=== PATIENT | female | born 1985 | race Caucasian/White ===

== ENCOUNTER 2024-08-06 16:43 | Outpatient (OUT) | payer OTHER, SELFPAY ==
--- NOTE | 2024-08-06 | US_ITS ---
[address] [address] Patient Name: HYACINTH HOLT MRN: [id number] date: 1985 Sex: F Assigned Patient Location: US Current Patient Location: Accession/Order Number: [id number] Exam Date: 08/06/2024 17:05 Report Date: 08/07/2024 00:45 At the request of: SHANNON KONG Procedure: US OB cervical length EXAMINATION: US OB anatomy, US OB cervical length HISTORY: RELATED CONDITION IN SECOND TRIMESTER O26.92 COMPARISON: No relevant comparison available. TECHNIQUE: Transabdominal sonographic examination was performed for obstetrical and evaluation. FINDINGS: Number: 1 Heart Rate: 146.74 bpm H.B. /min Amniotic Fluid Volume: Subjectively normal Placental Location: Anterior with lower margin at the edge of internal os. Cervix Length: 4.33 cm ; closed. ANATOMY: Normal Structures -cerebellum, choroid plexus, cisterna magna, lateral cerebral ventricles, orbits, midline falx, hard palate, four-chamber heart, RVOT, LVOT, stomach, kidneys, bladder, umbilical cord insertion into abdomen, three-vessel cord, cervical spine, thoracic spine, lumbar spine, sacral spine, right upper extremity, left upper extremity, right lower extremity, left lower extremity. SUBOPTIMALLY SEEN: Suspect echogenic focus within left cardiac ventricle. Suboptimal visualization of the cardiac outflow tracts, spine, and extremities due to movement. ABNORMALITIES: None BIOMETRY: BPD: 4.74 cm; 20 weeks 2 days; 39 % HC: 18.08 cm; 20 weeks 3 days; 37.80 % AC: 17.03 cm; 22 weeks 0 days; 85.80 % FL: 3.41 cm; 20 weeks 5 days; 46.60 % EFW:412.98 g; 82.80 % FL/AC: 20.02 FL/BPD: 71.94 HC/AC: 1.06 GESTATIONAL AGE: Age by EDC: 20 weeks 4 days Age by current US: 20 weeks 6 days BERT by current US: 2024-12-18 BERT by EDC: 2024-12-20 US/US OB cervical length IMPRESSION: 1. Single live intrauterine with growth detailed above. 2. Questionable echogenic focus within left cardiac ventricle. Follow-up recommended 3. Suboptimal visualization of the cardiac outflow tracts, spine, extremities due to movement. 4. Anterior, marginal placenta. Follow-up admitted. Electronically authenticated by: ANGEL VILLEDA Date: 08/07/2024 00:45
--- NOTE | 2024-08-06 | US_ITS ---
[address] [address] Patient Name: HYACINTH HOLT MRN: [id number] date: 1985 Sex: F Assigned Patient Location: US Current Patient Location: Accession/Order Number: [id number] Exam Date: 08/06/2024 17:05 Report Date: 08/07/2024 00:45 At the request of: SHANNON KONG Procedure: US OB anatomy EXAMINATION: US OB anatomy, US OB cervical length HISTORY: RELATED CONDITION IN SECOND TRIMESTER O26.92 COMPARISON: No relevant comparison available. TECHNIQUE: Transabdominal sonographic examination was performed for obstetrical and evaluation. FINDINGS: Number: 1 Heart Rate: 146.74 bpm H.B. /min Amniotic Fluid Volume: Subjectively normal Placental Location: Anterior with lower margin at the edge of internal os. Cervix Length: 4.33 cm ; closed. ANATOMY: Normal Structures -cerebellum, choroid plexus, cisterna magna, lateral cerebral ventricles, orbits, midline falx, hard palate, four-chamber heart, RVOT, LVOT, stomach, kidneys, bladder, umbilical cord insertion into abdomen, three-vessel cord, cervical spine, thoracic spine, lumbar spine, sacral spine, right upper extremity, left upper extremity, right lower extremity, left lower extremity. SUBOPTIMALLY SEEN: Suspect echogenic focus within left cardiac ventricle. Suboptimal visualization of the cardiac outflow tracts, spine, and extremities due to movement. ABNORMALITIES: None BIOMETRY: BPD: 4.74 cm; 20 weeks 2 days; 39 % HC: 18.08 cm; 20 weeks 3 days; 37.80 % AC: 17.03 cm; 22 weeks 0 days; 85.80 % FL: 3.41 cm; 20 weeks 5 days; 46.60 % EFW:412.98 g; 82.80 % FL/AC: 20.02 FL/BPD: 71.94 HC/AC: 1.06 GESTATIONAL AGE: Age by EDC: 20 weeks 4 days Age by current US: 20 weeks 6 days BERT by current US: 2024-12-18 BERT by EDC: 2024-12-20 US/US OB anatomy IMPRESSION: 1. Single live intrauterine with growth detailed above. 2. Questionable echogenic focus within left cardiac ventricle. Follow-up recommended 3. Suboptimal visualization of the cardiac outflow tracts, spine, extremities due to movement. 4. Anterior, marginal placenta. Follow-up admitted. Electronically authenticated by: ANGEL VILLEDA Date: 08/07/2024 00:45
== END 2024-08-06 16:44 | disposition home or self-care (01) ==
PROVIDERS: PCP Family Medicine; Visit Provider Midwife
DX: O26.92 Pregnancy related conditions, unspecified, second trimester (principal); O44.22 Partial placenta previa NOS or without hemorrhage, second trimester; Z3A.20 20 weeks gestation of pregnancy
CPT/HCPCS: 76805; 76817

== ENCOUNTER 2024-08-24 17:39 | Outpatient (OUT) | payer OTHER, SELFPAY ==
--- NOTE | 2024-08-24 | US_ITS ---
[address] [address] Patient Name: HYACINTH HOLT MRN: [id number] date: 1985 Sex: F Assigned Patient Location: US Current Patient Location: Accession/Order Number: [id number] Exam Date: 08/24/2024 17:50 Report Date: 08/25/2024 00:59 At the request of: SHANNON KONG Procedure: US OB cervical length EXAMINATION: US OB placenta, US OB cervical length, US OB incomplete anatomy HISTORY: Marginal placenta COMPARISON: Ultrasound OB anatomy 08/06/2024 FINDINGS: HEART RATE: 141 bpm AMNIOTIC FLUID: Subjectively normal PLACENTA: Anterior with lower margin 7.8 cm from os; grade 0. ANATOMY: Extremities, cardiac outflow tracts, four-chamber heart, and spine; no appreciable abnormality. CERVIX: 4.8 cm; closed. AGE BY LMP: 23 weeks 1 day BERT BY LMP: 12/20/2024 US/US OB cervical length IMPRESSION: 1. Single live intrauterine . 2. Adequate visualization of the extremities, cardiac outflow track, four-chamber heart, and spine. The previously seen echogenic focus within left cardiac ventricle is not seen on today's study. 3. Anterior placenta without previa. Electronically authenticated by: ANGEL VILLEDA Date: 08/25/2024 00:59
--- NOTE | 2024-08-24 17:42 | US_ITS ---
The [address] [address] Patient Name: HYACINTH HOLT MRN: [id number] date: 1985 Sex: F Assigned Patient Location: US Current Patient Location: Accession/Order Number: [id number] Exam Date: 08/24/2024 17:50 Report Date: 08/25/2024 00:59 At the request of: SHANNON KONG Procedure: US OB placenta EXAMINATION: US OB placenta, US OB cervical length, US OB incomplete anatomy HISTORY: Marginal placenta COMPARISON: Ultrasound OB anatomy 08/06/2024 FINDINGS: HEART RATE: 141 bpm AMNIOTIC FLUID: Subjectively normal PLACENTA: Anterior with lower margin 7.8 cm from os; grade 0. ANATOMY: Extremities, cardiac outflow tracts, four-chamber heart, and spine; no appreciable abnormality. CERVIX: 4.8 cm; closed. AGE BY LMP: 23 weeks 1 day BERT BY LMP: 12/20/2024 US/US OB placenta IMPRESSION: 1. Single live intrauterine . 2. Adequate visualization of the extremities, cardiac outflow track, four-chamber heart, and spine. The previously seen echogenic focus within left cardiac ventricle is not seen on today's study. 3. Anterior placenta without previa. Electronically authenticated by: ANGEL VILLEDA Date: 08/25/2024 00:59
--- OUTSIDE RECORDS SUMMARY | 2024-08-24 17:43 | XMS_ITS | CCD ---
Author Organization [facility] Care Team Providers Care [employer] S[employer] Person Name Role Phone Provider, None Unavailable Unavailable Omley, Brandon H Unavailable Unavailable Omley, Brandon H Unavailable Unavailable Omley, Brandon H Unavailable Unavailable Omley, Brandon H Unavailable Unavailable Provider, None Unavailable Unavailable PROSPER LEUNG Unavailable Unavailable ADAPPA, SUPA Unavailable Unavailable KAMIREDDY, ADIREDDY Unavailable Unavailable REGGIE HORVATH Attending Unavailable REGGIE HORVATH Admitting Unavailable Melissa Daniel Unavailable Valentina Sadler MD Primary Care Provider [phone] Dat DAYCARE PROVIDER, Aria Cespedes Unavailable Xavier CRAIG, Fina Hinton Unavailable Xavier CRAIG, Fina Hinton Unavailable FINA BARTON Attending Unavailable FINA BARTON Attending Unavailable BANDAR LOREDO Attending Unavailable SHANNON FELIX Attending Unavailable SHANNON FELIX Referring Unavailable SHANNON FELIX Referring Unavailable SHANNON FELIX Attending Unavailable FINA BARTON Attending Unavailable SHANNON FELIX Attending Unavailable SHANNON FELIX Referring Unavailable SHANNON FELIX Attending Unavailable Allergies Allergy Classification Reported Allergen(s) Allergy Type Date of Onset Reaction(s) Facility (1 source) NITROFURANTOIN, MACROCRYSTALS / Nitrofurantoin, Monohydrate Drug Allergy vomiting [facility] Other (14 sources) Nitrofurantoin Drug Allergy 3 GI intolerance [facility] Work Phone: Medications Current Medications Medication Drug Class(es) Dates Sig (Normalized) Sig (Original) 168 HR ethinyl estradiol 0.82138 MG/HR / norelgestromin 0.82167 MG/HR Transdermal System [Zafemy] (1 source) Zafemy 150-35 MCG/24HR Transdermal for 84 Days Active metroNIDAZOLE 0.0075 mg/mg vaginal gel (1 source) Nitroimidazole Antimicrobial Start: 03-27-2024 End: 04-03-2024 metroNIDAZOLE (Metrogel) 0.75 % vaginal gel Indications: Bacterial vaginosis Insert into the vagina at bedtime for 7 days 70 g 03/27/2024 04/03/2024 Active ondansetron 8 mg disintegrating oral tablet (5 sources) Serotonin-3 Receptor Antagonist Start: 05-11-2024 take 1 tablet by mouth every eight hours as needed ondansetron ODT (Zofran-ODT) 8 MG disintegrating tablet Take 8 mg by mouth every 8 (eight) hours if needed 05/11/2024 Active predniSONE 20 mg oral tablet (2 sources) Start: 10-04-2022 take 1 tablet by mouth every twelve hours prednisone 20 MG 1 tablet Orally Twice a day for 5 days Sep, Active predniSONE 20 MG TAKE 1 TABLET BY MOUTH EVERY DAY WITH FOOD FOR 3 DAYS Oral for 3 Days Not-Taking Completed/Discontinued Medications Medication Drug Class(es) Dates Sig (Normalized) Sig (Original) azithromycin 250 mg oral tablet (1 source) Macrolide Antimicrobial Azithromycin 250 MG TAKE 1 TABLET BY MOUTH EVERY DAY FOR 5 DAYS Oral for 5 Days Not-Taking cephalexin 500 mg oral capsule (2 sources) Cephalosporin Antibacterial Start: 06-18-2024 End: 06-21-2024 take 1 capsule by mouth in the morning, then take 1 capsule by mouth in the evening, then take 1 capsule by mouth at bedtime cephalexin (Keflex) 500 MG capsule Indications: Acute cystitis without hematuria Take 1 capsule (500 mg) by mouth in the morning and 1 capsule (500 mg) in the evening and 1 capsule (500 mg) before bedtime. Do all this for 3 days. 9 capsule 06/18/2024 06/21/2024 21 day ethinyl estradiol 0.737620 mg/hr / etonogestrel 0.005 mg/hr vaginal system (5 sources) Progestin, Estrogen Start: 03-26-2024 End: 05-10-2024 etonogestrel-ethiny l estradiol (Nuvaring) 0.12-0.015 MG/24HR vaginal ring Indications: Encounter for gynecological examination without abnormal finding Insert 1 Ring into the vagina See administration instructions 1 every 3 weeks as directed then remove for 1 week 3 each 3 03/26/2024 05/10/2024 Discontinued (Therapy completed) Ethinyl Estradiol / norelgestromin (1 source) Progestin, Estrogen Xulane Not-T aking nitrofurantoin, macrocrystals 25 mg / nitrofurantoin, monohydrate 75 mg oral capsule (1 source) Nitrofuran Antibacterial Start: 03-21-2021 take 1 capsule by mouth every twelve hours Macrobid 100 MG 1 capsule with food Orally every 12 hrs for 5 days Mar, Not-Taking Problems Active Problems Problem Classification Problem Date Documented Da te Episodic/Chronic Anxiety disorders (20 sources) Panic attack; Translations: [Panic disorder [episodic paroxysmal anxiety]] Onset: 05-02-2017 01-12-2023 Chronic Genitourinary symptoms and ill-defined conditions (3 sources) Dysuria; Translations: [Dysuria] 06-18-2024 Episodic Menstrual disorders (20 sources) Irregular periods; Translations: [Irregular menstruation, unspecified] Onset: 09-17-2020 01-12-2023 Chronic Miscellaneous mental health disorders (14 sources) Primary insomnia; Translations: [Primary insomnia] Onset: 10-18-2016 01-12-2023 Chronic Mood disorders (20 sources) Major depression, single episode; Translations: [Major depressive disorder, single episode, unspecified] Onset: 10-18-2016 01-12-2023 Chronic Other acquired deformities (14 sources) Kyphosis of thoracic spine; Translations: [Unspecified kyphosis, thoracic region] Onset: 07-26-2019 01-12-2023 Chronic Other complications of (2 sources) Finding related to ; Translations: [ related conditions, unspecified, second trimester] 07-09-2024 Episodic Other nervous system disorders (14 sources) Carpal tunnel syndrome of right wrist; Translations: [Carpal tunnel syndrome, right upper limb] Onset: 03-15-2019 01-12-2023 Chronic Other and delivery including normal (10 sources) ; Translations: [Encounter for supervision of normal , unspecified, unspecified trimester] 06-18-2024 Episodic Other upper respiratory infections (1 source) Acute pharyngitis, unspecified Episodic Polyhydramnios and other problems of amniotic cavity (4 sources) Subchorionic hematoma; Translations: [Other specified disorders of amniotic fluid and membranes, first trimester, not applicable or unspecified] 06-11-2024 Episodic Urinary tract infections (2 sources) Acute cystitis; Translations: [Acute cystitis without hematuria] 06-18-2024 Episodic Past or Other Problems Problem Classification Problem Date Documented Date Episodic/Chronic Acute and chronic tonsillitis (2 sources) Peritonsillar abscess; Translations: [Peritonsillar abscess] Onset: 02-11-2017 Episodic Inflammatory diseases of female pelvic organs (1 source) Bacterial vaginosis; Translations: [Acute vaginitis] 03-27-2024 Episodic Other nervous system disorders (14 sources) Skin sensation disturbance; Translations: [Unspecified disturbances of skin sensation] Onset: 03-19-2019 01-12-2023 Episodic Unclassified (1 source) Contact with and (suspected) exposure to covid-19 Z20.822 Viral infection (1 source) COVID-19 Results Test Name Value Interpretation Reference Range Facility US OB LIMITED 1+ FETUSESon 1 09-09-2023 US OB LIMITED 1+ FETUSES TITLE OF EXAM: OB Ultrasound: REASON FOR EXAM: Subchorionic hemorrhage. TECHNIQUE: Grayscale imaging is performed. COMPARISON: 05/22/2024 Measurements: heart rate: 151 bpm Cervix Length: 4.3 cm BERT: 12/20/2024 CLINICAL SUMMARY: A single intrauterine is noted in cephalic presentation. heart is observed with a heart rate of 151 BPM. motion and organs seen: body and limb movements are observed. Placenta is located anteriorly. Placenta is Grade 0/III Previous subchorionic hemorrhage has resolved. *This report is generated using voice recognition reporting (Six [employer] Data). On occasion [employer]Insider[employer] erroneously drops words from the report or replaces the spoken word with similar sounding words. Please call with any questions/concerns regarding this report.* Dictated and transcribed 07/11/24/dpd This report has been electronically signed and approved by the interpreting radiologist. Normal Not Available Bacteria identified Cx Nom ( U)on 06-20-2024 Appearance (U) Adequate [facility] Internal identifier for Provider [id number] [facility] Specimen source Nom (Unsp spec) URINE, CLEAN CATCH [facility] STATUS FINAL [facility] Performing Organizat ion Information Site ID: QPT Name: [facility] Address: Shana Tatum , [address] [place] [id number] Director: Bertram Fraser MD [facility] Laboratory - Microbiology an d Antimicrobial susceptibilityon 06-20-2024 Bacteria identified Cx Nom (U) SEE NOTE [facility] Comment on above: Less than 10,000 CFU/mL of single Gram positive organism isolated. No further testing will be performed. If clinically indicated, recollection using a method to minimize contamination, with prompt transfer to Urine Culture Transport Tube, is recommended. Urinalysis macro (dipstick) panel (U)on 06-18-2024 Bilirubin, UA Negative Negative - 4(70) +++ mg/dL [facility] Blood, UA Positive Negative - 50 Wally/mcL [facility] Clarity, UA Clear [facility] Color, UA Yellow [facility] Glucose, UA Negative Negative - 2000(110) ++++ mg/dL [facility] Interpretation and review of laboratory results Abnormal [facility] Ketones, UA Positive Negative - 160(16) ++++ mg/dL [facility] Leukocytes, UA 3+ Negative - 500+++ Doretha/mcL [facility] Nitrite, UA Negative Negative - Positive [facility] pH, UA 5 5 - 9 [facility] Protein, UA Trace Negative - 2000(20) ++++ mg/dL [facility] Spec Grav, UA 1.02 1 - 1.03 [facility] Urobilinogen, UA 0.2 0.2 - 12 mg/dL [facility] US for pregnancyon TITLE OF EXAM: OB Ultrasound: REASON FOR EXAM: Subchorionic hematoma. TECHNIQUE: Grayscale imaging is performed. Measurements: heart rate: 163 bpm Sac: 5.2 cm CRL: 3.3 cm GA for sonogram: 10.2 wk (09.4-11.0) Cervix Length: 4.2 cm BERT: 12/20/2024 CLINICAL SUMMARY: Endovaginal exam was performed. Early intrauterine is seen with positive cardiac activity. Yolk sac is identified and within normal limits. heart is observed with a heart rate of 163. Uterus and adnexae: Hypoechoic area measuring 2.8 x 4.0 x 1.2 cm -- Probable small subchorionic hemorrhage, slightly larger then 05/10/2024 Ovaries no visualized due to bowel gas. Limited study. Full anatomical survey not performed. Dictated and transcribed 05/23/24dpd This report has been electronically signed and approved by the interpreting radiologist. Electronically Signed Deshawn Ibarra M.D. 2024-05-23 17:07:53 IMAGING Deshawn Ibarra MD - 05/23/2024 TITLE OF EXAM: OB Ultrasound: REASON FOR EXAM: Subchorionic hematoma. TECHNIQUE: Grayscale imaging is performed. Measurements: heart rate: 163 bpm Sac: 5.2 cm CRL: 3.3 cm GA for sonogram: 10.2 wk (09.4-11.0) Cervix Length: 4.2 cm BERT: 12/20/2024 CLINICAL SUMMARY: Endovaginal exam was performed. Early intrauterine is seen with positive cardiac activity. Yolk sac is identified and within normal limits. heart is observed with a heart rate of 163. Uterus and adnexae: Hypoechoic area measuring 2.8 x 4.0 x 1.2 cm -- Probable small subchorionic hemorrhage, slightly larger then 05/10/2024 Ovaries no visualized due to bowel gas. Limited study. Full anatomical survey not performed. Dictated and transcribed 05/23/24dpd This report has been electronically signed and approved by the interpreting radiologist. Electronically Signed Deshawn Ibarra M.D. 2024-05-23 17:07:53 [facility] US for pregnancyOrdered By: Deshawn Ibarra on 05-23-2024 [facility] Work Phone: US OB < 14 WEEKS EARLYon US OB < 14 WEEKS EARLY TITLE OF EXAM: OB Ultrasound: REASON FOR EXAM: Subchorionic hematoma. TECHNIQUE: Grayscale imaging is performed. Measurements: heart rate: 163 bpm Sac: 5.2 cm CRL: 3.3 cm GA for sonogram: 10.2 wk (09.4-11.0) Cervix Length: 4.2 cm BERT: 12/20/2024 CLINICAL SUMMARY: Endovaginal exam was performed. Early intrauterine is seen with positive cardiac activity. Yolk sac is identified and within normal limits. heart is observed with a heart rate of 163. Uterus and adnexae: Hypoechoic area measuring 2.8 x 4.0 x 1.2 cm -- Probable small subchorionic hemorrhage, slightly larger then 05/10/2024 Ovaries no visualized due to bowel gas. Limited study. Full anatomical survey not performed. Dictated and transcribed 05/23/24/dpd This report has been electronically signed and approved by the interpreting radiologist. Electronically Signed Deshawn Ibarra M.D. 2024-05-23 17:07:53 Normal Not Available US for pregnancyon Radiology Study observation (narrative) [facility] CBC panel Auto (Bld)on 05-17 Erythrocyte distribution width (RBC) [Ratio] 12.4 % 11.0 - 15.0 % [facility] Hematocrit (Bld) [Volume fraction] 40.8 % 35.0 - 45.0 % [facility] Hemoglobin (Bld) [Mass/Vol] 13.7 g/dL 11.7 - 15.5 g/dL [facility] MCH (RBC) [Entitic mass] 29.4 pg 27.0 - 33.0 pg [facility] MCHC (RBC) [Mass/Vol] 33.6 g/dL 32.0 - 36.0 g/dL [facility] Comment on above: For adults, a slight decrease in the calculated MCHC value (in the range of 30 to 32 g/dL) is most likely not clinically significant; however, it should be interpreted with caution in correlation with other red cell parameters and the patient's clinical condition. MCV (RBC) [Entitic vol] 87.6 fL 80.0 - 100.0 fL [facility] Platelet mean volume (Bld) [Entitic vol] 10.1 fL 7.5 - 12.5 fL [facility] Platelets (Bld) [#/Vol] 255 10*3/uL [facility] RBC (Bld) [#/Vol] 4.66 10*6/uL [facility] WBC (Bld) [#/Vol] 7.6 10*3/uL [facility] Laboratory - Blood bankon ABO group Nom (Bld) O [facility] Blood group antibody screen Ql Detected [facility] Comment on above: Reference range No antibodies detected This assay is a screening test for the detection of red blood cell antibodies. The test is not to be used for pretransfusion screening or for the medical management of an alloimmunized . Rh Nom (Bld) Positive [facility] Comment on above: For additional information, please refer to http://Fluid-1.Flowline/faq/VVM047 (This link is being provided for informational/ educational purposes only.) Laboratory - Chemistry and C hemistry - challengeon 05-17-2024 TSH Qn 2.36 m[IU]/L mIU/L [facility] Comment on above: Reference Range > or = 20 Years 0.40-4.50 Ranges First trimester 0.26-2.66 Second trimester 0.55-2.73 Third trimester 0.43-2.91 Laboratory - Hematology and Cell countson 05-17-2024 HbA1c (Bld) [Mass fraction] 5.1 % NINF [facility] Comment on above: For the purpose of s creening for the presence of diabetes: <5.7% Consistent with the absence of diabetes 5.7-6.4% Consistent with increased risk for diabetes (prediabetes) > or =6.5% Consistent with diabetes This assay result is consistent with a decreased risk of diabetes. Currently, no consensus exists regarding use of hemoglobin A1c for diagnosis of diabetes in children. According to [place] Diabetes Association (ADA) guidelines, hemoglobin A1c <7.0% represents optimal control in non- diabetic patients. Different metrics may apply to specific patient populations. Standards of Medical Care in Diabetes(ADA). Laboratory - Microbiology an d Antimicrobial susceptibilityon 05-17-2024 HBV surface Ag IA Ql Non-Reactive NON-REACTIVE [facility] Comment on above: For additional information, please refer to http://education.Informantonline/faq/NJT237 (This link is being provided for informational/ educational purposes only.) HCV Ab IA Ql Non-Reactive NON-REACTIVE [facility] Comment on above: HCV antibody was non-reactive. There is no laboratory evidence of HCV infection. In most cases, no further action is required. However, if recent HCV exposure is suspected, a test for HCV RNA (test code 40028) is suggested. For additional information please refer to http://Fluid-1.Informantonline/faq/BRR52z3 (This link is being provided for informational/ educational purposes only.) HIV 1+2 Ab+HIV1 p24 Ag IA Ql Non-Reactive NON-REACTIVE [facility] Comment on above: HIV-1 antigen and HI V-1/HIV-2 antibodies were not detected. There is no laboratory evidence of HIV infection. PLEASE NOTE: This information has been disclosed to you from records whose confidentiality may be protected by state law. If your state requires such protection, then the state law prohibits you from making any further disclosure of the information without the specific written consent of the person to whom it pertains, or as otherwise permitted by law. A general authorization for the release of medical or other information is NOT sufficient for this purpose. For additional information please refer to http://Fluid-1.Informantonline/faq/SHO265 (This link is being provided for informational/ educational purposes only.) The performance of this assay has not been clinically validated in patients less than 2 years old. Reagin Ab RPR (S) [Titer] 1 {titer} High [facility] Reagin Ab RPR Ql (S) Reactive Abnormal NON-REACTIVE NO [facility] Comment on above: The RPR is a non-alis ponemal-specific test; therefore, a treponemal-specific confirmatory test should be performed unless prior syphilis infection has been documented for this patient. Rubella virus IgG Qn (S) 7.94 [IU]/mL Index [facility] Comment on above: Index Interpretation ----- <0.90 Not consistent with immunity 0.90-0.99 Equivocal > or = 1.00 Consistent with immunity The presence of rubella IgG antibody suggests immunization or past or current infection with rubella virus. T. pallidum Ab IF Ql (S) Non-Reactive Nonreactive [facility] Comment on above: The FTA-ABS is a treponemal assay that is intended to be used with other tests (e.g., RPR) as part of a diagnostic algorithm for syphilis. The preferred treponemal-specific tests for confirmation of a reactive RPR are Treponema pallidum Particle Agglutination (TP-PA) or other treponemal antibody assays. From Sexually Transmitted Infections Treatment Guidelines,2021 MMWR Recomm Rep 2020;70 (No. RR-4): pg.39. Laboratory - Miscellaneous t estson 05-17-2024 Reference Lab Test ID [id number] [facility] Reference Lab Test Name [id number] [facility] No Panel Informationon 05-17 CLIENT CONTACT: DOLLY BAIG [facility] COMMENT [facility] Comment on above: Please have the [facility] physician or his or her authorized players club representative sign a copy of this report and promptly return it by faxing it to: [phone] or by returning the form to your flat knitter helper. Interpretation and review of laboratory results Abnormal [facility] REPORT ALWAYS MESSAGE SIGNATURE [facility] Comment on above: The laboratory testing on this patient was verbally requested or confirmed by the ordering physician or his or her authorized players club representative after contact with an employee of [facility]. Federal regulations require that we maintain on file written authorization for all laboratory testing. Accordingly we are asking that the ordering physician or his or her authorized players club representative sign a copy of this report and promptly return it to the client technical professional. Signature: MULTIPLE COLLECTION TIMES FOR SAME TEST TYPE. [employer] Performing Organizat ion Information Site ID: QPT Name: [facility] Address: [address] [place] [id number] Director: Bertram Fraser MD [facility] Performing Organizat ion Information Site ID: AMD Name: [facility] Address: [address] [place] [address] [place] [address] Director: Dave Rodriguez M.D.,PhD [facility] Bacteria identified Cx Nom ( U)on 05-12-2024 Appearance (U) Adequate [facility] Internal identifier for Provider [id number] [facility] Specimen source Nom (Unsp spec) URINE [facility] STATUS FINAL [facility] Laboratory - Drug toxicology on 05-12-2024 4-Guchwezfmr-1,5-Dime thyl-3,3-Diphenylpyrr olidine (EDDP) Ql (U) Negative NINF - 100 ng/mL [facility] Amphetamines Ql (U) Negative NINF - 5 00 ng/mL [facility] Barbiturates Ql (U) Negative NINF - 3 00 ng/mL [facility] Benzodiazepines Ql (U) Negative NINF - 100 ng/mL [facility] Benzoylecgonine Ql (U) Negative NINF - 150 ng/mL [facility] Opiates Ql (U) Negative NINF - 100 ng/mL [facility] oxyCODONE Ql (U) Negative NINF - 100 ng/mL [facility] Phencyclidine Ql (U) Negative NINF - 25 ng/mL [facility] Tetrahydrocannabinol Screen method >20 ng/mL Ql (U) Negative NINF - 20 ng/mL [facility] Laboratory - Microbiology an d Antimicrobial susceptibilityon 05-12-2024 Bacteria identified Cx Nom (U) SEE NOTE [facility] Comment on above: Mixed genital butch isolated. These superficial bacteria are not indicative of a urinary tract infection. No further organism identification is warranted on this specimen. If clinically indicated, recollect clean-catch, mid-stream urine and transfer immediately to Urine Culture Transport Tube. Laboratory - Urinalysison Bacteria LM.HPF (Urine sed) [#/Area] NONE SEEN NONE SEEN /HPF [facility] Epithelial cells.squamous LM.HPF (Urine sed) [#/Area] 0-5 < OR = 5 /HPF [facility] Hyaline casts (Urine sed) [#/Area] NONE SEEN NONE SEEN /LPF [facility] RBC LM.HPF (Urine sed) [#/Area] NONE SEEN < OR = 2 /HPF [facility] WBC LM.HPF (Urine sed) [#/Area] 0-5 < OR = 5 /HPF [facility] N. gonorrhoeae DNA RAJINEDR+probe Ql (Cervical mucus)on 05-12-2024 C. trachomatis rRNA RAJINDER+probe Ql (Unsp spec) Not detected NOT DETECTED [facility] N. gonorrhoeae rRNA RAJINDER+probe Ql (Unsp spec) Not detected NOT DETECTED [facility] No Panel Informationon 05-12 (ALWAYS MESSAGE) [facility] Comment on above: See Note 1 Note 1 This drug testing is for medical treatment only. Analysis was performed as non-forensic testing and these results should be used only by healthcare providers to render diagnosis or treatment, or to monitor progress of medical conditions. For assistance with interpreting these drug results, please contact a [facility] Toxicology Specialist: [phone] ( ), M-F, 8am-6pm EST. The analytical perfo rmance characteristics of this assay, when used to test SurePath(TM) specimens have been determined by [facility]. The modifications have not been cleared or approved by the FDA. This assay has been validated pursuant to the CLIA regulations and is used for clinical purposes. For additional information, please refer to https://education.Informantonline/faq/YQX972 (This link is being provided for information/ educational purposes only.) Performing Organizat ion Information Site ID: QPT Name: [facility] Address: [address] [place] [address], [address] [place] [phone] Director: Bertram Fraser MD [facility] HCG ( test) Ql (U)o n 05-10-2024 Interpretation and review of laboratory results Abnormal [facility] [employer] [facility] Test, Ur Positive [facility] US OB < 14 WEEKS EARLYon US OB < 14 WEEKS EARLY TITLE OF EXAM: OB Ultrasound: REASON FOR EXAM: Dating, amenorrhea. TECHNIQUE: Grayscale imaging is performed. Measurements: heart rate: 165 bpm Sac: 3.3 cm CRL: 1.9 cm GA for sonogram: 8.4 wk (07.8-09.1) Cervix Length: 3.8 cm BERT: 12/20/2024 CLINICAL SUMMARY: Endovaginal exam was performed. Early intrauterine is seen with positive cardiac activity. Yolk sac is identified and within normal limits. heart is observed with a heart rate of 165. Uterus and adnexae: Hypoechoic area UT measuring 2.0 x 2.4 x 1.4 cm -- possible small fibroid. Limited study. Full anatomical survey not performed. Battery Filler notes: Ovaries not visualized due to bowel. Dictated and transcribed 05/11/24/dpd This report has been electronically signed and approved by the interpreting radiologist. Electronically Signed Deshawn Ibarra M.D. 2024-05-11 13:14:11 Normal Not Available COVID + FLU Quick Testingon 10-04-2022 SARS-CoV-2 (COVID-19) RNA RAJINDER+probe Ql (Unsp spec) positve [facility] Other COVID + FLU Quick Testing Negative [facility] Other Quick Strepon 10-04-2022 S. pyogenes Org specific cx Ql (Throat) Negative [facility] Other Quick Strep [facility] Other XR Chest 2 Views*on 08-20-19 22 XR Chest 2 Views* FINDINGS: No acute cardiac or pulmonary disease is identified. No worrisome mass lesions or infiltrates are seen. No pulmonary edema or pneumothorax is present. Cardiac silhouette size is normal. Skeletal structures are unremarkable. IMPRESSION: No acute cardiac or pulmonary disease. Report reported and signed by Neri Torres on 08/20/2021 1621 Normal [facility] Sales Coordinator Q - CULTURE,URINE,ROUTINEon 07-16-2021 CULTURE, URINE, ROUTINE SEE NOTE Normal [facility] Sales Coordinator Comment on above: Order Comment: [facility] performed at: QPT, [facility], [address] [place] [address], [address] [place] [address], [id number], Thiokol Operator: Bertram Fraser MD [facility] Collection Date/Time: [id number] [facility] Results Received Date/Time: [id number] [facility] Reported Date/Time: [id number] Result Comment: CULT URE, URINE, ROUTINE Micro Number: [id number] Test Status: Final Specimen Source: Urine Specimen Quality: Adequate Result: No Growth Performed By: #### 6 [id number] #### [facility] Default [address] [place] [address] Urine Cultureon 03-21-2021 Bacteria identified Cx Nom (U) ORGANISM: Escherichia coli (O:ESCCOL) Amma Count >100,000 Aerobic EMILE Charge (NUC86) - SUSCEPTIBILITY ORGANISM: O:ESCCOL ANTIBIOTIC INTERPRETATION EMILE Amikacin S <16 Ampicillin R >16 Ampicillin/Sulbactam I 1616/8 Aztreonam S <4 Cefazolin S <2 Cefepime S <2 Ceftazidime S <1 Ceftazidime/Avibactam S <8 Ceftriaxone S <1 Ciprofloxacin S <1 Ertapenem S <0.5 Gentamicin S <4 Levofloxacin S <2 Meropenem S <1 Nitrofurantoin S <32 Piperacillin/Tazobactam S <16 Tetracycline R >8 Tigecycline S <2 Tobramycin S <4 Trimethoprim/Sulfamethox azole R > S = SUSCEPTIBLE I = INTERMEDIATE R = RESISTANT BLANK = DATA NOT AVAILABLE, OR DRUG NOT ADVISABLE OR TESTED R* = RESISTANCE DUE TO EXTENDED SPECTRUM BETA-LACTAMASES ESBL = EXTENDED SPECTRUM BETA-LACTAMASE TFG = THYMIDINE-DEPENDENT STRAIN NEYMAR = BETA-LACTAMASE POSITIVE IB = INDUCIBLE BETA-LACTAMASE. APPEARS IN PLACE OF 'S' WITH SPECIES KNOWN TO POSSESS INDUCIBLE BETA-LACTAMASES. POTENTIALLY THEY MAY BECOME RESISTANT TO ALL B-LACTAM DRUGS. PERFORMED BY: [place] [address] PATHOLOGIST INTELLECTUAL PROPERTY LAWYER QIANA BRYSON M.D. [facility] Comment on above: Performed By: #### C UU #### [address] Chlamydia/GC/Trich NAAon Chlamydia Trachomotis, RAJINDER Negative Normal Negative [facility] Comment on above: Order Comment: Reaso n for Exam Dysuria Performed By: #### C UU #### [facility] [address] [place] [address] #### GCCHLAMTRI #### [facility] , Neisseria Gonorrhoeae, RAJINDER Negative Normal Negative [facility] Comment on above: Order Comment: Reaso n for Exam Dysuria Performed By: #### C UU #### [address] #### GCCHLAMTRI #### [facility] , Trichomonas RAJINDER Negative Normal Negative [facility] Comment on above: Order Comment: Reaso n for Exam Dysuria Result Comment: Perf ormed at: =G - [facility] [place] [address] [facility] [place], [place] [id number] Dial Lathe Operator: Kaleigh Arnold MD, Phone: [phone] PERFORMED BY: [place] [address] PATHOLOGIST INTELLECTUAL PROPERTY LAWYER QIANA BRYSON M.D. Performed By: #### C UU #### [address] #### GCCHLAMTRI #### [facility] , Urine Cultureon 03-01-2021 Bacteria identified Cx Nom (U) Reason for Exam Dysuria Urine ORGANISM: Citrobacter freundii (O:CITFRE) Amma Count >100,000 Aerobic EMILE Charge (NUC86) - SUSCEPTIBILITY ORGANISM: O:CITFRE ANTIBIOTIC INTERPRETATION EMILE Amikacin S <16 Ampicillin I 16 Ampicillin/Sulbactam IB <8/4 Aztreonam IB <4 Cefazolin R >16 Cefepime S <2 Ceftazidime IB <1 Ceftazidime/Avibactam S <8 Ceftriaxone IB <1 Ciprofloxacin S <1 Ertapenem S <0.5 Gentamicin S <4 Levofloxacin S <2 Meropenem S <1 Nitrofurantoin S <32 Piperacillin/Tazobactam IB <16 Tetracycline S <4 Tigecycline S <2 Tobramycin S <4 Trimethoprim/Sulfamethox azole S <2/38 S = SUSCEPTIBLE I = INTERMEDIATE R = RESISTANT BLANK = DATA NOT AVAILABLE, OR DRUG NOT ADVISABLE OR TESTED R* = RESISTANCE DUE TO EXTENDED SPECTRUM BETA-LACTAMASES ESBL = EXTENDED SPECTRUM BETA-LACTAMASE TFG = THYMIDINE-DEPENDENT STRAIN NEYMAR = BETA-LACTAMASE POSITIVE IB = INDUCIBLE BETA-LACTAMASE. APPEARS IN PLACE OF 'S' WITH SPECIES KNOWN TO POSSESS INDUCIBLE BETA-LACTAMASES. POTENTIALLY THEY MAY BECOME RESISTANT TO ALL B-LACTAM DRUGS. PERFORMED BY: [place] [address] PATHOLOGIST INTELLECTUAL PROPERTY LAWYER QIANA BRYSON M.D. [facility] Comment on above: Performed By: #### C UU #### [address] #### GCCHLAMTRI #### [facility] , Coding Summaryon 06-06-2017 Coding Summary CODING DATE: 017 [facility] STATUS: Home PAYOR: Commercial Insurance APC DESCRIPTION 5024 Level 4 Type A ED Visits ADMIT DX: REASON FOR VISIT DX: J02.9 Acute pharyngitis, unspecified FINAL DX: PRINCIPAL: J36 Peritonsillar abscess SECONDARY: PYMT PROC APC STAT DESCRIPTION DOCTOR NAME DATE NOTE: The code number assigned matches the documented diagnosis and / or procedure in the patient's chart. However, the narrative phrase printed from the coding software may appear abbreviated, or result in slightly different terminology. Revised Coded By: Alen Thomas Revised Date Saved: 02/21/2017 03:[address] [facility] Coding Summary CODING DATE: 017 [facility] STATUS: Discharge/Transfer to Another Hospital PAYOR: Commercial Insurance APC DESCRIPTION 5571 Level 1 Imaging with Contrast 5024 Level 4 Type A ED Visits 5693 Level 3 Drug Administration 5691 Level 1 Drug Administration ADMIT DX: REASON FOR VISIT DX: J02.9 Acute pharyngitis, unspecified FINAL DX: PRINCIPAL: J36 Peritonsillar abscess SECONDARY: PYMT PROC APC STAT DESCRIPTION DOCTOR NAME DATE NOTE: The code number assigned matches the documented diagnosis and / or procedure in the patient's chart. However, the narrative phrase printed from the coding software may appear abbreviated, or result in slightly different terminology. Revised Coded By: Alen Thomas Revised Date Saved: 02/21/2017 03:[address] [facility] Coding Summaryon 02-21-2017 Coding Summary CODING DATE: 017 [facility] STATUS: Home PAYOR: Commercial Insurance ADMIT DX: REASON FOR VISIT DX: J02.9 Acute pharyngitis, unspecified FINAL DX: PRINCIPAL: J36 Peritonsillar abscess SECONDARY: PROCEDURES DOCTOR NAME DATE NOTE: The code number assigned matches the documented diagnosis and / or procedure in the patient's chart. However, the narrative phrase printed from the coding software may appear abbreviated, or result in slightly different terminology. Coded By: Alen Thomas Date Saved: 02/21/2017 03:[address] [facility] Coding Summary CODING DATE: 017 [facility] STATUS: Discharge/Transfer to Another Hospital PAYOR: Commercial Insurance ADMIT DX: REASON FOR VISIT DX: J02.9 Acute pharyngitis, unspecified FINAL DX: PRINCIPAL: J36 Peritonsillar abscess SECONDARY: PROCEDURES DOCTOR NAME DATE NOTE: The code number assigned matches the documented diagnosis and / or procedure in the patient's chart. However, the narrative phrase printed from the coding software may appear abbreviated, or result in slightly different terminology. Coded By: Alen Thomas Date Saved: 02/21/2017 03:[address] [facility] Basic Metabolic Profon 02-14 (cont.) Normal [facility] Comment on above: Result Comment: Aver age GFR for 30-39 years old: 107 mL/min/1.73sq mChronic Kidney Disease: <60 mL/min/1.73sq mKidney failure: <15 mL/min/1.73sq meGFR calculated using average adult body mass. Additional eGFR calculator available at:http://[email or web address]/multiple_crcl_[email or web address] Memorial [facility] [address] [place] [address] Performed By: #### C BC, BMP ####[facility] [address] [place] [address] Anion gap 13 mmol/L Normal - [facility] Comment on above: Performed By: #### C BC, BMP ####[facility] [address] [place] [address] Calcium 8.5 mg/dL Low 8.6-10.4 [facility] Comment on above: Performed By: #### C BC, BMP ####[facility] [address] [place] [address] Chloride 105 mmol/L Normal 98-107 [facility] Comment on above: Performed By: #### C BC, BMP ####[facility] [place] [address] CO2 21 mmol/L Normal 20-31 [facility] Comment on above: Performed By: #### C BC, BMP ####[facility] [place] [address] Creatinine 0.69 mg/dL Normal 0.50-0.90 [facility] Comment on above: Performed By: #### C BC, BMP ####[facility] [place] [address] eGFR (non-black) mL/min/{1.73_m2} Normal >60 [facility] Comment on above: Performed By: #### C BC, BMP ####[address] [address] Glucose mass conc 95 mg/dL Normal 70-99 [facility] Comment on above: Performed By: #### C BC, BMP ####[facility] [place] [address] Potassium molar conc 4.3 mmol/L Normal 3.7-5.3 [facility] Comment on above: Performed By: #### C BC, BMP ####[address] [place] [address] Sodium 139 mmol/L Normal 135-144 [facility] Comment on above: Performed By: #### C BC, BMP ####[facility] [place] [address] Urea nitrogen 14 mg/dL Normal 6-20 [facility] Comment on above: Performed By: #### C BC, BMP ####[facility] [place] [address] BUN/CRE Ratio NOT REPORTED Normal 9-20 [facility] Comment on above: Performed By: #### C BC, BMP ####[address] [address] Staging: NOT REPORTED Normal [facility] Comment on above: Performed By: #### C BC, BMP ####[address] [address] CBCon 02-14-2017 Erythrocyte distribution width Auto Ratio (RBC) 12.8 % Normal 12.5-15.4 [facility] Comment on above: Performed By: #### C BC, BMP ####[address] [address] Erythrocytes (RBC) 4.09 10*6/uL Normal 4.0-5.2 [facility] Comment on above: Performed By: #### C BC, BMP ####[address] [address] Hematocrit (HCT) 34.2 % Low 36-46 [facility] Comment on above: Performed By: #### C BC, BMP ####[address] [address] Hemoglobin mass conc (Bld) 11.9 g/dL Low 12.0-16.0 [facility] Comment on above: Performed By: #### C BC, BMP ####[facility] [address] [address] MCH 29.0 pg Normal 26-34 [facility] Comment on above: Performed By: #### C BC, BMP ####[address] [address] MCHC mass conc (RBC) 34.7 g/dL Normal 31-37 [facility] Comment on above: Performed By: #### C BC, BMP ####[facility] [address] [place] [address] MCV 83.8 fL Normal 80-100 [facility] Comment on above: Performed By: #### C TAYLOR, BMP ####[address] [place] [address] Platelet mean volume (PMV) 9.8 fL Normal 6.0-12.0 [facility] Comment on above: Result Comment: [address] [address] Performed By: #### C TAYLOR, BMP ####[address] [address] Platelets 258 10*3/uL Normal 140-450 [facility] Comment on above: Performed By: #### C TAYLOR, BMP ####[address] [address] WBC (Leukocytes) 11.5 10*3/uL High 3.5-11.0 [facility] Comment on above: Performed By: #### C TAYLOR, BMP ####[address] [address] Discharge Summaryon 02-15-20 17 HIM IP Note OR Rod Straightener Normal [facility] Basic Metabolic Profon 02-13 (cont.) Normal [facility] Comment on above: Result Comment: Aver age GFR for 30-39 years old: 107 mL/min/1.73sq mChronic Kidney Disease: <60 mL/min/1.73sq mKidney failure: <15 mL/min/1.73sq meGFR calculated using average adult body mass. Additional eGFR calculator available at:http://www.Sensorist.com/multiple_crcl_2012.htm[address] [address] Performed By: #### C TAYLOR, BMP ####[address] [address] Anion gap 11 mmol/L Normal 9-17 [facility] Comment on above: Performed By: #### C BC, BMP ####[facility] [place] [address] Calcium 9.0 mg/dL Normal 8.6-10.4 [facility] Comment on above: Performed By: #### C TAYLOR, BMP ####[facility] [place] [address] Chloride 106 mmol/L Normal 98-107 [facility] Comment on above: Performed By: #### C TAYLOR, BMP ####[facility] [place] [address] CO2 22 mmol/L Normal 20-31 [facility] Comment on above: Performed By: #### C TAYLOR, BMP ####[facility] [place] [address] Creatinine 0.59 mg/dL Normal 0.50-0.90 [facility] Comment on above: Performed By: #### C TAYLOR, BMP ####[facility] [place] [address] eGFR (non-black) mL/min/{1.73_m2} Normal >60 [facility] Comment on above: Performed By: #### C BC, BMP ####[facility] [address] [place] [address] Glucose mass conc 144 mg/dL High 70-99 [facility] Comment on above: Performed By: #### C BC, BMP ####[facility] [address] [place] [address] Potassium molar conc 4.5 mmol/L Normal 3.7-5.3 [facility] Comment on above: Performed By: #### C TAYLOR, BMP ####[facility] [place] [address] Sodium 139 mmol/L Normal 135-144 [facility] Comment on above: Performed By: #### C BC, BMP ####[address] [place] [address] Urea nitrogen 10 mg/dL Normal 6-20 [facility] Comment on above: Performed By: #### C BC, BMP ####[facility] [address] [place] [address] BUN/CRE Ratio NOT REPORTED Normal 9-20 [facility] Comment on above: Performed By: #### C TAYLOR, BMP ####[facility] [address] [place] [address] Staging: NOT REPORTED Normal [facility] Comment on above: Performed By: #### C TAYLOR, BMP ####[facility] [address] [place] [address] C Throaton 02-13-2017 C Throat Ordered by Discern. Normal throat butch isolated No pathogens isolated Normal [facility] Comment on above: Performed By: #### 4 [id number] ####[facility] (DEFAULT)[address] [place] [address] CBCon 02-13-2017 Erythrocyte distribution width Auto Ratio (RBC) 13.2 % Normal 12.5-15.4 [facility] Comment on above: Performed By: #### C BC, BMP ####[facility] [address] [place] [address] Erythrocytes (RBC) 4.13 10*6/uL Normal 4.0-5.2 [facility] Comment on above: Performed By: #### C BC, BMP ####[facility] [address] [place] [address] Hematocrit (HCT) 34.7 % Low 36-46 [facility] Comment on above: Performed By: #### C BC, BMP ####[address] [place] [address] Hemoglobin mass conc (Bld) 12.0 g/dL Normal 12.0-16.0 [facility] Comment on above: Performed By: #### C BC, BMP ####[address] [place] [address] MCH 29.1 pg Normal 26-34 [facility] Comment on above: Performed By: #### C BC, BMP ####[address] [address] MCHC mass conc (RBC) 34.6 g/dL Normal 31-37 [facility] Comment on above: Performed By: #### C BC, BMP ####[address] [address] MCV 84.2 fL Normal 80-100 [facility] Comment on above: Performed By: #### C BC, BMP ####[address] [address] Platelet mean volume (PMV) 9.1 fL Normal 6.0-12.0 [facility] Comment on above: Result Comment: [facility] [address] [place] [address] Performed By: #### C BC, BMP ####[address] [address] Platelets 244 10*3/uL Normal 140-450 [facility] Comment on above: Performed By: #### C BC, BMP ####[address] [address] WBC (Leukocytes) 8.4 10*3/uL Normal 3.5-11.0 [facility] Comment on above: Performed By: #### C BC, BMP ####[address] [address] Basic Metabolic Profon 02-12 (cont.) Normal [facility] Comment on above: Result Comment: Aver age GFR for 30-39 years old: 107 mL/min/1.73sq mChronic Kidney Disease: <60 mL/min/1.73sq mKidney failure: <15 mL/min/1.73sq meGFR calculated using average adult body mass. Additional eGFR calculator available at:http://www.[email or web address]/multiple_crcl_2012.htmSelma Community Hospital [address] [place] [address] Performed By: #### C BC, BMP ####[facility] HospitalInStore Audio Network [address] [place] [address] Anion gap 14 mmol/L Normal 9-17 [facility] Comment on above: Performed By: #### C BC, BMP ####[facility] HospitalFridgeKselggybgyyl[address] [place] [address] Calcium 8.3 mg/dL Low 8.6-10.4 [facility] Comment on above: Performed By: #### C BC, BMP ####[facility] HospitalFridgeYdxorkxyiqgq[address] [place] [address] Chloride 104 mmol/L Normal 98-107 [facility] Comment on above: Performed By: #### C BC, BMP ####[facility] HospitalFridgeXfifsuvnxfak[address] [place] [address] CO2 17 mmol/L Low 20-31 [facility] Comment on above: Performed By: #### C BC, BMP ####[address] [place] [address] Creatinine 0.44 mg/dL Low 0.50-0.90 [facility] Comment on above: Performed By: #### C BC, BMP ####[address] [place] [address] eGFR (non-black) mL/min/{1.73_m2} Normal >60 [facility] Comment on above: Performed By: #### C BC, BMP ####[address] [place] [address] Glucose mass conc 104 mg/dL High 70-99 [facility] Comment on above: Performed By: #### C BC, BMP ####[facility] Hospital[facility] [address] [address] Potassium molar conc 4.2 mmol/L Normal 3.7-5.3 [facility] Comment on above: Performed By: #### C TAYLOR, BMP ####[address] [address] Sodium 135 mmol/L Normal 135-144 [facility] Comment on above: Performed By: #### C TAYLOR, BMP ####[address] [address] Urea nitrogen 7 mg/dL Normal 6-20 [facility] Comment on above: Performed By: #### C TAYLOR, BMP ####[address] [address] BUN/CRE Ratio NOT REPORTED Normal 9-20 [facility] Comment on above: Performed By: #### C TAYLOR, BMP ####[address] [address] Staging: NOT REPORTED Normal [facility] Comment on above: Performed By: #### C BC, BMP ####[facility] [place] [address] CBCon 02-12-2017 Erythrocyte distribution width Auto Ratio (RBC) 13.0 % Normal 12.5-15.4 [facility] Comment on above: Performed By: #### C BC, BMP ####[address] [address] Erythrocytes (RBC) 3.97 10*6/uL Low 4.0-5.2 [facility] Comment on above: Performed By: #### C BC, BMP ####[address] [address] Hematocrit (HCT) 33.6 % Low 36-46 [facility] Comment on above: Performed By: #### C BC, BMP ####[address] [address] Hemoglobin mass conc (Bld) 11.8 g/dL Low 12.0-16.0 [facility] Comment on above: Performed By: #### C TAYLOR, BMP ####[address] [address] MCH 29.7 pg Normal 26-34 [facility] Comment on above: Performed By: #### C BC, BMP ####[address] [address] MCHC mass conc (RBC) 35.0 g/dL Normal 31-37 [facility] Comment on above: Performed By: #### C BC, BMP ####[address] [address] MCV 84.6 fL Normal 80-100 [facility] Comment on above: Performed By: #### C BC, BMP ####[address] [address] Platelet mean volume (PMV) 8.6 fL Normal 6.0-12.0 [facility] Comment on above: Result Comment: [address] [place] [address] Performed By: #### C BC, BMP ####[address] [address] Platelets 236 10*3/uL Normal 140-450 [facility] Comment on above: Performed By: #### C BC, BMP ####[facility] [place] [address] WBC (Leukocytes) 11.3 10*3/uL High 3.5-11.0 [facility] Comment on above: Performed By: #### C BC, BMP ####[facility] [place] [address] .Auto Diff 1on 02-11-2017 Auto Baso % 0.1 % Low 0.2-2.0 [facility] Comment on above: Performed By: #### 1 [id number], [id number], [id number], [id number], [id number], [id number] ####[facility] (DEFAULT)[address] [place] [address] Auto [place] % 8 % Normal 1-12 [facility] Comment on above: Performed By: #### 1 [id number], [id number], [id number], [id number], [id number], [id number] ####[facility] (DEFAULT)[address] [place] [address] Auto Neut % 82 % Normal 44-88 [facility] Comment on above: Performed By: #### 1 [id number], [id number], [id number], [id number], [id number], [id number] ####[facility] (DEFAULT)[address] [place] [address] Baso Abs# 0.0 x10 Normal 0.0-0.2 [facility] Comment on above: Performed By: #### 1 [id number], [id number], [id number], [id number], [id number], [id number] ####[facility] (DEFAULT)[address] [place] [address] Eos Abs# 0.0 x10 Normal 0.0-0.4 [facility] Comment on above: Performed By: #### 1 [id number], [id number], [id number], [id number], [id number], [id number] ####[facility] (DEFAULT)[address] [place] [address] Eosinophils/100 leukocytes 0.2 % Low 0.9-4.0 [facility] Comment on above: Performed By: #### 1 [id number], [id number], [id number], [id number], [id number], [id number] ####[facility] (DEFAULT)[address] [place] [address] Lymphocytes 1.1 x10 Low 1.3-2.9 [facility] Comment on above: Performed By: #### 1 [id number], [id number], [id number], [id number], [id number], [id number] ####[facility] (DEFAULT)[address] [place] [address] Lymphocytes/100 leukocytes 9 % Low 14-48 [facility] [facility] Comment on above: Performed By: #### 1 [id number], [id number], 3398533, 26972973, 9626335, [id number] ####[facility] (DEFAULT)[address] [place] [address] [place] Abs# 1.0 x10 High 0.0-0.8 [facility] Comment on above: Performed By: #### 1 [id number], [id number], 8714033, 79146114, 1201364, [id number] ####[facility] (DEFAULT)[address] [place] [address] Neut Abs# 9.8 x10 High 1.5-9.2 [facility] Comment on above: Performed By: #### 1 [id number], [id number], 4949259, 30331249, 2662930, [id number] ####[facility] (DEFAULT)[address] [place] [address] CBC w/ Auto Diffon 7 Erythrocyte distribution width Auto Ratio (RBC) 12.3 % Normal 11.5-15.0 [facility] Comment on above: Performed By: #### 1 [id number], [id number], 2664990, 93428660, 5844545, [id number] ####[facility] (DEFAULT)[address] [place] [address] Erythrocytes (RBC) 4.48 x10 Normal 3.70-5.30 [facility] Comment on above: Performed By: #### 1 [id number], [id number], 5085158, 28129147, 5140895, [id number] ####[facility] (DEFAULT)[address] [place] [address] Hematocrit (HCT) 38.1 % Normal 33.7-40.4 [facility] Comment on above: Performed By: #### 1 [id number], [id number], 9975832, 01761100, 7677151, [id number] ####[facility] (DEFAULT)[address] [place] [address] Hemoglobin mass conc (Bld) 13.1 g/dL Normal 11.3-15.9 [facility] Comment on above: Performed By: #### 1 [id number], [id number], 6644918, 98287436, 6910166, [id number] ####[facility] (DEFAULT)[address] [place] [address] Man Diff? Auto Normal [facility] Comment on above: Performed By: #### 1 [id number], [id number], 5496698, 06095615, 9822117, [id number] ####[facility] (DEFAULT)[address] [place] [address] MCH 29 pg Normal 24-34 [facility] Comment on above: Performed By: #### 1 [id number], 3738199139, 9386058, 26512218, 1180350, 4399949505 ####[facility] (DEFAULT)[address] [place] [address] MCHC mass conc (RBC) 34 g/dL Normal 26-37 [facility] Comment on above: Performed By: #### 1 [id number], 1435583601, 8695600, 06725192, 2105692, 4770244074 ####[facility] (DEFAULT)[address] [place] [address] MCV 85 fL Normal 81-100 [facility] Comment on above: Performed By: #### 1 [id number], 2895074537, 7667804, 99934202, 6412059, 6066522143 ####[facility] (DEFAULT)[address] [place] [address]9714 Platelet mean volume (PMV) 9.2 fL Normal 6.3-10.2 [facility] Comment on above: Performed By: #### 1 [id number], 4719157825, 6106990, 32283027, 7743798, 7931756558 ####[facility] (DEFAULT)[address] [place] [address] 76[address] Platelets 269 x10 Normal 138-427 [facility] Comment on above: Performed By: #### 1 [id number], [id number], 8642558, 44405189, 8831149, [id number] ####[facility] (DEFAULT)[address] [place] [address] 23580 WBC (Leukocytes) 11.9 x10 Invalid Interpretation Code [facility] Comment on above: Performed By: #### 1 [id number], [id number], 8148881, 94497219, 1304750, [id number] ####[facility] (DEFAULT)[address] [place] [address] Standardon 02-11-2017 eGFR (non-black) mL/min/{1.73_m2} Invalid Interpretation Code [facility] Comment on above: Performed By: #### 1 [id number], 4790758812, 2799985, 39930403, 4609001, 7258298411 ####[facility] (DEFAULT)[address] [place] [address]7730 eGFR (non-black) mL/min/{1.73_m2} Invalid Interpretation Code [facility] Comment on above: Result Comment: Lockstitch Sleeve Maker jam Kidney disease could be indicated at eGFRs of less than 60 ml/min/1.73m2. Kidney Failure is indicated at less than 15 ml/min/1.73m2 Performed By: #### 1 [id number], 0997191561, 0946117, 62087557, 4053235, 3988017000 ####[facility] (DEFAULT)[address] [place] [address] Albumin 3.9 g/dL Normal 3.5-5.0 [facility] Comment on above: Performed By: #### 1 [id number], 2514605175, 8042846, 80533749, 0946183, 4860058408 ####[facility] (DEFAULT)[address] [place] [address] Albumin/Globulin Ratio 0.9 {ratio} Low 1.4-2.6 [facility] Comment on above: Performed By: #### 1 [id number], 7344104082, 7175719, 03013114, 3756528, 6973574045 ####[facility] (DEFAULT)[address] [place] [address] Alk Phos 58 IU/L Normal 32-91 [facility] Comment on above: Performed By: #### 1 [id number], 4590094495, 7654089, 77404137, 9089507, 0756488904 ####[facility] (DEFAULT)[address] [place] [address] ALT/SGPT 11.0 IU/L Low 14.0-54.0 [facility] Comment on above: Performed By: #### 1 [id number], 3488466873, 5443452, 84341024, 2212656, 5867512925 ####[facility] (DEFAULT)[address] [place] [address] 38739 Anion gap 11.0 mmol/L Normal 5.0-19.0 [facility] Comment on above: Performed By: #### 1 [id number], 7223102242, 2183504, 82218532, 9523869, 6032878204 ####[facility] (DEFAULT)[address] [place] [address] 14120 AST/SGOT 15 IU/L Normal 15-41 [facility] Comment on above: Performed By: #### 1 [id number], 2720600910, 5101936, 37892020, 2986323, 6216117334 ####[facility] (DEFAULT)[address] [place] [address]754 Bili Total 0.6 mg/dL Normal 0.3-1.2 [facility] Comment on above: Performed By: #### 1 [id number], 7455652226, 7421974, 67142183, 0266141, 1371831265 ####[facility] (DEFAULT)[address] [place] [address] 43888 BUN/Creatinine Ratio 8.0 mg/mg Normal 4.6-16.2 [facility] Comment on above: Performed By: #### 1 [id number], 0301507940, 2240073, 18635246, 5834855, 3085625981 ####[facility] (DEFAULT)[address] [place] [address] 50085 Calcium 9.0 mg/dL Normal 8.9-10.3 [facility] Comment on above: Performed By: #### 1 [id number], 1841160569, 2979038, 70251349, 6165473, 0189175747 ####[facility] (DEFAULT)[address] [place] [address] 52845 Chloride 103 mmol/L Normal 101-111 [facility] Comment on above: Performed By: #### 1 [id number], 7295434480, 1795607, 52298694, 9854479, 8550899665 ####[facility] (DEFAULT)[address] [place] [address] 95307 CO2 26 mmol/L Normal 21-32 [facility] Comment on above: Performed By: #### 1 [id number], 4655577422, 3758782, 74422332, 5617189, 4029939336 ####[facility] (DEFAULT)[address] [place] [address] 61762 Creatinine 0.60 mg/dL Normal 0.60-1.30 [facility] Comment on above: Performed By: #### 1 [id number], 1748836473, 0731331, 26347571, 4938194, 5110347635 ####[facility] (DEFAULT)[address] [place] [address] Globulin 4.3 g/dL Normal 1.5-4.3 [facility] Comment on above: Performed By: #### 1 [id number], 4772235668, 8206076, 28260612, 6647722, 8393244953 ####[facility] (DEFAULT)[address] [place] [address] 44662 Glucose mass conc 101.0 mg/dL Normal 74.0-118.0 [facility] Comment on above: Performed By: #### 1 [id number], 5723511973, 9478507, 25033033, 1834924, 5679147418 ####[facility] (DEFAULT)[address] [place] [address] 56348 Osmolality 269 mOsm/L Invalid Interpretation Code [facility] Comment on above: Performed By: #### 1 [id number], 2072911611, 6208672, 87656726, 0476666, 0140093525 ####[facility] (DEFAULT)[address] [place] [address] 00690 Potassium molar conc 3.9 mmol/L Normal 3.6-5.1 [facility] Comment on above: Performed By: #### 1 [id number], 6808814401, 6735024, 30102656, 4603209, 4034672567 ####[facility] (DEFAULT)[address] [place] [address] 43720 Protein 8.2 g/dL High 6.5-8.1 [facility] Comment on above: Performed By: #### 1 [id number], 1168126063, 4661608, 91339876, 5842942, 9985268745 ####[facility] (DEFAULT)[address] [place] [address] 09445 Sodium 136.0 mmol/L Normal 136.0-144.0 [facility] Comment on above: Performed By: #### 1 [id number], 9827314615, 4618707, 98082568, 9389524, 2146418465 ####[facility] (DEFAULT)[address] [place] [address] Urea nitrogen 5 mg/dL Low 04-02 [facility] Comment on above: Performed By: #### 1 [id number], 8131237102, 9510947, 14795190, 8699649, 3574631855 ####[facility] (DEFAULT)[address] [place] [address] CT Soft Tissue Neck w/ Contr ken 02-11-2017 CT Soft Tissue Neck w/ Contrast CT SOFT TISSUE NECK WITH CONTRASTCLINICAL DATA: Left side neck pain and lump for one week, wisdom toothextracted on the left on 01/25/2017. Dose reduction technique was utilizedfor this study.CT soft tissue neck study was performed with the use of intravenous contrast.Multiple axial images were obtained. Reformatted coronal and sagittal imageswere obtained and reviewed. There is a defect within the internal margin ofthe mandible on the left likely related to extraction of the last molar toothwhen correlated with history, a tiny focus of air at this level with assumedsmall hematoma or seroma at the procedure site. There is thinning of theouter margin of the mandibular cortex at this level without convincingevidence of breakthrough of the outer wall.There are significant inflammatory changes on the left. There is soft tissueprominence of the tongue base on the left laterally. There is moderateprominence of the left palatine tonsil, there is ill definition of the tissueplanes at this level. There is a small area of decreased density which isill-defined either in the lateral margin of the left palatine tonsil or inthe peritonsillar region, possibly at the level of the tongue base, this areameasures approximately 1.0 x 1.1 x 0.6 cm in longitudinal, AP and transversedimensions, though this may represent localized edema, the possibility ofearly and/or developing tonsillar or peritonsillar abscess may be considered.There is mild prominence of the left masseter muscle compatible withmyositis. There is mild prominence of the left medial pterygoid musclecompatible with myositis There is mild thickening of the left platysma musclewith a small amount of fluid deep to the platysma muscle related toinflammatory change. There is mild to moderate enlargement of the leftsubmandibular gland with ill definition of the borders compatible withinflammatory change/sialoadenitis, correlate clinically. There are mildlyenlarged lymph nodes at this level likely reactive. There are mildlyenlarged lymph nodes at the internal jugular level on the left as well,likely reactive.Visualized vascular structures are intact. There is narrowing of the airwayat the level of the enlarged left palatine tonsil, the epiglottis isunremarkable, valleculae and piriform sinuses appear grossly unremarkable.Thyroid gland appears grossly unremarkable. Visualized upper lung fieldsappear grossly unremarkable. Bony structures are grossly intact.IMPRESSION:1. CT SOFT TISSUE NECK STUDY DEMONSTRATES POST PROCEDURAL CHANGES ABOUT THELEFT MANDIBLE DESCRIBED.2. THERE ARE DIFFUSE INFLAMMATORY CHANGES ON THE LEFT WITH ADENOPATHY. AREASOF INFLAMMATION ON THE LEFT DESCRIBED. AREAS OF MILD ADENOPATHY ON THELEFT, LIKELY REACTIVE.3. THE POSSIBILITY OF EARLY AND/OR DEVELOPING LEFT TONSILLAR OR PERITONSILLARABSCESS, POSSIBLY INVOLVING THE LEFT LATERAL TONGUE BASE, CANNOT BE EXCLUDED.4. FOLLOW-UP NEEDED.LUDY MccurdyB #: [id number]: 02/11/2017T: 02/11/2017 Final Dictated by: Blade Boggs MDDictated DT/TM: 02/11/17 9:15Signed (Electronic Signature): Blade Boggs MD 02/11/17 11:27 aTechnologist: AIDAN TSE [facility] ED Clinical Summaryon 2016 ED Clinical Summary [facility] - Emergency [address] [place] [address] 19552 ed Clinical SummaryPERSON INFORMATIONName: ESCALONAHYACINTH Virk Age: 31 Years Sex: FEMALEDOB: [birth year] MRN: Acct#:Visit Reason: Mouth pain; Mouth pain; SWOLLEN MOUTH / DENTAL ISSUE Arrival:02/11/17 06:48:00 Discharge: 02/11/17 12:13:00LOS: 000 05:25 Check In: 02/11/17 06:48:00 Checkout:02/11/17 12:13:00Address:[address] [facility] [address]FIS: Provider, NonePROVIDER INFORMATIONProvider Role Assigned UnassignedReidChen vazquez ED Nurse 02/11/17 06:51:37Brandon Lopez DO ED Provider 02/11/17 07:21:08GaliNickin ED Nurse 02/11/17 07:23:11Kathryn Rg MD ED Provider 02/11/17 10:01:24VITALS INFORMATIONVital Sign Triage LatestTemperature TympanicTemperature Temporal ArteryPulse Rate 91 bpm 89 bpmO2 Sat 100 % 99 %Respiratory Rate 20 br/min 18 br/minBlood Pressure 96 mmHg/70 mmHg 96 mmHg/70 mmHgMEDICAL INFORMATIONMedications Given:Medication Dose RoutemethylPREDNISolone 125 mg IV Pushazithromycin 500 mg IV Piggybackketorolac 30 mg IV Pushceftriaxone 1 gm IV Piggybackiohexol 350 mg IV Pushsodium chloride 10 mL IV Pushdexamethasone 12 mg IV PushAllergy Information:No known allergiesPHYSICIAN DOCUMENTATIONPatient: HYACINTH ECSALONA : 31 years Sex: FEMALE : [birth year]Associated Diagnoses: sherice-tonsillar cellulitisAuthor: Brandon Lopez InformationTime seen: Date & time 02/11/17 07:21:00.History of Present IllnessThe patient presents with This patient presents for evaluation of pain to the throat, difficult to open mouth, had wisdom teeth removed on ; was given abx, but took only for first week, then missed a week, second week started, called office, told to come in to office next weekHas not had this beforeIn good health, no dm, no heart; the patient is on AmoxicillinSOCIAL: Non-smoker, 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[employer], 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, pov arrival, is supposed to work todayFMHX: non-contribpmhx: no dm, no heart, no lungROS: No fever, no chills, no vomit, no diarrhea, (+) pain to swallow;PE: Pleasant, alert, oriented, neck supple, shoddy ant cervical nodes, no pre-cervical erythema, no no meningitislungs cta, hrrr, no m, not overweight;She does have trismus; there is swelling to the left anterior pillar, with erythema, no displacment ov uvela.Medical Decision MakingOrders Launch OrdersLaboratory:CMP Standard (Order): Blood, Stat collect, 02/11/17 07:28 EDT, Lab CollectMono Scrn (Order): Blood, Stat collect, 02/11/17 07:28 EDT, Lab CollectCBC w/ Auto Diff (Order): Blood, Stat collect, 02/11/17 07:28 EDT, Lab CollectRapid Strep (Order): Swab, 02/11/17 07:28 EDT, Stat collect, Nurse collectPatient Care:Saline Lock Insert (Order): 02/11/17 07:28 EDT, Constant orderPharmacy:Toradol (Order): 30 mg, IV Push, Onceazithromycin (Zithromax) 500 mg (Order): 500 mg, IV Piggyback, OnceSOLU-Medrol (Order): 125 mg, IV Push, OncecefTRIAXone (Rocephin) 1 gm (Order): 1 gm, IV Piggyback, Daily, Launch OrdersLaboratory:Pregnan cy Test Serum 1 (Order): Blood, Stat collect, 02/11/17 07:49 EDT, Lab Collect, Launch OrdersRadiology:CT Soft Tissue Neck w/ Contrast (Order): 02/11/17 07:49 EDT Stat, peritonsillar celllulitis left, Allow Modification Per Radiologist, Transport Mode: Cart.Results review: Interpretation Normal results.Impression and PlanDiagnosisperi-tonsil lar cellulitis (Discharge, Medical)leftPlanDisposit ion: Patient care transitioned to: Time: 02/11/17 08:24:00, Kathryn Rg MD.DISCHARGE INFORMATION:Discharge Disposition: Discharge/Transfer to Another HospitalDis[facility] [facility]PATIENT EDUCATION INFORMATIONInstructions: Follow-Up:DIAGNOSIS:sherice -tonsillar cellulitisComment: Normal [facility] ED Note - Otheron 02-11-2017 ED Note - Other transport set up [facility], given an eta of about 30 mins[Electronically Signed on: 02/11/2017 11:40 EDT] Viviane Orozco[Verified on: 02/11/2017 11:40 EDT] Seng scherer [facility] ED Note - Other pt will be going to room 315, and a report number of [phone] was given[Electronically Signed on: 02/11/2017 11:40 EDT] Viviane Orozco[Verified on: 02/11/2017 11:40 EDT] Seng scherer [facility] ED Note - Other pt accpeted by dr. shane and dr. erickson into [facility], waiting on a bed assignment[Electronicall y Signed on: 02/11/2017 11:39 EDT] iVviane Orozco[Verified on: 02/11/2017 11:39 EDT] Seng scherer [facility] ED Note - Other pt back from ct [Electronically Signed on: 02/11/2017 08:49 EDT] Viviane Chaidez [Verified on: 02/11/2017 08:49 EDT] [facility] Other pt to ct [Electronically Signed on: 02/11/2017 08:43 EDT] Jared Chaidezah [Verified on: 02/11/2017 08:43 EDT] [facility] - Physicianon 2016 ED Note - Physician Patient: HYACINTH ESCALONA : 31 years Sex: FEMALE : [birth year]Associated Diagnoses: NoneAuthor: Kathryn Rg MDBasic InformationAddendum: Time of addendum:: 02/11/17 09:27:00 , Assumed care from: dr lopez 9a , ct pending ,awaiting call back from dr more [facility] .31-year-old female with wisdom teeth extraction January 25 on amoxicillin from January 25 through February 02 did not realize she needed to refill her prescription and did not refill it until 2 days ago complains of sore throat ?1 week gradually worsening difficulty opening her mouth soft voice patient is able to drink liquids although she has had decreased appetite and it hurts to swallow patient denies any fevers chills chest pain shortness of breath abdominal pain nausea vomiting diarrhea last menstrual period was last week. Patient last ate 11:[address] Lopez impression was patient had a minimum peritonsillar cellulitis probable peritonsillar abscess on the left and trismus and he felt patient needed to be transferred for further care and admission 1 CT result was back.Medical Decision MakingOrders Launch Order Profile (Selected)Inpatient OrdersOrderedRocephin: 1 gm, 50 mL, 100 mL/hr, IV Piggyback, DailySaline Lock Insert:Ordered (Exam Completed)CT Soft Tissue Neck w/ Contrast:Ordered (In-Lab)Throat Culture:Completed.Auto Diff 1:CBC w/ Auto Diff:CMP Standard:Extra Blue:Extra Red:[place] Scrn:Normal Saline Flush: 10 mL, IV Push, As DirectedOmnipaque 350.: 350 mg, 100 mL, IV Push, OncePregnancy Test Serum 1:Rapid Strep:SOLU-Medrol: 125 mg, 2 mL, IV Push, OnceToradol: 30 mg, 1 mL, IV Push, OnceZithromax: 500 mg, 1 EA, 250 mL/hr, IV Piggyback, Once.Results review: Lab results : Lab Nfkgcwbrt64/07/17 07:45 EDT Sodium Level 136.0 mmol/L Potassium Level 3.9 mmol/L Chloride Level 103 mmol/L CO2 26 mmol/L Anion Gap 11.0 mmol/L Glucose Level 101.0 mg/dL BUN 5 mg/dL LOW Creatinine Level 0.60 mg/dL BUN/Creat Ratio 8.0 eGFR AA >60 mL/min/1.73m2 NA eGFR Non AA >60 mL/min/1.73m2 NA Calcium Level 9.0 mg/dL Bili Total 0.6 mg/dL Alk Phos 58 IU/L AST/SGOT 15 IU/L ALT/SGPT 11.0 IU/L LOW Protein Total 8.2 gm/dL HI Albumin Level 3.9 gm/dL Globulin 4.3 gm/dL A/G Ratio 0.9 LOW Osmolality 269 mOsm/L NA WBC 11.9 x103/mcL HI RBC 4.48 x106/mcL Hgb 13.1 gm/dL Hct 38.1 % MCV 85 fL MCH 29 pg MCHC 34 gm/dL RDW 12.3 % Platelet 269 x103/mcL MPV 9.2 fL Auto Neut % 82 % Auto Lymph % 9 % LOW Auto [place] % 8 % Auto Eos % 0.2 % LOW Auto Baso % 0.1 % LOW Neut Abs# 9.8 x103/mcL HI Lymph Abs# 1.1 x103/mcL LOW [place] Abs# 1.0 x103/mcL HI Eos Abs# 0.0 x103/mcL Baso Abs# 0.0 x103/mcL [place] Scrn Negative, Lab results : Lab Abbxtfzsn61/07/17 07:31 EDT Strep A Negative , Lab results : Lab Lilsusdsu98/07/17 07:49 EDT Test Serum Qual Negative .Radiology results: Reviewed radiologist's report, Is on the left left lateral tongue base left medial pharyngeal muscle and mild left masseter muscle enlarged left submandibular gland enlarged left palate seem tonsil cannot exclude early/developing left lateral tonsillar peritonsillar abscess approximately 1.1?1.0?0.6 cm left mandibular defect assumed related to tooth extraction.Physical ExaminationAlert and oriented ?3 nontoxic-appearing female appears stated age. Pupils equal round reactive to light extraocular muscles intact no nasal congestion throat patient has obvious trismus, soft voice but no hoarse voice or hot potato voice posterior pharynx is asymmetric with left peritonsillar soft tissue swelling prominence peritonsillar cellulitis no no drooling no stridor maintaining her own airway without difficulty O2 sats 100% exam consistent with left peritonsillar tonsillar abscess. No obvious pinpoint drainable abscess had patient has left submandibular lymphadenopathy approximately 3 cm mildly tender to touch trachea is midline neck supple no lymphadenopathy no JVD no meningeal signs lungs are clear auscultation heart is regular rhythm rate abdomen soft nontender normal active bowel sounds no hepatosplenomegaly extremities normal inspection normal range of motion of focal motor or sensory deficits normal symmetric pulses alert and oriented ?3 normal speech, soft voice cranial nerves II through XII are grossly intact no focal motor deficits.Reexamination/ ReevaluationVital signsResults included from flowsheet : Vital Signs02/11/17 06:57 EDT Temperature Temporal 36.4 DegC Peripheral Pulse Rate 91 bpm Respiratory Rate 20 br/min Systolic Blood Pressure 96 mmHg Diastolic Blood Pressure 70 mmHg SpO2 100 % Oxygen Therapy Room air [address] more in detail ,[facility] will try and see today after office hours give unasyn and decadron 12 mg iv , if needs to be transferred to [facility] will need to speak to dr jasmine who is group home paraprofessional ,aware of trismus ,ct findings pertinent exam , labs ,Course: improving.Pain status: decreased.[address] tinsley in detail wants patient transferred to location with ENT , only on consultative basis here at [place] [address] [facility] will not answer phone call from us at this time ,will try hospitalist at [id number] [facility] hospitalist at [facility] in detail ,will discuss with ENT at [facility] and call us back , dr jasmine does not wish to accept patient to ent , therfore dr irwin cannot accept to [id number] patient updated agreeable to transfer to [facility] , doing well , airway patent , still with trismus no increasing swelling , no stridor or [id number] discussed [address] dr shane ENT , in detail , admit to hospitalist service ,[address] leung in detail , accepts patient is hospitalist at [facility] ,1130 no als transport available ,bls available for transport , will heplock iv ,patient swallowing own secretions well , no airway compromise on serial examinations . has been in ED x 5 hrsImpression and PlanDiagnosisLeft peritonsillar cellulitis peritonsillar abscess/tonsillar abscessPlanCondition: Stable.Disposition: Transfer to other location: Time deemed necessary for transfer: 945, Facility name: [facility] , dr cotto and dr leung.[Electronically Signed on: 02/11/2017 17:07 EDT] Herc Kathryn rivera MD[Electronically Signed on: 02/11/2017 17:07 EDT] Herc Kathryn rivera MD[Verified on: 02/11/2017 17:07 EDT] Herc Kathryn rivera MD [facility] [facility] ED Note - Physician Patient: HYACINTH ESCALONA : 31 years Sex: FEMALE : [birth year]Associated Diagnoses: sherice-tonsillar cellulitisAuthor: OmleyBrandon InformationTime seen: Date & time 02/11/17 07:21:00.History of Present IllnessThe patient presents with This patient presents for evaluation of pain to the throat, difficult to open mouth, had wisdom teeth removed on ; was given abx, but took only for first week, then missed a week, second week started, called office, told to come in to office next weekHas not had this beforeIn good health, no dm, no heart; the patient is on AmoxicillinSOCIAL: 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, 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[employer], 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, 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, is supposed to work todayFMHX: non-contribpmhx: no dm, no heart, no lungROS: No fever, no chills, no vomit, no diarrhea, (+) pain to swallow;PE: Pleasant, alert, oriented, neck supple, shoddy ant cervical nodes, no pre-cervical erythema, no no meningitislungs cta, hrrr, no m, not overweight;She does have trismus; there is swelling to the left anterior pillar, with erythema, no displacment ov uvela.Medical Decision MakingOrders Launch OrdersLaboratory:CMP Standard (Order): Blood, Stat collect, 02/11/17 07:28 EDT, Lab CollectMono Scrn (Order): Blood, Stat collect, 02/11/17 07:28 EDT, Lab CollectCBC w/ Auto Diff (Order): Blood, Stat collect, 02/11/17 07:28 EDT, Lab CollectRapid Strep (Order): Swab, 02/11/17 07:28 EDT, Stat collect, Nurse collectPatient Care:Saline Lock Insert (Order): 02/11/17 07:28 EDT, Constant orderPharmacy:Toradol (Order): 30 mg, IV Push, Onceazithromycin (Zithromax) 500 mg (Order): 500 mg, IV Piggyback, OnceSOLU-Medrol (Order): 125 mg, IV Push, OncecefTRIAXone (Rocephin) 1 gm (Order): 1 gm, IV Piggyback, Daily, Launch OrdersLaboratory:Pregnan cy Test Serum 1 (Order): Blood, Stat collect, 02/11/17 07:49 EDT, Lab Collect, Launch OrdersRadiology:CT Soft Tissue Neck w/ Contrast (Order): 02/11/17 07:49 EDT Stat, peritonsillar celllulitis left, Allow Modification Per Radiologist, Transport Mode: Cart.Results review: Interpretation Normal results.Impression and PlanDiagnosisperi-tonsil lar cellulitis (Discharge, Medical)leftPlanDisposit ion: Patient care transitioned to: Time: 02/11/17 08:24:00, Kathryn Rg MD.[Electronically Signed on: 02/11/2017 08:25 EDT] Brandon Hernandez DO[Electronically Signed on: 02/18/2017 22:18 EDT] Brandon Hernandez DO[Verified on: 02/11/2017 08:25 EDT] Brandon Hernandez DO [facility] ED Note-Nursingon 02-11-2017 ED Note-Nursing Pt denies any discom fort at present. Dr. Rg still trying to find an accepting doc for transfer. [facility] ED Note-Nursing talking to [facility]. [facility] ED Note-Nursing trying to fing a n accepting hospital to transfer pt. Pt in no acute distress. Resting quietly. [facility] ED Note-Nursing No change. [facility] ED Note-Nursing Pt states she is fee ling a little better. Resting quietly. [facility] ED Note-Nursing Waiting for lab resu lts before going to CT. [facility] ED Note-Nursing Resting quietly, Dr. Lopez in seeing pt. [facility] ED Patient Education Noteon 02-11-2017 ED Patient Education Note Education Materials [facility] ED Patient Summaryon 017 ED Patient Summary [facility] - Emergency [address] [place] [address] pATIENT DISCHARGE INSTRUCTIONSPatient InformationName: HYACINTH ESCALONA Age: 31 YearsDate of : [birth year]MRN: [id number] Visit: Mouth pain; Mouth pain; SWOLLEN MOUTH / DENTAL ISSUEArrival Time: 02/11/17 06:48:00Phone: Primary Care Physician: Provider, NoneAttending Physician: Brandon Lopez DOComment:Visit Diagnosis:Diagnoses This Visit Mouth pain ([id number]) Mouth pain ([id number]) sherice-tonsillar cellulitisIf you received any narcotics, sedation, or any other medication that causes drowsiness for the next 24 hours, unless otherwise directed:? Do not drive a car.? Do not operate machinery such as power tools, lawn mowers, drills, sewing machines, or stoves? Avoid alcoholic beverages and drugs for allergies, nerves, or sleep? Do not make important personal or business decisions or sign any legal documentsMedication Information:The exam and treatment you received today in the [facility] Emergency Department were for an urgent problem and are not intended as complete care. It is important for you to follow up with a doctor, nurse practitioner, or physician?s certified surgical tech/first assistant for ongoing care. If your symptoms become worse or you do not improve as expected and you are unable to reach your usual health care provider, you should return to the Emergency Department, we are available 24 hours a day.For those patients who have received Radiology results, the interpretation of your X-ray as given to you by our Emergency Department physician is only a preliminary report. The Radiologist will review your films and if there is a change in the diagnosis you will be notified by phone. Please make sure you have provided a working phone number so we can reach you if necessary.In the event that you had a lab culture while you were a patient in the Emergency Department, you will be notified by phone if there is a need to change your antibiotic. Please make sure you have provided a working phone number so we can reach you if necessary.[facility] Emergency Department has provided you with a complete list of medications post discharge. Please inform your child care teacher/provider of your visit and for further instruction on these medications. Any specific questions regarding your chronic medications and dosages should be discussed with your primary care physician(s) and/or pharmacist. Medications to Continue That Have Not ChangedOther Medicationsamoxicillin (amoxicillin 250 mg oral capsule) 2 cap Oral 3 times a day.[facility] PrescriptionVisit InformationAllergies:Sub stance Reaction Symptoms Type CommentsNo known allergies DrugVital Signs: Vitals and Measurements this Visit (last charted value for your 02/11/2017 visit) Vital Signs This Visit Temperature Temporal: 36.4 DegC Peripheral Pulse Rate: 89 bpm Respiratory Rate: 18 br/min Systolic Blood Pressure: 91 mmHg Diastolic Blood Pressure: 71 mmHg SpO2: 99 % Oxygen Therapy: Room air Measurements This Visit Height/Length Dosin.000 cm Height/Length Estimated: 173.000 cm Weight Dosin.900 kg Weight Estimated: 49.900 kgProblems List:Problem Onset CommentsNone usedPatient Education Viruses or BacteriaWhat?s got you sick?Antibiotics only treat bacterial infections. Viral illnesses cannot be treated with antibiotics. When an antibiotic is not prescribed, ask your healthcare professional for tips on how to relieve symptoms and feel better. Usual CauseIllnessVirusesBacte anika Antibiotic NeededCold/Runny Nose NOBronchitis/Chest Cold (in otherwise healthy children and adults) NOWhooping Cough YesFlu NOStrep Throat YesSore Throat (except strep) NOFluid in the middle ear (otitis media with effusion) NOUrinary Tract Infection YesAntibiotics Aren?t Always the Answerwww.cdc.gov/getsma rt GET SMART Know When Antibiotics Anotni.S. Department of Health and Human ServicesCenters for Disease Control and Prevention April 2014 Normal [facility] Extra Blueon 02-11-2017 Tube Collected Yes Invalid Interpretation Code [facility] Comment on above: Performed By: #### 1 [id number] ####[facility] (DEFAULT)[address] [place] [address] History and Physicalon 02-11 HIM IP Note OR Rod Straightener Normal [facility] [place] Scrnon 02-11-2017 [place] procedure control Pass [facility] Comment on above: Performed By: #### 1 [id number] ####[facility] (DEFAULT)[address] [place] [address] [place] Scrn Negative Normal [facility] Comment on above: Performed By: #### 1 [id number] ####[facility] (DEFAULT)[address] [place] [address] Test Serum 1on Preg Serum Internal Control [place] [facility] Comment on above: Performed By: #### 3 [id number] ####[facility] (DEFAULT)[address] [place] [address] Test Serum Qual Negative [facility] Comment on above: Performed By: #### 3 [id number] ####[facility] (DEFAULT)[address] [place] [address] Strep Aon 02-11-2017 Strep A Negative Normal [facility] Comment on above: Performed By: #### 4 [id number] ####[facility] (DEFAULT)[address] [place] [address] Strep procedure control Pass [facility] Comment on above: Performed By: #### 4 [id number] ####[facility] (DEFAULT)[address] [place] [address] Vital Signs Date Time Vital Sign Value Performing Clinician Facility 07-09-2024 15:47-0500 Body mass index (BMI) [Ratio] 19.61 kg/m2 Shannon Isidro BURRELL Work Phone: [facility] 07-09-2024 15:47-0500 Body weight 58.51 kg Shannon Florjoya BURRELL Work Phone: [facility] 06-18-2024 16:41-0500 Body height 172.7 cm Fina Barton DAYCARE PROVIDER Work Phone: [facility] 06-18-2024 16:41-0500 Body mass index (BMI) [Ratio] 18.85 kg/m2 Fina Barton DAYCARE PROVIDER Work Phone: [facility] 06-18-2024 16:41-0500 Body weight 56.25 kg Fina Barton DAYCARE PROVIDER Work Phone: [facility] 06-18-2024 16:41-0500 Diastolic blood pressure 70 mm[Hg] Fina Barton DAYCARE PROVIDER Work Phone: [facility] 06-18-2024 16:41-0500 Heart rate 100 /min Fina Barton DAYCARE PROVIDER Work Phone: [facility] 06-18-2024 16:41-0500 Respiratory rate 18 /min Fina Barton DAYCARE PROVIDER Work Phone: [facility] 06-18-2024 16:41-0500 SaO2% (BldA) [Mass fraction] 99 % Fina Barton DAYCARE PROVIDER Work Phone: [facility] 06-18-2024 16:41-0500 Systolic blood pressure 110 mm[Hg] Fina Barton DAYCARE PROVIDER Work Phone: [facility] 06-11-2024 15:18-0500 Body mass index (BMI) [Ratio] 18.7 kg/m2 Shannon Felix CNM Work Phone: [facility] 06-11-2024 15:18-0500 Body weight 55.79 kg Shannon Marroquino CNM Work Phone: [facility] 06-11-2024 15:18-0500 Diastolic blood pressure 80 mm[Hg] Shannon Moirao CNM Work Phone: [facility] 06-11-2024 15:18-0500 Systolic blood pressure 120 mm[Hg] Shannon Moirao CNM Work Phone: [facility] 05-10-2024 15:19-0400 Body mass index (BMI) [Ratio] 19.01 kg/m2 Shannon Moirao CNM Work Phone: [facility] 05-10-2024 15:19-0400 Body weight 56.7 kg Shannon BURRELLM Work Phone: [facility] 10-04-2022 14:45-0500 Body height 172.72 cm Melissa Daniel Other [facility] Other 10-04-2022 14:45-0500 Body mass index (BMI) [Ratio] 19.55 kg/m2 Melissa Daniel Other [facility] Other 10-04-2022 14:45-0500 Body temperature 98.3 [degF] Melissa Daniel Other [facility] Other 10-04-2022 14:45-0500 Body weight 58.33 kg Melissa Daniel Other [facility] Other 10-04-2022 14:45-0500 Respiratory rate 18 /min Melissa Daniel Other [facility] Other 10-04-2022 14:45-0500 SaO2% (BldA) [Mass fraction] 99 % Melissa Daniel Other [facility] Other Encounters Encounter Date Encounter Type Care Provider Facility Start: 08-09-2024 End: 08-09-2024 ambulatory SHANNON FELIX Not Available Start: 07-09-2024 End: 07-09-2024 Subsequent care visit Shannon BURRELLM Work Phone: [facility] Comment on above: Encounter for superv ision of other normal , second trimester (Primary Dx); History of section; related condition in second trimester Start: 07-09-2024 End: 07-09-2024 ambulatory SHANNON FELIX Not Available Start: 07-09-2024 End: 07-09-2024 Bamboo flowsheet Shannon L Floro CNM Work Phone: [facility] Start: 07-09-2024 End: 07-09-2024 Bamboo flowsheet Shannon L Floro CNM Work Phone: [facility] Start: 06-18-2024 End: 06-18-2024 Office outpatient visit 15 minutes Fina Barton DAYCARE PROVIDER Work Phone: [facility] Comment on above: Acute cystitis witho ut hematuria (Primary Dx); Dysuria; , unspecified gestational age Start: 06-18-2024 End: 06-18-2024 ambulatory FINA BARTON Not Available Start: 06-18-2024 End: 06-18-2024 Bamboo flowsheet Fina Barton DAYCARE PROVIDER Work Phone: [facility] Start: 06-18-2024 End: 06-18-2024 Bamboo flowsheet Fina Barton DAYCARE PROVIDER Work Phone: [facility] Start: 06-11-2024 End: 06-11-2024 Subsequent care visit Shannon Marroquino CNM Work Phone: [facility] Comment on above: Encounter for superv ision of other normal in second trimester (Primary Dx); Subchorionic hematoma in first trimester, single or unspecified fetus; History of section Start: 06-11-2024 End: 06-11-2024 ambulatory SHANNON L FLORO Not Available Start: 06-11-2024 End: 06-11-2024 Bamboo flowsheet Shannon L Moirao CNM Work Phone: [facility] Start: 06-11-2024 End: 06-11-2024 Bamboo flowsheet Shannon L Floro CNM Work Phone: [facility] Start: 05-22-2024 End: 05-22-2024 ambulatory SHANNON L FLORO Not Available Start: 05-10-2024 End: 05-10-2024 Initial care visit Shannon Alvin Marroquino CNM Work Phone: [facility] Comment on above: GA: 8w0d Start: 05-10-2024 End: 05-10-2024 ambulatory SHANNON Alvin MARROQUINO Not Available Start: 05-10-2024 End: 05-10-2024 Bamboo flowsheet Shannon L Floro CNM Work Phone: [facility] Start: 05-10-2024 End: 05-10-2024 Bamboo flowsheet Shannon Alvin Floro CNM Work Phone: [facility] Start: 04-18-2024 End: 04-18-2024 Telephone encounter Valentina Sadler MD Work Phone: [facility] Start: 03-27-2024 End: 03-27-2024 Orders Only Fina Barton DAYCARE PROVIDER Work Phone: [facility] Comment on above: Bacterial vaginosis (Primary Dx) Start: 03-26-2024 End: 03-26-2024 ambulatory FINA BARTON Not Available Start: 02-27-2024 End: 02-27-2024 ambulatory FINA BARTON Not Available Start: 10-04-2022 End: 10-04-2022 ambulatory Melissa Daniel Other [facility] Other Start: 10-04-2022 Office outpatient vi sit 25 minutes Melissa Daniel [facility] Start: 09-11-2020 End: 09-12-2020 Patient encounter procedure REGGIE HORVATH Facility: Start: 02-12-2017 End: 02-12-2017 Ambulatory Brandon Ruiz yan Facility:[facility] Start: 02-11-2017 End: 02-14-2017 Evaluation and management of inpatient GUSTAVOER Patrizia SIERRA [facility] Start: 02-11-2017 End: 02-11-2017 Emergency department patient visit None Provider Facility:[facility] Procedures Date Procedure Procedure Detail Performing Clinician Start: 06-18-2024 Urnls dip stick/tablet rgnt non-auto w/o micrscp Fina Barton DAYCARE PROVIDER Work Phone: Start: 06-18-2024 Culture bacterial quanttative colony count urine Fina Barton NP Work Phone: Start: 05-10-2024 End: 05-10-2024 Culture bacterial quanttative colony count urine Shannon Alvin Marroquino CNM Work Phone: Start: 05-10-2024 DRUG TOX MONITORIGN 6 W/ CONF,URINE Shannon Alvin Marroquino CNM Work Phone: Start: 05-10-2024 URINALYSIS MICROSCOPIC Shannon Alvin Marroquino C NM Work Phone: Start: 05-10-2024 Antibody screen rbc each serum technique Shannon Alvin Marroquino CNM Work Phone: Start: 05-10-2024 Hemoglobin glycosylated a1c Shannon L Moirao CNM Work Phone: Start: 05-10-2024 RPR TITER Shannon Alvin Marroquino CNM Work Phone: Start: 05-10-2024 TEST AUTHORIZATION Shannon L Moirao CNM Work Phone: Start: 05-10-2024 TSH W/REFLEX TO FT4 Shannon L Moirao CNM Work Phone: Start: 05-10-2024 Urine test visual color cmprsn meths Shannon Alvin Marroquino CNM Work Phone: Start: 03-26-2024 Microscopic observation [Identifier] in Cervix by Cyto stain Fina Barton NP Work Phone: Start: 02-14-2017 DISCHARGE PATIENT VIRENDER SIERRA Start: 02-14-2017 OXYGEN THERAPY VIRENDER SIERRA Start: 02-14-2017 DIET GENERAL VIRENDER SIERRA Start: 02-14-2017 BASIC METABOLIC PANEL VIRENDER SIERRA Start: 02-14-2017 CBC VIRENDER SIERRA Start: 02-13-2017 OXYGEN THERAPY VIRENDER SIERRA Start: 02-13-2017 BASIC METABOLIC PANEL VIRENDER SIERRA Start: 02-13-2017 CBC VIRENDER SIERRA Start: 02-12-2017 OXYGEN THERAPY VIRENDER SIERRA Start: 02-12-2017 BASIC METABOLIC PANEL VIRENDER SIERRA Start: 02-12-2017 CBC VIRENDER SIERRA Start: 02-12-2017 DAILY WEIGHTS VIRENDER SIERRA Start: 02-12-2017 PATIENT STATUS (DIRECT) VIRENDER SIERRA Start: 02-11-2017 IP CONSULT TO OTOLARYNGOLOGY VIRENDER SIERRA Start: 02-11-2017 OXYGEN THERAPY VIRENDER SIERRA Start: 02-11-2017 PLACE INTERMITTENT PNEUMATIC COMPRESSION DEVICE VIRENDER SIERRA Start: 02-11-2017 PT EVAL AND TREAT VIRENDER [facility]ERRA Start: 02-11-2017 ADVANCE DIET TOLERATED (NURSING COMMUNICATION) VIRENDER [facility] Start: 02-11-2017 FULL CODE VIRENDER [facility]ERRA Start: 02-11-2017 INTAKE AND OUTPUT VIRENDER [facility]ERRA Start: 02-11-2017 VITAL SIGNS VIRENDER SIERRA H/O: section History of section Shannon Felix CNM Work Phone: H/O: section History of section Shannon Felix CNM Work Phone: Plan of Treatment Date Care Activity Detail Author Start: 03-26-2027 Screening for malign ant neoplasm of cervix [facility] Start: 03-27-2025 End: 03-27-2025 Patient encounter procedure [facility] Start: 03-17-2025 Screening for malign ant neoplasm of cervix HPV/Cotest [facility] Start: 08-09-2024 End: 08-09-2024 Patient encounter procedure 08/09/2024 4:00 PM EST Routine [facility] [address] [place] [address] Shannon Felix CNM [address] [place] [address] [facility] Start: 07-09-2024 End: 07-09-2024 Professional / ancillary services management 07/09/2024 4:30 PM EST Ancillary Procedure [facility] [address] [address] [facility] Start: 07-09-2024 End: 07-09-2024 Patient encounter procedure [facility] Comment on above: Arrived Start: 07-09-2024 End: 07-09-2025 US for US OB 14+ weeks anatomy scan Imaging Routine related condition in second trimester Expected: 07/09/2024, Expires: 07/09/2025 [facility] Work Phone: Comment on above: Expected: 07/09/2024 , Expires: 07/09/2025 Start: 06-11-2024 End: 06-11-2024 Patient encounter procedure 06/11/2024 3:15 PM EST Routine [facility] [address] [place] [id number] Shannon Felix, CN [address] [place] [address] Arrived [facility] Comment on above: Arrived Start: 06-11-2024 End: 06-11-2025 US for US OB limited 1+ fetuses Imaging Routine Subchorionic hematoma in first trimester, single or unspecified fetus Expected: 06/11/2024, Expires: 06/11/2025 [facility] Work Phone: Comment on above: Expected: 06/11/2024 , Expires: 06/11/2025 Start: 05-10-2024 End: 05-10-2024 ambulatory 05/10/2024 3:30 PM EDT Initial [facility] [address] [place] [id number] Shannon Felix, [facility] [address] [place] [address] Arrived [facility] Comment on above: Arrived Start: 05-10-2024 End: 05-10-2024 Professional / ancillary services management 05/10/2024 3:30 PM EDT Ancillary Procedure [facility] [address] [phone] [facility] Start: 04-08-2024 Influenza vaccination Influenza Vacc ine (#1) [facility] Payers Date Payer Category Payer Private Health Insurance [id number] 2022 Unknown [id number] [id number] 2014 Unknown [id number] 1986 Unknown [id number] 2.16.84 [id number] 1986 Unknown [id number] 2.16.84 [id number] 1986 Unknown [id number] 2.16.84 0.1.221095.3.579.2.1259 1986 Unknown [id number] 2.16.84 0.1.951370.3.579.2.1259 1986 Unknown [id number] 2.16.84 0.1.607854.3.579.2.1259 1986 Unknown [id number] 2.16.84 0.1.059460.3.579.2.1259 1986 Unknown [id number] 2.16.84 0.1.335711.3.579.2.1259 1986 Unknown [id number] 2.16.84 [id number] 1986 Unknown [id number] 2.16.84 0.1.518181.3.579.2.1259 1986 Unknown [id number] 2.16.84 0.1.853298.3.579.2.1259 1986 Unknown [id number] 2.16.84 0.1.721592.3.579.2.1259 1986 Unknown [id number] 2.16.84 [id number] 1959 Self-pay Social History Date Type Detail Facility Unknown if ever smoked [facility] Other Start: 01-12-2023 End: 03-26-2024 Sex Assigned At [facility] Start: 01-12-2023 Tobacco smoking status NHIS Never smoked tobacco [facility] Start: 01-12-2023 Tobacco use and exposure Smokeless tobacco non-user [facility] Start: 03-26-2024 End: 05-10-2024 Alcoholic beverage intake [facility] (finding) [facility] Start: 01-12-2023 End: 03-26-2024 History of Social function [facility] How often do you nee d to have someone help you when you read instructions, pamphlets, or other written material from your doctor or pharmacy [SILS] Never [facility] Do you belong to any clubs or organizations such as oriental orthodox groups, unions, fraternal or athletic groups, or school groups? No [facility] Are you now , , , , never or living with a partner? Never [facility] How often to you hav e a drink containing alcohol? Never [facility] How hard is it for y ou to pay for the very basics like food, housing, medical care, and heating Somewhat hard [facility] Do you feel stress - tense, restless, nervous, or anxious, or unable to sleep at night because your mind is troubled all the time - these days [OSQ] Rather much [facility] (I/We) worried wheth er (my/our) food would run out before (I/we) got money to buy more. Never true [facility] Start: 1985 Sex assigned at Not on file [facility] Start: 03-29-2024 [facility] Clinical Notes 02-05-2022 to 07-09-2024 Shannon Felix CNM - 07/09/2024 4:00 PM Miriam Barton NP - 06/18/2024 4:45 PM Ramón Felix CNM - 06/11/2024 3:15 PM Ramón Felix CNM - 05/10/2024 3:30 PM EDT Note Date & Type Note Facility 07-09-2024 History of Presen t illness Narrative Subjective No chief complaint on file. Hyacinth Escalona is a 38 y.o. at 16w4d with a working estimated date of delivery of 12/20/2024, by Last Menstrual Period who presents for a routine visit. She denies vaginal bleeding, leakage of fluid, decreased movements, or contractions. OB History Para Term AB Living 3 2 2 2 SAB IAB Ectopic Multiple Live Births 2 # Outcome Date GA Lbr Micheal/2nd Weight Sex Type Anes PTL Lv 3 Current 2 Term 03/27/10 38w0d 6 lb 11 oz M CS-LTranv TRISH 1 Term 02/02/09 39w0d M CS-LTranv TRISH Her is complicated by: The following portions of the chart were reviewed this encounter and updated as appropriate: Objective Physical Exam weight: 129 lb Expected Total Weight Gain: 25 lb-35 lb Pregravid BMI: 19.01 Urine protein Urine glucose Labs: reviewed Imaging Assessment/Plan Continue vitamin. Labs reviewed. Rhogam GTT . Follow up in 2 weeks for a routine visit. documented in this encounter [facility] 06-18-2024 History of Presen t illness Narrative Images from the original note were not included. Hyacinth Escalona is a 38 y.o. female presents with chief complaint of UTI HPI: Urinary Tract Infection Patient complains of abnormal smelling urine and foul smelling urine. She has had symptoms for 7 days. Patient also complains of none. Patient denies back pain and fever. Patient does not have a history of recurrent UTI. Patient does not have a history of pyelonephritis. UTI SUBJECTIVE: MEDICATIONS: ALLERGIES Current Outpatient Medications Medication Instructions ondansetron ODT (ZOFRAN-ODT) 8 mg, Every 8 hours PRN Allergies Allergen Reactions Macrobid [Nitrofurantoin] GI intolerance PAST MEDICAL HISTORY: SOCIAL HISTORY SURGICAL HISTORY: Past Medical History: Diagnosis Date Allergic Anxiety Depression (CMS/HCC) Headache Social History Tobacco Use Smoking status: Never Smokeless tobacco: Never Substance Use Topics Alcohol use: Not Currently Drug use: Never Past Surgical History: Procedure Laterality Date APPENDECTOMY SECTION, LOW TRANSVERSE REVIEW OF SYMPTOMS: Review of Systems Constitutional: Negative. HENT: Negative. Eyes: Negative. Respiratory: Negative. Cardiovascular: Negative. Gastrointestinal: Negative. Genitourinary: Positive for dysuria. Musculoskeletal: Negative. Skin: Negative. Neurological: Negative. Psychiatric/Behavioral: Negative. All other systems reviewed and are negative. Hematological: Negative. Endocrine: Negative. Allergic/Immunologic: Negative. OBJECTIVE: Vitals: 06/18/24 1641 BP: 110/70 Pulse: 100 Resp: 18 SpO2: 99% Physical Exam Vitals and nursing note reviewed. Constitutional: Appearance: Normal appearance. HENT: Head: Normocephalic and atraumatic. Cardiovascular: Rate and Rhythm: Normal rate and regular rhythm. Heart sounds: Normal heart sounds. Pulmonary: Effort: Pulmonary effort is normal. Breath sounds: Normal breath sounds. Abdominal: General: Bowel sounds are normal. Palpations: Abdomen is soft. Comments: Mild tenderness over the bladder Musculoskeletal: General: Normal range of motion. Cervical back: Normal range of motion. Skin: General: Skin is warm and dry. Neurological: General: No focal deficit present. Mental Status: She is alert. Psychiatric: Mood and Affect: Mood normal. ASSESSMENT AND PLAN: Assessment/Plan Diagnoses and all orders for this visit: Acute cystitis without hematuria - cephalexin (Keflex) 500 MG capsule; Take 1 capsule (500 mg) by mouth in the morning and 1 capsule (500 mg) in the evening and 1 capsule (500 mg) before bedtime. Do all this for 3 days. Cover with keflex keep well hydrated. Rest. FU if not improving Dysuria - POCT Urinalysis dipstick - Urine culture (clean catch); Future , unspecified gestational age No follow-ups on file. documented in this encounter [facility] 06-11-2024 History of Presen t illness Narrative Subjective No chief complaint on file. Hyacinth Escalona is a 38 y.o. at 12w4d with a working estimated date of delivery of 12/20/2024, by Last Menstrual Period who presents for a routine visit. She denies vaginal bleeding, leakage of fluid, decreased movements, and contractions. OB History Para Term AB Living 3 2 2 2 SAB IAB Ectopic Multiple Live Births 2 # Outcome Date GA Lbr Michael/2nd Weight Sex Type Anes PTL Lv 3 Current 2 Term 03/27/10 38w0d 6 lb 11 oz M CS-LTranv TRISH 1 Term 02/02/09 39w0d M CS-LTranv TRISH Her is complicated by: The following portions of the chart were reviewed this encounter and updated as appropriate: Objective Physical Exam weight: 123 lb, Pregravid BMI: 19.01 Expected Total Weight Gain: 25 lb-35 lb BP: 120/80 Labs reviewed with patient . Had positive RPR but negative reflex Imaging Assessment/Plan Diagnoses and all orders for this visit: Encounter for supervision of other normal in second trimester Subchorionic hematoma in first trimester, single or unspecified fetus - US OB limited 1+ fetuses; Future History of section Urine protein-negative Urine glucose-negative Continue vitamin. Labs reviewed. Order placed for anatomy scan at 20 weeks. Follow up in 4 weeks for a routine visit. documented in this encounter [facility] 05-10-2024 History of Presen t illness Narrative Subjective Hyacinth Escalona is a 38 y.o. at 8w0d with a working estimated date of delivery of 12/20/2024, by Last Menstrual Period who presents for an initial visit. This is planned. Patient Care Team: Valentina Sadler MD as PCP - General (Family Medicine) Aria Daugherty NP as Nurse Practitioner (Family Medicine) Fina Barton NP as Nurse Practitioner (Family Medicine) OB History Para Term AB Living 3 2 2 2 SAB IAB Ectopic Multiple Live Births 2 # Outcome Date GA Lbr Michael/2nd Weight Sex Type Anes PTL Lv 3 Current 2 Term 03/27/10 38w0d 6 lb 11 oz M CS-LTranv TRISH 1 Term 02/02/09 39w0d M CS-LTranv TRISH Her is complicated by: sub chorionic bleed, nausea and vomiting' Patient referred by self Gynecology History Last Pap 03/26/24 The following portions of the chart were reviewed this encounter and updated as appropriate: Review of Systems Negative except Objective Physical Exam weight: 125 lb Expected Total Weight Gain: 25 lb-35 lb Pregravid BMI: 19.01 Urine protein-negative Urine glucose-negative Labs Assessment/Plan Diagnoses and all orders for this visit: examination or test, positive result - Hepatitis B surface antigen - Rubella antibody, IgG - CBC - Antibody screen - RPR - Hemoglobin A1c - TSH W/REFLEX TO FT4; Future - HIV-1 and HIV-2 antibodies - ABO/Rh - DRUG TOX MONITORIGN 6 W/ CONF,URINE; Future - Hepatitis C antibody - Urine culture; Future - URINALYSIS MICROSCOPIC; Future - C. trachomatis / N. gonorrhoeae, DNA probe; Future Amenorrhea - POCT , urine - Hepatitis B surface antigen - Rubella antibody, IgG - CBC - Antibody screen - RPR - Hemoglobin A1c - TSH W/REFLEX TO FT4; Future - HIV-1 and HIV-2 antibodies - ABO/Rh - DRUG TOX MONITORIGN 6 W/ CONF,URINE; Future - Hepatitis C antibody - Urine culture; Future - URINALYSIS MICROSCOPIC; Future - C. trachomatis / N. gonorrhoeae, DNA probe; Future Subchorionic hematoma in first trimester, single or unspecified fetus - US OB limited 1+ fetuses; Future Patient very nauseated and vomiting. Nothing she has tried helps she states. RX for zofran ODT 8 mg to use q8 hrs prn Blue education folder given. Patient educated on safe medication list. Genetic testing information given. Discussed the do's and don'ts in the blue folder. We discussed labs and what we draw and what we are testing for. Patient is also informed that we do a urine drug test. Patient also given office phone number and [facility] number to call in case of an emergency or after hours needs. PVU and all questions answered. We did discuss place of delivery. Patient should plan to go to [facility] for all services unless an emergency and they need to go to the closest ER. We can make other arrangements possibly if patient would like to deliver at another facility but I did explain I am now at [facility] 100% of the time and would like to do all deliveries there. documented in this encounter [facility] 04-18-2024 Telephone encounter Note Form atting of this note might be different from the original. Pt took a test and it is positive, Lmp- 03/15/2024 - regular flow, She only took one test, Please schedule as a new OB [phone] [facility] 04-18-2024 Miscellaneous Notes Formattin g of this note might be different from the original. Pt took a test and it is positive, Lmp- 03/15/2024 - regular flow, She only took one test, Please schedule as a new OB [phone] documented in this encounter [facility] 10-04-2022 Evaluation note Encounter Date Diagnosis Assessment Notes Sep, Sore throat (ICD-10 - J02.9) Sep, COVID-19 (ICD-10 - U07.1) Rapid COVID test performed in office today. Advised patient that test was positive. Rapid Influenza A/B and Strep test negative today in office. Instructed patient to isolate per CDC guidelines for 5 days from symptom onset, mask 5 days following. May return to work/activities outside home after isolation period as long as symptoms are improving and has been afebrile for 24 hours without use of antipyretic. Advised patient that treatment of COVID is with viral supportive care, rx of prednisone, OTC cold medications as directed, Tylenol/Motrin as needed for body aches/fever. Increase fluids and rest. Encouraged use of cool mist humidifier. Follow-up with PCP to advise of positive result and further management. Immediate eval for SOB, difficulty, chest pain, fevers that do not break with antipyretic or any other concerning symptoms as reviewed on patient education handout. Patient verbalizes understanding and is agreeable to treatment plan. Patient left in stable condition Sep, Contact with and (suspected) exposure to covid-19 (ICD-10 - Z20.822) [facility] Other 07-01-2022 NotePROCEDURE: [employer] VCT 64, 5 mm slice axial images were acquired with coronal reconstruction through the abdomen and pelvis without contrast. Comparison made with prior examination of April 07, 2020. FINDINGS: Both kidneys and collecting systems: Normal. No evidence of stone formation, inflammation or obstruction. No bladder stone, air collection or focal wall thickening. Limited distention. extrinsic compression from moderate uterine enlargement. No pelvic inflammation. Moderate to large volume of colon stool. Normal small bowel. No ascites or pelvic fluid. Unremarkable lung bases, liver, spleen, gallbladder, biliary tree, pancreas and adrenal glands. IMPRESSION: 1. Normal kidneys, collecting systems and bladder, no evidence of inflammation, stones or obstruction. 2. Mild uterine enlargement possible fibroid formation, minimal change. Report reported and signed by Neri Torres on 02/05/2022 1020[facility] SpecialistEvaluation note* Diagnosis Acute cystitis without hematuria- Primary Dysuria , unspecified gestational age documented in this encounter [facility]* Diagnosis Encounter for supervision of other normal in second trimester- Primary Subchorionic hematoma in first trimester, single or unspecified fetus History of section Other postprocedural status documented in this encounter [facility] note* Diagnosis Encounter for supervision of other normal , second trimester- Primary History of section Other postprocedural status related condition in second trimester documented in this encounter [facility]* Diagnosis Bacterial vaginosis- Primary Unspecified vaginitis and vulvovaginitis documented in this encounter [facility]Evaluation note* Diagnosis examination or test, positive result- Primary Amenorrhea Absence of menstruation Subchorionic hematoma in first trimester, single or unspecified fetus Subchorionic hematoma in first trimester, single or unspecified fetus documented in this encounter [facility] Narrative - Reported* Type Description Date Surgical History appendectomy Surgical History C section x2 Hospitalization History see above [facility] Other Summary Purpose Family History No Family History Records FoundNo Family History Records FoundNo Family History Records FoundNo Family History Records FoundNo Family History Records FoundNo Family History Records Found Advance Directives No Advanced Directives Records FoundNo Advanced Directives Records FoundNo Advanced Directives Records FoundNo Advanced Directives Records FoundNo Advanced Directives Records FoundNo Advanced Directives Records Found Additional Source Comments INFORMATION SOURCE (unrecogn ized section and content) DATE CREATED AUTHOR 01/31/2018 [facility] DATE CREATED AUTHOR AUTHOR'S ORGANIZ ATION 02/01/2018 [facility] DATE CREATED AUTHOR AUTHOR'S ORGANIZ ATION 09/21/2020 [facility] DATE CREATED AUTHOR AUTHOR'S ORGANIZ ATION 03/30/2021 [facility] DATE CREATED AUTHOR AUTHOR'S ORGANIZ ATION 02/06/2022 [facility] dical Specialist DATE CREATED AUTHOR AUTHOR'S ORGANIZ ATION 08/17/2024 [facility] dical Specialists EPIC REASON FOR VISIT (unrecogniz ed section and content) Reason Comments UTI Care Teams (unrecognized sec tion and content) [employer] Person Relationship Specialty Start Date End Date Valentina Sadler MD [address] [place] [address] PCP - General Family Medicine 01/12/23 Aria Daugherty DAYCARE PROVIDER [address] [facility] [place] [address] Nurse Practitioner Family Medicine 01/12/23 Fina Barton NP [address] [place] [address] Nurse Practitioner Family Medicine 02/27/24 [employer] Person Relationship Specialty Start Date End Date Valentina Sadler MD [address] [place] [address] PCP - General Family Medicine 01/12/23 Aria Daugherty NP [address] [facility] [address] [facility] [place] [address] Nurse Practitioner Family Medicine 01/12/23 Fina Barton NP [address] [facility] [place] [address] Nurse Practitioner Family Medicine 02/27/24 [employer] Person Relationship Specialty Start Date End Date Valentina Sadler MD [address] [place] [address] PCP - General Family Medicine 01/12/23 Aria Daugherty NP [address] [place] [address] Nurse Practitioner Family Medicine 01/12/23 Fina Barton DAYCARE PROVIDER [address] [place] [address] Nurse Practitioner Family Medicine 02/27/24 [employer] Person Relationship Specialty Start Date End Date Valentina Sadler MD [address] [place] [address] PCP - General Family Medicine 01/12/23 Aria Daugherty NP [address] [place] [address] Nurse Practitioner Family Medicine 01/12/23 Fina Barton NP [address] [place] [address] Nurse Practitioner Family Medicine 02/27/24 [employer] Person Relationship Specialty Start Date End Date Valentina Sadler MD [address] [place] [address] PCP - General Family Medicine 01/12/23 Aria Daugherty NP [address] [place] [address] Nurse Practitioner Family Medicine 01/12/23 Fina Barton NP [address] [place] [address] Nurse Practitioner Family Medicine 02/27/24 [employer] Person Relationship Specialty Start Date End Date Valentina Sadler MD [address] [facility] [place] [address] PCP - General Family Medicine 01/12/23 Aria Daugherty NP [address] [facility] [place] [address] Nurse Practitioner Family Medicine 01/12/23 Fina Barton NP [address] [facility] [place] [address] Nurse Practitioner Family Medicine 02/27/24 [employer] Person Relationship Specialty Start Date End Date Valentina Sadler MD [address] [facility] [place] [address] PCP - General Family Medicine 01/12/23 Aria Daugherty NP [address] [facility] [place] [address] Nurse Practitioner Family Medicine 01/12/23 Fina Barton NP [address] [facility] [place] [address] Nurse Practitioner Family Medicine 02/27/24 [employer] Person Relationship Specialty Start Date End Date Valentina Sadler MD [address] [facility] [place] [address] PCP - General Family Medicine 01/12/23 Aria Daugherty, DAYCARE PROVIDER [address] [facility] [place] [address] Nurse Practitioner Family Medicine 01/12/23 Fina Barton NP [address] [place] [address] Nurse Practitioner Family Medicine 02/27/24 FOR RECORDS PERTAINING TO PATIENTS WHO ARE OR HAVE BEEN ENROLLED IN A CHEMICAL DEPENDENCY/SUBSTANCEABUSE PROGRAM, SOME INFORMATION MAY BE OMITTED. This clinical summary was aggregated from multiple sources. Caution should be exercised in using it in the provision of clinical care. This summary normalizes information from multiple sources, and as a consequence, information in this document may materially change the coding, format and clinical context of patient data. In addition, data may be omitted in some cases. CLINICAL DECISIONS SHOULD BE BASED ON THE PRIMARY CLINICAL RECORDS. [facility] [employer] provides no warranty or guarantee of the accuracy or completeness of information in this document.
--- NOTE | 2024-08-24 18:44 | US_ITS ---
[address] [address] Patient Name: HYACINTH HOLT MRN: [id number] date: 1985 Sex: F Assigned Patient Location: US Current Patient Location: Accession/Order Number: [id number] Exam Date: 08/24/2024 18:44 Report Date: 08/25/2024 00:59 At the request of: SHANNON KONG Procedure: US OB incomplete anatomy EXAMINATION: US OB placenta, US OB cervical length, US OB incomplete anatomy HISTORY: Marginal placenta COMPARISON: Ultrasound OB anatomy 08/06/2024 FINDINGS: HEART RATE: 141 bpm AMNIOTIC FLUID: Subjectively normal PLACENTA: Anterior with lower margin 7.8 cm from os; grade 0. ANATOMY: Extremities, cardiac outflow tracts, four-chamber heart, and spine; no appreciable abnormality. CERVIX: 4.8 cm; closed. AGE BY LMP: 23 weeks 1 day BERT BY LMP: 12/20/2024 US/US OB incomplete anatomy IMPRESSION: 1. Single live intrauterine . 2. Adequate visualization of the extremities, cardiac outflow track, four-chamber heart, and spine. The previously seen echogenic focus within left cardiac ventricle is not seen on today's study. 3. Anterior placenta without previa. Electronically authenticated by: ANGEL VILLEDA Date: 08/25/2024 00:59
== END 2024-08-24 17:40 | disposition home or self-care (01) ==
LOC: US 17:39
PROVIDERS: PCP Family Medicine; Visit Provider Midwife
DX: O44.22 Partial placenta previa NOS or without hemorrhage, second trimester (principal); O26.92 Pregnancy related conditions, unspecified, second trimester; Z3A.23 23 weeks gestation of pregnancy
CPT/HCPCS: 76815; 76817

== ENCOUNTER 2024-10-17 11:10 | Observation (INO) | payer OTHER, SELFPAY ==
--- OUTSIDE RECORDS SUMMARY | 2024-10-17 11:22 | XMS_ITS | CCD ---
Author Organization [facility] Care Team Providers Care Central Office Repairer Name Role Phone Provider, None Unavailable Unavailable Omley, Brandon H Unavailable Unavailable Omley, Brandon H Unavailable Unavailable Omley, Brandon H Unavailable Unavailable Omley, Brandon H Unavailable Unavailable Provider, None Unavailable Unavailable PROSPER LEUNG Unavailable Unavailable ADAPPA, SUPA Unavailable Unavailable KAMIREDWENDY, ADIREDDY Unavailable Unavailable REGGIE HORVATH Attending Unavailable REGGIE HORVATH Admitting Unavailable Melissa Daniel Unavailable Viktoriya GROVE, Valentina Martinez Primary Care Provider Dat MARKETING DESIGNER, Aria Cespedes Unavailable Xavier MARKETING DESIGNER, Fina Hinton Unavailable Xavier MARKETING DESIGNER, Fina R Unavailable SHANNON FELIX Attending Unavailable FLORO, SHANNON L Attending Unavailable MERY SOUSA Attending Unavailable FLORO, SHANNON Alvin Referring Unavailable FINA BARTON Attending Unavailable FINA BARTON Attending Unavailable BANDAR LOREDO Attending Unavailable FLORO, SHANNON L Attending Unavailable FLORO, SHANNON L Referring Unavailable FLORO, SHANNON L Referring Unavailable FLORO, SHANNON L Attending Unavailable FINA BARTON Attending Unavailable FLORO, SHANNON Alvin Attending Unavailable FLORO, SHANNON L Referring Unavailable FLORO, SHANNON L Attending Unavailable Allergies Allergy Classification Reported Allergen(s) Allergy Type Date of Onset Reaction(s) Facility (1 source) NITROFURANTOIN, MACROCRYSTALS / Nitrofurantoin, Monohydrate Drug Allergy vomiting [facility] Other (20 sources) Nitrofurantoin Drug Allergy 3 GI intolerance [facility] Work Phone: Medications Current Medications Medication Drug Class(es) Dates Sig (Normalized) Sig (Original) 168 HR ethinyl estradiol 0.18035 MG/HR / norelgestromin 0.37707 MG/HR Transdermal System [Zafemy] (1 source) Zafemy 150-35 MCG/24HR Transdermal for 84 Days Active metroNIDAZOLE 0.0075 mg/mg vaginal gel (1 source) Nitroimidazole Antimicrobial Start: 03-27-2024 End: 04-03-2024 metroNIDAZOLE (Metrogel) 0.75 % vaginal gel Indications: Bacterial vaginosis Insert into the vagina at bedtime for 7 days 70 g 03/27/2024 04/03/2024 Active ondansetron 8 mg disintegrating oral tablet (17 sources) Serotonin-3 Receptor Antagonist Start: 05-11-2024 take [...] capsule 06/18/2024 06/21/2024 21 day ethinyl estradiol 0.185732 mg/hr / etonogestrel 0.005 mg/hr vaginal system [...] 01-12-2023 Chronic Genitourinary symptoms and ill-defined conditions (5 sources) Dysuria; Translations: [Dysuria] 06-18-2024 Episodic Hemorrhage during ; abruptio placenta; placenta previa (2 sources) Placenta previa marginalis; Translations: [Partial placenta previa NOS or without hemorrhage, unspecified trimester] 08-09-2024 Episodic Influenza (2 sources) Influenza due to Influenza A virus; Translations: [Influenza due to other identified influenza virus with other respiratory manifestations] 10-08-2024 Episodic Menstrual disorders (20 sources) Irregular periods; Translations: [Irregular menstruation, unspecified] Onset: 09-17-2020 01-12-2023 Chronic Miscellaneous mental health disorders (20 sources) Primary insomnia; Translations: [Primary insomnia] Onset: 10-18-2016 01-12-2023 Chronic Mood disorders (20 sources) Major depression, single episode; Translations: [Major depressive disorder, single episode, unspecified] Onset: 10-18-2016 01-12-2023 Chronic Other acquired deformities (20 sources) Kyphosis of thoracic spine; Translations: [Unspecified kyphosis, thoracic region] Onset: 07-26-2019 01-12-2023 Chronic Other complications of (2 sources) Finding related to ; Translations: [ related conditions, unspecified, second trimester] 07-09-2024 Episodic Other lower respiratory disease (2 sources) Cough; Translations: [Acute cough] 10-08-2024 Episodic Other nervous system disorders (20 sources) Carpal tunnel syndrome of right wrist; Translations: [Carpal tunnel syndrome, right upper limb] Onset: 03-15-2019 01-12-2023 Chronic Other and delivery including normal (16 sources) ; Translations: [Encounter for supervision of normal , unspecified, unspecified trimester] 06-18-2024 Episodic Other screening for suspected conditions (not mental disorders or infectious disease) (4 sources) Patient encounter status; Translations: [Encounter for screening for diseases of the blood and blood-forming organs and certain disorders involving the immune mechanism] 09-26-2024 Episodic Other upper respiratory infections (1 source) [...] vaginitis] 03-27-2024 Episodic Other nervous system disorders (20 sources) Skin sensation disturbance; Translations: [Unspecified disturbances of skin sensation] Onset: 03-19-2019 01-12-2023 Episodic Unclassified (1 source) Contact with and (suspected) exposure to covid-19 Z20.822 Viral infection (1 source) COVID-19 Results Test Name Value Interpretation Reference Range Facility US OB FOLLOW UP TRANSABDOMIN AL APPROACHon 10-09-2024 US OB FOLLOW UP TRANSABDOMINAL APPROACH TITLE OF EXAM: OB Ultrasound: REASON FOR EXAM: Growth COMPARISON: 07/09/2024 TECHNIQUE: Grayscale and M-mode Doppler imaging is performed. FINDINGS: heart rate: 132 bpm SHILPI: 14.8 cm (9.1-23.3) BPD: 7.4 cm HC: 27.6 cm AC: 26.1 cm FL: 5.8 cm GA for sonogram: 29.8 wk (28.0-31.6) Cervix length: 5.8 cm BERT: 12/20/2024 Weight Estimate: Weight: 1533 gm / 3 lbs, 6 oz (6734-9888 gm) [place] Normal: 1505 gm (9254-5228 gm) [place] Wt%: 56% for 29.7 wks LMP: 03/15/25 Age by LMP: 29 w 5 d Age US today: 30 w 1 d BERT by LMP: 12/20/24 BERT US today: 12/17/24 Position: Transverse, right Placental Location: Anterior, low lying. Placental Grade: 1 Heart Rate: 132 BPM Somatic Movement: Yes Cervical Length: 5.82 cm Fluid-filled stomach is visualized. Limited view of intracranial contents is unremarkable. IMPRESSION: 1. Single live intrauterine gestation in transverse position with head to maternal right estimated at 29.8 weeks. This is concordant with the provided dates and prior ultrasound. 2. Low lying placenta. Placental margin resides 2.2 cm from the internal cervical os. Dictated and transcribed 10/09/24dpd This report has been electronically signed and approved by the interpreting radiologist. Normal Not Available US OB LIMITED 1+ FETUSESon 1 09-09-2023 [...] report is generated using voice recognition reporting (Zhenai). On occasion Diditzcribe erroneously drops words from the report or replaces the spoken word with similar sounding words. Please call with any questions/concerns regarding this report.* Dictated and transcribed 07/11/24/dpd This report has been electronically signed and approved by the interpreting radiologist. Normal Not Available Bacteria identified Cx Nom ( U)on 06-20-2024 Appearance (U) Adequate [facility] Internal identifier for Provider [id number] [facility] Specimen source Nom (Unsp spec) URINE, CLEAN CATCH [facility] STATUS FINAL [facility] Performing Organizat ion Information Site ID: QPT Name: [id number] Address: [address] [place] [address], [address] [place] [id number] Director: Bertram Fraser MD [facility] Laboratory - Microbiology an d Antimicrobial susceptibilityon 06-20-2024 Bacteria identified Cx Nom (U) SEE NOTE [facility] Comment on above: Less than 10,000 CFU/mL of single Gram positive organism isolated. No further testing will be performed. If clinically indicated, recollection using a method to minimize contamination, with prompt transfer to Urine Culture Transport Tube, is recommended. Urinalysis macro (dipstick) panel (U)on 06-18-2024 Bilirubin, UA Negative Negative - 4(70) +++ mg/dL [facility] Blood, UA Positive Negative - 50 Wally/mcL [facility] Clarity, UA Clear [facility] Color, UA Yellow [facility] Glucose, UA Negative Negative - 2000(110) ++++ mg/dL [facility] Interpretation and review of laboratory results Abnormal [facility] Ketones, UA Positive Negative - 160(16) ++++ mg/dL [facility] Leukocytes, UA 3+ Negative - 500+++ Doretha/mcL [facility] Nitrite, UA Negative Negative - Positive [facility] pH, UA 5 5 - 9 [facility] Protein, UA Trace Negative - 2000(20) ++++ mg/dL [facility] Spec Grav, UA 1.02 1 - 1.03 [facility] Urobilinogen, UA 0.2 0.2 - 12 mg/dL [facility] US for pregnancyon 4 TITLE OF EXAM: OB Ultrasound: REASON FOR [...] Electronically Signed Deshawn Ibarra M.D. 2024-05-23 17:07:53 [facility] US for pregnancyOrdered By: Deshawn Ibarra on 05-23-2024 [facility] [employer] Work Phone: US OB < 14 WEEKS [...] anatomical survey not performed. Dictated and transcribed 05/23/24d This report has been electronically signed and approved by the interpreting radiologist. Electronically Signed Deshawn Ibarra M.D. 2024-05-23 17:07:53 Normal Not Available US for pregnancyon Radiology Study observation (narrative) [facility] CBC panel Auto (Bld)on 05-17 Erythrocyte distribution width (RBC) [Ratio] 12.4 % 11.0 - 15.0 % [facility] Hematocrit (Bld) [Volume fraction] 40.8 % 35.0 - 45.0 % [facility] Hemoglobin (Bld) [Mass/Vol] 13.7 g/dL 11.7 - 15.5 g/dL [facility] MCH (RBC) [Entitic mass] 29.4 pg 27.0 - 33.0 pg [facility] MCHC (RBC) [Mass/Vol] 33.6 g/dL 32.0 - 36.0 g/dL [facility] Comment on above: For adults, a slight decrease in the calculated MCHC value (in the range of 30 to 32 g/dL) is most likely not clinically significant; however, it should be interpreted with caution in correlation with other red cell parameters and the patient's clinical condition. MCV (RBC) [Entitic vol] 87.6 fL 80.0 - 100.0 fL [facility] Platelet mean volume (Bld) [Entitic vol] 10.1 fL 7.5 - 12.5 fL [facility] Platelets (Bld) [#/Vol] 255 10*3/uL [facility] RBC (Bld) [#/Vol] 4.66 10*6/uL [facility] WBC (Bld) [#/Vol] 7.6 10*3/uL [facility] Laboratory - Blood bankon ABO group Nom (Bld) O [facility] Blood group antibody screen Ql Detected [facility] Comment on above: Reference range No antibodies detected This assay is a screening test for the detection of red blood cell antibodies. The test is not to be used for pretransfusion screening or for the medical management of an alloimmunized . Rh Nom (Bld) Positive [facility] Comment on above: For additional information, please refer to http://[employer]/faq/KKG889 (This link is being provided for informational/ educational purposes only.) Laboratory - Chemistry and C hemistry - challengeon 05-17-2024 TSH Qn 2.36 m[IU]/L mIU/L [facility] Comment on above: Reference Range > or = 20 Years 0.40-4.50 Ranges First trimester 0.26-2.66 Second trimester 0.55-2.73 Third trimester 0.43-2.91 Laboratory - Hematology and Cell countson 05-17-2024 HbA1c (Bld) [Mass fraction] 5.1 % NINF [facility] Comment on above: For the purpose of s creening for the presence of diabetes: <5.7% Consistent with the absence of diabetes 5.7-6.4% Consistent with increased risk for diabetes (prediabetes) > or =6.5% Consistent with diabetes This assay result is consistent with a decreased risk of diabetes. Currently, no consensus exists regarding use of hemoglobin A1c for diagnosis of diabetes in children. According to [place] Diabetes Association (ADA) guidelines, hemoglobin A1c <7.0% represents optimal control in non- diabetic patients. Different metrics may apply to specific patient populations. Standards of Medical Care in Diabetes(ADA). Laboratory - Microbiology an d Antimicrobial susceptibilityon 05-17-2024 HBV surface Ag IA Ql Non-Reactive NON-REACTIVE [facility] Comment on above: For additional information, please refer to http://education.Kicknote.com/faq/GJD069 (This link is being provided for informational/ educational purposes only.) HCV Ab IA Ql Non-Reactive NON-REACTIVE [facility] Comment on above: HCV antibody was non-reactive. There is no laboratory evidence of HCV infection. In most cases, no further action is required. However, if recent HCV exposure is suspected, a test for HCV RNA (test code 41558) is suggested. For additional information please refer to http://[employer]Kicknote.com/faq/HTN16w2 (This link is being provided for informational/ educational purposes only.) HIV 1+2 Ab+HIV1 p24 Ag IA Ql Non-Reactive NON-REACTIVE [facility] Comment on above: HIV-1 antigen and HI [...] purpose. For additional information please refer to http://[employer]Kicknote.com/faq/TPG807 (This link is being provided for informational/ educational purposes only.) The performance of this assay has not been clinically validated in patients less than 2 years old. Reagin Ab RPR (S) [Titer] 1 {titer} High [facility] Reagin Ab RPR Ql (S) Reactive Abnormal NON-REACTIVE NO [facility] Comment on above: The RPR is a non-alis ponemal-specific test; therefore, a treponemal-specific confirmatory test should be performed unless prior syphilis infection has been documented for this patient. Rubella virus IgG Qn (S) 7.94 [IU]/mL Index [facility] Comment on above: Index Interpretation ----- <0.90 Not consistent with immunity 0.90-0.99 Equivocal > or = 1.00 Consistent with immunity The presence of rubella IgG antibody suggests immunization or past or current infection with rubella virus. T. pallidum Ab IF Ql (S) Non-Reactive Nonreactive [facility] Comment on above: The FTA-ABS is a treponemal assay that is intended to be used with other tests (e.g., RPR) as part of a diagnostic algorithm for syphilis. The preferred treponemal-specific tests for confirmation of a reactive RPR are Treponema pallidum Particle Agglutination (TP-PA) or other treponemal antibody assays. From Sexually Transmitted Infections Treatment Guidelines,2020 MMWR Recomm Rep 2020;70 (No. RR-4): pg.39. Laboratory - Miscellaneous t estson 05-17-2024 Reference Lab Test ID [id number] [facility] Reference Lab Test Name FTA-ABS [facility] No Panel Informationon 05-17 CLIENT CONTACT: DOLLY JOVANNI [facility] COMMENT [facility] Comment on above: Please have the [facility] physician or his or her authorized community representative sign a copy of this report and promptly return it by faxing it to: [phone] or by returning the form to your swimming pool serviceperson. Interpretation and review of laboratory results Abnormal [facility] REPORT ALWAYS MESSAGE SIGNATURE [facility] Comment on above: The laboratory testing on this patient was verbally requested or confirmed by the ordering physician or his or her authorized community representative after contact with an employee of [employer]. Federal regulations require that we maintain on file written authorization for all laboratory testing. Accordingly we are asking that the ordering physician or his or her authorized community representative sign a copy of this report and promptly return it to the client reporting associate. Signature: MULTIPLE COLLECTION TIMES FOR SAME TEST TYPE. [facility] Performing Organizat ion Information Site ID: QPT Name: [id number] Address: [address] [place] [address], [address] [place] [id number] Director: Bertram Fraser MD [facility] hospital Performing Organizat ion Information Site ID: AMD Name: [id number] Address: [address] [place] [address] [place] [address] Director: Dave Rodriguez M.D.,PhD [facility] Bacteria identified Cx Nom ( U)on 05-12-2024 Appearance (U) Adequate [facility] Internal identifier for Provider [id number] [facility] Specimen source Nom (Unsp spec) URINE [facility] STATUS FINAL [facility] Laboratory - Drug toxicology on 05-12-2024 4-Ksllqiwofc-0,5-Dime thyl-3,3-Diphenylpyrr olidine (EDDP) Ql (U) Negative NINF - 100 ng/mL [facility] Amphetamines Ql (U) Negative NINF - 5 00 ng/mL [facility] Barbiturates Ql (U) Negative NINF - 3 00 ng/mL [facility] Benzodiazepines Ql (U) Negative NINF - 100 ng/mL [facility] Benzoylecgonine Ql (U) Negative NINF - 150 ng/mL [facility] Opiates Ql (U) Negative NINF - 100 ng/mL [facility] oxyCODONE Ql (U) Negative NINF - 100 ng/mL [facility] Phencyclidine Ql (U) Negative NINF - 25 ng/mL [facility] Tetrahydrocannabinol Screen method >20 ng/mL Ql (U) Negative NINF - 20 ng/mL [facility] Laboratory - Microbiology an d Antimicrobial susceptibilityon 05-12-2024 Bacteria identified Cx Nom (U) SEE NOTE [facility] Comment on above: Mixed genital butch isolated. These superficial bacteria are not indicative of a urinary tract infection. No further organism identification is warranted on this specimen. If clinically indicated, recollect clean-catch, mid-stream urine and transfer immediately to Urine Culture Transport Tube. Laboratory - Urinalysison Bacteria LM.HPF (Urine sed) [#/Area] NONE SEEN NONE SEEN /HPF [facility] Epithelial cells.squamous LM.HPF (Urine sed) [#/Area] 0-5 < OR = 5 /HPF [facility] Hyaline casts (Urine sed) [#/Area] NONE SEEN NONE SEEN /LPF [facility] RBC LM.HPF (Urine sed) [#/Area] NONE SEEN < OR = 2 /HPF [facility] WBC LM.HPF (Urine sed) [#/Area] 0-5 < OR = 5 /HPF [facility] N. gonorrhoeae DNA RAJINDER+probe Ql (Cervical mucus)on 05-12-2024 C. trachomatis rRNA RAJINDER+probe Ql (Unsp spec) Not detected NOT DETECTED [facility] N. gonorrhoeae rRNA RAJINDER+probe Ql (Unsp spec) Not detected NOT DETECTED [facility] No Panel Informationon 05-12 (ALWAYS MESSAGE) [facility] Comment on above: See Note 1 Note 1 This drug testing is for medical treatment only. Analysis was performed as non-forensic testing and these results should be used only by healthcare providers to render diagnosis or treatment, or to monitor progress of medical conditions. For assistance with interpreting these drug results, please contact a [facility] Toxicology Specialist: [phone] ( ), M-F, 8am-6pm EST. The analytical perfo rmance characteristics of this assay, when used to test SurePath(TM) specimens have been determined by [facility]. The modifications have not been cleared or approved by the FDA. This assay has been validated pursuant to the CLIA regulations and is used for clinical purposes. For additional information, please refer to https://education.Kicknote.com/faq/GID806 (This link is being provided for information/ educational purposes only.) Performing Organizat ion Information Site ID: QPT Name: [id number] Address: [address] [place] [address], [address] [place] [phone] Director: Bertram Fraser MD [facility] HCG ( test) Ql (U)o n 05-10-2024 Interpretation and review of laboratory results Abnormal [facility] Preg Test, Ur Positive Critical [facility] hospital US OB < 14 WEEKS EARLYon US [...] Limited study. Full anatomical survey not performed. Hoop Maker notes: Ovaries not visualized due to bowel. Dictated and transcribed 05/11/24/juan This report has been electronically signed and approved by the interpreting radiologist. Electronically Signed Deshawn Ibarra M.D. 2024-05-11 13:14:11 Normal Not Available COVID + FLU Quick Testingon 10-04-2022 SARS-CoV-2 (COVID-19) RNA RAJINDER+probe Ql (Unsp spec) positve [facility] Other COVID + FLU Quick Testing Negative [facility] Other Quick Strepon 10-04-2022 S. pyogenes Org specific cx Ql (Throat) Negative [facility] Other Quick Strep [facility] Other XR Chest 2 Views*on 08-20-19 22 XR Chest 2 Views* FINDINGS: No acute cardiac or pulmonary disease is identified. No worrisome mass lesions or infiltrates are seen. No pulmonary edema or pneumothorax is present. Cardiac silhouette size is normal. Skeletal structures are unremarkable. IMPRESSION: No acute cardiac or pulmonary disease. Report reported and signed by Neri Torres on 08/20/2021 1621 Normal [facility] Q - CULTURE,URINE,ROUTINEon 07-16-2021 CULTURE, URINE, ROUTINE SEE NOTE Normal [facility] Comment on above: Order Comment: [facility] Testing performed at: [facility], [address] [place] [address], [address] [place] [address], [phone], Behavioral Health Clinician: Bertram Fraser MD [facility] Collection Date/Time: [id number] [facility] Results Received Date/Time: [id number] [facility] Reported Date/Time: [id number] Result Comment: CULT URE, URINE, ROUTINE Micro Number: [id number] Test Status: Final Specimen Source: Urine Specimen Quality: Adequate Result: No Growth Performed By: #### 6 [id number] #### [facility] Default [address] [place] [address] Urine Cultureon 03-21-2021 Bacteria identified Cx Nom (U) ORGANISM: Escherichia coli (O:ESCCOL) [place] Count >100,000 Aerobic EMILE Charge (NUC86) - [...] <2 Tobramycin S <4 Trimethoprim/Sulfamethox azole R >238 S = SUSCEPTIBLE I = INTERMEDIATE R [...] RESISTANT TO ALL B-LACTAM DRUGS. PERFORMED BY: [place] [address] PATHOLOGIST BUILDING SUPERVISOR QIANA BRYSON M.D. [facility] Comment on above: Performed By: #### C UU #### [address] Chlamydia/GC/Trich NAAon Chlamydia Trachomotis, RAJINDER Negative Normal Negative [facility] Comment on above: Order Comment: Reaso n for Exam Dysuria Performed By: #### C UU #### [address] #### GCCHLAMTRI #### [facility] , [place] Gonorrhoeae, RAJINDER Negative Normal Negative [facility] Comment on above: Order Comment: Reaso n for Exam Dysuria Performed By: #### C UU #### [address] [address] [place] #### GCCHLAMTRI #### [facility] , Trichomonas RAJINDER Negative Normal Negative [facility] Comment on above: Order Comment: Reaso n for Exam Dysuria Result Comment: Perf ormed at: =G - [facility] [address] [id number] Pipe Fitter Ammonia: Kaleigh Arnold MD, Phone: [phone] PERFORMED BY: [place] [address] PATHOLOGIST BUILDING SUPERVISOR QIANA BRYSON M.D. Performed By: #### C UU #### [facility] [address] [place] [address] #### GCCHLAMTRI #### [facility] , Urine Cultureon 03-01-2021 Bacteria identified Cx Nom (U) Reason for Exam Dysuria Urine ORGANISM: Citrobacter freundii (O:CITFRE) [place] Count >100,000 Aerobic EMILE Charge (NUC86) - [...] RESISTANT TO ALL B-LACTAM DRUGS. PERFORMED BY: [place] [address] PATHOLOGIST BUILDING SUPERVISOR QIANA BRYSON M.D. [facility] Comment on above: Performed By: #### C UU #### [address] #### GCCHLAMTRI #### [facility] , Coding Summaryon 06-06-2017 Coding Summary CODING DATE: [facility] STATUS: Home PAYOR: Commercial Insurance APC DESCRIPTION [...] Thomas Revised Date Saved: 02/21/2017 03:48 pm [place] Coding Summary CODING DATE: [facility] STATUS: Discharge/Transfer to Another Hospital PAYOR: Commercial [...] Thomas Revised Date Saved: 02/21/2017 03:46 pm [place] Coding Summaryon 02-21-2017 Coding Summary CODING DATE: [facility] STATUS: Home PAYOR: Commercial Insurance ADMIT DX: [...] Alen Thomas Date Saved: 02/21/2017 03:48 pm [place] Coding Summary CODING DATE: 017 [facility] STATUS: Discharge/Transfer to Another Hospital PAYOR: Commercial [...] Alen Thomas Date Saved: 02/21/2017 03:46 pm [place] Basic Metabolic Profon 02-14 (cont.) Normal [facility] Comment on above: Result Comment: Aver age GFR for 30-39 years old: 107 mL/min/1.73sq mChronic Kidney Disease: <60 mL/min/1.73sq mKidney failure: <15 mL/min/1.73sq meGFR calculated using average adult body mass. Additional eGFR calculator available at:[email or web address] [facility] [address] [place] [address] Performed By: #### C BC, BMP ####[facility] [address] [place] [address] Anion gap 13 mmol/L Normal 04-24 [facility] Comment on above: Performed By: #### C BC, BMP ####[facility] [address] [place] [address] Calcium 8.5 mg/dL Low 8.6-10.4 [facility] Comment on above: Performed By: #### C BC, BMP ####[facility] [place] [address] Chloride 105 mmol/L Normal 98-107 [facility] Comment on above: Performed By: #### C BC, BMP ####[facility] [place] [address] CO2 21 mmol/L Normal 20-31 [facility] Comment on above: Performed By: #### C BC, BMP ####[facility] [place] [address] Creatinine 0.69 mg/dL Normal 0.50-0.90 [facility] Comment on above: Performed By: #### C BC, BMP ####[facility] [place] [address] eGFR (non-black) mL/min/{1.73_m2} Normal >60 [facility] Comment on above: Performed By: #### C BC, BMP ####[facility] [place] [address] Glucose mass conc 95 mg/dL Normal 70-99 [facility] Comment on above: Performed By: #### C BC, BMP ####[facility] [place] [address] Potassium molar conc 4.3 mmol/L Normal 3.7-5.3 [facility] Comment on above: Performed By: #### C BC, BMP ####[facility] [place] [address] Sodium 139 mmol/L Normal 135-144 [facility] Comment on above: Performed By: #### C BC, BMP ####[facility] [place] [address] Urea nitrogen 14 mg/dL Normal 6-20 [facility] Comment on above: Performed By: #### C BC, BMP ####[address] [address] BUN/CRE Ratio NOT REPORTED Normal - [facility] Comment on above: Performed By: #### C BC, BMP ####[address] [address] Staging: NOT REPORTED Normal [facility] Comment on above: Performed By: #### C BC, BMP ####[address] [address] CBCon 02-14-2017 Erythrocyte distribution width Auto Ratio (RBC) 12.8 % Normal 12.5-15.4 [facility] Comment on above: Performed By: #### C BC, BMP ####[address] [address] Erythrocytes (RBC) 4.09 10*6/uL Normal 4.0-5.2 [facility] Comment on above: Performed By: #### C BC, BMP ####[address] [address] Hematocrit (HCT) 34.2 % Low 36-46 [facility] Comment on above: Performed By: #### C BC, BMP ####[address] [address] Hemoglobin mass conc (Bld) 11.9 g/dL Low 12.0-16.0 [facility] Comment on above: Performed By: #### C BC, BMP ####[address] [address] MCH 29.0 pg Normal 26-34 [facility] Comment on above: Performed By: #### C BC, BMP ####[address] [address] MCHC mass conc (RBC) 34.7 g/dL Normal 31-37 [facility] Comment on above: Performed By: #### Chaim VAZQUEZ, BMP ####[address] [address] MCV 83.8 fL Normal 80-100 [facility] Comment on above: Performed By: #### C TAYLOR, BMP ####[address] [address] Platelet mean volume (PMV) 9.8 fL Normal 6.0-12.0 [facility] Comment on above: Result Comment: [address] [address] Performed By: #### Chaim VAZQUEZ, BMP ####[address] [address] Platelets 258 10*3/uL Normal 140-450 [facility] Comment on above: Performed By: #### C TAYLOR, BMP ####[address] [address] WBC (Leukocytes) 11.5 10*3/uL High 3.5-11.0 [facility] Comment on above: Performed By: #### Chaim VAZQUEZ, BMP ####[address] [address] Discharge Summaryon 02-15-20 17 HIM IP Note OR Vocational Rehab Consultant Normal [facility] Basic Metabolic Profon 02-13 (cont.) Normal [facility] Comment on above: Result Comment: Aver age GFR for 30-39 years old: 107 mL/min/1.73sq mChronic Kidney Disease: <60 mL/min/1.73sq mKidney failure: <15 mL/min/1.73sq meGFR calculated using average adult body mass. Additional eGFR calculator available at:http://www.[employer].Wallarm/multiple_crcl_2012.htm[address] [place] [address] Performed By: #### C BC, BMP ####[facility] [place] [address] Anion gap 11 mmol/L Normal 9-17 [facility] Comment on above: Performed By: #### C BC, BMP ####[facility] [place] [address] Calcium 9.0 mg/dL Normal 8.6-10.4 [facility] Comment on above: Performed By: #### C BC, BMP ####[facility] [place] [address] Chloride 106 mmol/L Normal 98-107 [facility] Comment on above: Performed By: #### C BC, BMP ####[facility] [place] [address] CO2 22 mmol/L Normal 20-31 [facility] Comment on above: Performed By: #### C BC, BMP ####[facility] [place] [address] Creatinine 0.59 mg/dL Normal 0.50-0.90 [facility] Comment on above: Performed By: #### C BC, BMP ####[facility] [place] [address] eGFR (non-black) mL/min/{1.73_m2} Normal >60 [facility] Comment on above: Performed By: #### C BC, BMP ####[facility] [place] [address] Glucose mass conc 144 mg/dL High 70-99 [facility] Comment on above: Performed By: #### C BC, BMP ####[facility] [place] [address] Potassium molar conc 4.5 mmol/L Normal 3.7-5.3 [facility] Comment on above: Performed By: #### C BC, BMP ####[address] [address] Sodium 139 mmol/L Normal 135-144 [facility] Comment on above: Performed By: #### C TAYLOR, BMP ####[facility] [address] [place] [address] Urea nitrogen 10 mg/dL Normal 6-20 [facility] Comment on above: Performed By: #### C TAYLOR, BMP ####[address] [address] BUN/CRE Ratio NOT REPORTED Normal - [facility] Comment on above: Performed By: #### C TAYLOR, BMP ####[address] [address] Staging: NOT REPORTED Normal [facility] Comment on above: Performed By: #### C TAYLOR, BMP ####[address] [address] C Throaton 02-13-2017 C Throat Ordered by Discern. Normal throat butch isolated No pathogens isolated Normal [facility] Comment on above: Performed By: #### 4 [id number], [id number] ####[facility] (DEFAULT)[address] [place] [address] CBCon 02-13-2017 Erythrocyte distribution width Auto Ratio (RBC) 13.2 % Normal 12.5-15.4 [facility] Comment on above: Performed By: #### C TAYLOR, BMP ####[address] [address] Erythrocytes (RBC) 4.13 10*6/uL Normal 4.0-5.2 [facility] Comment on above: Performed By: #### C TAYLOR, BMP ####[facility] [address] [address] Hematocrit (HCT) 34.7 % Low 36-46 [facility] Comment on above: Performed By: #### C BC, BMP ####[address] [place] [address] Hemoglobin mass conc (Bld) 12.0 g/dL Normal 12.0-16.0 [facility] Comment on above: Performed By: #### C BC, BMP ####[facility] [address] [place] [address] MCH 29.1 pg Normal 26-34 [facility] Comment on above: Performed By: #### C BC, BMP ####[address] [address] MCHC mass conc (RBC) 34.6 g/dL Normal 31-37 [facility] Comment on above: Performed By: #### C TAYLOR, BMP ####[address] [address] MCV 84.2 fL Normal 80-100 [facility] Comment on above: Performed By: #### C BC, BMP ####[address] [address] Platelet mean volume (PMV) 9.1 fL Normal 6.0-12.0 [facility] Comment on above: Result Comment: [facility] [address] [place] [address] Performed By: #### C BC, BMP ####[address] [address] Platelets 244 10*3/uL Normal 140-450 [facility] Comment on above: Performed By: #### C BC, BMP ####[address] [address] WBC (Leukocytes) 8.4 10*3/uL Normal 3.5-11.0 [facility] Comment on above: Performed By: #### C BC, BMP ####[address] [place] [address] Basic Metabolic Profon 02-12 (cont.) Normal [facility] Comment on above: Result Comment: Aver age GFR for 30-39 years old: 107 mL/min/1.73sq mChronic Kidney Disease: <60 mL/min/1.73sq mKidney failure: <15 mL/min/1.73sq meGFR calculated using average adult body mass. Additional eGFR calculator available at:http://www.[employer]/Gruvie_crcl_2012.htmEnc[facility] [address] [place] [address] Performed By: #### C BC, BMP ####[facility] [address] [address] Anion gap 14 mmol/L Normal 9-17 [facility] Comment on above: Performed By: #### C BC, BMP ####[facility] [address] [place] [address] Calcium 8.3 mg/dL Low 8.6-10.4 [facility] Comment on above: Performed By: #### C BC, BMP ####[facility] [address] [address] Chloride 104 mmol/L Normal 98-107 [facility] Comment on above: Performed By: #### C BC, BMP ####[facility] [address] [place] [address] CO2 17 mmol/L Low 20-31 [facility] Comment on above: Performed By: #### C BC, BMP ####[facility] [address] [place] [address] Creatinine 0.44 mg/dL Low 0.50-0.90 [facility] Comment on above: Performed By: #### C BC, BMP ####[facility] [place] [address] eGFR (non-black) mL/min/{1.73_m2} Normal >60 [facility] Comment on above: Performed By: #### C BC, BMP ####[facility] [place] [address] Glucose mass conc 104 mg/dL High 70-99 [facility] Comment on above: Performed By: #### C BC, BMP ####[facility] [place] [address] Potassium molar conc 4.2 mmol/L Normal 3.7-5.3 [facility] Comment on above: Performed By: #### C BC, BMP ####[address] [address] Sodium 135 mmol/L Normal 135-144 [facility] Comment on above: Performed By: #### C BC, BMP ####[facility] [place] [address] Urea nitrogen 7 mg/dL Normal 6-20 [facility] Comment on above: Performed By: #### C BC, BMP ####[facility] [place] [address] BUN/CRE Ratio NOT REPORTED Normal 9-20 [facility] Comment on above: Performed By: #### C BC, BMP ####[facility] [place] [address] Staging: NOT REPORTED Normal [facility] Comment on above: Performed By: #### C BC, BMP ####[facility] [address] [place] [address] CBCon 02-12-2017 Erythrocyte distribution width Auto Ratio (RBC) 13.0 % Normal 12.5-15.4 [facility] Comment on above: Performed By: #### C BC, BMP ####[address] [address] Erythrocytes (RBC) 3.97 10*6/uL Low 4.0-5.2 [facility] Comment on above: Performed By: #### C BC, BMP ####[address] [address] Hematocrit (HCT) 33.6 % Low 36-46 [facility] Comment on above: Performed By: #### C BC, BMP ####[address] [address] Hemoglobin mass conc (Bld) 11.8 g/dL Low 12.0-16.0 [facility] Comment on above: Performed By: #### C BC, BMP ####[address] [address] MCH 29.7 pg Normal 26-34 [facility] Comment on above: Performed By: #### C BC, BMP ####[address] [address] MCHC mass conc (RBC) 35.0 g/dL Normal 31-37 [facility] Comment on above: Performed By: #### C BC, BMP ####[address] [address] MCV 84.6 fL Normal 80-100 [facility] Comment on above: Performed By: #### C BC, BMP ####[address] [address] Platelet mean volume (PMV) 8.6 fL Normal 6.0-12.0 [facility] Comment on above: Result Comment: [address] [place] [address] Performed By: #### C TAYLOR, BMP ####[facility] [place] [address] Platelets 236 10*3/uL Normal 140-450 [facility] Comment on above: Performed By: #### C TAYLOR, BMP ####[facility] [place] [address] WBC (Leukocytes) 11.3 10*3/uL High 3.5-11.0 [facility] Comment on above: Performed By: #### C TAYLOR, BMP ####[address] [place] [address] .Auto Diff 1on - Auto Baso % 0.1 % Low 0.2-2.0 [facility] Comment on above: Performed By: #### 1 [id number], 1665665678, 5918764, 34875298, 6058777, [id number] ####[facility] (DEFAULT)[address] [place] [address] Auto Cambria % 8 % Normal 1-12 [facility] Comment on above: Performed By: #### 1 [id number], 5513216351, 3850565, 27184006, 6982693, 7105800543 ####[facility] (DEFAULT)[address] [place] [address] Auto Neut % 82 % Normal 44-88 [facility] Comment on above: Performed By: #### 1 [id number], 9328407610, 2360542, 49991935, 8252203, 2837650240 ####[facility] (DEFAULT)[address] [place] [address] Baso Abs# 0.0 x10 Normal 0.0-0.2 [facility] Comment on above: Performed By: #### 1 [id number], 5081733901, 3627867, 66433642, 4087952, 0004884369 ####[facility] (DEFAULT)[address] [place] [address] Eos Abs# 0.0 x10 Normal 0.0-0.4 [facility] Comment on above: Performed By: #### 1 [id number], 0882821266, 0950206, 32900061, 7322786, 7423661216 ####[facility] (DEFAULT)[address] [place] [address] Eosinophils/100 leukocytes 0.2 % Low 0.9-4.0 [facility] Comment on above: Performed By: #### 1 [id number], 5499583468, 3896170, 27349351, 1304706, 4559071164 ####[facility] (DEFAULT)[address] [place] [address] Lymphocytes 1.1 x10 Low 1.3-2.9 [facility] Comment on above: Performed By: #### 1 [id number], 9459469110, 9085036, 57194468, 9292913, 8818718320 ####[facility] (DEFAULT)[address] [place] [address] Lymphocytes/100 leukocytes 9 % Low 14-48 [facility] Comment on above: Performed By: #### 1 [id number], 0424628331, 6098425, 90190700, 7762077, 4809234938 ####[facility] (DEFAULT)[address] [place] [address] Cambria Abs# 1.0 x10 High 0.0-0.8 [facility] Comment on above: Performed By: #### 1 [id number], 7615188179, 8747043, 12986319, 9466287, 8739628016 ####[facility] (DEFAULT)[address] [place] [address] Neut Abs# 9.8 x10 High 1.5-9.2 [facility] Comment on above: Performed By: #### 1 [id number], 0986188730, 5520970, 87781281, 5164907, 2660729464 ####[facility] (DEFAULT)[address] [place] [address] CBC w/ Auto Diffon 7 Erythrocyte distribution width Auto Ratio (RBC) 12.3 % Normal 11.5-15.0 [facility] Comment on above: Performed By: #### 1 [id number], 7740123943, 8030796, 23064613, 4371167, 0549815585 ####[facility] (DEFAULT)[address] [place] [address] Erythrocytes (RBC) 4.48 x10 Normal 3.70-5.30 [facility] Comment on above: Performed By: #### 1 403713654, 4442831367, 2728313, 18757328, 6677331, 9516981774 ####[facility] (DEFAULT)[address] [place] [address] Hematocrit (HCT) 38.1 % Normal 33.7-40.4 [facility] Comment on above: Performed By: #### 1 [id number], 6583852184, 6571860, 13387138, 9795279, 1737468801 ####[facility] (DEFAULT)[address] [place] [address] Hemoglobin mass conc (Bld) 13.1 g/dL Normal 11.3-15.9 [facility] Comment on above: Performed By: #### 1 500761151, 3424290859, 5503282, 47101704, 7659489, 5303791830 ####[facility] (DEFAULT)[address] [place] [address] Man Diff? Auto Normal [facility] Comment on above: Performed By: #### 1 [id number], 1052950932, 1902551, 69968843, 4044480, 6884305011 ####[facility] (DEFAULT)[address] [place] [address] MCH 29 pg Normal 24-34 [facility] Comment on above: Performed By: #### 1 921156673, 6976275447, 5961000, 97972351, 7756441, 8542753318 ####[facility] (DEFAULT)[address] [place] [address] MCHC mass conc (RBC) 34 g/dL Normal 26-37 [facility] Comment on above: Performed By: #### 1 [id number], 0258159705, 5333168, 96913629, 8057306, 9763182058 ####[facility] (DEFAULT)[address] [place] [address] MCV 85 fL Normal 81-100 [facility] Comment on above: Performed By: #### 1 040946593, 4209548897, 5471189, 28790959, 5028279, 2482628270 ####[facility] (DEFAULT)[address] [place] [address] Platelet mean volume (PMV) 9.2 fL Normal 6.3-10.2 [facility] Comment on above: Performed By: #### 1 [id number], 6560969761, 6625064, 33361976, 8780793, 8728699552 ####[facility] (DEFAULT)[address] [place] [address] Platelets 269 x10 Normal 138-427 [facility] Comment on above: Performed By: #### 1 086637747, 0162638626, 8540687, 23078417, 3725854, 3313235544 ####[facility] (DEFAULT)[address] [place], [place] [address] WBC (Leukocytes) 11.[address] [facility] Comment on above: Performed By: #### 1 [id number], 8060895322, 2201255, 90505141, 0664904, 3653854111 ####[facility] (DEFAULT)[address] [place] [address] CMP Standardon 02-11-2017 eGFR (non-black) mL/min/{1.73_m2} Invalid Interpretation Code [facility] Comment on above: Performed By: #### 1 [id number], 6595804882, 3593318, 81503893, 7352291, 1340225691 ####[facility] (DEFAULT)[address] [place] [address] eGFR (non-black) mL/min/{1.73_m2} Invalid Interpretation Code [facility] Comment on above: Result Comment: [employer] Build [employer] jam Kidney disease could be indicated at eGFRs of less than 60 ml/min/1.73m2. Kidney Failure is indicated at less than 15 ml/min/1.73m2 Performed By: #### 1 [id number], 2804793485, 7660782, 40687157, 0412461, 7429598753 ####[facility] (DEFAULT)[address] [place] [address] Albumin 3.9 g/dL Normal 3.5-5.0 [facility] Comment on above: Performed By: #### 1 169805364, 9330718134, 9163693, 52880071, 3319864, 1228372293 ####[facility] (DEFAULT)[address] [place] [address] Albumin/Globulin Ratio 0.9 {ratio} Low 1.4-2.6 [facility] Comment on above: Performed By: #### 1 213305904, 9786547659, 5150750, 97751872, 6901069, 4140723879 ####[facility] (DEFAULT)[address] [place] [address] Alk Phos 58 IU/L Normal 32-91 [facility] Comment on above: Performed By: #### 1 750710824, 7986394796, 1353788, 76633050, 2815847, 3543646749 ####[facility] (DEFAULT)[address] [place] [address] ALT/SGPT 11.0 IU/L Low 14.0-54.0 [facility] Comment on above: Performed By: #### 1 [id number], 6770926368, 1509535, 63052738, 4977945, 7233794249 ####[facility] (DEFAULT)[address] [place] [address] Anion gap 11.0 mmol/L Normal 5.0-19.0 [facility] Comment on above: Performed By: #### 1 601453766, 7735358688, 0972686, 50720940, 5643167, 6727542363 ####[facility] (DEFAULT)[address] [place] [address] AST/SGOT 15 IU/L Normal 15-41 [facility] Comment on above: Performed By: #### 1 363924128, 1530717552, 0233650, 69147227, 8300557, 8812984610 ####[facility] (DEFAULT)[address] [place] [address] Bili Total 0.6 mg/dL Normal 0.3-1.2 [facility] Comment on above: Performed By: #### 1 [id number], 2820248447, 0402388, 78755419, 2274350, 1182879074 ####[facility] (DEFAULT)[address] [place] [address] BUN/Creatinine Ratio 8.0 mg/mg Normal 4.6-16.2 [facility] Comment on above: Performed By: #### 1 428541464, 1956173554, 2555106, 54463902, 9943305, 3154695526 ####[facility] (DEFAULT)[address] [place] [address] Calcium 9.0 mg/dL Normal 8.9-10.3 [facility] Comment on above: Performed By: #### 1 529200533, 3097368491, 4216943, 31724781, 2363852, 6185237439 ####[facility] (DEFAULT)[address] [place] [address] Chloride 103 mmol/L Normal 101-111 [facility] Comment on above: Performed By: #### 1 277993562, 6404133919, 9747199, 92157422, 8550062, 0134211423 ####[facility] (DEFAULT)[address] [place] [address] CO2 26 mmol/L Normal 21-32 [facility] Comment on above: Performed By: #### 1 [id number], 8552524727, 5117032, 99192841, 8031168, 7684875412 ####[facility] (DEFAULT)[address] [place] [address] Creatinine 0.60 mg/dL Normal 0.60-1.30 [facility] Comment on above: Performed By: #### 1 [id number], 1117451406, 4700590, 20283316, 3347331, 2313869109 ####[facility] (DEFAULT)[address] [place] [address] Globulin 4.3 g/dL Normal 1.5-4.3 [facility] Comment on above: Performed By: #### 1 [id number], 2939831471, 8848392, 17384913, 9098698, 6923683931 ####[facility] (DEFAULT)[address] [place] [address] Glucose mass conc 101.0 mg/dL Normal 74.0-118.0 [facility] Comment on above: Performed By: #### 1 [id number], 5922937380, 4994132, 02538597, 6373796, 3230884992 ####[facility] (DEFAULT)[address] [place] [address] Osmolality 269 mOsm/L Invalid Interpretation Code [facility] Comment on above: Performed By: #### 1 [id number], 7517086679, 3014264, 11938227, 6623530, 6870701683 ####[facility] (DEFAULT)[address] [place] [address] Potassium molar conc 3.9 mmol/L Normal 3.6-5.1 [facility] Comment on above: Performed By: #### 1 956047117, 6724191433, 7083923, 09797108, 5659164, 1355226220 ####[facility] (DEFAULT)[address] [place] [address] Protein 8.2 g/dL High 6.5-8.1 [facility] Comment on above: Performed By: #### 1 196606446, 6715531742, 6363881, 70699718, 4978003, 9535529398 ####[facility] (DEFAULT)[address] [place] [address] Sodium 136.0 mmol/L Normal 136.0-144.0 [facility] Comment on above: Performed By: #### 1 [id number], 0728614778, 8288750, 00446757, 4077340, 2500528694 ####[facility] (DEFAULT)[address] [place] [address] Urea nitrogen 5 mg/dL Low 8- [facility] Comment on above: Performed By: #### 1 [id number], 0480067454, 5316201, 54395934, 4162343, 3566308424 ####[facility] (DEFAULT)[address] [place] [address] CT Soft Tissue Neck w/ Contr ken [...] LATERAL TONGUE BASE, CANNOT BE EXCLUDED.4. FOLLOW-UP NEEDED.Blade Boggs MDJOB #: [id number]: 02/11/2017T: 02/11/2017 Final Dictated by: Blade Boggs MDDictated DT/TM: 02/11/17 9:15Signed (Electronic Signature): Blade Boggs MD 02/11/17 11:27 aTechnologist: AIDAN TSE Normal [facility] ED Clinical Summaryon [address] [facility] [address] [place], [place] [id number] ed Clinical SummaryPERSON INFORMATIONName: HYACINTH ESCALONA Age: 31 Years Sex: FEMALEDOB: [birth year] MRN: Acct#:Visit Reason: Mouth pain; Mouth pain; SWOLLEN MOUTH / DENTAL ISSUE Arrival:02/11/17 06:48:00 Discharge: 02/11/17 12:13:00LOS: 000 05:25 Check In: 02/11/17 06:48:00 Checkout:02/11/17 12:13:00Address:[address] [facility] [address]XCR: Provider, NonePROVIDER INFORMATIONProvider Role Assigned UnassignedChen Porras ED Nurse 02/11/17 06:51:37Brandon Lopez DO ED Provider 02/11/17 07:21:08Yony Talbert ED Nurse 02/11/17 07:23:11Kathryn Rg MD ED [...] IV PushAllergy Information:No known allergiesPHYSICIAN DOCUMENTATIONPatient: HYACINTH ESCALONA : 31 years Sex: FEMALE : [birth year]Associated Diagnoses: sherice-tonsillar cellulitisAuthor: Brandon Lopez DOBacosta InformationTime seen: Date & time 02/11/17 07:21:00.History [...] heart; the patient is on AmoxicillinSOCIAL: Non-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 ED Note - Otheron 02-11-2017 ED Note - Other transport set up [facility], given an eta of about 30 mins[Electronically Signed on: 02/11/2017 11:40 EDT] Seng scherer Viviane[Verified on: 02/11/2017 11:40 EDT] Seng scherer [facility] ED Note - Other pt will be going to room 315, and a report number of [phone] was given[Electronically Signed on: 02/11/2017 11:40 EDT] Seng scherer Viviane[Verified on: 02/11/2017 11:40 EDT] Seng scherer [facility] ED Note - Other pt accpeted by dr. shane and dr. erickson into [facility], waiting on a bed assignment[Electronicall y Signed on: 02/11/2017 11:39 EDT] Seng scherer Viviane[Verified on: 02/11/2017 11:39 EDT] Seng scherer [facility] ED Note - Other pt back from ct [Electronically Signed on: 02/11/2017 08:49 EDT] Viviane Chaidez [Verified on: 02/11/2017 08:49 EDT] Dm Viviane [place] ED Note - Other pt to ct [Electronically Signed on: 02/11/2017 08:43 EDT] Viviane Chaidez [Verified on: 02/11/2017 08:43 EDT] Dm [facility] ED Note - Physicianon 2016 ED Note - Physician Patient: HYACINTH ESCALONA : 31 years Sex: FEMALE : [birth year]Associated Diagnoses: NoneAuthor: Kathryn Rg MDBasic InformationAddendum: Time of addendum:: 02/11/17 09:27:00 , Assumed care from: dr lopez 9a , ct pending ,awaiting call back from dr more [facility] ent .31-year-old female with wisdom teeth extraction [...] Diff 1:CBC w/ Auto Diff:CMP Standard:Extra Blue:Extra Red:Cambria Scrn:Normal Saline Flush: 10 mL, IV Push, As DirectedOmnipaque 350.: 350 mg, 100 mL, IV Push, OncePregnancy Test Serum 1:Rapid Strep:SOLU-Medrol: 125 mg, 2 mL, IV Push, OnceToradol: 30 mg, 1 mL, IV Push, OnceZithromax: 500 mg, 1 EA, 250 mL/hr, IV Piggyback, Once.Results review: Lab results : Lab Tdbxqesqg59/07/17 07:45 EDT Sodium Level 136.0 mmol/L Potassium [...] Auto Lymph % 9 % LOW Auto Cambria % 8 % Auto Eos % 0.2 % LOW Auto Baso % 0.1 % LOW Neut Abs# 9.8 x103/mcL HI Lymph Abs# 1.1 x103/mcL LOW Cambria Abs# 1.0 x103/mcL HI Eos Abs# 0.0 x103/mcL Baso Abs# 0.0 x103/mcL Cambria Scrn Negative, Lab results : Lab Puccnzori71/07/17 07:31 EDT Strep A Negative , Lab results : Lab Lrvwaobfq16/07/17 07:49 EDT Test Serum Qual Negative .Radiology [...] in detail ,[facility] , will try and see today after office hours give unasyn and decadron 12 mg iv , if needs to be transferred to [facility] will need to speak to dr jasmine who is manager infusion ,aware of trismus ,ct findings pertinent exam , labs ,Course: improving.Pain status: decreased.[address] tinsley in detail wants patient transferred to location with ENT , only on consultative basis here at [place] [address] [facility] will not answer phone call from us at this time ,will try hospitalist at [id number] [facility] irwin hospitalist at [facility] in detail ,will discuss with ENT at [facility] and call us back , dr jasmine does not wish to accept patient to ent , therfore dr irwin cannot accept to [id number] patient updated agreeable to transfer to [facility] , doing well , airway patent , still with trismus no increasing swelling , no stridor or [id number] discussed [address] shane ENT , in detail , admit to hospitalist service ,[address] leung in detail , accepts patient is hospitalist at [facility] ,1130 no als transport available ,bls available for transport , will heplock iv ,patient swallowing own secretions well , no airway compromise on serial examinations . 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 Dr. Rg still trying to find an accepting doc for transfer. [place] ED Note-Nursing talking to [facility]. [place] ED Note-Nursing trying to fing a n accepting hospital to transfer pt. Pt in no acute distress. Resting quietly. [place] ED Note-Nursing No change. [place] ED Note-Nursing Pt states she is fee ling a little better. Resting quietly. [place] ED Note-Nursing Waiting for lab resu lts before going to CT. [place] ED Note-Nursing Resting quietly, Dr. Lopez in seeing pt. Normal [facility] ED Patient Education Noteon 02-11-2017 ED Patient Education Note Education Materials Normal [facility] ED Patient Summaryon [address] [facility] - Emergency [address] [place] [address] pATIENT DISCHARGE INSTRUCTIONSPatient InformationName: HYACINTH ESCALONA Age: 31 YearsDate of : [birth year]MRN: [id number] Visit: Mouth pain; Mouth pain; SWOLLEN MOUTH / DENTAL ISSUEArrival Time: 02/11/17 06:48:00Phone: Primary Care Physician: Provider, NoneAttending Physician: Brandon Lopez DOComment:Visit Diagnosis:Diagnoses This Visit Mouth pain ([id number]) Mouth pain ([id number]) sherice-tonsillar cellulitisIf you received any narcotics, sedation, [...] and treatment you received today in the [facility] Emergency Department were for an urgent problem and are not intended as complete care. It is important for you to follow up with a doctor, nurse practitioner, or physician?s dental assistant teacher for ongoing care. If your symptoms become [...] number so we can reach you if necessary.[facility] Emergency Department has provided you with a complete list of medications post discharge. Please inform your welder fitter arc/provider of your visit and for further instruction on these medications. Any specific questions regarding your chronic medications and dosages should be discussed with your primary care physician(s) and/or pharmacist. Medications to Continue That Have Not ChangedOther Medicationsamoxicillin (amoxicillin 250 mg oral capsule) 2 cap Oral 3 times a day.[facility] PrescriptionVisit InformationAllergies:Sub stance Reaction Symptoms Type CommentsNo [...] Answerwww.cdc.gov/getsma rt GET SMART Know When Antibiotics [place] Department of Health and Human ServicesCenters for Disease Control and Prevention April [address] [facility] Extra Blueon 02-11-2017 Tube Collected Yes Invalid Interpretation Code [facility] Comment on above: Performed By: #### 1 [id number] ####[facility] (DEFAULT)[address] [place] [address]858 History and Physicalon 02-11 HIM IP Note OR Vocational Rehab Consultant Normal [facility] Cambria Scrnon 02-11-2017 Cambria procedure control Pass [place] Comment on above: Performed By: #### 1 [id number] ####[facility] (DEFAULT)[address] [place] [address] Cambria Scrn Negative Normal Negative [facility] Comment on above: Performed By: #### 1 [id number], [id number] ####[facility] (DEFAULT)[address] [place] [address] 57417 Test Serum 1on Preg Serum Internal Control [place] Comment on above: Performed By: #### 3 [id number] ####[facility] (DEFAULT)[address] [place] [address] 96498 Test Serum Qual Negative [place] Comment on above: Performed By: #### 3 [id number] ####[facility] (DEFAULT)[address] [place] [address] 22368 Strep Aon 02-11-2017 Strep A Negative Normal [facility] Comment on above: Performed By: #### 4 [id number] ####[facility] (DEFAULT)[address] [place] [address] Strep procedure control Pass [place] Comment on above: Performed By: #### 4 [id number] ####[facility] (DEFAULT)[address] [place] [address] Vital Signs Date Time Vital Sign Value Performing Clinician Facility 10-08-2024 11:09-0500 Body height 172.7 cm Mery Sousa MARKETING DESIGNER Work Phone: [facility] 10-08-2024 11:09-0500 Body mass index (BMI) [Ratio] 22.2 kg/m2 Merycorrie Muellers MARKETING DESIGNER Work Phone: [facility] 10-08-2024 11:09-0500 Body temperature 97.81 [degF] Mery Muellers MARKETING DESIGNER Work Phone: [facility] 10-08-2024 11:09-0500 Body weight 66.22 kg Mery Majors MARKETING DESIGNER Work Phone: [facility] 10-08-2024 11:09-0500 Diastolic blood pressure 68 mm[Hg] Mery Muellers MARKETING DESIGNER Work Phone: [facility] 10-08-2024 11:09-0500 Heart rate 83 /min Mery Majors MARKETING DESIGNER Work Phone: [facility] 10-08-2024 11:09-0500 SaO2% (BldA) [Mass fraction] 99 % Mery Lion [employer] MARKETING DESIGNER Work Phone: [facility] 10-08-2024 11:09-0500 Systolic blood pressure 122 mm[Hg] Mery Muellers MARKETING DESIGNER Work Phone: [facility] 09-26-2024 14:18-0500 Body mass index (BMI) [Ratio] 22.5 kg/m2 Shannon Pizarroo CNM Work Phone: [facility] 09-26-2024 14:18-0500 Body weight 67.13 kg Shannon Moirao CNM Work Phone: [facility] 09-06-2024 15:57-0500 Body mass index (BMI) [Ratio] 21.29 kg/m2 Shannon Moirao CNM Work Phone: [facility] 09-06-2024 15:57-0500 Body weight 63.5 kg Shannon Moirao CNM Work Phone: [facility] 08-09-2024 15:55-0500 Body mass index (BMI) [Ratio] 20.53 kg/m2 Shannon Moirao CNM Work Phone: [facility] 08-09-2024 15:55-0500 Body weight 61.24 kg Shannon BURRELLM Work Phone: [facility] 08-09-2024 15:55-0500 Diastolic blood pressure 70 mm[Hg] Shannon Felix CNM Work Phone: [facility] 08-09-2024 15:55-0500 Systolic blood pressure 120 mm[Hg] Shannon Felix CNM Work Phone: [facility] 07-09-2024 15:47-0500 Body mass index (BMI) [Ratio] 19.61 kg/m2 Shannon Felix CNM Work Phone: [facility] 07-09-2024 15:47-0500 Body weight 58.51 kg Shannon Felix CNM Work Phone: [facility] 06-18-2024 16:41-0500 Body height 172.7 cm Fina Barton MARKETING DESIGNER Work Phone: [facility] 06-18-2024 16:41-0500 Body mass index (BMI) [Ratio] 18.85 kg/m2 Fina Barton MARKETING DESIGNER Work Phone: [facility] 06-18-2024 16:41-0500 Body weight 56.25 kg Fina Barton MARKETING DESIGNER Work Phone: [facility] 06-18-2024 16:41-0500 Diastolic blood pressure 70 mm[Hg] Fina Barton MARKETING DESIGNER Work Phone: [facility] 06-18-2024 16:41-0500 Heart rate 100 /min Fina Barton MARKETING DESIGNER Work Phone: [facility] 06-18-2024 16:41-0500 Respiratory rate 18 /min Fina Barton MARKETING DESIGNER Work Phone: [facility] 06-18-2024 16:41-0500 SaO2% (BldA) [Mass fraction] 99 % Fina Batron MARKETING DESIGNER Work Phone: [facility] 06-18-2024 16:41-0500 Systolic blood pressure 110 mm[Hg] Fina Barton MARKETING DESIGNER Work Phone: [facility] 06-11-2024 15:18-0500 Body mass index (BMI) [Ratio] 18.7 kg/m2 Shannon Moirao CNM Work Phone: [facility] 06-11-2024 15:18-0500 Body weight 55.79 kg Shannon Moirao CNM Work Phone: [facility] 06-11-2024 15:18-0500 Diastolic blood pressure 80 mm[Hg] Shannon Moirao CNM Work Phone: [facility] 06-11-2024 15:18-0500 Systolic blood pressure 120 mm[Hg] Shannon Moirao CNM Work Phone: [facility] 05-10-2024 15:19-0400 Body mass index (BMI) [Ratio] 19.01 kg/m2 Shannon Moirao CNM Work Phone: [facility] 05-10-2024 15:19-0400 Body weight 56.7 kg Shannon Moirao CNM Work Phone: [facility] 10-04-2022 14:45-0500 Body height 172.72 cm Melissa Daniel Other [facility] Other 10-04-2022 14:45-0500 Body mass index (BMI) [Ratio] 19.55 kg/m2 Melissa Daniel Other [facility] Other 10-04-2022 14:45-0500 Body temperature 98.3 [degF] Melissa Daniel Other [facility] Other 10-04-2022 14:45-0500 Body weight 58.33 kg Melissa Daniel Other [facility] Other 10-04-2022 14:45-0500 Respiratory rate 18 /min Melissa Daniel Other [facility] Other 10-04-2022 14:450500 SaO2% (BldA) [Mass fraction] 99 % Melissa Daniel Other [employer] Other Encounters Encounter Date Encounter Type Care Provider Facility Start: 10-11-2024 End: 10-11-2024 Telephone encounter Shannon Alvin Moirao CNM Work Phone: [facility] Start: 10-09-2024 End: 10-09-2024 ambulatory SHANNON L MOIRAO Not Available Start: 10-08-2024 End: 10-08-2024 Bamboo flowsheet Mery Majors MARKETING DESIGNER Work Phone: [facility] Start: 10-08-2024 End: 10-08-2024 Bamboo flowsheet Mery Majors MARKETING DESIGNER Work Phone: [facility] Start: 10-08-2024 End: 10-08-2024 Office outpatient visit 15 minutes Mery Sousa MARKETING DESIGNER Work Phone: [facility] Comment on above: Influenza A (Primary Dx); Acute cough Start: 10-08-2024 End: 10-08-2024 ambulatory MERY MAJORS Not Available Start: 09-26-2024 End: 09-26-2024 Subsequent care visit Shannon Esquivel Moirao CNM Work Phone: [facility] Comment on above: Encounter for superv ision of other normal , third trimester (Primary Dx); Screening for iron deficiency anemia; Screening for diabetes mellitus (DM); History of section Start: 09-26-2024 End: 09-26-2024 ambulatory SHANNON L MOIRAO Not Available Start: 09-26-2024 End: 09-26-2024 Bamboo flowsheet Shannon Alvin Pizarroo CNM Work Phone: [facility] Start: 09-26-2024 End: 09-26-2024 Bamboo flowsheet Shannon Alvin Floro CNM Work Phone: [facility] Start: 09-06-2024 End: 09-06-2024 Subsequent care visit Shannon L Floro CNM Work Phone: [facility] Comment on above: History of section (Primary Dx); Urine frequency; Encounter for supervision of other normal , second trimester Start: 09-06-2024 End: 09-06-2024 ambulatory SHANNON L FLORO Not Available Start: 09-06-2024 End: 09-06-2024 Bamboo flowsheet Shannon L Floro CNM Work Phone: [facility] Start: 09-06-2024 End: 09-06-2024 Bamboo flowsheet Shannon L Floro CNM Work Phone: [facility] Start: 08-09-2024 End: 08-09-2024 Subsequent care visit Shannon L Floro CNM Work Phone: [facility] Comment on above: Encounter for superv ision of other normal , second trimester (Primary Dx); Marginal placenta Start: 08-09-2024 End: 08-09-2024 ambulatory SHANNON L FLORO Not Available Start: 07-09-2024 End: 07-09-2024 Subsequent care visit Shannon L Floro CNM Work Phone: [facility] Comment on above: Encounter for superv ision of other normal , second trimester (Primary Dx); History of section; related condition in second trimester Start: 07-09-2024 End: 07-09-2024 ambulatory SHANNON L FLORO Not Available Start: 07-09-2024 End: 07-09-2024 Bamboo flowsheet Shannon L Floro CNM Work Phone: [facility] Start: 07-09-2024 End: 07-09-2024 Bamboo flowsheet Shannon L Floro CNM Work Phone: [facility] Start: 06-18-2024 End: 06-18-2024 Office outpatient visit 15 minutes Fina Barton NP Work Phone: [facility] Comment on above: Acute cystitis witho ut hematuria (Primary Dx); Dysuria; , unspecified gestational age Start: 06-18-2024 End: 06-18-2024 ambulatory FINA BARTON Not Available Start: 06-18-2024 End: 06-18-2024 Bamboo flowsheet Fina Barton MARKETING DESIGNER Work Phone: [facility] Start: 06-18-2024 End: 06-18-2024 Bamboo flowsheet Fina Barton MARKETING DESIGNER Work Phone: [facility] Start: 06-11-2024 End: 06-11-2024 Subsequent care visit Shannon L Floro CNM Work Phone: [facility] Comment [...] 05-10-2024 End: 05-10-2024 Initial care visit Shannon L Floro CNM Work Phone: [facility] Comment on above: GA: 8w0d Start: 05-10-2024 End: 05-10-2024 ambulatory SHANNON L FLORO Not Available Start: 05-10-2024 End: 05-10-2024 Bamboo flowsheet Shannon L Floro CNM Work Phone: [facility] Start: 05-10-2024 End: 05-10-2024 Bamboo flowsheet Shannon L Floro CNM Work Phone: [facility] Start: 04-18-2024 End: 04-18-2024 Telephone encounter Valentina Sadler MD Work Phone: [facility] Start: 03-27-2024 End: 03-27-2024 Orders Only Fina Barton MARKETING DESIGNER Work Phone: [facility] Comment on above: Bacterial vaginosis (Primary Dx) Start: 03-26-2024 End: 03-26-2024 ambulatory FINA BARTON Not Available Start: 02-27-2024 End: 02-27-2024 ambulatory FINA BARTON Not Available Start: 10-04-2022 End: 10-04-2022 ambulatory Melissa Daniel Other [facility] Other Start: 10-04-2022 Office outpatient vi sit 25 minutes Melissa Daniel [facility] Start: 09-11-2020 End: 09-12-2020 Patient encounter procedure [facility] Facility: Start: 02-12-2017 End: 02-12-2017 Ambulatory [facility] Facility:[facility] Start: 02-11-2017 End: 02-14-2017 Evaluation and management of inpatient GUSTAVOER Patrizia LEUNG [facility] Start: 02-11-2017 End: 02-11-2017 Emergency department patient visit None Provider Facility:[facility] Procedures Date Procedure Procedure Detail Performing Clinician Start: 06-18-2024 Urnls dip stick/tablet rgnt non-auto w/o micrscp Fina Barton MARKETING DESIGNER Work Phone: Start: 06-18-2024 Culture bacterial quanttative colony count urine Fina Barton MARKETING DESIGNER Work Phone: Start: 05-10-2024 End: 05-10-2024 Culture bacterial quanttative colony count urine Shannoneugenio Pizarroo CNM Work Phone: Start: 05-10-2024 DRUG TOX MONITORIGN 6 W/ CONF,URINE Shannon L Moirao CNM Work Phone: Start: 05-10-2024 URINALYSIS MICROSCOPIC Shannon Felix C NM Work Phone: Start: 05-10-2024 Antibody screen rbc each serum technique Shannon BURRELL Work Phone: Start: 05-10-2024 Hemoglobin glycosylated a1c Shannon BURRELL Work Phone: Start: 05-10-2024 RPR TITER Shannon BURRELL Work Phone: Start: 05-10-2024 TEST AUTHORIZATION Shannon BURRELL Work Phone: Start: 05-10-2024 TSH W/REFLEX TO FT4 Shannon BURRELL Work Phone: Start: 05-10-2024 Urine test visual color cmprsn meths Shannon BURRELL Work Phone: Start: 03-26-2024 Microscopic observation [Identifier] [...] [place]ERRA H/O: section History of section Shannon L Isidro CNM Work Phone: H/O: section History of section Shannon L Isidro CNM Work Phone: H/O: section History of section Shannon Felix CNM Work Phone: H/O: section History of section Shannon Pizarrojoya CN Work Phone: Plan of Treatment Date Care Activity Detail Author Start: 03-26-2027 Screening for malign ant neoplasm of cervix [facility] Start: 03-27-2025 End: 03-27-2025 Patient encounter procedure [facility] Start: 03-17-2025 Screening for malign ant neoplasm of cervix HPV/Cotest [facility] Start: 02-04-2025 Influenza vaccination Influenza Vacc ine (#1) [facility] Comment on above: Postponed from 04/08 (Supply/Drug Shortage) Start: 10-25-2024 End: 10-25-2024 Patient encounter procedure 10/25/2024 3:30 PM EDT Routine [facility] [address] [place] [address] Shannon Felix, CNM [address] [place] [address] [facility] Start: 10-09-2024 End: 10-09-2024 Professional / ancillary services management 10/09/2024 3:30 PM EST Ancillary Procedure [facility] [address] [address] [facility] Start: 10-08-2024 End: 10-08-2024 Patient encounter procedure 10/08/2024 11:30 AM EST Office Visit [facility] [address] [facility] [place] [phone] Mery Sousa NP [address] [facility] [place] [address] Arrived [facility] Comment on above: Arrived Start: 09-26-2024 End: 09-26-2024 Patient encounter procedure [facility] Comment on above: Arrived Start: 09-26-2024 End: 09-26-2025 CBC panel - Blood by Automated count CBC Lab Routine Screening for iron deficiency anemia Expected: 09/26/2024 (Approximate), Expires: 09/26/2025 [facility] Work Phone: Comment on above: Expected: 09/26/2024 (Approximate), Expires: 09/26/2025 Start: 09-26-2024 End: 09-26-2025 GLUCOSE, GESTATIONAL SCREEN (50G)-135 CUTOFF GLUCOSE, GESTATIONAL SCREEN (50G)-135 CUTOFF Lab Routine Screening for diabetes mellitus (DM) Expected: 09/26/2024 (Approximate), Expires: 09/26/2025 [facility] Comment on above: Expected: 09/26/2024 (Approximate), Expires: 09/26/2025 Start: 09-06-2024 End: 09-06-2024 Patient encounter procedure 09/06/2024 4:00 PM EST Routine [facility] [address] [place] [phone] Shannon Felix CNM [address] [place] [address] Arrived [facility] Comment on above: Arrived Start: 08-09-2024 End: 08-09-2024 Patient encounter procedure 08/09/2024 4:00 PM EST Routine [facility] [address] [facility] [place] [place] [phone] Shannon Felix CNM [address] [facility] [place] [address] [facility] Start: 08-09-2024 End: 08-09-2025 US for US OB limited 1+ fetuses Imaging Routine Marginal placenta Expected: 08/09/2024, Expires: 08/09/2025 [facility] Work Phone: Comment on above: Expected: 08/09/2024 , Expires: 08/09/2025 Start: 07-09-2024 End: 07-09-2024 Professional / ancillary services management 07/09/2024 4:30 PM EST Ancillary Procedure [facility] [address] [address] [facility] Start: 07-09-2024 [...] PM EST Routine [facility] [address] [place] [address] Shannon Felix, CNM [address] [place], [place] [id number] Arrived [facility] Comment on above: Arrived Start: 06-11-2024 End: 06-11-2025 US for US OB limited 1+ fetuses Imaging Routine Subchorionic hematoma in first trimester, single or unspecified fetus Expected: 06/11/2024, Expires: 06/11/2025 [facility] Work Phone: Comment on above: Expected: 06/11/2024 , Expires: 06/11/2025 Start: 05-10-2024 End: 05-10-2024 ambulatory 05/10/2024 3:30 PM EDT Initial [facility] [address] [place] [address] Shannon Felix CNM [address] [place] [address] Arrived [facility] Comment on above: Arrived Start: 05-10-2024 End: 05-10-2024 Professional / ancillary services management 05/10/2024 3:30 PM EDT Ancillary Procedure [facility] [address] [facility] [address] [place] [address] [facility] Start: 04-08-2024 Influenza vaccination Influenza Vacc ine (#1) [facility] URINARY TRACT INFECT ION (HTRX) URINARY TRACT INFECTION (HTRX) Lab Routine Urine frequency Ordered: 09/06/2024 [facility] Work Phone: Comment on above: Ordered: 09/06/2024 Payers Date Payer Category Payer Private Health Insurance [id number] 2022 Unknown [id number] 2014 Unknown [id number] 1986 Unknown [id number] [id number] [id number] 1986 Unknown [id number] [id number] [id number] 1986 Unknown [id number] 2.16.84 0.1.231534.3.579.2.9 1985 Unknown [id number] 2.16.84 0.1.783246.3.579.2.1259 1985 Unknown [id number] 2.16.84 0.1.054540.3.579.2.1259 1986 Unknown [id number] 2.16.84 0.1.678493.3.579.2.1259 1986 Unknown [id number] 2.16.84 0.1.789178.3.579.2.9 1986 Unknown [id number] 2.16.84 0.1.463219.3.579.2.9 1986 Unknown [id number] 2.16.84 0.1.251565.3.579.2.1258 1986 Unknown [id number] 2.16.84 0.1.626358.3.579.2.1258 1986 Unknown [id number] 2.16.84 0.1.843107.3.579.2.1258 1986 Unknown [id number] 2.16.84 0.1.744534.3.579.2.9 1986 Unknown [id number] 2.16.84 0.1.471114.3.579.2.1258 1986 Unknown [id number] 2.16.84 0.1.650228.3.579.2.9 1986 Unknown [id number] 2.16.84 0.1.708520.3.579.2.1258 1986 Unknown [id number] 2.16.84 0.1.340818.3.579.2.1259 1958 Self-pay Social History Date Type Detail Facility Unknown if ever smoked [facility] Other Start: 01-12-2023 End: 03-26-2024 Sex Assigned At [facility] Start: 01-12-2023 Tobacco smoking status OHIS Never smoked tobacco [facility] Start: 01-12-2023 Tobacco use and exposure Smokeless tobacco non-user [facility] Start: 03-26-2024 End: 10-08-2024 Alcoholic beverage intake Ex-drinker (finding) [facility] Start: 01-12-2023 End: 03-26-2024 History of Social function [facility] How often do you nee d to have someone help you when you read instructions, pamphlets, or other written material from your doctor or pharmacy [SILS] Never [facility] Do you belong to any clubs or organizations such as yarsani groups, unions, fraternal or athletic groups, or [...] Not on file [facility] Start: 03-29-2024 [facility] Clinical Notes 02-05-2022 to 10-11-2024 Telephone Encounter - Pedro Mujica - 10/11/2024 11:24 AM ESTTelephone Encounter - [facility]11[facility] 11:24 AM Penelope Sousa NP - 10/08/2024 11:30 AM Miriam Barton NP - 06/18/2024 4:45 PM EST Note Date & Type Note Facility 10-11-2024 Telephone encounter Note Form atting of this note might be different from the original. Jonna from [facility] called [facility] reviewed - they only have one US for Iris. If there are more , please fax them over to [phone] [facility] 10-11-2024 Miscellaneous Notes Formattin g of this note might be different from the original. Jonna from [facility] called [facility] [employer] [facility] reviewed - they only have one US for Iris. If there are more , please fax them over to [phone] documented in this encounter [facility] 10-08-2024 History of Presen t illness Narrative Images from the original note were not included. Hyacinth Escalona is a 38 y.o. female presents with chief complaint of Cough HPI: Presents to the office with cough, fatigue, nasal congestion that began on Tuesday. Reports she did a home influenza test and it came back positive for Influenza A. She is 29 weeks . She has been taking Tylenol at home with some relief. Reports her cough and nasal congestion are keeping her awake at night. Denies fevers, chills, sore throat, or ear pain. She would like paperwork completed for FMLA. HPI Patient presents today with cough, fatigue, nasal congestion, pt states it is worst at night. She states it started on Tuesday and did a home flu test and it came back positive for flu A yesterday. SUBJECTIVE: MEDICATIONS: Current Outpatient Medications Medication Instructions ondansetron ODT (ZOFRAN-ODT) 8 mg, Every 8 hours PRN I have reviewed and reconciled the history and medication list with the patient today. REVIEW OF SYMPTOMS: Review of Systems Constitutional: Positive for fatigue. Negative for chills and fever. HENT: Positive for congestion. Negative for sinus pressure, sinus pain and sore throat. Eyes: Negative. Respiratory: Positive for cough. Negative for shortness of breath. Cardiovascular: Negative. Gastrointestinal: Negative. Genitourinary: Negative. Musculoskeletal: Negative. Neurological: Negative. Psychiatric/Behavioral: Negative. OBJECTIVE: Visit Vitals BP 122/68 Pulse 83 Temp 97.8 F Ht 5' 8 Wt 146 lb LMP 03/15/2024 (Exact Date) SpO2 99% BMI 22.20 kg/m OB Status Smoking Status Never BSA 1.78 m Physical Exam Vitals and nursing note reviewed. Constitutional: General: She is not in acute distress. Appearance: She is ill-appearing. HENT: Head: Normocephalic and atraumatic. Right Ear: Tympanic membrane normal. Left Ear: Tympanic membrane normal. Nose: Congestion present. Mouth/Throat: Mouth: Mucous membranes are moist. Pharynx: No oropharyngeal exudate or posterior oropharyngeal erythema. Cardiovascular: Rate and Rhythm: Normal rate and regular rhythm. Pulses: Normal pulses. Heart sounds: Normal heart sounds. Pulmonary: Effort: Pulmonary effort is normal. No respiratory distress. Breath sounds: Normal breath sounds. No stridor. No wheezing, rhonchi or rales. Skin: General: Skin is warm and dry. Neurological: General: No focal deficit present. Mental Status: She is alert and oriented to person, place, and time. Psychiatric: Mood and Affect: Mood normal. Behavior: Behavior normal. ASSESSMENT AND PLAN: Assessment/Plan Problem List Items Addressed This Visit None Visit Diagnoses Influenza A - Primary Influenza A positive. Tamiflu not initiated due to having symptoms for over 48 hours. Educated illness is contagious, encouraged good hand hygiene, cough/sneeze into arm. Advised to increase fluids, tylenol as needed for pain, throat lozenges. humidified air, discussed airway management and signs of respiratory failure. Advised on signs and symptoms of dehydration, decreased urine output , malaise, unresponsiveness. RTC if no improvement. If symptoms severe go immediately to ER to be evaluated. Acute cough Increase fluid intake Get plenty of rest Continue with Tylenol OTC for pain or fevers Try using a humidifier in your bedroom at night Try using Jermaine's Vapor Rub on chest at night to help with cough and congestion Can try lozenges for cough Work note provided, Have your company send over [employer] paperwork to be filled out to be off work 10/05/24-10/12/34. May return back to work on 10/15/24. Follow up as needed documented in this encounter [facility] 09-26-2024 History of Presen t illness Narrative Subjective No chief complaint on file. Hyacinth Escalona is a 38 y.o. at 27w6d with a working estimated date of delivery [...] M CS-LTranv TRISH Her is complicated by: AMA, h/o sections x2 The following portions of the chart were reviewed this encounter and updated as appropriate: Objective Physical Exam weight: 148 lb Expected Total Weight Gain: 25 lb-35 lb Pregravid BMI: 19.01 Urine protein Urine glucose Labs: reviewed Imaging Assessment/Plan Diagnoses and all orders for this visit: Encounter for supervision of other normal , third trimester Screening for iron deficiency anemia - CBC; Future Screening for diabetes mellitus (DM) - GLUCOSE, GESTATIONAL SCREEN (50G)-135 CUTOFF; Future History of section Continue vitamin. Labs reviewed. Rhogam GTT . Follow up in 2 weeks for a routine visit. documented in this encounter [facility] 09-06-2024 History of Presen t illness Narrative Subjective No chief complaint on file. Hyacinth Escalona is a 38 y.o. at 25w0d with a working estimated date of delivery [...] M CS-LTranv TRISH Her is complicated by: history of C/S x2 The following portions of the chart were reviewed this encounter and updated as appropriate: Objective Physical Exam weight: 140 lb Expected Total Weight Gain: 25 lb-35 lb Pregravid BMI: 19.01 Urine protein Urine glucose Labs: reviewed Imaging Assessment/Plan Diagnoses and all orders for this visit: History of section Urine frequency - URINARY TRACT INFECTION (HTRX) Encounter for supervision of other normal , second trimester Patient feels like she has to urinate all of the time, denies burning and stinging. Urine only has LE present and no bacteria, nitrates or blood. Will send for a culture. Continue vitamin. Labs reviewed Follow up in 2 weeks for a routine visit. documented in this encounter [facility] 08-09-2024 History of Presen t illness Narrative Subjective No chief complaint on file. Hyacinth Escalona is a 38 y.o. at 21w0d with a working estimated date of delivery [...] updated as appropriate: Objective Physical Exam weight: 135 lb Expected Total Weight Gain: 25 lb-35 lb Pregravid BMI: 19.01 BP: 120/70 Urine protein-negative Urine glucose-negative Labs: reviewed Imaging Assessment/Plan Diagnoses and all orders for this visit: Encounter for supervision of other normal , second trimester Marginal placenta - US OB limited 1+ fetuses; Future Continue vitamin. Labs reviewed. Rhogam not needed O+ positive GTT at 28 weeks Follow up in 2 weeks for a routine visit. documented in this encounter [facility] 07-09-2024 History of Presen t illness Narrative [...] a routine visit. documented in this encounter [facility] 06-18-2024 History of Presen t illness Narrative [...] Medical History: Diagnosis Date Allergic Anxiety Depression ([facility]) Headache Social History Tobacco Use Smoking status: [...] follow-ups on file. documented in this encounter [facility] 06-11-2024 History of Presen t illness Narrative [...] a routine visit. documented in this encounter [facility] 05-10-2024 History of Presen t illness Narrative [...] also given office phone number and The [facility] number to call in case of an emergency or after hours needs. PVU and all questions answered. We did discuss place of delivery. Patient should plan to go to [facility] for all services unless an emergency and they need to go to the closest ER. We can make other arrangements possibly if patient would like to deliver at another facility but I did explain I am now at [place] 100% of the time and would like to do all deliveries there. documented in this encounter [facility] 04-18-2024 Telephone encounter Note Form atting of this note might be different from the original. Pt took a test and it is positive, Lmp- 03/15/2024 - regular flow, She only took one test, Please schedule as a new OB [phone] [facility] 04-18-2024 Miscellaneous Notes Formattin g of this note might be different from the original. Pt took a test and it is positive, Lmp- 03/15/2024 - regular flow, She only took one test, Please schedule as a new OB [phone] documented in this encounter [facility] 10-04-2022 Evaluation note Encounter Date Diagnosis Assessment [...] (suspected) exposure to covid-19 (ICD-10 - Z20.822) [facility] Other 07-01-2022 NotePROCEDURE: RobodrompeAllegory Law VCT 64, 5 mm slice axial images [...] and signed by Neri Torres on 02/05/2022 1020[facility] Specialist[facility]* Diagnosis Acute cystitis without hematuria- Primary Dysuria , unspecified gestational age [facility] Diagnosis Encounter for supervision of other normal in second trimester- Primary Subchorionic hematoma in first trimester, single or unspecified fetus History of section Other postprocedural status documented in this encounter [facility] Healthcare[facility] note* Diagnosis Encounter for supervision of other normal , second trimester- Primary History of section Other postprocedural status related condition in second trimester documented in this encounter [facility] HealthcareEvaluation note* Diagnosis Bacterial vaginosis- Primary Unspecified vaginitis and vulvovaginitis documented in this encounter [facility] HealthcareEvaluation note* Diagnosis examination or test, positive result- Primary Amenorrhea Absence of menstruation Subchorionic hematoma in first trimester, single or unspecified fetus Subchorionic hematoma in first trimester, single or unspecified fetus [facility] Diagnosis History of section- Primary Other postprocedural status Urine frequency Encounter for supervision of other normal , second trimester documented in this encounter [facility] Healthcare[facility] note* Diagnosis Encounter for supervision of other normal , second trimester- Primary Marginal placenta Placenta previa without hemorrhage, unspecified as to episode of care documented in this encounter [facility] HealthcareEvaluation note* Diagnosis Encounter for supervision of other normal , third trimester- Primary Screening for iron deficiency anemia Screening for diabetes mellitus (DM) Screening for diabetes mellitus History of section Other postprocedural status [facility]* Diagnosis Influenza A- Primary Influenza with other respiratory manifestations Acute cough [facility] Narrative - Reported* Type Description Date Surgical History appendectomy Surgical History C section x2 Hospitalization History see above [facility] Other Summary Purpose Family History No Family [...] section and content) DATE CREATED AUTHOR 01/31/2018 [facility] DATE CREATED AUTHOR AUTHOR'S ORGANIZ ATION 02/01/2018 [facility] DATE CREATED AUTHOR AUTHOR'S ORGANIZ ATION 09/21/2020 [facility] DATE CREATED AUTHOR AUTHOR'S ORGANIZ ATION 03/30/2021 [facility] DATE CREATED AUTHOR AUTHOR'S ORGANIZ ATION 02/06/2022 [facility] dical Specialist DATE CREATED AUTHOR AUTHOR'S ORGANIZ ATION 10/15/[address] [facility] dical Specialists EPIC REASON FOR VISIT (unrecogniz ed section and content) Reason Comments UTI Reason Comments Cough Care Teams (unrecognized sec tion and content) Central Office Repairer Relationship Specialty Start Date End Date Valentina Sadler MD [address] [facility] [place] [address] PCP - General Family Medicine 01/12/23 Aria Daugherty NP [address] [facility] [place] [address] Nurse Practitioner Family Medicine 01/12/23 Fina Barton NP [address] [facility] [place] [address] Nurse Practitioner Family Medicine 02/27/24 Central Office Repairer Relationship Specialty Start Date End Date Valentina Sadler MD [address] [facility] [place] [address] PCP - General Family Medicine 01/12/23 Aria Daugherty NP [address] [facility] [place] [address] Nurse Practitioner Family Medicine 01/12/23 Fina Barton NP [address] [place] [address] Nurse Practitioner Family Medicine 02/27/24 Central Office Repairer Relationship Specialty Start Date End Date Valentina Sadler MD [address] [place] [address] PCP - General Family Medicine 01/12/23 Aria Daugherty NP [address] [place] [address] Nurse Practitioner Family Medicine 01/12/23 Fina Barton NP [address] [place] [address] Nurse Practitioner Family Medicine 02/27/24 Central Office Repairer Relationship Specialty Start Date End Date Valentina Sadler MD [address] [place] [address] PCP - General Family Medicine 01/12/23 Aria Daugherty NP [address] [place] [address] Nurse Practitioner Family Medicine 01/12/23 Fina Barton NP [address] [place] [address] Nurse Practitioner Family Medicine 02/27/24 Central Office Repairer Relationship Specialty Start Date End Date Valentina Sadler MD [address] [place] [address] PCP - General Family Medicine 01/12/23 Aria Daugherty NP [address] [place] [address] Nurse Practitioner Family Medicine 01/12/23 Fina Barton NP [address] [place] [address] Nurse Practitioner Family Medicine 02/27/24 Central Office Repairer Relationship Specialty Start Date End Date Valentina Sadler MD [address] [place] [address] PCP - General Family Medicine 01/12/23 Aria Daugherty NP [address] [facility] [place] [address] Nurse Practitioner Family Medicine 01/12/23 Fina Barton NP [address] [facility] [place] [address] Nurse Practitioner Family Medicine 02/27/24 Central Office Repairer Relationship Specialty Start Date End Date Valentina Sadler MD [address] [facility] [place] [address] PCP - General Family Medicine 01/12/23 Aria Daugherty NP [address] [facility] [place] [address] Nurse Practitioner Family Medicine 01/12/23 Fina Barton NP [address] [facility] [place] [address] Nurse Practitioner Family Medicine 02/27/24 Central Office Repairer Relationship Specialty Start Date End Date Valentina Sadler MD [address] [facility] [place] [address] PCP - General Family Medicine 01/12/23 Aria Daugherty NP [address] [place] [address] Nurse Practitioner Family Medicine 01/12/23 Fina Barton, MARKETING DESIGNER [address] [place] [address] Nurse Practitioner Family Medicine 02/27/24 Central Office Repairer Relationship Specialty Start Date End Date Valentina Sadler MD [address] [place] [address] PCP - General Family Medicine 01/12/23 Aria Daugherty NP [address] [place] [address] Nurse Practitioner Family Medicine 01/12/23 Fina Barton, MARKETING DESIGNER [address] [place] [address] Nurse Practitioner Family Medicine 02/27/24 Central Office Repairer Relationship Specialty Start Date End Date Valentina Sadler MD [address] [place] [address] PCP - General Family Medicine 01/12/23 Aria Daugherty NP [address] [place] [address] Nurse Practitioner Family Medicine 01/12/23 Fina Barton, MARKETING DESIGNER [address] [place] [address] Nurse Practitioner Family Medicine 02/27/24 Central Office Repairer Relationship Specialty Start Date End Date Valentina Sadler MD [address] [place] [address] PCP - General Family Medicine 01/12/23 Aria Daugherty NP [address] [place] [address] Nurse Practitioner Family Medicine 01/12/23 Fina Barton MARKETING DESIGNER [address] [place] [address] Nurse Practitioner Family Medicine 02/27/24 Central Office Repairer Relationship Specialty Start Date End Date Valenitna Sadler MD [address] [place] [address] PCP - General Family Medicine 01/12/23 Aria Daugherty NP [address] [place] [address] Nurse Practitioner Family Medicine 01/12/23 Fina Barton MARKETING DESIGNER [address] [place] [address] Nurse Practitioner Family Medicine 02/27/24 Central Office Repairer Relationship Specialty Start Date End Date Valentina Sadler MD [address] [place] [address] PCP - General Family Medicine 01/12/23 Aria Daugherty NP [address] [place] [address] Nurse Practitioner Family Medicine 01/12/23 Fina Barton, KIARA [address] [place] [address] Nurse Practitioner Family Medicine 02/27/24 Central Office Repairer Relationship Specialty Start Date End Date Valentina Sadler MD [address] [place] [address] PCP - General Family Medicine 01/12/23 Aria Daugherty NP [address] [place] [address] Nurse Practitioner [facility] 01/12/23 Fina Barton NP [address] [place] [address] Nurse Practitioner [facility] 02/27/24 FOR RECORDS PERTAINING TO PATIENTS WHO [...] BE BASED ON THE PRIMARY CLINICAL RECORDS. [facility] [employer] [facility]. provides no warranty or guarantee of the accuracy or completeness of information in this document.
[2024-10-17 11:42] VITALS: BP 108/66; PULSE 70
[2024-10-17 11:43] LABS: Amnisure NEGATIVE (NEGATIVE); Internal Control Within Normal Limits
[2024-10-17 11:53] LABS: Bilirubin Urine NEGATIVE (NEGATIVE); Blood Urine NEGATIVE (NEGATIVE); Clarity Urine CLEAR (CLEAR); Color Urine LT. YELLOW (YELLOW); Glucose Urine UA NEGATIVE (NEGATIVE); Ketones Urine NEGATIVE (NEGATIVE); Leukocyte Esterase Urine NEGATIVE (NEGATIVE); Nitrite Urine NEGATIVE (NEGATIVE); Protein Urine NEGATIVE (NEG/TRACE); Specific Gravity Urine 1.015 (1.005-1.025); Urine Microscopic Indicated NO; Urobilinogen Urine 0.2 EU/dL (0.2-1.0); pH Urine 6.5 (5.0-9.0)
[2024-10-17] MEDS: 0.9 % SODIUM CHLORIDE 1,000 ML 125 ML IV (12:39)
[2024-10-17] MEDS: TERBUTALINE SULFATE 1 MG/ML VIAL 0.25 MG SUBQ (12:40)
[2024-10-17 12:44] VITALS: BP 118/76; PULSE 85
--- NOTE | 2024-10-17 17:30 | PC.NURSE ---
Discharge instructions given to pt. Pt denies questions or concerns.
== END 2024-10-17 15:25 | disposition home or self-care (01) ==
PROVIDERS: Admitting Provider Obstetrics & Gynecology; PCP Family Medicine; Visit Provider Obstetrics & Gynecology
DX: Z03.71 Encounter for suspected problem with amniotic cavity and membrane ruled out (principal)
CPT/HCPCS: 59025; 76815; 81003; 84112; 96372; G0378; G0379; J3105

== ENCOUNTER 2024-11-08 15:37 | Outpatient (OUT) | payer OTHER, SELFPAY ==
--- NOTE | 2024-11-08 15:44 | US_ITS ---
[place] [address] Patient Name: HYACINTH HOLT MRN: [id number] date: 1985 Sex: F Assigned Patient Location: US Current Patient Location: Accession/Order Number: [id number] Exam Date: 11/08/2024 18:52 Report Date: 11/08/2024 18:54 At the request of: SHANNON KONG APRN, CNM Procedure: US OB BPP w non-stress Ultrasound of surgical biophysical profile HISTORY: Advanced maternal age. Placenta accretion of. There is adequate breathing movement, gross body movement, tone and amniotic fluid volume. Total score 8 out of 8. The amniotic fluid index 15.9 cm. heart rate is 125 bpm. US/US OB BPP w non-stress IMPRESSION: Adequate ultrasound biophysical profile. Impression dictated by: Fortino Lewis M.D.11/08/2024 6:54 PM Dictation Location: [place] Electronically authenticated by: [id number] Y Date: 11/08/2024 18:54
[2024-11-08 16:24] VITALS: BP 117/81; PULSE 83
== END 2024-11-08 16:50 | disposition home or self-care (01) ==
LOC: US 15:37 → FBC 15:49
PROVIDERS: PCP Family Medicine; Visit Provider Midwife
DX: O09.523 Supervision of elderly multigravida, third trimester (principal); Z3A.34 34 weeks gestation of pregnancy
CPT/HCPCS: 76818

== ENCOUNTER 2024-11-12 17:14 | Outpatient (OUT) | payer OTHER, SELFPAY ==
[2024-11-12 17:23] VITALS: BP 107/77; PULSE 82
--- OUTSIDE RECORDS SUMMARY | 2024-11-12 17:28 | XMS_ITS | CCD ---
Author Organization [facility] [place] [facility] Team Providers Care Child [facility] Assistant Name Role Phone Provider, None Unavailable Unavailable Omley, Brandon H Unavailable Unavailable Omley, Brandon H Unavailable Unavailable Omley, Brandon H Unavailable Unavailable Omley, Brandon H Unavailable Unavailable Provider, None Unavailable Unavailable SIERRAPROSPER K Unavailable Unavailable ADAPPA, SUPA Unavailable Unavailable KAMIREDDY, ADIREDDY Unavailable Unavailable REGGIE HORVATH Attending Unavailable REGGIE HORVATH Admitting Unavailable Melissa Daniel Unavailable Valentina Sadler MD Primary Care Provider [phone] Dat CRAIG, Aria Cespedes Unavailable [phone] Xavier CRAIG, Fina R Unavailable Xavier REAR ADMIRAL, Fina R Unavailable No Pcp, No Pcp Primary Care Provider Unavailabl e No Pcp, No Pcp Primary Care Provider Unavailabl e FLORO, SHANNON Referring Unavailable NO PCP, NO PCP Primary Care Unavailable DOCHEVA, NIKOLINA P Attending Unavailable FLORO, SHANNON Referring Unavailable NO PCP, NO PCP Primary Care Unavailable MARISOL LOREDO Attending Unavail able MARISOL LOREDO Referring Unavail able NO PCP, NO PCP Primary Care Unavailable NO PCP, NO PCP Primary Care Unavailable DOCHEVA, NIKOLINA P Referring Unavailable DOCHEVA, NIKOLINA P Referring Unavailable NO PCP, NO PCP Primary Care Unavailable FINA PARK Attending Unavailable FINA PARK Attending Unavailable BANDAR LOREDO Attending Unavailable FLOROSHANNON Attending Unavailable FLORO, SHANNON L Referring Unavailable FLORO, SHANNON L Referring Unavailable FLORO, SHANNON L Attending Unavailable FINA PARK Attending Unavailable FLORO, SHANNON L Attending Unavailable FLORO, SHANNON L Referring Unavailable FLORO, SHANNON L Attending Unavailable FLORO, SHANNON L Attending Unavailable FLORO, SHANNON L Attending Unavailable MERY PATEL Attending Unavailable SHANNON FELIX Referring Unavailable SHANNON FELIX Attending Unavailable SHANNON FELIX Attending Unavailable Allergies Allergy Classification Reported Allergen(s) Allergy Type Date of Onset Reaction(s) Facility (1 source) NITROFURANTOIN, MACROCRYSTALS / Nitrofurantoin, Monohydrate Drug Allergy vomiting [place] Other (20 sources) Nitrofurantoin Drug Allergy 3 GI intolerance [facility] Work Phone: Medications Current Medications Medication Drug Class(es) Dates Sig (Normalized) Sig (Original) 168 HR ethinyl estradiol 0.07360 MG/HR / norelgestromin 0.32071 MG/HR Transdermal System [Zafemy] (1 source) Zafemy 150-35 MCG/24HR Transdermal for 84 Days Active 168 hr ethinyl estradiol 0.56556 mg/hr / norelgestromin 0.39490 mg/hr transdermal system (16 sources) Progestin, Estrogen apply 1 dose transdermal route every week norelgestromin-ethi n.estradioL (ORTHO EVRA) 150-35 mcg/[address] 1 patch on the skin once a week. Active Davide rosa folic acid 1 mg oral tablet (9 sources) Start: 11-05-2024 End: 11-06-2024 take 1 tablet by mouth in the morning folic acid (FOLVITE) 1 mg tablet Indications: Iron deficiency anemia during Take 1 tablet (1 mg total) by mouth in the morning. 90 tablet 11/06/2024 Active metroNIDAZOLE 0.0075 mg/mg vaginal gel (1 source) Nitroimidazole Antimicrobial Start: 03-27-2024 End: 04-03-2024 metroNIDAZOLE (Metrogel) 0.75 % vaginal gel Indications: Bacterial vaginosis Insert into the vagina at bedtime for 7 days 70 g 03/27/2024 04/03/2024 Active ondansetron 8 mg disintegrating oral tablet (20 sources) Serotonin-3 Receptor Antagonist Start: 05-11-2024 take 1 tablet by mouth every eight hours as needed ondansetron ODT (Zofran-ODT) 8 MG disintegrating tablet Take 8 mg by mouth every 8 (eight) hours if needed 05/11/2024 Active Start: 03-24-2021 take 1 tablet by greg th every eight hours as needed for nausea ondansetron ODT (ZOFRAN-ODT) 4 mg disintegrating tablet Dissolve 1 tablet (4 mg total) on tongue every 8 (eight) hours as needed for nausea for up to 10 doses. 10 tablet 03/24/2021 Active predniSONE 20 mg oral tablet (2 sources) Start: 10-04-2022 take 1 tablet by mouth every twelve hours prednisone 20 MG 1 tablet Orally Twice a day for 5 days Sep, Active predniSONE 20 MG TAKE 1 TABLET BY MOUTH EVERY DAY WITH FOOD FOR 3 DAYS Oral for 3 Days Not-Taking [id number] acid ( 19) 29 mg iron- 1 mg tablet,chewable (15 sources) [id number]-yoigo acid ( 19) 29 mg iron- 1 mg tablet,chewable Chew 1 tablet and swallow in the morning. Active vitamin b12 1 mg oral tablet (8 sources) Vitamin B12 Start: take 1 tablet by mouth in the morning cyanocobalamin 1000 MCG tablet Indications: B12 deficiency Take 1 tablet (1,000 mcg total) by mouth in the morning. 30 tablet 3 11/05/2024 Active Completed/Discontinued Medications Medication Drug Class(es) Dates Sig [...] capsule 06/18/2024 06/21/2024 21 day ethinyl estradiol 0.982381 mg/hr / etonogestrel 0.005 mg/hr vaginal system (5 sources) Progestin, Estrogen Start: 03-26-2024 End: 05-10-2024 etonogestrel-ethiny l estradiol (Nuvaring) 0.12-0.015 MG/24HR vaginal ring Indications: Encounter for gynecological examination without abnormal finding Insert 1 Ring into the vagina See administration instructions 1 every 3 weeks as directed then remove for 1 week 3 each 3 03/26/2024 05/10/2024 Discontinued (Therapy completed) nitrofurantoin, macrocrystals 25 mg / nitrofurantoin, monohydrate [...] Hemorrhage during ; abruptio placenta; placenta previa (17 sources) Placenta previa marginalis; Translations: [Partial placenta previa NOS or without hemorrhage, unspecified trimester] Onset: 11-01-2024 08-09-2024 Episodic Influenza (2 sources) Influenza due [...] single episode, unspecified] Onset: 10-18-2016 01-12-2023 Chronic Nutritional deficiencies (1 source) Cobalamin deficiency; Translations: [Deficiency of other specified B group vitamins] 11-05-2024 Episodic Other acquired deformities (20 sources) Kyphosis of thoracic spine; Translations: [Unspecified kyphosis, thoracic region] Onset: 07-26-2019 01-12-2023 Chronic Other complications of (2 sources) Iron deficiency anemia of ; Translations: [Anemia complicating , unspecified trimester] 11-05-2024 Chronic Other complications of (2 sources) Anemia in mother complicating , childbirth AND/OR puerperium; Translations: [Anemia complicating , third trimester] 11-06-2024 Chronic Other complications of (2 sources) Finding related to ; Translations: [ related conditions, unspecified, second trimester] 07-09-2024 Episodic Other complications of (17 sources) Multigravida of advanced maternal age; Translations: [Supervision of elderly multigravida, third trimester] Onset: 11-01-2024 10-29-2024 Episodic Other complications of (7 sources) Placenta accreta; Translations: [Placenta accreta, third trimester] 11-01-2024 Episodic Other complications of (2 sources) Placenta accreta, third trimester; Translations: [Placenta accreta, third trimester] Onset: 11-01-2024 Episodic Other complications of (1 source) Supervision of elderly multigravida, third trimester; Translations: [Supervision of elderly multigravida, third trimester] Onset: 11-01-2024 Episodic Other lower respiratory disease (2 sources) Cough; Translations: [Acute cough] 10-08-2024 Episodic Other nervous system disorders (20 sources) Carpal tunnel syndrome of right wrist; Translations: [Carpal tunnel syndrome, right upper limb] Onset: 03-15-2019 01-12-2023 Chronic Other and delivery including normal (18 sources) ; Translations: [Encounter for supervision of normal , unspecified, unspecified trimester] 06-18-2024 Episodic Other screening for suspected conditions (not mental disorders or infectious disease) (5 sources) Patient encounter status; Translations: [Encounter for screening for diseases of the blood and blood-forming organs and certain disorders involving the immune mechanism] Onset: 11-01-2024 09-26-2024 Episodic Other upper respiratory infections (1 source) Acute pharyngitis, unspecified Episodic Polyhydramnios and other problems of amniotic cavity (4 sources) Subchorionic hematoma; Translations: [Other specified disorders of amniotic fluid and membranes, first trimester, not applicable or unspecified] 06-11-2024 Episodic Previous (1 source) Maternal care for unspecified type scar from previous delivery; Translations: [Maternal care for unspecified type scar from previous delivery] Onset: 11-01-2024 Episodic Residual codes; unclassified (14 sources) Gestation period, 33 weeks; Translations: [33 weeks gestation of ] Onset: 11-01-2024 11-01-2024 Episodic Residual codes; unclassified (1 source) 33 weeks gestation of ; Translations: [33 weeks gestation of ] Onset: 11-01-2024 Episodic Unclassified (1 source) No additional problems on file Unclassified (1 source) Initial Visit Onset: 11-05-2024 Unclassified (1 source) Anterior placenta Onset: 11-01-2024 Urinary tract infections (2 sources) Acute cystitis; Translations: [Acute cystitis without hematuria] 06-18-2024 Episodic Past or Other Problems Problem Classification Problem Date Documented Date Episodic/Chronic Acute and chronic tonsillitis (2 sources) Peritonsillar abscess; Translations: [Peritonsillar abscess] Onset: 02-11-2017 Episodic Inflammatory diseases of female pelvic organs (1 source) Bacterial vaginosis; Translations: [Acute vaginitis] 03-27-2024 Episodic Mood disorders (9 sources) Mood disorders Onset: 11-05-2024 11-05-2024 Other nervous system disorders (20 sources) Skin sensation disturbance; Translations: [Unspecified disturbances of skin sensation] Onset: 03-19-2019 01-12-2023 Episodic Unclassified (1 source) Contact with and (suspected) exposure to covid-19 Z20.822 Viral infection (1 source) COVID-19 Results Test Name Value Interpretation Reference Range Facility US OB BPP W NON-STRESS on 11-08-2024 [place] [address] Ultrasound Report Signed Patient: HYACINTH ESCALONA MR#: [id number] : 1985 Acct:[id number] Age/Sex: 39 / F ADM Date: 11/08/24 Loc: US Attending Dr: SHANNON FELIX APRN, CNM Ordering Physician: SHANNON FELIX APRN, CNM Date of Service: 11/08/24 Procedure(s): US OB BPP w non-stress Accession Number(s): [id number] cc: VALENTINA SADLER ; SHANNON FELIX APRN, CNM [place] [id number] Patient Name: HYACINTH ESCALONA MRN: [facility]:[id number] date: 1985 Sex: F Assigned Patient Location: US Current Patient Location: Accession/Order Number: [id number] Exam Date: 11/08/2024 18:52 Report Date: 11/08/2024 18:54 At the request of: SHANNON FELIX APRN, CNM Procedure: US OB BPP w non-stress Ultrasound of surgical biophysical profile HISTORY: Advanced maternal age. Placenta accretion of. There is adequate breathing movement, gross body movement, tone and amniotic fluid volume. Total score 8 out of 8. The amniotic fluid index 15.9 cm. heart rate is 125 bpm. US/US OB BPP w non-stress IMPRESSION: Adequate ultrasound biophysical profile. Impression dictated by: Fortino Lewis M.D.11/08/2024 6:54 PM Dictation Location: [place] [address] Electronically authenticated by: [id number] Y Date: 11/08/2024 18:54 Dictated By: Fortino Lewis D.O. Signed By: 11/08/241855 DD/ 53 TD/TT: Loss Control Technician: [facility] Radiology, Radiologi MD mann - 11/08/2024 [place] [address] Ultrasound Report Signed Patient: HYACINTH ESCALONA MR#: [id number] : 1985 Acct:[id number] Age/Sex: 39 / F ADM Date: 11/08/24 Loc: US Attending Dr: SHANNON FELIX APRN, CNM Ordering Physician: SHANNON FELIX APRN, CNM Date of Service: 11/08/24 Procedure(s): US OB BPP w non-stress Accession Number(s): [id number] cc: VALENTINA SADLER ; SHANNON FELIX APRN, BREANNE [place] [address] Patient Name: HYACINTH ESCALONA MRN: [facility]:[id number] date: 1985 Sex: F Assigned Patient Location: US Current Patient Location: Accession/Order Number: [id number] Exam Date: 11/08/2024 18:52 Report Date: 11/08/2024 18:54 At the request of: SHANNON FELIX APRN, CNM Procedure: US OB BPP w non-stress Ultrasound of surgical biophysical profile HISTORY: Advanced maternal age. Placenta accretion of. There is adequate breathing movement, gross body movement, tone and amniotic fluid volume. Total score 8 out of 8. The amniotic fluid index 15.9 cm. heart rate is 125 bpm. US/US OB BPP w non-stress IMPRESSION: Adequate ultrasound biophysical profile. Impression dictated by: Fortino Lewis M.D.11/08/2024 6:54 PM Dictation Location: [place] [address] Electronically authenticated by: [id number] Y Date: 11/08/2024 18:54 Dictated By: Fortino Lewis D.O. Signed By: 11/08/241855 DD/ 53 TD/TT: Loss Control Technician: [facility] Radiology Study observation (narrative) [facility] US OB BPP W NON-STRESS Ordered By: Radiologist Radiology on 11-08-20[address] [facility] Work Phone: MR PELVIS WO CONTon 11-07-19 MR PELVIS WO CONT MR PELVIS WO CONT History: Patient with anterior placenta with previous history of section concern for placenta accreta in the trimester. Patient 33 weeks gestation. Exam/Technique: Multiplanar, multisequence MR imaging is obtained of the MR pelvis organ without intravenous contrast. Comparison: Maternal STUDY DATED 11/01/2024. Transabdominal images demonstrate an area of bulging into the bladder midline and left lateral along with presence of the placental sinuses. Findings: MATERNAL FINDINGS: Visualized lumbosacral spine demonstrates normal signal intensity. There is no gross abnormality of the visualized kidneys liver and spleen gallbladder. No pelvic masses or fluid collections. No evidence of ascites within the limits of the examination. Cervical length is approximately 4.2 cm. FINDINGS: Please note this examination is not a comprehensive anatomical assessment of the fetus. This has been previously documented. Fetus is located in cephalic presentation with the head also directed to the left side. Placental location: Placenta is located right anterior and inferior without any clear evidence of placenta previa. Placental morphology: The placenta morphology in general is appropriate for the patient's gestational age without significant heterogeneity. Uterine contour: Smooth. Myometrial thickness: No abnormality in myometrial thickness. Intraplacental bands: No significant intra-placental bands or significant placental irregularity at the interface with the urinary bladder. Bladder involvement: No significant bladder wall abnormality. Vascular findings: No abnormal placental vascular significance. IMPRESSION: Patient demonstrates evidence of previous section with no clear evidence of placenta previa or placental examination. No significant bladder abnormality. FIGO Grading: Grade 1 (Placenta Accreta): The placenta adheres directly to the uterine wall without invading it. Grade 2 (Placenta Increta): The placenta invades into the myometrium of the uterine wall. Grade 3 (Placenta Percreta): The placenta invades through the entire uterine wall and may extend into surrounding pelvic organs like the bladder. Finalized by Zheng Davis MD on 11/06/2024 9:51 AM Normal [facility] COMPLETE BLOOD COUNTon 11-05 Erythrocyte distribution width (RBC) [Ratio] 13.4 % Normal 11.5-15.0 [facility] Comment on above: Performed By: #### C SANJIV VAZQUEZ, 2275-11, 2284-03, 2132-04 #### [facility] ([id number]) [address], [address] [place] [address] Hematocrit (Bld) [Volume fraction] 34.1 % Low 35-47 [facility] Comment on above: Performed By: #### C SANJIV VAZQUEZ, 2275-11, 2284-03, 2132-04 #### [facility] ([id number]) [address], [address] [place] [address] Hemoglobin (Bld) [Mass/Vol] 11.6 g/dL Low 11.7-15.5 [facility] Comment on above: Performed By: #### C BC, CMP, 2275-, 2284-03, 2132-04 #### [facility] ([id number]) [address], [address] [place] [address] MCH (RBC) [Entitic mass] 27.9 pg Normal 27-34 [facility] Comment on above: Performed By: #### C BC, CMP, 2275-4, 2284-03, 2132-04 #### [facility] ([id number]) [address], [facility] [address] [place] [address] MCHC (RBC) [Mass/Vol] 34.0 g/dL Normal 32-36 [facility] Comment on above: Performed By: #### C BC, CMP, 2275-11, 2284-03, 2132-04 #### [facility] ([id number]) [address], [address] [place] [address] MCV (RBC) [Entitic vol] 82 fL Normal 80-100 [facility] Comment on above: Performed By: #### C BC, CMP, 2275-, 2284-03, 2132-04 #### [facility] ([id number]) [address], [address] [place] [address] Platelet mean volume (Bld) [Entitic vol] 8.7 fL Normal 7-12 [facility] Comment on above: Performed By: #### C BC, CMP, 2275-4, 2284-03, 2132-04 #### [facility] ([id number]) [address], [facility] [address] [place] [address] Platelets (Bld) [#/Vol] 220 10*3/uL Normal 150-450 [facility] Comment on above: Performed By: #### C BC, CMP, 2275-, 2284-03, 2132-04 #### [facility] ([id number]) [address], [address] [place] [address] RBC COUNT 4.15 X10E12/L Normal 3.80-5.20 [facility] Comment on above: Performed By: #### C BC, CMP, 6-4, 2283-8, 2132-04 #### [facility] ([id number]) [address], [address] [place] [address] WBC (Bld) [#/Vol] 10.1 10*3/uL Normal 4.0-11.0 [facility] Comment on above: Performed By: #### C BC, CMP, 2275-4, 2284-03, 2132-04 #### [facility] ([id number]) [address], [address] [place] [address] COMPREHENSIVE METABOLIC PANE Jerry 11-05-2024 Albumin [Mass/Vol] 3.4 g/dL Normal 3.2-5.3 [facility] Comment on above: Performed By: #### C BC, CMP, 2275-4, 2283-8, 2132-04 #### [facility] ([id number]) [address], [address] [place] [address] ALP [Catalytic activity/Vol] 195 U/L High 39-130 [facility] Comment on above: Performed By: #### C BC, CMP, 6-4, 2283-8, 2132-04 #### [facility] ([id number]) [address], [address] [place] [address] ALT [Catalytic activity/Vol] 9 U/L Normal 0-31 [facility] Comment on above: Performed By: #### C BC, CMP, 6-4, 2283-8, 2132-04 #### [facility] ([id number]) [address], [address] [place] [address] Anion gap [Moles/Vol] 7 mmol/L Normal 5-15 [facility] Comment on above: Performed By: #### C BC, CMP, 6-4, 2283-8, 2132-04 #### [facility] ([id number]) [address], [address] [place] [address] AST [Catalytic activity/Vol] 16 U/L Normal 0-41 [facility] Comment on above: Performed By: #### C BC, CMP, 2275-4, 2283-8, 2132-04 #### [facility] ([id number]) [address], [address] [place] [address] Bilirubin [Mass/Vol] 0.3 mg/dL Normal 0.3-1.2 [facility] Comment on above: Performed By: #### Chaim BC, CMP, 2275-4, 2283-8, 2132-04 #### [facility] ([id number]) [address], [address] [place] [address] Calcium [Mass/Vol] 9.3 mg/dL Normal 8.5-10.5 [facility] Comment on above: Performed By: #### Chaim BC, CMP, 2275-4, 8, 2132-04 #### [facility] ([id number]) [address], [address] [place] [address] Chloride [Moles/Vol] 102 mmol/L Normal 98-109 [facility] Comment on above: Performed By: #### Chaim BC, CMP, 2275-4, 2283-8, 2132-04 #### [facility] ([id number]) [address], [address] [place] [address] CO2 [Moles/Vol] 26 mmol/L Normal 22-32 [facility] Comment on above: Performed By: #### Chaim BC, CMP, 2275-4, 2283-8, 2132-04 #### [facility] ([id number]) [address] [address] [place] [address] Creatinine [Mass/Vol] 0.57 mg/dL Normal 0.40-1.00 [facility] Comment on above: Result Comment: METH OD TRACEABLE TO IDMS STANDARD Performed By: #### Chaim VAZQUEZ CMP, 6-4, 4-8, 9 #### [facility] ([id number]) [address], [address] [place] [address] eGFR (CKD-EPI) NON-RACE DEPENDENT >90 Normal >59 [facility] Comment on above: Result Comment: Reported eGFR is based on the CKD-EPI 2020 equation that does not use a race coefficient. Performed By: #### Chaim VAZQUEZ CMP, 6-4, 2283-8, 2132-04 #### [facility] ([id number]) [address] [address] [place] [address] Glucose [Mass/Vol] 72 mg/dL Normal 65-99 [facility] Comment on above: Performed By: #### Chaim VAZQUEZ CMP, 2275-4, 8, 2132-04 #### [facility] ([id number]) [address] [address] [place] [address] Potassium [Moles/Vol] 4.0 mmol/L Normal 3.5-5.0 [facility] Comment on above: Performed By: #### Chaim VAZQUEZ CMP, 6-4, 2283-8, 2132-04 #### [facility] ([id number]) [address] [address] [place] [address] Protein [Mass/Vol] 6.3 g/dL Normal 6.0-8.0 [facility] Comment on above: Performed By: #### Chaim VAZQUEZ, CMP, 6-4, 2284-8, 2132-04 #### [facility] ([id number]) [address] [address] [place] [address] Sodium [Moles/Vol] 135 mmol/L Normal 134-146 [facility] Comment on above: Performed By: #### C BC, CMP, 6-4, 2283-8, 2132-04 #### [facility] ([id number]) [address], [address] [place] [address] Urea nitrogen [Mass/Vol] 5 mg/dL Normal 5-23 [facility] Comment on above: Performed By: #### C BC, CMP, 6-4, 2283-8, 2132-04 #### [facility] ([id number]) [address], [address] [place] [address] FERRITINon 11-05-2024 Ferritin [Mass/Vol] 10 ng/mL Low 11-307 [facility] Comment on above: Performed By: #### C BC, CMP, 2275-4, 8, 2132-04 #### [facility] ([id number]) [address], [address] [place] [address] Folate [Mass/Vol]on 11-06-19 25 FOLIC ACID 6.3 ng/mL Normal >5.8 [facility] Comment on above: Result Comment: NEW REFERENCE RANGE Performed By: #### C BC, CMP, 2275-4, 2283-8, 2132-04 #### [facility] ([id number]) [address], [address] [place] [address] VITAMIN B12on 11-05-2024 Cobalamin (Vitamin B12) [Mass/Vol] 146 pg/mL Low 180-914 [facility] Comment on above: Performed By: #### C BC, CMP, 6-4, 2283-8, 2132-04 #### [facility] ([id number]) [address], [address] [place] [address] Ultrasound - OfficeOrdered B y: Haylie Santiago on 10-19-2024 Radiology Study observation (narrative) [facility] Ultrasound - Officeon 2024 Radiology Study observation (narrative) [facility] Radiology Study observation (narrative) [facility] Radiology Study observation (narrative) [facility] US OB FOLLOW UP TRANSABDOMIN AL APPROACHon [...] 1533 gm / 3 lbs, 6 oz (1318-8685 gm) [place] Normal: 1505 gm (7129-4938 gm) [place] Wt%: 56% for 29.7 wks [...] the internal cervical os. Dictated and transcribed 10/09/24/dpd This report has been electronically signed and approved by the interpreting radiologist. Normal Not Available Ultrasound - Officeon 2024 [facility] Ultrasound - Officeon 2023 [facility] US OB LIMITED 1+ FETUSESon 1 09-09-2023 [...] report is generated using voice recognition reporting ([employer]). On occasion [employer] erroneously drops words from the report or replaces the spoken word with similar sounding words. Please call with any questions/concerns regarding this report.* Dictated and transcribed 07/11/24/dpd This report has been electronically signed and approved by the interpreting radiologist. Normal Not Available [facility]tras[facility]on [facility]23 [facility] Bacteria identified Cx Nom ( U)on 06-20-2024 Appearance (U) Adequate [facility] Internal identifier for Provider [id number] [facility] Specimen source Nom (Unsp spec) URINE, CLEAN CATCH [facility] Healthcare STATUS FINAL [facility] Performing Organizat ion Information Site ID: QPT Name: [employer] [facility] Address: [address] [place] [address], [address] [place] [phone] Director: Bertram Fraser MD [facility] Laboratory - Microbiology an d Antimicrobial susceptibilityon 06-20-2024 Bacteria identified Cx Nom (U) SEE NOTE [facility] Comment on above: Less than 10,000 CFU/mL of single Gram positive organism isolated. No further testing will be performed. If clinically indicated, recollection using a method to minimize contamination, with prompt transfer to Urine Culture Transport Tube, is recommended. Urinalysis macro (dipstick) panel (U)on 06-18-2024 Bilirubin, UA Negative Negative - 4(70) +++ mg/dL [facility] Blood, UA Positive Negative - 50 Wally/mcL [facility] Clarity, UA Clear [facility] Color, UA Yellow [facility] Glucose, UA Negative Negative - 2000(110) ++++ mg/dL [facility] Interpretation and review of laboratory results Abnormal [facility] Ketones, UA Positive Negative - 160(16) ++++ mg/dL [facility] Leukocytes, UA 3+ Negative - 500+++ Doretha/mcL [facility] Nitrite, UA Negative Negative - Positive [facility] pH, UA 5 5 - 9 [facility] Protein, UA Trace Negative - 1999(20) ++++ mg/dL [facility] Spec Grav, UA 1.02 1 - 1.03 [facility] Urobilinogen, UA 0.2 0.2 - 12 mg/dL [facility] US for pregnancyon TITLE OF EXAM: OB [...] anatomical survey not performed. Dictated and transcribed 05/23/24 This report has been electronically signed and [...] Electronically Signed Deshawn Ibarra M.D. 2024-05-23 17:07:53 [facility] US for pregnancyOrdered By: Deshawn Ibarra on 05-23-2024 [facility] Work Phone: US OB < 14 WEEKS [...] US for pregnancyon Radiology Study observation (narrative) [facility] CBC panel Auto (Bld)on 05-17 Erythrocyte distribution width (RBC) [Ratio] 12.4 % 11.0 - 15.0 % [facility] Hematocrit (Bld) [Volume fraction] 40.8 % 35.0 - 45.0 % [facility] Hemoglobin (Bld) [Mass/Vol] 13.7 g/dL 11.7 - 15.5 g/dL [facility] MCH (RBC) [Entitic mass] 29.4 pg 27.0 - 33.0 pg [facility] MCHC (RBC) [Mass/Vol] 33.6 g/dL 32.0 - 36.0 g/dL [facility] Comment on above: For adults, a slight decrease in the calculated MCHC value (in the range of 30 to 32 g/dL) is most likely not clinically significant; however, it should be interpreted with caution in correlation with other red cell parameters and the patient's clinical condition. MCV (RBC) [Entitic vol] 87.6 fL 80.0 - 100.0 fL [facility] Platelet mean volume (Bld) [Entitic vol] 10.1 fL 7.5 - 12.5 fL [facility] Platelets (Bld) [#/Vol] 255 10*3/uL [facility] RBC (Bld) [#/Vol] 4.66 10*6/uL [facility] WBC (Bld) [#/Vol] 7.6 10*3/uL [facility] Laboratory - Blood bankon ABO group Nom (Bld) O [facility] Blood group antibody screen Ql Detected [facility] Comment on above: Reference range No antibodies detected This assay is a screening test for the detection of red blood cell antibodies. The test is not to be used for pretransfusion screening or for the medical management of an alloimmunized . Rh Nom (Bld) Positive [facility] Comment on above: For additional information, please refer to http://education.Navendis/faq/KRT500 (This link is being provided for informational/ educational purposes only.) Laboratory - Chemistry and C hemistry - challengeon 05-17-2024 TSH Qn 2.36 m[IU]/L mIU/L [facility] Comment on above: Reference Range > or = 20 Years 0.40-4.50 Ranges First trimester 0.26-2.66 Second trimester 0.55-2.73 Third trimester 0.43-2.91 Laboratory - Hematology and Cell countson 05-17-2024 HbA1c (Bld) [Mass fraction] 5.1 % [facility] Comment on above: For the purpose of s creening for the presence of diabetes: <5.7% Consistent with the absence of diabetes 5.7-6.4% Consistent with increased risk for diabetes (prediabetes) > or =6.5% Consistent with diabetes This assay result is consistent with a decreased risk of diabetes. Currently, no consensus exists regarding use of hemoglobin A1c for diagnosis of diabetes in children. According to [place] [employer] (ADA) guidelines, hemoglobin A1c <7.0% represents optimal control in non- diabetic patients. Different metrics may apply to specific patient populations. Standards of Medical Care in Diabetes(ADA). [facility] - [facility] d [facility] HBV surface Ag IA Ql Non-Reactive NON-REACTIVE [facility] Comment on above: For additional information, please refer to http://Image Metrics.C2FO/faq/YCZ728 (This link is being provided for informational/ educational purposes only.) HCV Ab IA Ql Non-Reactive NON-REACTIVE [facility] Comment on above: HCV antibody was non-reactive. There is no laboratory evidence of HCV infection. In most cases, no further action is required. However, if recent HCV exposure is suspected, a test for HCV RNA (test code 46932) is suggested. For additional information please refer to http://Image Metrics.C2FO/faq/ZJF23v9 (This link is being provided for informational/ educational purposes only.) HIV 1+2 Ab+HIV1 p24 Ag IA Ql Non-Reactive NON-REACTIVE [facility] Comment on above: HIV-1 antigen and HI [...] purpose. For additional information please refer to http://Image Metrics.C2FO/faq/JZN036 (This link is being provided for informational/ educational purposes only.) The performance of this assay has not been clinically validated in patients less than 2 years old. Reagin Ab RPR (S) [Titer] 1 {titer} High [facility] Reagin Ab RPR Ql (S) Reactive Abnormal NON-REACTIVE NO [facility] Comment on above: The RPR is a non-alis ponemal-specific test; therefore, a treponemal-specific confirmatory test should be performed unless prior syphilis infection has been documented for this patient. Rubella virus IgG Qn (S) 7.94 [IU]/mL Index [facility] Comment on above: Index Interpretation ----- <0.90 Not consistent with immunity 0.90-0.99 Equivocal > or = 1.00 Consistent with immunity The presence of rubella IgG antibody suggests immunization or past or current infection with rubella virus. T. pallidum Ab IF Ql (S) Non-Reactive Nonreactive [facility] Comment on above: The FTA-ABS is a [...] estson 05-17-2024 Reference Lab Test ID [id number] [facility] Reference Lab Test Name FTA-ABS [facility] No Panel Informationon 05-17 CLIENT CONTACT: DOLLY BAIG [facility] COMMENT [facility] Comment on above: Please have the [facility] physician or his or her authorized artists' booking representative sign a copy of this report and promptly return it by faxing it to: [phone] or by returning the form to your customer services supervisor. Interpretation and review of laboratory results Abnormal [facility] REPORT ALWAYS MESSAGE SIGNATURE [facility] Comment on above: The laboratory testing on this patient was verbally requested or confirmed by the ordering physician or his or her authorized artists' booking representative after contact with an employee of [employer]. Federal regulations require that we maintain on file written authorization for all laboratory testing. Accordingly we are asking that the ordering physician or his or her authorized artists' booking representative sign a copy of this report and promptly return it to the client administrator. Signature: MULTIPLE COLLECTION TIMES FOR SAME TEST TYPE. [facility] Performing Organizat ion Information Site ID: QPT Name: [employer] [facility] Address: [address], [address] [place] [phone] Director: Bertram Fraser MD [facility] Performing Organizat ion Information Site ID: AMD Name: [employer] Address: [address] [place] [address] [place] Director: Dave Rodriguez M.D.,PhD [facility] Bacteria identified Cx Nom ( U)on 05-12-2024 Appearance (U) Adequate [facility] Internal identifier for Provider [id number] [facility] Specimen source Nom (Unsp spec) URINE [facility] STATUS FINAL [facility] Laboratory - Drug toxicology on 05-12-2024 6-Zudemjfnae-1,5-Dime thyl-3,3-Diphenylpyrr olidine (EDDP) Ql (U) Negative NINF - 100 ng/mL [facility] Amphetamines Ql (U) Negative NINF - 5 00 ng/mL [facility] Barbiturates Ql (U) Negative NINF - 3 00 ng/mL [facility] Benzodiazepines Ql (U) Negative NINF - 100 ng/mL [facility] Benzoylecgonine Ql (U) Negative NINF - 150 ng/mL [facility] Opiates Ql (U) Negative NINF - 100 ng/mL [facility] oxyCODONE Ql (U) Negative NINF - 100 ng/mL [facility] Phencyclidine Ql (U) Negative NINF - 25 ng/mL [facility] Tetrahydrocannabinol Screen method >20 ng/mL Ql (U) Negative NINF - 20 ng/mL [facility] Laboratory - Microbiology an d Antimicrobial susceptibilityon 05-12-2024 Bacteria identified Cx Nom (U) SEE NOTE [facility] Comment on above: Mixed genital butch isolated. These superficial bacteria are not indicative of a urinary tract infection. No further organism identification is warranted on this specimen. If clinically indicated, recollect clean-catch, mid-stream urine and transfer immediately to Urine Culture Transport Tube. Laboratory - Urinalysison Bacteria LM.HPF (Urine sed) [#/Area] NONE SEEN NONE SEEN /HPF [facility] Epithelial cells.squamous LM.HPF (Urine sed) [#/Area] 0-5 < OR = 5 /HPF [facility] Hyaline casts (Urine sed) [#/Area] NONE SEEN NONE SEEN /LPF [facility] RBC LM.HPF (Urine sed) [#/Area] NONE SEEN < OR = 2 /HPF [facility] WBC LM.HPF (Urine sed) [#/Area] 0-5 < OR = 5 /HPF [facility] N. gonorrhoeae DNA RAJINDER+probe Ql (Cervical mucus)on 05-12-2024 C. trachomatis rRNA RAJINDER+probe Ql (Unsp spec) Not detected NOT DETECTED [facility] N. gonorrhoeae rRNA RAJINDER+probe Ql (Unsp spec) Not detected NOT DETECTED [facility] No Panel Informationon 05-12 (ALWAYS MESSAGE) [facility] Comment on above: See Note 1 Note 1 This drug testing is for medical treatment only. Analysis was performed as non-forensic testing and these results should be used only by healthcare providers to render diagnosis or treatment, or to monitor progress of medical conditions. For assistance with interpreting these drug results, please contact a [employer] Toxicology Specialist: [phone] ( ), M-F, 8am-6pm EST. The analytical perfo rmance characteristics of this assay, when used to test SurePath(TM) specimens have been determined by [employer]. The modifications have not been cleared or approved by the FDA. This assay has been validated pursuant to the CLIA regulations and is used for clinical purposes. For additional information, please refer to https://education.agámi Systems.The America's Card/faq/XVM701 (This link is being provided for information/ educational purposes only.) Performing Organizat ion Information Site ID: QPT Name: [employer] [facility] Address: [address] [place] [address], [address] [place] [phone] Director: Bertram Fraser MD [facility] Chlamydia/GC by PCR [place] [facility] abon 05-10-2024 Chlamydia Dna(Pcr) Negative [facility] Gonorrhoeae Dna(Pcr) Negative [facility] Drug Screen, Urineon 024 Barbiturates Negative [facility] Opiates Negative [facility] HCG ( test) Ql (U)o n 05-10-2024 Interpretation and review of laboratory results Abnormal [facility] Preg Test, Ur Positive [facility] HIV 1&2 AB/AG Screen (P24 AG )on 05-10-2024 HIV 1&2 AB/AG Non-Reactive [facility] Hemoglobin A1con 05-10-2024 HbA1c (Bld) [Mass fraction] 5.1 % 4.0 - 6.0 % [facility] Hepatitis B surface antigeno n 05-10-2024 Hepatitis B Surface Antigen Non-Reactive [facility] No Panel Informationon 05-10 [facility] Rubella IGG immune statuson 05-10-2024 Rubella immune IgG 7.24 [facility] Syphilis Total(Unknown Syphi lis Status)Ordered By: Haylie Santiago on 05-10-2024 Syphilis Reactive [facility] Type and screenon 05-10-2024 Abo/Rh(D) Positive [facility] US OB < 14 WEEKS EARLYon US [...] Limited study. Full anatomical survey not performed. [employer] notes: Ovaries not visualized due to bowel. Dictated and transcribed 05/11/24/dpd This report has been electronically signed and approved by the interpreting radiologist. Electronically Signed Deshawn Ibarra M.D. 2024-05-11 13:14:11 Normal Not Available Ultrasound - OfficeOrdered B y: Haylie Popees on 05-10-2024 [facility] COVID + FLU Quick Testingon 10-04-2022 SARS-CoV-2 (COVID-19) RNA RAJINDER+probe Ql (Unsp spec) positve [facility] Other COVID + FLU Quick Testing Negative [facility] Other Quick Strepon 10-04-2022 S. pyogenes Org specific cx Ql (Throat) Negative [facility] Other Quick Strep [facility] Other XR Chest 2 Views*on 08-20-19 22 XR Chest 2 Views* FINDINGS: No acute cardiac or pulmonary disease is identified. No worrisome mass lesions or infiltrates are seen. No pulmonary edema or pneumothorax is present. Cardiac silhouette size is normal. Skeletal structures are unremarkable. IMPRESSION: No acute cardiac or pulmonary disease. Report reported and signed by Neri Torres on 08/20/2021 1621 Normal [facility] [employer] Q - CULTURE,URINE,ROUTINEon 07-16-2021 CULTURE, URINE, ROUTINE SEE NOTE Normal [facility] [employer] Comment on above: Order Comment: [facility] Testing performed at: [facility], [address] [place] [address], [address] [place] [address], [phone], Data Coordinator: Bertram Fraser MD [facility] Collection Date/Time: [facility] Results Received Date/Time: [facility] Reported Date/Time: [id number] Result Comment: CULT URE, URINE, ROUTINE Micro Number: [id number] Test Status: Final Specimen Source: Urine Specimen Quality: Adequate Result: No Growth Performed By: #### 6 304R #### [facility] Default [address] [place] [address] Urine Cultureon 03-21-2021 Bacteria identified Cx Nom (U) ORGANISM: Escherichia coli (O:ESCCOL) [place] Count >100,000 Aerobic EMILE Charge (NUC86) - [...] RESISTANT TO ALL B-LACTAM DRUGS. PERFORMED BY: [place] [address] PATHOLOGIST AUDIO VIDEO TECH QIANA BRYSON M.D. Normal Comment on above: Performed By: #### C UU #### [address] Chlamydia/GC/Trich NAAon Chlamydia Trachomotis, RAJINDER Negative Normal Negative Comment on above: Order Comment: Reaso n for Exam Dysuria Performed By: #### C UU #### [facility] [address] [place] [address] #### GCCHLAMTRI #### [facility] , Neisseria Gonorrhoeae, RAJINDER Negative Normal Negative Comment on above: Order Comment: Reaso n for Exam Dysuria Performed By: #### C UU #### [facility] [address] [place] [address] #### GCCHLAMTRI #### [facility] , Trichomonas RAJINDER Negative Normal Negative Comment on above: Order Comment: Reaso n for Exam Dysuria Result Comment: Perf ormed at: =G - [facility] [address] [place], [place] [id number] Professor Computer Science: Kaleigh Arnold MD, Phone: [phone] PERFORMED BY: [place] [address] PATHOLOGIST AUDIO VIDEO TECH QIANA BRYSON M.D. Performed By: #### C UU #### [address] #### GCCHLAMTRI #### [facility] , Urine Cultureon 03-01-2021 Bacteria identified Cx Nom (U) Reason for Exam Dysuria Urine ORGANISM: Citrobacter freundii (O:CITFRE) [place] Count >100,000 Aerobic EMILE Charge (NUC86) - [...] RESISTANT TO ALL B-LACTAM DRUGS. PERFORMED BY: [address] [place] [address] PATHOLOGIST AUDIO VIDEO TECH QIANA BRYSON M.D. [facility] Comment on above: Performed By: #### C UU #### [address] #### GCCHLAMTRI #### [facility] , Coding Summaryon 06-06-2017 Coding Summary CODING DATE: [facility] STATUS: Home PAYOR: Commercial Insurance APC [...] Thomas Revised Date Saved: 02/21/2017 03:48 pm [facility] Coding Summary CODING DATE: 017 [facility] STATUS: Discharge/Transfer to Another Hospital PAYOR: [...] Thomas Revised Date Saved: 02/21/2017 03:46 pm [facility] Coding Summaryon 02-21-2017 Coding Summary CODING DATE: [facility] STATUS: Home PAYOR: Commercial Insurance ADMIT [...] Alen Thomas Date Saved: 02/21/2017 03:48 pm [facility] Coding Summary CODING DATE: 017 [facility] STATUS: Discharge/Transfer to Another Hospital PAYOR: [...] Alen Thomas Date Saved: 02/21/2017 03:46 pm [facility] Basic Metabolic Profon 02-14 (cont.) Normal [facility] Comment on above: Result Comment: Aver age GFR for 30-39 years old: 107 mL/min/1.73sq mChronic Kidney Disease: <60 mL/min/1.73sq mKidney failure: <15 mL/min/1.73sq meGFR calculated using average adult body mass. Additional eGFR calculator available at:http://www.Shoprocket.The America's Card/multiple_crcl_2012.htmCleveland Clinic [facility] [address] [place] [address] Performed By: #### C BC, BMP ####[facility] [address] [place] [address] Anion gap 13 mmol/L Normal -17 [facility] Comment on above: Performed By: #### C BC, BMP ####[facility] [address] [place] [address] Calcium 8.5 mg/dL Low 8.6-10.4 [facility] Comment on above: Performed By: #### C BC, BMP ####[facility] [address] [place] [address] Chloride 105 mmol/L Normal 98-107 [facility] Comment on above: Performed By: #### C BC, BMP ####[facility] [address] [place] [address] CO2 21 mmol/L Normal 20-31 [facility] Comment on above: Performed By: #### C BC, BMP ####[facility] [address] [place] [address] Creatinine 0.69 mg/dL Normal 0.50-0.90 [facility] Comment on above: Performed By: #### C BC, BMP ####[facility] [place] [address] eGFR (non-black) mL/min/{1.73_m2} Normal >60 [facility] Comment on above: Performed By: #### C BC, BMP ####[facility] [place] [address] Glucose mass conc 95 mg/dL Normal 70-99 [facility] Comment on above: Performed By: #### C BC, BMP ####[facility] [place] [address] Potassium molar conc 4.3 mmol/L Normal 3.7-5.3 [facility] Comment on above: Performed By: #### C BC, BMP ####[facility] [place] [address] Sodium 139 mmol/L Normal 135-144 [facility] Comment on above: Performed By: #### C BC, BMP ####[facility] [address] [place] [address] Urea nitrogen 14 mg/dL Normal 6-20 [facility] Comment on above: Performed By: #### C BC, BMP ####[facility] [address] [place] [address] BUN/CRE Ratio NOT REPORTED Normal 9-20 [facility] Comment on above: Performed By: #### C BC, BMP ####[facility] [address] [place] [address] Staging: NOT REPORTED Normal [facility] Comment on above: Performed By: #### C BC, BMP ####[facility] [address] [place] [address] CBCon 02-14-2017 Erythrocyte distribution width Auto Ratio (RBC) 12.8 % Normal 12.5-15.4 [facility] Comment on above: Performed By: #### C BC, BMP ####[facility] [address] [place] [address] Erythrocytes (RBC) 4.09 10*6/uL Normal 4.0-5.2 [facility] Comment on above: Performed By: #### C BC, BMP ####[facility] [address] [address] Hematocrit (HCT) 34.2 % Low 36-46 [facility] Comment on above: Performed By: #### C BC, BMP ####[facility] [address] [place] [address] Hemoglobin mass conc (Bld) 11.9 g/dL Low 12.0-16.0 [facility] Comment on above: Performed By: #### C BC, BMP ####[facility] [address] [address] MCH 29.0 pg Normal 26-34 [facility] Comment on above: Performed By: #### C BC, BMP ####[facility] [address] [place] [address] MCHC mass conc (RBC) 34.7 g/dL Normal 31-37 [facility] Comment on above: Performed By: #### C BC, BMP ####[facility] [address] [place] [address] MCV 83.8 fL Normal 80-100 [facility] Comment on above: Performed By: #### C BC, BMP ####[id number] [place] [address] Platelet mean volume (PMV) 9.8 fL Normal 6.0-12.0 [facility] Comment on above: Result Comment: [id number] [place] [address] Performed By: #### C BC, BMP ####[facility] [address] [place] [address] Platelets 258 10*3/uL Normal 140-450 [facility] Comment on above: Performed By: #### C TAYLOR, BMP ####[address] [address] WBC (Leukocytes) 11.5 10*3/uL High 3.5-11.0 [facility] Comment on above: Performed By: #### C BC, BMP ####[address] [address] Discharge Summaryon 02-15-20 17 HIM IP Note OR Php Engineer Normal [facility] Basic Metabolic Profon 02-13 (cont.) Normal [facility] Comment on above: Result Comment: Aver age GFR for 30-39 years old: 107 mL/min/1.73sq mChronic Kidney Disease: <60 mL/min/1.73sq mKidney failure: <15 mL/min/1.73sq meGFR calculated using average adult body mass. Additional eGFR calculator available at:http://www.Shoprocket.com/multiple_crcl_2012.htm[address] [address] Performed By: #### C BC, BMP ####[address] [place] [address] Anion gap 11 mmol/L Normal - [facility] Comment on above: Performed By: #### C BC, BMP ####[facility] [address] [place] [address] Calcium 9.0 mg/dL Normal 8.6-10.4 [facility] Comment on above: Performed By: #### C BC, BMP ####[facility] [address] [place] [address] Chloride 106 mmol/L Normal 98-107 [facility] Comment on above: Performed By: #### C BC, BMP ####[facility] [address] [place] [address] CO2 22 mmol/L Normal 20-31 [facility] Comment on above: Performed By: #### C BC, BMP ####[facility] [address] [place] [address] Creatinine 0.59 mg/dL Normal 0.50-0.90 [facility] Comment on above: Performed By: #### C BC, BMP ####[facility] [address] [place] [address] eGFR (non-black) mL/min/{1.73_m2} Normal >60 [facility] Comment on above: Performed By: #### C BC, BMP ####[facility] [address] [place] [address] Glucose mass conc 144 mg/dL High 70-99 [facility] Comment on above: Performed By: #### C BC, BMP ####[facility] [address] [place] [address] Potassium molar conc 4.5 mmol/L Normal 3.7-5.3 [facility] Comment on above: Performed By: #### C BC, BMP ####[facility] [address] [place] [address] Sodium 139 mmol/L Normal 135-144 [facility] Comment on above: Performed By: #### C BC, BMP ####[facility] [place] [address] Urea nitrogen 10 mg/dL Normal 6-20 [facility] Comment on above: Performed By: #### C BC, BMP ####[facility] [address] [place] [address] BUN/CRE Ratio NOT REPORTED Normal 9-20 [facility] Comment on above: Performed By: #### C BC, BMP ####[address] [address] Staging: NOT REPORTED Normal [facility] Comment on above: Performed By: #### C BC, BMP ####[address] [address] C Throaton 02-13-2017 C Throat Ordered by Discern. Normal throat butch isolated No pathogens isolated Normal [facility] Comment on above: Performed By: #### 4 [id number], [id number] ####[facility] (DEFAULT)[address] [place] [address] CBCon 02-13-2017 Erythrocyte distribution width Auto Ratio (RBC) 13.2 % Normal 12.5-15.4 [facility] Comment on above: Performed By: #### C BC, BMP ####[address] [address] Erythrocytes (RBC) 4.13 10*6/uL Normal 4.0-5.2 [facility] Comment on above: Performed By: #### C BC, BMP ####[facility] [address] [place] [address] Hematocrit (HCT) 34.7 % Low 36-46 [facility] Comment on above: Performed By: #### C BC, BMP ####[facility] [address] [place] [address] Hemoglobin mass conc (Bld) 12.0 g/dL Normal 12.0-16.0 [facility] Comment on above: Performed By: #### C TAYLOR, BMP ####[address] [address] MCH 29.1 pg Normal 26-34 [facility] Comment on above: Performed By: #### C TAYLOR, BMP ####[address] [address] MCHC mass conc (RBC) 34.6 g/dL Normal 31-37 [facility] Comment on above: Performed By: #### C TAYLOR, BMP ####[address] [address] MCV 84.2 fL Normal 80-100 [facility] Comment on above: Performed By: #### C TAYLOR, BMP ####[address] [address] Platelet mean volume (PMV) 9.1 fL Normal 6.0-12.0 [facility] Comment on above: Result Comment: [address] [place] [address] Performed By: #### C TAYLOR, BMP ####[address] [address] Platelets 244 10*3/uL Normal 140-450 [facility] Comment on above: Performed By: #### C BC, BMP ####[address] [address] WBC (Leukocytes) 8.4 10*3/uL Normal 3.5-11.0 [facility] Comment on above: Performed By: #### C BC, BMP ####[address] [address] Basic Metabolic Profon 02-12 (cont.) Normal [facility] Comment on above: Result Comment: Aver age GFR for 30-39 years old: 107 mL/min/1.73sq mChronic Kidney Disease: <60 mL/min/1.73sq mKidney failure: <15 mL/min/1.73sq meGFR calculated using average adult body mass. Additional eGFR calculator available at:http://www.Shoprocket.The America's Card/multiple_crcl_2012.htm[facility] [address] [place] [address] Performed By: #### C BC, BMP ####[facility] [place] [address] Anion gap 14 mmol/L Normal 9-17 [facility] Comment on above: Performed By: #### C BC, BMP ####[facility] [address] [place] [address] Calcium 8.3 mg/dL Low 8.6-10.4 [facility] Comment on above: Performed By: #### C BC, BMP ####[facility] [address] [place] [address] Chloride 104 mmol/L Normal 98-107 [facility] Comment on above: Performed By: #### C BC, BMP ####[facility] [address] [place] [address] CO2 17 mmol/L Low 20-31 [facility] Comment on above: Performed By: #### C BC, BMP ####[facility] [address] [place] [address] Creatinine 0.44 mg/dL Low 0.50-0.90 [facility] Comment on above: Performed By: #### C BC, BMP ####[facility] [address] [place] [address] eGFR (non-black) mL/min/{1.73_m2} Normal >60 [facility] Comment on above: Performed By: #### C BC, BMP ####[facility] [address] [place] [address] Glucose mass conc 104 mg/dL High 70-99 [facility] Comment on above: Performed By: #### C BC, BMP ####[facility] [address] [place] [address] Potassium molar conc 4.2 mmol/L Normal 3.7-5.3 [facility] Comment on above: Performed By: #### C BC, BMP ####[address] [address] Sodium 135 mmol/L Normal 135-144 [facility] Comment on above: Performed By: #### C BC, BMP ####[address] [address] Urea nitrogen 7 mg/dL Normal -20 [facility] Comment on above: Performed By: #### C BC, BMP ####[facility] [address] [place] [address] BUN/CRE Ratio NOT REPORTED Normal - [facility] Comment on above: Performed By: #### C BC, BMP ####[facility] [address] [place] [address] Staging: NOT REPORTED Normal [facility] Comment on above: Performed By: #### C BC, BMP ####[facility] [address]gb[address] [place] [address] CBCon 02-12-2017 Erythrocyte distribution width Auto Ratio (RBC) 13.0 % Normal 12.5-15.4 [facility] Comment on above: Performed By: #### C BC, BMP ####[facility] [address] [place] [address] Erythrocytes (RBC) 3.97 10*6/uL Low 4.0-5.2 [facility] Comment on above: Performed By: #### C BC, BMP ####[address] [address] Hematocrit (HCT) 33.6 % Low 36-46 [facility] Comment on above: Performed By: #### C BC, BMP ####[address] [address] Hemoglobin mass conc (Bld) 11.8 g/dL Low 12.0-16.0 [facility] Comment on above: Performed By: #### C BC, BMP ####[address] [address] MCH 29.7 pg Normal 26-34 [facility] Comment on above: Performed By: #### C BC, BMP ####[address] [address] MCHC mass conc (RBC) 35.0 g/dL Normal 31-37 [facility] Comment on above: Performed By: #### C BC, BMP ####[address] [address] MCV 84.6 fL Normal 80-100 [facility] Comment on above: Performed By: #### C BC, BMP ####[address] [address] Platelet mean volume (PMV) 8.6 fL Normal 6.0-12.0 [facility] Comment on above: Result Comment: [address] [place] [address] Performed By: #### C BC, BMP ####[address] [address] Platelets 236 10*3/uL Normal 140-450 [facility] Comment on above: Performed By: #### C BC, BMP ####[facility] [place] [address] WBC (Leukocytes) 11.3 10*3/uL High 3.5-11.0 [facility] Comment on above: Performed By: #### C TAYLOR, BMP ####[facility] [place] [address] .Auto Diff 1on - Auto Baso % 0.1 % Low 0.2-2.0 [facility] Comment on above: Performed By: #### 1 [id number], [id number], 2817226, 93829203, 0467173, [id number] ####[facility] (DEFAULT)[address] [place] [address] Auto Mcdonough % 8 % Normal 1-12 [facility] Comment on above: Performed By: #### 1 [id number], [id number], 7158630, 01221755, 6853430, 0338805934 ####[facility] (DEFAULT)[address] [place] [address] Auto Neut % 82 % Normal 44-88 [facility] Comment on above: Performed By: #### 1 [id number], 8084674639, 8528769, 33350806, 3787274, [id number] ####[facility] (DEFAULT)[address] [place] [address] Baso Abs# 0.0 x10 Normal 0.0-0.2 [facility] Comment on above: Performed By: #### 1 [id number], 3999086003, 0291314, 39517584, 2906255, 5175674473 ####[facility] (DEFAULT)[address] [place] [address] Eos Abs# 0.0 x10 Normal 0.0-0.4 [facility] Comment on above: Performed By: #### 1 [id number], 6758832648, 2027969, 26972944, 9694919, 1136276079 ####[facility] (DEFAULT)[address] [place] [address] Eosinophils/100 leukocytes 0.2 % Low 0.9-4.0 [facility] Comment on above: Performed By: #### 1 [id number], 1735213434, 7003701, 83721586, 0771034, 7946474406 ####[facility] (DEFAULT)[address] [place] [address] Lymphocytes 1.1 x10 Low 1.3-2.9 [facility] Comment on above: Performed By: #### 1 [id number], 0187772634, 2990071, 05226288, 3222860, 2541113867 ####[facility] (DEFAULT)[address] [place] [address] Lymphocytes/100 leukocytes 9 % Low 14-48 [facility] Comment on above: Performed By: #### 1 [id number], 5727980436, 0321401, 20252650, 5517715, 9627143357 ####[facility] (DEFAULT)[address] [place] [address] Mcdonough Abs# 1.0 x10 High 0.0-0.8 [facility] Comment on above: Performed By: #### 1 [id number], 8053854874, 0676273, 11942081, 4930807, 9601909744 ####[facility] (DEFAULT)[address] [place] [address] Neut Abs# 9.8 x10 High 1.5-9.2 [facility] Comment on above: Performed By: #### 1 [id number], 1019034216, 1863069, 94369574, 2949445, 5272723260 ####[facility] (DEFAULT)[address] [place] [address] CBC w/ Auto Diffon 7 Erythrocyte distribution width Auto Ratio (RBC) 12.3 % Normal 11.5-15.0 [facility] Comment on above: Performed By: #### 1 [id number], 3392366166, 8769263, 30763796, 6074743, 0171649077 ####[facility] (DEFAULT)[address] [place] [address] Erythrocytes (RBC) 4.48 x10 Normal 3.70-5.30 [facility] Comment on above: Performed By: #### 1 [id number], 5402287592, 0269141, 34820601, 9045046, 6939343541 ####[facility] (DEFAULT)[address] [place] [address] Hematocrit (HCT) 38.1 % Normal 33.7-40.4 [facility] Comment on above: Performed By: #### 1 [id number], 1783024905, 9079378, 10699092, 0920275, 5936126226 ####[facility] (DEFAULT)[address] [place] [address] Hemoglobin mass conc (Bld) 13.1 g/dL Normal 11.3-15.9 [facility] Comment on above: Performed By: #### 1 [id number], 8593427454, 2699489, 59226746, 3369058, 9809921287 ####[facility] (DEFAULT)[address] [place] [address] Man Diff? Auto Normal [facility] Comment on above: Performed By: #### 1 [id number], 5458178913, 5067249, 12858585, 4831063, 0724000466 ####[facility] (DEFAULT)[address] [place] [address] MCH 29 pg Normal 24-34 [facility] Comment on above: Performed By: #### 1 [id number], 5006113250, 2925592, 25981160, 7356078, 0719358598 ####[facility] (DEFAULT)[address] [place] [address] MCHC mass conc (RBC) 34 g/dL Normal 26-37 [facility] Comment on above: Performed By: #### 1 [id number], 1668430405, 4573451, 91183361, 5707770, 0959601010 ####[facility] (DEFAULT)[address] [place] [address] MCV 85 fL Normal 81-100 [facility] Comment on above: Performed By: #### 1 435135470, 9754793578, 4807755, 12178017, 4755885, 6326172474 ####[facility] (DEFAULT)[address] [place] [address] Platelet mean volume (PMV) 9.2 fL Normal 6.3-10.2 [facility] Comment on above: Performed By: #### 1 [id number], 1626798994, 1690509, 13604059, 6884635, 0579152675 ####[facility] (DEFAULT)[address] [place] [address] Platelets 269 x10 Normal 138-427 [facility] Comment on above: Performed By: #### 1 [id number], 0588380513, 9723673, 47481126, 6629541, 6848899857 ####[facility] (DEFAULT)[address] [place] [address] WBC (Leukocytes) 11.9 x10 Invalid Interpretation Code [facility] Comment on above: Performed By: #### 1 [id number], 3184566196, 3297525, 58758210, 9872422, 1415025766 ####[facility] (DEFAULT)[address] [place] [address] CMP Standardon 02-11-2017 eGFR (non-black) mL/min/{1.73_m2} Invalid Interpretation Code [facility] Comment on above: Performed By: #### 1 [id number], 2680264085, 0346806, 25740072, 4106428, 2570584788 ####[facility] (DEFAULT)[address] [place] [address] eGFR (non-black) mL/min/{1.73_m2} Invalid Interpretation Code [facility] Comment on above: Result Comment: [employer] Kidney disease could be indicated at eGFRs of less than 60 ml/min/1.73m2. Kidney Failure is indicated at less than 15 ml/min/1.73m2 Performed By: #### 1 [id number], 7975033054, 9270098, 59256537, 4763324, 7725923772 ####[facility] (DEFAULT)[address] [place] [address] Albumin 3.9 g/dL Normal 3.5-5.0 [facility] Comment on above: Performed By: #### 1 [id number], 5628872883, 5832743, 05181140, 6321598, 8381232177 ####[facility] (DEFAULT)[address] [place] [address] Albumin/Globulin Ratio 0.9 {ratio} Low 1.4-2.6 [facility] Comment on above: Performed By: #### 1 448767048, 7599824411, 0905159, 00730767, 6585775, 4879005089 ####[facility] (DEFAULT)[address] [place] [address] Alk Phos 58 IU/L Normal 32-91 [facility] Comment on above: Performed By: #### 1 [id number], 7811045960, 6556007, 55913178, 5823792, 6240697421 ####[facility] (DEFAULT)[address] [place] [address] ALT/SGPT 11.0 IU/L Low 14.0-54.0 [facility] Comment on above: Performed By: #### 1 [id number], 1603154227, 6068496, 56308605, 7425350, 4678229027 ####[facility] (DEFAULT)[address] [place] [address] Anion gap 11.0 mmol/L Normal 5.0-19.0 [facility] Comment on above: Performed By: #### 1 [id number], 8026813595, 3442242, 97618923, 7533031, 3707892354 ####[facility] (DEFAULT)[address] [place] [address] AST/SGOT 15 IU/L Normal 15-41 [facility] Comment on above: Performed By: #### 1 [id number], 4208476911, 1874978, 07853042, 3576035, 8707531726 ####[facility] (DEFAULT)[address] [place] [address] Bili Total 0.6 mg/dL Normal 0.3-1.2 [facility] Comment on above: Performed By: #### 1 612453129, 6338029281, 3995313, 31922406, 6669454, 8288467284 ####[facility] (DEFAULT)[address] [place] [address] BUN/Creatinine Ratio 8.0 mg/mg Normal 4.6-16.2 [facility] Comment on above: Performed By: #### 1 [id number], 3749336695, 5559689, 14999987, 4098885, 1053415718 ####[facility] (DEFAULT)[address] [place] [address] Calcium 9.0 mg/dL Normal 8.9-10.3 [facility] Comment on above: Performed By: #### 1 [id number], 3529157974, 1806628, 37602973, 4549659, 8786763699 ####[facility] (DEFAULT)[address] [place] [address] Chloride 103 mmol/L Normal 101-111 [facility] Comment on above: Performed By: #### 1 [id number], 0880451785, 5591974, 32614911, 1841137, 0705742801 ####[facility] (DEFAULT)[address] [place] [address] CO2 26 mmol/L Normal 21-32 [facility] Comment on above: Performed By: #### 1 [id number], 3139063847, 9114889, 41132369, 1259000, 3081576198 ####[facility] (DEFAULT)[address] [place] [address] Creatinine 0.60 mg/dL Normal 0.60-1.30 [facility] Comment on above: Performed By: #### 1 138696236, 8279566285, 5413924, 22680728, 6926531, 2980828788 ####[facility] (DEFAULT)[address] [place] [address] Globulin 4.3 g/dL Normal 1.5-4.3 [facility] Comment on above: Performed By: #### 1 [id number], 6547794232, 3515840, 92979047, 1407847, 2598244224 ####[facility] (DEFAULT)[address] [place] [address] Glucose mass conc 101.0 mg/dL Normal 74.0-118.0 [facility] Comment on above: Performed By: #### 1 [id number], 2084536874, 0331114, 68768037, 9832556, 4672624188 ####[facility] (DEFAULT)[address] [place] [address] Osmolality 269 mOsm/L Invalid Interpretation Code [facility] Comment on above: Performed By: #### 1 [id number], 5772517694, 3459278, 02201307, 0048127, 6195631330 ####[facility] (DEFAULT)[address] [place] [address] Potassium molar conc 3.9 mmol/L Normal 3.6-5.1 [facility] Comment on above: Performed By: #### 1 [id number], 6183961863, 7932005, 63323648, 7947209, 5957722409 ####[facility] (DEFAULT)[address] [place] [address] Protein 8.2 g/dL High 6.5-8.1 [facility] Comment on above: Performed By: #### 1 [id number], 6272395728, 8955616, 61290345, 1712175, 9344121045 ####[facility] (DEFAULT)[address] [place] [address] Sodium 136.0 mmol/L Normal 136.0-144.0 [facility] Comment on above: Performed By: #### 1 [id number], 7966929004, 7903139, 88860662, 7801448, 8103730418 ####[facility] (DEFAULT)[address] [place] [address] Urea nitrogen 5 mg/dL Low 04-02 [facility] Comment on above: Performed By: #### 1 [id number], 2017445307, 0224252, 95638267, 6734984, 4648123482 ####[facility] (DEFAULT)[address] [place] [address] CT Soft Tissue Neck w/ Contr ken [...] BE EXCLUDED.4. FOLLOW-UP NEEDED.Blade Boggs MDJOB #: [id number]: 02/11/2017T: 02/11/2017 Final Dictated by: Blade Boggs MDDictated DT/TM: 02/11/17 9:15Signed (Electronic Signature): Blade Boggs MD 02/11/17 11:27 aTechnologist: AIDAN TSE [facility] ED Clinical Summaryon 2016 ED Clinical Summary [facility] - Emergency [address] [place] [address] ed Clinical SummaryPERSON INFORMATIONName: HYACINTH ESCALONA Age: 31 Years Sex: FEMALEDOB: [birth year] MRN: Acct#:Visit Reason: Mouth pain; Mouth pain; SWOLLEN MOUTH / DENTAL ISSUE Arrival:02/11/17 06:48:00 Discharge: 02/11/17 12:13:00LOS: 000 05:25 Check In: 02/11/17 06:48:00 Checkout:02/11/17 12:13:00Address:[address] [facility] [id number]: Provider, NonePROVIDER INFORMATIONProvider Role Assigned UnassChen Purcell ED Nurse 02/11/17 06:51:37Brandon Lopez DO ED [...] : 87Associated Diagnoses: sherice-tonsillar cellulitisAuthor: Brandon Lopez DOBasic InformationTime seen: Date & time 02/11/17 07:21:00.History [...] heart; the patient is on AmoxicillinSOCIAL: Non-smoker, [employer] at [place], no etoh, pov arrival, is supposed to [...] INFORMATION:Discharge Disposition: Discharge/Transfer to Another HospitalDis[facility]PATIENT EDUCATION INFORMATIONInstructions: Follow-Up:DIAGNOSIS:sherice -tonsillar cellulitisComment: Normal [facility] ED Note - Otheron 02-11-2017 ED Note - Other transport set up [facility], given an eta of about 30 mins[Electronically Signed on: 02/11/2017 11:40 EDT] Seng scherer Viviane[Verified on: 02/11/2017 11:40 EDT] Seng scherer [facility] ED Note - Other pt will be going to room 315, and a report number of [phone] was given[Electronically Signed on: 02/11/2017 11:40 EDT] Jared Orozcoah[Verified on: 02/11/2017 11:40 EDT] Seng scherer [facility] ED Note - Other pt accpeted by dr. shane and dr. erickson into [facility], waiting on a bed assignment[Electronicall y Signed on: 02/11/2017 11:39 EDT] Seng scherer Viviane[Verified on: 02/11/2017 11:39 EDT] Seng scherer [facility] ED Note - Other pt back from ct [Electronically Signed on: 02/11/2017 08:49 EDT] Jared Chaidezah [Verified on: 02/11/2017 08:49 EDT] Dm [facility] ED Note - Other pt to ct [Electronically Signed on: 02/11/2017 08:43 EDT] Viviane Chaidez [Verified on: 02/11/2017 08:43 EDT] [facility] ED Note - Physicianon 2016 ED Note - Physician Patient: HYACINTH ESCALONA : 31 years Sex: FEMALE : [birth year]Associated Diagnoses: NoneAuthor: Kathryn Rg MDBasic InformationAddendum: Time of addendum:: 02/11/17 09:27:00 , Assumed care from: dr lopez 9a , ct pending ,awaiting call back from dr more [facility] .31-year-old female with wisdom teeth [...] Diff 1:CBC w/ Auto Diff:CMP Standard:Extra Blue:Extra Red:Mcdonough Scrn:Normal Saline Flush: 10 mL, IV Push, As DirectedOmnipaque 350.: 350 mg, 100 mL, IV Push, OncePregnancy Test Serum 1:Rapid Strep:SOLU-Medrol: 125 mg, 2 mL, IV Push, OnceToradol: 30 mg, 1 mL, IV Push, OnceZithromax: 500 mg, 1 EA, 250 mL/hr, IV Piggyback, Once.Results review: Lab results : Lab Ovqcudktj43/07/17 07:45 EDT Sodium Level 136.0 mmol/L Potassium [...] Auto Lymph % 9 % LOW Auto Mcdonough % 8 % Auto Eos % 0.2 % LOW Auto Baso % 0.1 % LOW Neut Abs# 9.8 x103/mcL HI Lymph Abs# 1.1 x103/mcL LOW Mcdonough Abs# 1.0 x103/mcL HI Eos Abs# 0.0 x103/mcL Baso Abs# 0.0 x103/mcL Mcdonough Scrn Negative, Lab results : Lab Mcjyrjqjm53/07/17 07:31 EDT Strep A Negative , Lab results : Lab Tahdfgzsa72/07/17 07:49 EDT Test Serum Qual Negative .Radiology [...] in detail ,[facility] will try and see today after office hours give unasyn and decadron 12 mg iv , if needs to be transferred to [facility] will need to speak to dr jasmine who is performance improvement consultant ,aware of trismus ,ct findings pertinent exam , labs ,Course: improving.Pain status: decreased.[address] tinsley in detail wants patient transferred to location with ENT , only on consultative basis here at [id number] [facility] will not answer phone call from us at this time ,will try hospitalist at [id number] dr irwin hospitalist at [facility] in detail ,will discuss with ENT at [facility] and call us back , dr jasmine does not wish to accept patient to ent , therfore dr irwin cannot accept to [id number] patient updated agreeable to transfer to [facility] , doing well , airway patent , still with trismus no increasing swelling , no stridor or [id number] discussed with dr shane ENT , in detail , admit to hospitalist service ,[address] leung in detail , accepts patient is hospitalist at [facility] ,1130 no als transport available ,bls available for transport , will heplock iv ,patient swallowing own secretions well , no airway compromise on serial examinations . has been in ED x 5 hrsImpression and PlanDiagnosisLeft peritonsillar cellulitis peritonsillar abscess/tonsillar abscessPlanCondition: Stable.Disposition: Transfer to other location: Time deemed necessary for transfer: 945, Facility name: [facility] , dr cotto and dr leung.[Electronically Signed on: 02/11/2017 17:07 EDT] Herc Kathryn rivera MD[Electronically Signed on: 02/11/2017 17:07 EDT] Herc Kathryn rivera MD[Verified on: 02/11/2017 17:07 EDT] Herc Kathryn rivera MD [facility] ED Note - Physician Patient: HYACINTH [...] heart; the patient is on AmoxicillinSOCIAL: Non-smoker, [employer] at [place], no etoh, pov arrival, is supposed to [...] Rg MD.[Electronically Signed on: 02/11/2017 08:25 EDT] Omle yBrandon DO[Electronically Signed on: 02/18/2017 22:18 EDT] Omle y, Brandon H DO[Verified on: 02/11/2017 08:25 EDT] Omle y, Brandon H DO [facility] ED Note-Nursingon 02-11-2017 ED Note-Nursing Pt denies any discom fort at present. Dr. Rg still trying to find an accepting doc for transfer. [facility] ED Note-Nursing talking to [facility]. [facility] ED Note-Nursing trying to fing a n accepting hospital to transfer pt. Pt in no acute distress. Resting quietly. [facility] ED Note-Nursing No change. [facility] ED Note-Nursing Pt states she is fee ling a little better. Resting quietly. [facility] ED Note-Nursing Waiting for lab resu lts before going to CT. [facility] ED Note-Nursing Resting quietly, Dr. Lopez in seeing pt. [facility] ED Patient Education Noteon 02-11-2017 ED Patient Education Note Education Materials [facility] ED Patient Summaryon 017 ED Patient Summary [facility] - Emergency [address] [place], [place] [id number] pATIENT DISCHARGE INSTRUCTIONSPatient InformationName: HYACINTH ESCALONA Age: 31 YearsDate of : [birth year]MRN: [id number] [facility]: [id number] For Visit: Mouth pain; Mouth pain; SWOLLEN MOUTH / DENTAL ISSUEArrival Time: 02/11/17 06:48:00Phone: Primary Care Physician: Provider, NoneAttending Physician: Brandon Lopez DOComment:Visit Diagnosis:Diagnoses This Visit Mouth pain ([id number]) Mouth pain ([id number]) sherice-tonsillar cellulitisIf you received any narcotics, sedation, [...] and treatment you received today in the [facility] Emergency Department were for an urgent problem and are not intended as complete care. It is important for you to follow up with a doctor, nurse practitioner, or physician?s assistant guest services manager for ongoing care. If your symptoms become [...] number so we can reach you if necessary.[facility] Emergency Department has provided you with a complete list of medications post discharge. Please inform your business process associate/provider of your visit and for further instruction on these medications. Any specific questions regarding your chronic medications and dosages should be discussed with your primary care physician(s) and/or pharmacist. Medications to Continue That Have Not ChangedOther Medicationsamoxicillin (amoxicillin 250 mg oral capsule) 2 cap Oral 3 times a day.Misc PrescriptionVisit InformationAllergies:Sub stance Reaction Symptoms Type CommentsNo [...] for Disease Control and Prevention April 2014 [facility] Extra Blueon 02-11-2017 Tube Collected Yes Invalid Interpretation Code [facility] Comment on above: Performed By: #### 1 [id number] ####[facility] (DEFAULT)[address] [place] [address] History and Physicalon 02-11 HIM IP Note OR Php Engineer [facility] Mcdonough Scrnon 02-11-2017 Mcdonough procedure control Pass [facility] Comment on above: Performed By: #### 1 [id number] ####[facility] (DEFAULT)[address] [place] [address] Mcdonough Scrn Negative Normal Negative [facility] Comment on above: Performed By: #### 1 [id number] ####[facility] (DEFAULT)[address] [place], [place] [id number] Test Serum 1on Preg Serum Internal Control [place] [facility] Comment on above: Performed By: #### 3 [id number] ####[facility] (DEFAULT)[address] [place] [address] Test Serum Qual Negative [facility] Comment on above: Performed By: #### 3 [id number] ####[facility] (DEFAULT)[address] [place] [address] Strep Aon 02-11-2017 Strep A Negative Normal [facility] Comment on above: Performed By: #### 4 [id number] ####[facility] (DEFAULT)[address] [place] [address] Strep procedure control Pass [facility] Comment on above: Performed By: #### 4 [id number] ####[facility] (DEFAULT)[address] [place] [address] Vital Signs Date Time Vital Sign Value Performing Clinician Facility 11-05-2024 16:45-0400 Body mass index (BMI) [Ratio] 23.42 kg/m2 [facility] Work Phone: [facility] 11-05-2024 16:45-0400 Body weight 69.85 kg Shannon [facility] Work Phone: [facility] 11-05-2024 13:39-0400 Body mass index (BMI) [Ratio] 22.91 kg/m2 Marisol Loredo DO Work Phone: [facility] 11-05-2024 13:39-0400 Body weight 68.36 kg Marisol Lafyatis DO Work Phone: [facility] 11-05-2024 13:39-0400 Diastolic blood pressure 86 mm[Hg] Marisol Lafyatis DO Work Phone: [facility] 11-05-2024 13:39-0400 Systolic blood pressure 122 mm[Hg] Marisol Lafyatis DO Work Phone: [facility] 11-01-2024 08:04-0400 Body height 172.7 cm Aicha Laws MD Work Phone: [facility] 11-01-2024 08:04-0400 Body mass index (BMI) [Ratio] 22.72 kg/m2 Aicha Laws MD Work Phone: [facility] 11-01-2024 08:04-0400 Body weight 67.77 kg Aicha Laws MD Work Phone: [facility] 11-01-2024 08:04-0400 Diastolic blood pressure 72 mm[Hg] Aicha Laws MD Work Phone: [facility] 11-01-2024 08:04-0400 Heart rate 99 /min Aicha Laws MD Work Phone: [facility] 11-01-2024 08:04-0400 Systolic blood pressure 111 mm[Hg] Aicha Laws MD Work Phone: [facility] 10-29-2024 13:48-0400 Body mass index (BMI) [Ratio] 22.96 kg/m2 Shannon Felix CNM Work Phone: [facility] 10-29-2024 13:48-0400 Body weight 68.49 kg Shannon Felix CNM Work Phone: [facility] 10-29-2024 13:48-0400 Diastolic blood pressure 80 mm[Hg] Shannon Floro CNM Work Phone: [facility] 10-29-2024 13:48-0400 Systolic blood pressure 120 mm[Hg] Shannon Felix CNM Work Phone: [facility] 10-08-2024 11:09-0500 Body height 172.7 cm Merycorrie Muellers REAR ADMIRAL Work Phone: [facility] 10-08-2024 11:09-0500 Body mass index (BMI) [Ratio] 22.2 kg/m2 Mery Majors REAR ADMIRAL Work Phone: [facility] 10-08-2024 11:09-0500 Body temperature 97.81 [degF] Mery Majors REAR ADMIRAL Work Phone: [facility] 10-08-2024 11:09-0500 Body weight 66.22 kg Merycorrie Muellers REAR ADMIRAL Work Phone: [facility] 10-08-2024 11:09-0500 Diastolic blood pressure 68 mm[Hg] Mery Majors REAR ADMIRAL Work Phone: [facility] 10-08-2024 11:09-0500 Heart rate 83 /min Mery Majors REAR ADMIRAL Work Phone: [facility] 10-08-2024 11:09-0500 SaO2% (BldA) [Mass fraction] 99 % Mery Majors REAR ADMIRAL Work Phone: [facility] 10-08-2024 11:09-0500 Systolic blood pressure 122 mm[Hg] Mery Majors REAR ADMIRAL Work Phone: [facility] 09-26-2024 14:18-0500 Body mass index (BMI) [Ratio] 22.5 kg/m2 Shannon Felix CNM Work Phone: [facility] 09-26-2024 14:18-0500 Body weight 67.13 kg Shannon Felix CNM Work Phone: [facility] 09-06-2024 15:57-0500 Body mass index (BMI) [Ratio] 21.29 kg/m2 Shannon Felix CNM Work Phone: [facility] 09-06-2024 15:57-0500 Body weight 63.5 kg Shannon BURRELLM Work Phone: [facility] 08-09-2024 15:55-0500 Body mass index (BMI) [Ratio] 20.53 kg/m2 Shannon Felix CNM Work Phone: [facility] 08-09-2024 15:55-0500 Body weight 61.24 kg Shannon BURRELLM Work Phone: [facility] 08-09-2024 15:55-0500 Diastolic blood pressure 70 mm[Hg] Shannon Felix CNM Work Phone: [facility] 08-09-2024 15:55-0500 Systolic blood pressure 120 mm[Hg] Shannon Felix CNM Work Phone: [facility] 07-09-2024 15:47-0500 Body mass index (BMI) [Ratio] 19.61 kg/m2 Shannon BURRELLM Work Phone: [facility] 07-09-2024 15:47-0500 Body weight 58.51 kg Shannon BURRELLM Work Phone: [facility] 06-18-2024 16:41-0500 Body height 172.7 cm Fina Park REAR ADMIRAL Work Phone: [facility] 06-18-2024 16:41-0500 Body mass index (BMI) [Ratio] 18.85 kg/m2 Fina Park REAR ADMIRAL Work Phone: [facility] 06-18-2024 16:41-0500 Body weight 56.25 kg Fina Park REAR ADMIRAL Work Phone: [facility] 06-18-2024 16:41-0500 Diastolic blood pressure 70 mm[Hg] Fina Park REAR ADMIRAL Work Phone: [facility] 06-18-2024 16:41-0500 Heart rate 100 /min Fina Park REAR ADMIRAL Work Phone: [facility] 06-18-2024 16:41-0500 Respiratory rate 18 /min Fina Park REAR ADMIRAL Work Phone: [facility] 06-18-2024 16:41-0500 SaO2% (BldA) [Mass fraction] 99 % Fina Park REAR ADMIRAL Work Phone: [facility] 06-18-2024 16:41-0500 Systolic blood pressure 110 mm[Hg] Fina Park REAR ADMIRAL Work Phone: [facility] 06-11-2024 15:18-0500 Body mass index (BMI) [Ratio] 18.7 kg/m2 Shannon Moirao CNM Work Phone: [facility] 06-11-2024 15:18-0500 Body weight 55.79 kg Shannon Moirao CNM Work Phone: [facility] 06-11-2024 15:18-0500 Diastolic blood pressure 80 mm[Hg] Shannon Moirao CNM Work Phone: [facility] 06-11-2024 15:18-0500 Systolic blood pressure 120 mm[Hg] Shannon Moirao CNM Work Phone: [facility] 05-10-2024 15:19-0400 Body mass index (BMI) [Ratio] 19.01 kg/m2 Shannon Moirao CNM Work Phone: [facility] 05-10-2024 15:19-0400 Body weight 56.7 kg Shannon Moirao CNM Work Phone: [facility] 10-04-2022 14:45-0500 Body height 172.72 cm Melissa Daniel Other [facility] Other 10-04-2022 14:45-0500 Body mass index (BMI) [Ratio] 19.55 kg/m2 Melissa Daniel Other [facility] Other 10-04-2022 14:45-0500 Body temperature 98.3 [degF] Melissa Daniel Other [facility] Other 10-04-2022 14:45-0500 Body weight 58.33 kg Melissa Daniel Other [facility] Other 10-04-2022 14:45-0500 Respiratory rate 18 /min Melissa Daniel Other [facility] Other 10-04-2022 14:45-0500 SaO2% (BldA) [Mass fraction] 99 % Melissa Daniel Other [facility] Other Encounters Encounter Date Encounter Type Care Provider Facility Start: 11-09-2024 End: 11-09-2024 Telephone encounter Kianna GARCIA Work Phone: [facility] Start: 11-08-2024 End: 11-08-2024 Clinisync Result Encounter Shannon Esquivel Isidro CNM Work Phone: [facility] Unsolicited Start: 11-08-2024 End: 11-08-2024 Clinisync Result Encounter Shannon Esquivel Isidro CNM Work Phone: [facility] Unsolicited Start: 11-08-2024 End: 11-08-2024 Orders Only Alina Bruce RN [facility] Comment on above: Placenta previa in t hird trimester (Primary Dx); History of section complicating ; Multigravida of advanced maternal age in third trimester Start: 11-07-2024 End: 11-07-2024 Telephone encounter Aicha Laws MD Work Phone: [facility] Start: 11-06-2024 End: 11-06-2024 Orders Only Radha Murphy RN [facility] Comment on above: Anemia affecting pre gnancy in third trimester (Primary Dx) Iron deficiency anem ia during Start: 11-05-2024 End: 11-05-2024 Subsequent care visit Shannon Felix CNM Work Phone: [facility] Comment on above: AMA (advanced matern al age) multigravida 35+, third trimester; Placenta accreta in third trimester Start: 11-05-2024 End: 11-05-2024 Bamboo flowsheet Shannon Pizarroo CNM Work Phone: [facility] Start: 11-05-2024 End: 11-05-2024 Bamboo flowsheet Shannon Pizarroo CNM Work Phone: [facility] Start: 11-05-2024 End: 11-05-2024 Initial care visit Marisol Morro Loredo DO Work Phone: [facility] Comment on above: GA: 33w4d Start: 11-05-2024 End: 11-05-2024 Orders Only Aicha Laws MD Work Phone: [facility] Comment on above: B12 deficiency (Prim eugenio Dx); Iron deficiency anemia during Start: 11-01-2024 End: 11-01-2024 Office consultation new/estab patient 80 min Aicha Laws MD Work Phone: [facility] Comment on above: 33 weeks gestation o f (Primary Dx); Placenta previa in third trimester; History of section complicating ; Placenta accreta in third trimester; Multigravida of advanced maternal age in third trimester Start: 11-01-2024 End: 11-01-2024 Orders Only Alina Bruce RN [facility] at [facility] Comment on above: Placenta accreta in third trimester (Primary Dx); 33 weeks gestation of ; H/O section complicating Start: 10-29-2024 End: 10-29-2024 Bamboo flowsheet Shannon Pizarroo CNM Work Phone: [facility] Start: 10-29-2024 End: 10-29-2024 Bamboo flowsheet Shannon Alvin Pizarroo CNM Work Phone: [facility] Start: 10-29-2024 End: 10-29-2024 Office outpatient visit 15 minutes Shannon Pizarroo CNM Work Phone: [facility] Comment on above: Encounter for superv ision of other normal , third trimester (Primary Dx); AMA (advanced maternal age) multigravida 35+, third trimester; History of section Start: 10-29-2024 End: 10-29-2024 ambulatory SHANNON L FLORO Not Available Start: 10-23-2024 End: 10-23-2024 Telephone encounter Alina Bruce RN [facility] Start: 10-22-2024 End: 10-22-2024 Telephone encounter Alina Bruce RN [facility] Start: 10-19-2024 End: 10-19-2024 Orders Only Not In System Ref Prov [facility]- Medicine at [facility] Start: 10-11-2024 End: 10-11-2024 Telephone encounter Shannon Pizarroo CNM Work Phone: [facility] Start: 10-09-2024 End: 10-09-2024 ambulatory SHANNON L FLORO Not Available Start: 10-08-2024 End: 10-08-2024 Bamboo flowsheet Mery Majors REAR ADMIRAL Work Phone: [facility] Start: 10-08-2024 End: 10-08-2024 Bamboo flowsheet Mery Majors REAR ADMIRAL Work Phone: [facility] Start: 10-08-2024 End: 10-08-2024 Office outpatient visit 15 minutes Mery Muellers REAR ADMIRAL Work Phone: [facility] Comment on above: Influenza A (Primary Dx); Acute cough Start: 10-08-2024 End: 10-08-2024 ambulatory MERY MAJORS Not Available Start: 09-26-2024 End: 09-26-2024 Subsequent care visit Shannon Alvin Pizarroo CNM Work Phone: [facility] Comment on above: Encounter for superv ision of other normal , third trimester (Primary Dx); Screening for iron deficiency anemia; Screening for diabetes mellitus (DM); History of section Start: 09-26-2024 End: 09-26-2024 ambulatory SHANNON L FLORO Not Available Start: 09-26-2024 End: 09-26-2024 Bamboo flowsheet Shannon L Floro CNM Work Phone: [facility] Start: 09-26-2024 End: 09-26-2024 Bamboo flowsheet Shannon L Floro CNM Work Phone: [facility] Start: 09-06-2024 End: 09-06-2024 Subsequent care visit Shannon Alvin Floro CNM Work Phone: [facility] [...] 08-09-2024 End: 08-09-2024 Subsequent care visit Shannon Alvin Pziarroo CNM Work Phone: [facility] Comment [...] 06-18-2024 Office outpatient visit 15 minutes Fina Park NP Work Phone: [facility] Comment on above: Acute cystitis witho ut hematuria (Primary Dx); Dysuria; , unspecified gestational age Start: 06-18-2024 End: 06-18-2024 ambulatory FINA PARK Not Available Start: 06-18-2024 End: 06-18-2024 Bamboo flowsheet Fina Park REAR ADMIRAL Work Phone: [facility] Start: 06-18-2024 End: 06-18-2024 Bamboo flowsdaphne Park REAR ADMIRAL Work Phone: [facility] Start: 06-11-2024 End: 06-11-2024 Subsequent care visit Shannon Alvin Pizarroo CNM Work Phone: [facility] Comment [...] OB Start: 05-22-2024 End: 05-22-2024 ambulatory SHANNON Alvin FLORO Not Available Start: 05-10-2024 End: 05-10-2024 Initial care visit Shannon Pizarroo CNM Work Phone: [facility] Comment on above: GA: 8w0d Start: 05-10-2024 End: 05-10-2024 ambulatory SHANNON Avlin FLORO Not Available Start: 05-10-2024 End: 05-10-2024 Bamboo flowsheet Shannon Alvin Floro CNM Work Phone: [facility] Start: 05-10-2024 End: 05-10-2024 Bamboo flowsheet Shannon L Floro CNM Work Phone: [facility] Start: 04-18-2024 End: 04-18-2024 Telephone encounter Valentina Sadler MD Work Phone: [facility] Start: 03-27-2024 End: 03-27-2024 Orders Only Fina Park REAR ADMIRAL Work Phone: [facility] Comment on above: Bacterial vaginosis (Primary Dx) Start: 03-26-2024 End: 03-26-2024 ambulatory FINA PARK Not Available Start: 02-27-2024 End: 02-27-2024 ambulatory FINA PARK Not Available Start: 10-04-2022 End: 10-04-2022 ambulatory Melissa Daniel Other [facility] Other Start: 10-04-2022 Office outpatient vi sit 25 minutes Melissa Daniel [facility] Start: 09-11-2020 End: 09-12-2020 Patient encounter procedure REGGIE HORVATH Facility: Start: 02-12-2017 End: 02-12-2017 [facility] Start: 02-11-2017 End: 02-14-2017 Evaluation and management of inpatient PAULINACARLTON COLINI [facility] Start: 02-11-2017 End: 02-11-2017 Emergency department patient visit None Provider Facility:[facility] Procedures Date Procedure Procedure Detail Performing Clinician Start: 11-08-2024 US OB BPP W NON-STRESS Shannon L Floro CNM Work Phone: Start: 11-05-2024 Adult depression screening assessment Marisol Loredo DO Work Phone: Start: 11-01-2024 H/O: section H/O section complicating Alina Bruce RN Start: 08-24-2024 ULTRASOUND OFFICE Not In System Ref Prov Start: 08-06-2024 ULTRASOUND OFFICE Not In System Ref Prov Start: 07-09-2024 ULTRASOUND OFFICE Not In System Ref Prov Start: 06-18-2024 Urnls dip stick/tablet rgnt non-auto w/o micrscp Fina Park REAR ADMIRAL Work Phone: Start: 06-18-2024 Culture bacterial quanttative colony count urine Fina Park REAR ADMIRAL Work Phone: Start: 05-10-2024 End: 05-10-2024 Culture bacterial quanttative colony count urine Shannon L Floro CNM Work Phone: Start: 05-10-2024 DRUG TOX MONITORIGN 6 W/ CONF,URINE Shannon L Floro CNM Work Phone: Start: 05-10-2024 URINALYSIS MICROSCOPIC Shannon L Moirao C NM Work Phone: Start: 05-10-2024 End: 05-10-2024 Antibody screen rbc each serum technique Shannon L Floro CNM Work Phone: Start: 05-10-2024 End: 05-10-2024 Hemoglobin glycosylated a1c Shannon L Floro CNM Work Phone: Start: 05-10-2024 RPR TITER Shannon L Floro CNM Work Phone: Start: 05-10-2024 TEST AUTHORIZATION Shannon L Floro CNM Work Phone: Start: 05-10-2024 TSH W/REFLEX TO FT4 Shannon Felix [facility] Work Phone: Start: 05-10-2024 Urine test visual color cmprsn elianas Shannon Felix [facility] Work Phone: Start: 05-10-2024 Antibody screen Aicha Laws MD Work Phone: Start: 05-10-2024 CHLAMYDIA/GC BY PCR ASPEN SWAB Not In System Ref Prov Start: 05-10-2024 Drug scrn 1+ class nonchromo Not In System Ref Prov Start: 05-10-2024 HIV 1&2 AB/AG SCREEN (P24 AG) Not In System Ref Prov Start: 05-10-2024 TYPE AND SCREEN Not In System Ref Prov Start: 05-10-2024 ULTRASOUND OFFICE Not In System Ref Prov Start: 03-26-2024 Microscopic observation [Identifier] in Cervix by Cyto stain Fina Park NP Work Phone: Start: 02-14-2017 DISCHARGE PATIENT [...] Shannon Felix CNM Work Phone: H/O: section H/O layla an section complicating Marisol Morro Loredo DO Work Phone: H/O: section History of section complicating Alina Bruce RN Plan of Treatment Date Care Activity Detail Author Start: 06-15-2027 DTaP,Tdap and Td Vaccines (3 - Td or Tdap) DTaP,Tdap and Td Vaccines (3 - Td or Tdap) [facility] Start: 03-26-2027 Screening for malign ant neoplasm of cervix [facility] Start: 11-08-2025 End: 11-08-2025 US MFM with or without consult US MFM with or without consult Imaging Routine Placenta previa in third trimester History of section complicating Multigravida of advanced maternal age in third trimester Expected: 11/08/2025 (Approximate), Expires: 11/08/2025 [employer] Phone: Comment on above: Expected: 11/08/2025 (Approximate), Expires: 11/08/2025 Start: 11-05-2025 Adult BMI Screening Adult BMI Screen ing [facility] Start: 11-05-2025 Depression Screening Depression Scre ening [facility] Start: 11-05-2025 Tobacco Screening Tobacco Screening [facility] Start: 11-01-2025 Adult BMI Screening Adult BMI Screen ing [facility] Start: 11-01-2025 Tobacco Screening Tobacco Screening [facility] Start: 04-08-2025 Influenza vaccination P [facility] Start: 03-27-2025 End: 03-27-2025 Patient encounter procedure [facility] Start: 03-17-2025 Screening for malign ant neoplasm of cervix HPV/Cotest [facility] Start: 02-04-2025 Influenza vaccination Influenza Vacc ine (#1) [facility] Comment on above: Postponed from 04/08 (Supply/Drug Shortage) Start: 12-20-2024 End: 12-20-2024 Professional / ancillary services management 12/20/2024 4:15 PM EDT Ancillary Procedure [facility] [address] [id number] [facility] Start: 12-17-2024 End: 12-17-2024 Patient encounter procedure 12/17/2024 4:00 PM EDT Routine [facility] [address] [place] [address] Shannon Felix, CNM [address] [place] [address] [facility] Start: 12-13-2024 End: 12-13-2024 Professional / ancillary services management 12/13/2024 4:15 PM EDT Ancillary Procedure [facility] [address] [phone] [facility] Start: 12-10-2024 End: 12-10-2024 Patient encounter procedure 12/10/2024 4:00 PM EDT Routine [facility] [address] [place] [address] Shannon Felix, CNM [address] [place] [address] [facility] Start: 12-07-2024 End: 12-07-2024 Patient encounter procedure 12/07/2024 3:30 PM EDT Office Visit Mariaelena Esquivel [facility] - Medical Oncology [address] [place] [phone] Alberto Pearce MD [address] [facility] [address] [place] [address] Mariaelena Bonilla [facility] - [facility] Start: 12-06-2024 End: 12-06-2024 Professional / ancillary services management 12/06/2024 4:15 PM EDT Ancillary Procedure [facility] [address] [phone] [facility] Start: 12-03-2024 End: 12-03-2024 Patient encounter procedure 12/03/2024 4:00 PM EDT Routine [facility] [address] [place] [address] Shannon Felix, CNM [address] [place] [address] [facility] Start: 11-29-2024 End: 11-29-2024 Professional / ancillary services management 11/29/2024 4:15 PM EDT Ancillary Procedure [facility] [address] [phone] [facility] Start: 11-26-2024 End: 11-26-2024 Patient encounter procedure 11/26/2024 4:00 PM EDT Routine [facility] [address] [place] [address] Shannon Felix CNM [address] [place] [address] [facility] Start: 11-22-2024 End: 11-22-2024 Professional / ancillary services management 11/22/2024 4:15 PM EDT Ancillary Procedure [facility] [address] [address] [facility] Start: 11-20-2024 End: 11-20-2024 Patient encounter procedure 11/20/2024 9:15 AM EDT Appointment [facility] - Ultrasound [address] [place] [address] [facility] - Ultrasound Start: 11-19-2024 End: 11-19-2024 Patient encounter procedure 11/19/2024 4:30 PM EDT Routine [facility] [address] [facility] [place] [address] Shannon Felix, CNM [address] [facility] [place] [address] [facility] Start: 11-16-2024 End: 11-16-2024 Professional / ancillary services management 11/16/2024 4:15 PM EDT Ancillary Procedure [facility] [address] [facility] [address] [place] [address] [facility] Start: 11-12-2024 End: 11-12-2024 Patient encounter procedure [facility] Start: 11-08-2024 End: 11-08-2024 Professional / ancillary services management 11/08/2024 4:15 PM EDT Ancillary Procedure [facility] [address] [facility] [address] [place] [address] [facility] Start: 11-06-2024 End: 11-06-2024 Patient encounter procedure 11/06/2024 8:15 AM EDT Appointment [facility] - MRI Imaging [address] [place] [address] [facility] MRI Imaging Start: 11-05-2024 End: 11-05-2024 Patient encounter procedure [facility] Comment on above: AMA (advanced matern al age) multigravida 35+, third trimester; Placenta accreta in third trimester Start: 11-05-2024 End: 11-05-2024 ambulatory 11/05/2024 1:45 PM EDT Initial [facility] [address] [place] [address] Marisol Loredo, [address] [place] [address] [facility] Start: 11-01-2024 End: 11-01-2025 MR Pelvis WO contrast MR pelvis without contrast Imaging STAT Placenta accreta in third trimester Expected: 11/01/2024, Expires: 11/01/2025 [facility] Comment on above: Expected: 11/01/2024 , Expires: 11/01/2025 Start: 11-01-2024 End: 11-01-2024 Patient encounter procedure 11/01/2024 8:45 AM EDT Office Visit Maternal- Medicine at [facility] [address] [facility] [place] [address] Aicha Laws MD [address] [facility] [address] [address] Maternal- Medicine at [facility] Start: 11-01-2024 End: 11-01-2024 Patient encounter procedure 11/01/2024 7:30 AM EDT Appointment [facility] [address] [facility] [place] [phone] [facility] Start: 10-29-2024 End: 10-29-2024 Patient encounter procedure 10/29/2024 2:00 PM EDT Routine [facility] [address] [place] [address] Shannon Felix CNM [address] [place] [address] Arrived [facility] Comment on above: Arrived Start: 10-29-2024 End: 10-29-2025 US biophysical profile wo non stress testing US biophysical profile wo non stress testing Imaging Routine AMA (advanced maternal age) multigravida 35+, third trimester Expected: 10/29/2024, Expires: 10/29/2025 [facility] Work Phone: Comment on above: Expected: 10/29/2024 , Expires: 10/29/2025 Start: 10-29-2024 End: 10-29-2025 US for US OB follow up transabdominal approach Imaging Routine AMA (advanced maternal age) multigravida 35+, third trimester Expected: 10/29/2024, Expires: 10/29/2025 [facility] Comment on above: Expected: 10/29/2024 , Expires: 10/29/2025 Start: 10-25-2024 End: 10-25-2024 Patient encounter procedure 10/25/2024 3:30 PM EDT Routine [facility] [address] [place] [phone] Shannon Felix CNM [address] [place] [address] [facility] Start: 10-09-2024 End: 10-09-2024 Professional / ancillary services management 10/09/2024 3:30 PM EST Ancillary Procedure [facility] [address] [phone] [facility] Start: 10-08-2024 End: 10-08-2024 Patient encounter procedure 10/08/2024 11:30 AM EST Office Visit [facility] [address] [place] [phone] Mery Patel NP [address] [place] [address] Arrived [facility] Comment on above: [...] PM EST Routine [facility] [address] [place] [address] Shannon Felix, [facility] [address] [place] [address] Arrived [facility] Comment on above: Arrived Start: 08-09-2024 End: 08-09-2024 Patient encounter procedure 08/09/2024 4:00 PM EST Routine [facility] [address] [place] [address] Shannon Felix, [address] [address] [facility] Start: 08-09-2024 End: 08-09-2025 US for US OB limited 1+ fetuses Imaging Routine Marginal placenta Expected: 08/09/2024, Expires: 08/09/2025 [facility] Work Phone: Comment on above: Expected: 08/09/2024 , Expires: 08/09/2025 Start: 07-09-2024 End: 07-09-2024 Professional / ancillary services management 07/09/2024 4:30 PM EST Ancillary Procedure [facility] [address] [phone] [facility] Start: 07-09-2024 End: 07-09-2024 [...] PM EST Routine [facility] [address] [place] [address] Shannon Felix, INDRAM [address] [place] [address] Arrived [facility] Comment on above: Arrived Start: 06-11-2024 End: 06-11-2025 US for US OB limited 1+ fetuses Imaging Routine Subchorionic hematoma in first trimester, single or unspecified fetus Expected: 06/11/2024, Expires: 06/11/2025 [facility] Work Phone: Comment on above: Expected: 06/11/2024 , Expires: 06/11/2025 Start: 05-10-2024 End: 05-10-2024 ambulatory 05/10/2024 3:30 PM EDT Initial [facility] [address] [place] [address] Shannon Felix, CNM [address] [place] [address] Arrived [facility] Comment on above: Arrived Start: 05-10-2024 End: 05-10-2024 Professional / ancillary services management 05/10/2024 3:30 PM EDT Ancillary Procedure [facility] [address] [place] [address] [facility] Start: 04-08-2024 Influenza vaccination N [facility] Start: 10-28-2007 Screening for malign ant neoplasm [facility] cervix [facility] Start: 2004 Adult [facility] Screening [facility] Start: 1998 Depression [facility]ening [facility] Start: 1998 Tobacco Screening [facility] End: 11-01-2025 CBC panel - Blood by Automated count CBC without diff Lab Routine Placenta accreta in third trimester 1 Occurrences starting 11/01/2024 until 11/01/2025 [employer] Phone: Comment on above: 1 Occurrences starti ng 11/01/2024 until 11/01/2025 End: 11-01-2025 Comprehensive metabolic 2000 panel - Serum or Plasma Comprehensive metabolic panel Lab Routine Placenta accreta in third trimester 1 Occurrences starting 11/01/2024 until 11/01/2025 [employer] Comment on above: 1 Occurrences starti ng 11/01/2024 until 11/01/2025 End: 11-01-2025 Cyanocobalamin vitamin b-12 Vitamin B12 Lab Routine Placenta accreta in third trimester 1 Occurrences starting 11/01/2024 until 11/01/2025 [employer] Comment on above: 1 Occurrences starti ng 11/01/2024 until 11/01/2025 End: 11-01-2025 Ferritin [Mass/volume] in Serum or Plasma Ferritin Lab Routine Placenta accreta in third trimester 1 Occurrences starting 11/01/2024 until 11/01/2025 [employer] Comment on above: 1 Occurrences starti ng 11/01/2024 until 11/01/2025 End: 11-01-2025 Folate Folate Lab Routine Placenta accreta in third trimester 1 Occurrences starting 11/01/2024 until 11/01/2025 [employer] Comment on above: 1 Occurrences starti ng 11/01/2024 until 11/01/2025 URINARY TRACT INFECT ION (HTRX) URINARY TRACT INFECTION (HTRX) Lab Routine Urine frequency Ordered: 09/06/2024 [facility] Work Phone: Comment on above: Ordered: 09/06/2024 End: 02-04-2025 US biophysical profile w non stress test US biophysical profile w non stress test Imaging Routine AMA (advanced maternal age) multigravida 35+, third trimester Placenta accreta in third trimester 8 Occurrences starting 11/05/2024 until 02/04/2025 [facility] Work Phone: Comment on above: 8 Occurrences starti ng 11/05/2024 until 02/04/2025 Payers Date Payer Category Payer Private Health Insurance [id number] 2020 Managed Care Other (unspecified) [id number] 2020 Unknown [id number] 2.16.8 [id number] 2014 Unknown [id number] 1986 Unknown [id number] 2.16.840.1.300396.3.579.2.593 1986 Unknown [id number] 2.16.840.1.270836.3.579.2.1286 1986 Unknown [id number] 2.16.840.1.797403.3.579.2.1286 1986 Unknown [id number] 2.16.840.1.555444.3.579.2.1286 1986 Unknown [id number] 2.16.840.1.801102.3.579.2.1286 1986 Unknown [id number] 2.16.840.1.076435.3.579.2.1286 1986 Unknown [id number] 2.16.840.1.956485.3.579.2.1259 1986 Unknown [id number] 2.16.840.1.136210.3.579.2.1258 1986 Unknown [id number] 2.16.840.1.913243.3.579.2.1258 1986 Unknown [id number] 2.16.840.1.638208.3.579.2.1258 1986 Unknown [id number] 2.16.840.1.037787.3.579.2.1258 1986 Unknown [id number] 2.16.840.1.729083.3.579.2.1258 1986 Unknown [id number] 2.16.840.1.890203.3.579.2.1258 1986 Unknown [id number] 2.16.840.1.108552.3.579.2.1258 1986 Unknown [id number] 2.16.840.1.687091.3.579.2.1258 1986 Unknown [id number] 2.16.840.1.718482.3.579.2.1258 1986 Unknown [id number] 2.16.840.1.136468.3.579.2.1258 1986 Unknown [id number] 2.16.840.1.370553.3.579.2.1258 1986 Unknown [id number] 2.16.840.1.027865.3.579.2.1258 1986 Unknown [id number] 2.16.840.1.084689.3.579.2.1258 1986 Unknown [id number] 2.16.840.1.621635.3.579.2.1258 1986 Unknown [id number] 2.16.840.1.757390.3.579.2.1258 1986 Unknown [id number] 2.16.840.1.706383.3.579.2.1258 1959 Self-pay Social History Date Type Detail Facility Unknown if ever smoked [facility] Other Start: 09-17-2020 End: 03-26-2024 Sex Assigned At [facility] Start: 08-22-2018 End: 01-12-2023 Tobacco smoking status NHIS Never smoked tobacco [facility] Start: 08-22-2018 End: 01-12-2023 Tobacco use and exposure Smokeless tobacco non-user [facility] Start: 03-26-2024 End: 10-08-2024 Alcoholic beverage intake Ex-drinker (finding) [facility] Start: 09-17-2020 End: 03-26-2024 History of Social function [facility] How often do you nee d to have someone help you when you read instructions, pamphlets, or other written material from your doctor or pharmacy [SILS] Never [facility] Do you belong to any clubs or organizations such as baptism groups, unions, fraternal or athletic groups, or [...] Not on file [facility] Start: 03-29-2024 [facility] Start: 10-19-2024 End: 11-05-2024 Alcoholic beverage intake Lifetime non-drinker (finding) [facility] Start: 03-11-2015 Sex Female (finding) [facility] Clinical Notes 02-05-2022 to 11-09-2024 Telephone Encounter - Laura Walton LPN - 11/09/2024 2:13 PM EDTTelephone Encounter - Laura Walton LPN - 11/09/2024 2:13 PM EDTTelephone Encounter - SushantHakeem Orourke - 11/09/2024 1:05 PM EDT Note Date & Type Note Facility 11-09-2024 Miscellaneous Notes Formattin g of this note might be different from the original. Patient called with a question of whether she should wait for her 12/07/24 appointment with Hematology to receive iron infusion as this date is beyond when Dr Laws recommended delivery. Razor Sharpener conferred with Dr Laws who states it should be arranged for patient to have iron infusion at her local hospital earlier than 12/07/24 and suggests telegraphic typewriter mechanic call Dr Ramirez's nurse to see if that could be arranged. Razor Sharpener called Merline at [facility] who states [facility] Hematology will be calling the patient to set up a video visit with the patient so that an iron infusion can be arranged at [facility]. Merline said [facility] Hematology should be reaching out to the patient very soon. Razor Sharpener called the patient back and relayed this to her. Patient verbalized understanding, documented in this encounter [facility] 11-09-2024 Telephone encount er Note Patient called with a question of whether she should wait for her 12/07/24 appointment with Hematology to receive iron infusion as this date is beyond when Dr Laws recommended delivery. Razor Sharpener conferred with Dr Laws who states it should be arranged for patient to have iron infusion at her local hospital earlier than 12/07/24 and suggests telegraphic typewriter mechanic call Dr Ramirez's nurse to see if that could be arranged. Razor Sharpener called Merline at [facility] who states [facility] Hematology will be calling the patient to set up a video visit with the patient so that an iron infusion can be arranged at [facility]. Merline said [facility] Hematology should be reaching out to the patient very soon. Razor Sharpener called the patient back and relayed this to her. Patient verbalized understanding, [facility] 11-09-2024 Miscellaneous Notes Formattin g of this note might be different from the original. Esha from [facility] called to check if we could see this pt sooner than when Dr. Pearce scheduled pt. LVM for pt to schedule their appt sooner with kianna, gave pt call back number documented in this encounter [facility] 11-09-2024 Telephone encount er Note Esha from [facility] called to check if we could see this pt sooner than when Dr. Pearce scheduled pt. LVM for pt to schedule their appt sooner with kianna, gave pt call back number [facility] 11-08-2024 Miscellaneous Notes Formattin g of this note might be different from the original. Razor Sharpener mague requesting return call to confirm appointment scheduled in [place] on 11/20 at 9:45. documented in this encounter [facility] 11-08-2024 Telephone encount er Note Razor Sharpener mague requesting return call to confirm appointment scheduled in [place] on 11/20 at 9:45. [facility] 11-07-2024 Miscellaneous Notes Formattin g of this note might be different from the original. MRI results were reviewed with the patient No MRI stigmata for placenta accreta. I also called the radiologist Dr Davis and reviewed her case with him. I reviewed with the patient that I would recommend re-evaluation of the lower uterine segment with a placenta location again in 1-2 weeks to re-evaluate if there is a resolution of the previa AICHA LAWS MD documented in this encounter [facility] 11-07-2024 Telephone encount er Note MRI results were reviewed with the patient No MRI stigmata for placenta accreta. I also called the radiologist Dr Davis and reviewed her case with him. I reviewed with the patient that I would recommend re-evaluation of the lower uterine segment with a placenta location again in 1-2 weeks to re-evaluate if there is a resolution of the previa AICHA LAWS MD [facility] 11-06-2024 History of Presen t illness Narrative Called Elena CHO's office. They had not arranged IV Iron for the patient. Referral placed for Hematology at [facility] in [place], [place] for the patient to get started on IV iron infusions. Called patient to let her know, no answer. Left voicemail message that someone from Hematology would be calling her to set up IV iron and if she had any questions to call the office at [phone], option #3 for the nurse. documented in this encounter [facility] 11-05-2024 History of Presen t illness Narrative Pt here for initial HROB 33w4d Denies lof vb ctx Confirms +fm No concerns today [facility] Initial High Risk Obstetrics Visit Initial HROB Visit - Is transferring from other provider - Records have been received/reviewed CC: transfer of care 33w4d Dating: - LMP: 03/15/24 - Dated by: 8 week US consistent with LMP Today: Good FM. Denies SROM, bleeding, persistent contractions Complicated By: Patient Active Problem List Diagnosis Placenta previa in third trimester History of section complicating Multigravida of advanced maternal age in third trimester 33 weeks gestation of Current Outpatient Medications on File Prior to Visit Medication Sig Dispense Refill norelgestromin-ethin.estradioL (ORTHO EVRA) 150-35 mcg/[address] 1 patch on the skin once a week. (Patient not taking: Reported on 11/05/2024) ondansetron ODT (ZOFRAN-ODT) 4 mg disintegrating tablet Dissolve 1 tablet (4 mg total) on tongue every 8 (eight) hours as needed for nausea for up to 10 doses. (Patient not taking: Reported on 11/05/2024) 10 tablet 0 [id number]-iqld-rjijq acid ( 19) 29 mg iron- 1 mg tablet,chewable Chew 1 tablet and swallow in the morning. (Patient not taking: Reported on 11/05/2024) No current facility-administered medications on file prior to visit. OB History Para Term AB Living 3 2 2 0 0 2 SAB IAB Ectopic Multiple Live Births 0 0 0 0 2 # Outcome Date GA Lbr Michael/2nd Weight Sex Type Anes PTL Lv 3 Current 2 Term 03/27/10 38w0d 3.033 kg M CS-Unspec TRISH 1 Term 02/02/09 39w0d M CS-Unspec Spinal TRISH Complications: Failure to Progress in Second Stage Diabetes no Hypertension no Labor no no < 34 weeks EGA no Past Medical History: Diagnosis Date Anxiety Depression Panic disorder Urinary tract infection History of Thrombotic event no History of Asthma no History of HSV, genital no Willing to receive blood products, if indicated yes Past Surgical History: Procedure Laterality Date APPENDECTOMY SECTION x 2 Family History Problem Relation Age of Onset Heart attack Paternal Grandfather Diabetes Maternal Grandmother Heart attack Maternal Grandmother Genetic History--see Flow Sheet Congenital anomaly no Cardiac defect no Chromosomal abnormality no Thrombotic event (1st degree relative) no No Known Allergies Social History: Lives with Partner and children FOB is involved. Employed: yes Safe in relationship: yes Review of Systems - General: Fever/ Chills no HEENT Rhinorrhea no Sore Throat no CV Chest Pain no Palpitations no Pulm: Shortness of Breath no Persistent cough no Wheezing no GI Nausea no Vomiting no Heartburn no Diarrhea no Constipation no Extr: Edema no Dysuria no Hematuria no Mood: stable Physical Exam BP 122/86 Wt 68.4 kg (150 lb 11.2 oz) LMP 03/15/2024 BMI 22.91 kg/m General: Alert, NAD HEENT: normocephalic Lungs: CTAB COR: RRR without m/g/r Abdomen: Soft, NT, ND Uterus: nontender FHTs: 134 bpm FH: 34 cm Extr: Edema: none Labs: Initial labs have have been done Rh positive Previous ultrasound: Datinw4d on 05/10/24 Anatomy: completed 08/07/24 MFM US 11/01/24: transverse HML, anterior placenta previa, DVP 4.4cm, EFW 2,438g (83%), AC 96% Post delivery contraceptive plan: undecided Imp/Plan 39 y.o. at 33w4d Problem List Other 33 weeks gestation of Care PNV labor precautions discussed Anemia labs to be obtained today H/o section x2 - Plan for delivery via repeat Anterior placenta previa Evaluated by MFM, recommended proceeding with MRI for concern of PAS. Scheduled today for 11/06/24 MFM US 11/01/24: Anterior Placenta previa. Some transabdominal views show an area of bulging into the bladder midline/left lateral, along with presence of placental sinuses. No other sonographic signs of placenta accreta appreciated Delivery timing [id number] if placenta accreta is ruled out, recommend delivery at 49b2-87t0 if accreta cannot be ruled out RTC 1 weeks HROB Resident Attestation: The patient was seen and discussed with preceptor Dr. Loredo. Michael Ochoa MD Blacking Wheel Tender Resident, PGY-3 Attending Attestation: I saw the patient. I performed the critical/castanon portions of the service. I was directly involved in the management and treatment plan of the patient. I reviewed the resident's note. Additional Notes/Findings: at 33w4d -anterior placenta previa, possible accreta- MRI ordered but not yet done. I called to schedule MRI today, it is scheduled for tomorrow 745AM -check anemia labs today -continue pelvic rest -labor precautions discussed -h/o 2 c sections- will f/u 1 wk to discuss MRI results and next steps RTC 1w Marisol Loredo DO documented in this encounter [facility] 11-01-2024 History of Presen t illness Narrative Images from the original note were not included. [facility] Maternal- Medicine Consult Note Reason For Consult: Here for placenta evaluation HPI: Hyacinth Escalona is a 39 y.o. at 32w6d with Estimated Date of Delivery: 12/20/24 who presented for consultation from Shannon Sim APRN-BREANNE regarding Chief Complaint Patient presents with Anterior placenta hx C/S x2 questionable low lying placenta AMA I have reviewed the pertinent available patient records including but not limited to notes, labs and images She presents today with her partner. She reports that she is doing well. She reports normal movements and she denies leakage of fluid, contractions or vaginal bleeding. She denies fever, chills, nausea, vomiting, shortness of breath, chest pain, headache, blurry vision, right upper quadrant pain or edema. Complications: Anterior placenta previa - on US today Some transabdominal views show an area of bulging into the bladder midline/left lateral, along with presence of placental sinuses. No other sonographic signs of placenta accreta appreciated. Further imaging to evaluate for placenta accreta recommended History of 2 prior C-sections Advanced maternal age Denies family history of: Learning difficulties, congenital anomalies, DVT/VTE, or other inherited conditions Cell free DNA: opted out Denies smoking, alcohol or other substance use in Recent hospitalization: no Review of systems: Review of systems was noncontributory OB Hx: OB History Para Term AB Living 3 2 2 2 SAB IAB Ectopic Multiple Live Births 2 # Outcome Date GA Lbr Michael/2nd Weight Sex Type Anes PTL Lv 3 Current 2 Term 03/27/10 38w0d 3.033 kg M CS-Unspec TRISH 1 Term 02/02/09 39w0d M CS-Unspec Spinal TRISH Complications: Failure to Progress in Second Stage PMH: Past Medical History: Diagnosis Date Anxiety Depression Panic disorder Urinary tract infection PSHIST: Past Surgical History: Procedure Laterality Date APPENDECTOMY SECTION x 2 Allergies: No Known Allergies Meds: Current Outpatient Medications: ondansetron ODT (ZOFRAN-ODT) 4 mg disintegrating tablet, Dissolve 1 tablet (4 mg total) on tongue every 8 (eight) hours as needed for nausea for up to 10 doses., Disp: 10 tablet, Rfl: 0 [id number] acid ( 19) 29 mg iron- 1 mg tablet,chewable, Chew 1 tablet and swallow in the morning., Disp: , Rfl: norelgestromin-ethin.estradioL (ORTHO EVRA) 150-35 mcg/24 hr, Place 1 patch on the skin once a week. (Patient not taking: Reported on 11/01/2024), Disp: , Rfl: SH: Social History Socioeconomic History Marital status: Significant Other Spouse name: Not on file Number of children: Not on file Years of education: Not on file Highest education level: Not on file Occupational History Not on file Tobacco Use Smoking status: Never Smokeless tobacco: Never Vaping Use Vaping status: Never Used Substance and Sexual Activity Alcohol use: Never Drug use: Never Sexual activity: Defer Other Topics Concern Not on file Social History Narrative Not on file Social Drivers of Health Financial Resource Strain: Medium Risk (03/26/2024) Received from [facility] Overall Financial Resource Strain (CARDIA) Difficulty of Paying Living Expenses: Somewhat hard Food Insecurity: No Food Insecurity (11/01/2024) Hunger Screening Food Insecurity - Worry: Never True Food Insecurity - Inability: Never True Transportation Needs: No Transportation Needs (03/26/2024) Received from [facility] PRAPARE - Transportation Lack of Transportation (Medical): No Lack of Transportation (Non-Medical): No Physical Activity: Inactive (03/26/2024) Received from [facility] Exercise Vital Sign Days of Exercise per Week: 0 days Minutes of Exercise per Session: 0 min Stress: Stress Concern Present (03/26/2024) Received from [facility] [employer] [place] of Occupational Health - Occupational Stress Questionnaire Feeling of Stress : Rather much Social Connections: Socially Isolated (03/26/2024) Received from [facility] Social Connection and Isolation Panel [NHANES] Frequency of Communication with Friends and Family: Never Frequency of Social Gatherings with Friends and Family: Never Attends Yazidism Services: Never Active Member of Clubs or Organizations: No Attends Club or Organization Meetings: Never Marital Status: Never Interpersonal Safety: Not on file Housing Instability: Low Risk (03/26/2024) Received from [facility] Housing Stability Vital Sign Unable to Pay for Housing in the Last Year: No Number of Times Moved in the Last Year: 0 Homeless in the Last Year: No Physical Exam: Vital Signs Vitals: 11/01/24 0804 BP: 111/72 BP Site: Right Arm BP Postition: Sitting BP CUFF SIZE: M (9-13 inches) Pulse: 99 Weight: 67.8 kg (149 lb 6.4 oz) Height: 172.7 cm (5' 8 ) Physical Exam: Gen: Not in acute distress, alert and oriented. Eyes: Pupils equal and reactive Chest: Nonlabored breathing Cardiac: Pulse was regular on vital signs assessment Abdomen: Gravid Skin/extremities: Appears intact. No visible lesions MS:no visible edema Neuro: No focal deficits Notes/Imaging/Labs reviewed Abstract on 10/19/2024 Component Date Value Ref Range Status Syphilis 05/10/2024 reactive Final Rubella immune IgG 05/10/2024 7.24 Final Abo/Rh(D) 05/10/2024 O Positive Final Antibody Screen 05/10/2024 negative Final Chlamydia Dna(Pcr) 05/10/2024 negative Final Gonorrhoeae Dna(Pcr) 05/10/2024 negative Final HIV 1&2 AB/AG 05/10/2024 non reactive Final Hepatitis B Surface Antigen 05/10/2024 non reactive Final Hemoglobin A1C 05/10/2024 5.1 4.0 - 6.0 % Final Opiates 05/10/2024 negative Final Barbiturates 05/10/2024 negative Final Ultrasound findings Pertinent Ultrasound findings are see report. Assessment/Plan 39 y.o. @ at 33w0d with Estimated Date of Delivery: 12/20/24 here for consultation regardin. 33 weeks gestation of 2. Placenta previa in third trimester 3. History of section complicating 4. Placenta accreta in third trimester - CBC without diff; Future - Comprehensive metabolic panel; Future - Ferritin; Future - Vitamin B12; Future - Folate; Future - MR pelvis without contrast; Future 5. Multigravida of advanced maternal age in third trimester The patient is of advanced maternal age. She was informed of the associated increased risk in obstetric morbidities such as feteal aneuploidy, placental abruption, delivery and preeclampsia in the setting of advanced maternal age. Aneuploidy screening was discussed and declined. She has 2 prior . On ultrasound today there is an anterior placenta previa. Solely based on that the risk for a placenta accreta spectrum disorder is about 11%. On some of the transabdominal images there was an area of bulging into the bladder midline/left lateral, along with presence of placental sinuses. No other sonographic signs of placenta accreta appreciated such as thinning of the myometrium, bridging vessels or significant lacunae. I reviewed with her that I would recommend placental MRI to further evaluate the placenta. I discussed with her that if the MRI is suspicious for placenta accreta or if placenta accreta still cannot be ruled out then she should be managed as such. Pelvic rest and bleeding precautions were given with the patient. Today placenta previa identified on ultrasound und. Risk of bleeding during the discussed with the patient. Bleeding precautions and pelvic rest recommendations given. If placenta accreta is ruled out then management of pregnancies by placenta previa recommendation is for delivery by section [id number]. Delivery at a tertiary center we will be recommended due to the high-risk for bleeding at the time of surgery as well as potential hysterectomy. However if placenta accreta can not be ruled out then we reviewed management of placenta accreta spectrum disorder. Placenta accreta is defined as abnormal trophoblast invasion of part or all of the placenta into the myometrium of the uterine wall. The most common risk factor is a previous delivery, with the incidence of placenta accreta spectrum increasing with the number of prior deliveries; however, placenta accreta spectrum can occur in the absence of prior deliveries. In her case her baseline risk is at least 11%. We reviewed that women with suspected PAS diagnosed in the period should be delivered at a level III or IV center with the capacity for massive blood transfusion protocol. Delivery at 34 0/7- 35 6/7 weeks of gestation is suggested as the preferred gestational age for scheduled delivery or hysterectomy absent extenuating circumstances in a stable patient. hysterectomy is the standard of care and what our center has experience with. An alternative management plan is uterine preservation with removal of the placenta and surgical repair of the uterine defect orexpectant management with leaving of the placenta either partially or totally in situ. Since placenta accreta spectrum with a potentially life-threatening hysterectomy is the typical treatment. Major complications of expectant management include hemorrhage requiring emergent hysterectomy within 24 hours of primary delivery, delayed failures occurring more than 24 hours of delivery, increased risk of infection (sepsis septic shock peritonitis, uterine necrosis, fistula ), injury to adjacent organs, pulmonary embolism, and . Of the small case series were expectant management was attempted the most severe morbidity that occurred in 70% of patients was maternal sepsis. Ultimately, case series report a 50% average rate of required follow up hysterectomy and a 40% rate of major morbidity. Thus the chance of favorable outcome is overall low and not recommended at our institution She will be candidate for corticosteroids for lung maturity if delivery before 37 weeks and 0 days I extensively reviewed with the patient the limitations of the ultrasound as well as the MRI. Ultimately diagnosis of placenta accreta is made by pathology Risks of delivery to the were reviewed [facility] recommended placenta accreta checklist The patient primary OB provider Bart Felix CNM was notified. I called her and I reviewed the plan of care with her and the recommendations Recommendations: Transfer of care to the [facility] for plan delivery at [facility]. Appt scheduled Urgent placental MRI to evaluate placenta If placenta accreta is ruled out manage as placenta previa with a timing of delivery [id number]. Her placenta appears to be very vascular therefore I would recommend delivery at 36 weeks if placenta accreta is ruled out If placenta accreta can not be ruled out and remains suspected then manage as such with delivery by hysterectomy at 34 0/7- 35 6/7. Would recommend admission day prior to surgery for optimization as well as NICU consultation at that time Candidate for late corticosteroids if delivery before 37 weeks and 0 days Anemia labs ordered she needs to be optimized prior to delivery surveillance weekly NST and DVP with the primary OB office Plan reviewed with patient. She vocalized understanding all questions answered. Thank you for allowing me to participate in her care. Please contact me if you have any concerns. Aicha Laws MD, FACOG (she/hers) Maternal- Medicine [facility] [address] [place] [address] This document was created with [employer] technology. Though I make every effort to review the dictation as it is transcribed, on occasion the spoken word can be misinterpreted by the technology leading to inappropriate words, phrases, or sentences. This note is addressed to the requesting provider as a consultation for clinical guidance. Specific medical abbreviations are occasionally used and those are generally approved by the [place]?Board of?Obstetrics and?Gynecology?as well as?[place] s abbreviations. The above plan of care was based solely on the diagnoses for which a consultation was requested. ?More frequent testing may be indicated based on her other medical/obstetrical conditions. The management of other or medical conditions is beyond the scope of requested consultation and will continue to be followed by the primary buying agent or primary care provider. Note to patient: The Cures Act makes medical notes like these available to patients in the interest of transparency. However, be advised this is a medical document. It is intended as peer to peer communication. It is written in medical language and may contain abbreviations or verbiage that are unfamiliar. It may appear blunt or direct. Medical documents are intended to carry relevant information, facts as evident, and the clinical opinion of the practitioner. Headache/epigastric pain/blurry vision/swelling? Occasional floaters in vision, happened prior to . Denies other symptoms Cramping/contractions? No Abnormal vaginal discharge? No Spotting/vaginal bleeding? No Loss or gush of fluid like your water may have broken? No Do you have cats at home? No Do you change the litter box (reason: risk of toxoplasmosis)? NA Genetic testing done this here or other office? No Have you been seen here at [facility] in a previous ? No Recent ER visits or hospitalizations? Went to ER on 10/17 for rule out rupture Bring blood sugar log or meter with you today? (Please bring them with you for every visit at [facility]) NA Flu vaccine (Jun-October)? No Any concerns that you would like me to mention to the provider today? No documented in this encounter [employer] 10-29-2024 History of Presen t illness Narrative Subjective No chief complaint on file. Hyacinth Escalona is a 39 y.o. at 32w4d with a working estimated date of delivery [...] M CS-LTranv TRISH Her is complicated by: Objective Physical Exam weight: 151 lb Expected Total Weight Gain: 25 lb-35 lb Pregravid BMI: 19.01 BP: 120/80 Urine protein-negative Urine glucose-negative Assessment/Plan Diagnoses and all orders for this visit: Encounter for supervision of other normal , third trimester AMA (advanced maternal age) multigravida 35+, third trimester - US biophysical profile wo non stress testing; Future - US OB follow up transabdominal approach; Future - US OB follow up transabdominal approach; Future - US biophysical profile wo non stress testing; Future - US biophysical profile wo non stress testing; Future - US biophysical profile wo non stress testing; Future - US biophysical profile wo non stress testing; Future History of section Note for patient to take to work so that she works no more than 40 hours a week Continue vitamin. Labs reviewed. GBS at 36 weeks Reactive NST today in office Expected mode of delivery repeat section Follow up in 1 week for a routine visit. documented in this encounter [facility] 10-23-2024 Miscellaneous Notes Formattin g of this note might be different from the original. Palma from Elena Felix's office returned call and LVM. Patient did not have genetic testing. documented in this encounter [facility] [employer] 10-23-2024 Telephone encount er Note Palma from Elena Felix's office returned call and LVM. Patient did not have genetic testing. [facility] 10-22-2024 Miscellaneous Notes Formattin g of this note might be different from the original. Called Shannon Felix's office to see if patient had genetic testing done. Shannon's nurse is gone for the day so the architectural drafter sent her a message to follow up when she get's back. documented in this encounter [facility] 10-22-2024 Telephone encount er Note Called Shannon Felix's office to see if patient had genetic testing done. Shannon's nurse is gone for the day so the architectural drafter sent her a message to follow up when she get's back. [facility] 10-11-2024 Telephone encount er Note Jonna from [facility] [employer] called -Operations And Maintenance Manager reviewed - they only have one US for Iris. If there are more , please fax them over to [phone] [facility] 10-11-2024 Miscellaneous Notes Formattin g of this note might be different from the original. Jonna from [employer] called -Operations And Maintenance Manager reviewed - they only have one US for Iris. If there are more , please fax them over to [phone] documented in this encounter [facility] 10-08-2024 History of Presen t illness Narrative [...] note provided, Have your company send over [place] paperwork to be filled out to be off work 10/05/24-10/12/34. May return back to work on 10/15/24. Follow up as needed documented in this encounter [facility] 09-26-2024 History of Presen t illness Narrative [...] a routine visit. documented in this encounter [facility] 09-06-2024 History of Presen t illness Narrative [...] a routine visit. documented in this encounter [facility] 08-09-2024 History of Presen t illness Narrative [...] a routine visit. documented in this encounter [facility] 07-09-2024 History of Presen t illness Narrative [...] a routine visit. documented in this encounter [facility] 06-18-2024 History of Presen t illness Narrative [...] Medical History: Diagnosis Date Allergic Anxiety Depression ([facility]) Headache Social History Tobacco Use Smoking status: [...] follow-ups on file. documented in this encounter [facility] 06-11-2024 History of Presen t illness Narrative [...] a routine visit. documented in this encounter [facility] 05-10-2024 History of Presen t illness Narrative Subjective Hyacinth Escalona is a 38 y.o. at 8w0d with a working estimated date of delivery of 12/20/2024, by Last Menstrual Period who presents for an initial visit. This is planned. Patient Care Team: Valentina Sadler MD as PCP - General (Family Medicine) Aria Daugherty NP as Nurse Practitioner (Family Medicine) Fina Park NP as Nurse Practitioner (Family Medicine) OB [...] also given office phone number and [facility] number to call in case of an emergency or after hours needs. PVU and all questions answered. We did discuss place of delivery. Patient should plan to go to [facility] for all services unless an emergency and they need to go to the closest ER. We can make other arrangements possibly if patient would like to deliver at another facility but I did explain I am now at [place] 100% of the time and would like to do all deliveries there. documented in this encounter [facility] 04-18-2024 Telephone encount er Note Pt took a test and it is positive, Lmp- 03/15/2024 - regular flow, She only took one test, Please schedule as a new OB [phone] [facility] 04-18-2024 Miscellaneous Notes Formattin g of this note might be different from the original. Pt took a test and it is positive, Lmp- 03/15/2024 - regular flow, She only took one test, Please schedule as a new OB [phone] documented in this encounter [facility] 10-04-2022 Evaluation note Encounter Date Diagnosis Assessment [...] (suspected) exposure to covid-19 (ICD-10 - Z20.822) [employer] Other 07-01-2022 NotePROCEDURE: [employer] VCT 64, 5 mm slice axial images [...] and signed by Neri Torres on 02/05/2022 1020[facility]* Diagnosis Acute cystitis without hematuria- Primary Dysuria , unspecified gestational age documented [facility] Diagnosis Encounter for supervision of other normal in second trimester- Primary Subchorionic hematoma in first trimester, single or unspecified fetus History of section Other postprocedural status documented in this encounter [facility]* Diagnosis Encounter for supervision of other normal , second trimester- Primary History of section Other postprocedural status related condition in second trimester documented in this encounter [facility]* Diagnosis Bacterial vaginosis- Primary Unspecified vaginitis and vulvovaginitis documented in this encounter [facility]* Diagnosis examination or test, positive result- Primary Amenorrhea Absence of menstruation Subchorionic hematoma in first trimester, single or unspecified fetus Subchorionic hematoma in first trimester, single or unspecified fetus documented in this encounter [facility]* Diagnosis History of section- Primary Other postprocedural status Urine frequency Encounter for supervision of other normal , second trimester documented in this encounter [facility]* Diagnosis Encounter for supervision of other normal , second trimester- Primary Marginal placenta Placenta previa without hemorrhage, unspecified as to episode of care documented in this encounter [facility]* Diagnosis Encounter for supervision of other normal , third trimester- Primary Screening for iron deficiency anemia Screening for diabetes mellitus (DM) Screening for diabetes mellitus History of section Other postprocedural status documented in this encounter [facility]* Diagnosis Influenza A- Primary Influenza with other respiratory manifestations Acute cough documented in this encounter [facility]* Diagnosis Encounter for supervision of other normal , third trimester- Primary AMA (advanced maternal age) multigravida 35+, third trimester History of section Other postprocedural status documented in this encounter [facility]* Diagnosis Placenta accreta in third trimester- Primary 33 weeks gestation of H/O section complicating documented in this encounter [facility]* Diagnosis 33 weeks gestation of - Primary Placenta previa in third trimester History of section complicating Previous delivery, unspecified as to episode of care or not applicable Placenta accreta in third trimester Multigravida of advanced maternal age in third trimester documented in this encounter [facility]* Diagnosis AMA (advanced maternal age) multigravida 35+, third trimester Placenta accreta in third trimester documented in this encounter [facility]* Diagnosis Placenta previa in third trimester- Primary Placenta accreta in third trimester 33 weeks gestation of H/O section complicating documented in this encounter [facility]* Diagnosis B12 deficiency- Primary Iron deficiency anemia during documented in this encounter [facility]* Diagnosis Anemia affecting in third trimester- Primary documented in this encounter [facility]* Diagnosis Iron deficiency anemia during documented in this encounter [facility]* Diagnosis Placenta previa in third trimester- Primary History of section complicating Previous delivery, unspecified as to episode of care or not applicable Multigravida of advanced maternal age in third trimester [facility] - [facility]* Type Description Date Surgical History appendectomy Surgical History C section x2 Hospitalization History see above [employer] Other History of Present illness Narrative* Shannon Felix, BREANNE - 11/05/2024 6:30 PM EDT Subjective No chief complaint on file. Hyacinth Escalona is a 39 y.o. at 33w4d with a working estimated date of delivery [...] M CS-LTranv TRISH Her is complicated by: Objective Physical Exam weight: 154 lb Expected Total Weight Gain: 25 lb-35 lb Pregravid BMI: 19.01 Urine protein-negative Urine glucose-negative Assessment/Plan Diagnoses and all orders for this visit: AMA (advanced maternal age) multigravida 35+, third trimester - US biophysical profile w non stress test; Standing Placenta accreta in third trimester - US biophysical profile w non stress test; Standing Continue vitamin. Labs reviewed. GBS taken. NST reactive in office today Today is her last appt w mi as she will be a complete transfer of care for anterior placenta with possible accreta. Patient will have NST and BPPs done at the hospital. Expected mode of delivery Follow up in 1 week for a routine visit. documented in this encounterThe Rehabilitation Institute of St. LouisInstructionsNot on filedocumented in this encounterProNoland Hospital Birmingham Health SystemInstructionsNot on filedocumented in this encounterAultman Alliance Community Hospital SystemInstructionsNot on filedocumented in this encounterProNoland Hospital Birmingham Health SystemInstructions* Attachments The following attachments cannot be sent through Care Everywhere. * Preeclampsia ([place]) documented in this encounterProNorwalk Memorial Hospital SystemInstructionsNot on file documented in this encounterProNorwalk Memorial Hospital SystemInstructionsNot on file documented in this encounterProNorwalk Memorial Hospital SystemInstructionsNot on file documented in this encounterProNorwalk Memorial Hospital SystemInstructionsNot on file documented in this encounterAultman Alliance Community Hospital SystemInstructionsNot on file documented in this encounterAultman Alliance Community Hospital System Summary Purpose Family History No Family History [...] section and content) DATE CREATED AUTHOR 01/31/2018 [facility] DATE CREATED AUTHOR AUTHOR'S ORGANIZ ATION 02/01/2018 [facility] DATE CREATED AUTHOR AUTHOR'S ORGANIZ ATION 09/21/2020 [facility] DATE CREATED AUTHOR AUTHOR'S ORGANIZ ATION 03/30/2021 [facility] DATE CREATED AUTHOR AUTHOR'S ORGANIZ ATION 02/06/2022 [facility] DATE CREATED AUTHOR AUTHOR'S ORGANIZ ATION 11/07/2024 [facility] DATE CREATED AUTHOR AUTHOR'S ORGANIZ ATION 11/07/2024 [facility] DATE CREATED AUTHOR AUTHOR'S ORGANIZ ATION 11/11/2024 [facility] EPIC REASON FOR VISIT (unrecogniz ed section and content) Reason Comments UTI Reason Comments Cough Reason Comments Anterior placenta hx C/S x2 questionable low lying placenta AMA Reason Comments Initial Visit Specialty Diagnoses / Procedures Referred By Gary powers Referred To Contact Obstetrics & Gynecology / Obstetrics and Gynecology Diagnoses Placenta accreta in third trimester 33 weeks gestation of H/O section complicating Aihca Laws MD [address], [address] [place] [id number] Phone: tel: fax: Ana Maria Ramirez MD [address] [facility] [place] [address] Phone: tel: fax: Referral ID Status Reason Start Date Expiration Date Visits Requested Visits Authorized [id number] Pending Review Specialty Services Required 11/01/2024 11/01/2025 1 1 Care Teams (unrecognized sec tion and content) Child Center Assistant Relationship Specialty Start Date End Date Valentina Sadler MD [address] [place] [address] PCP - General Family Medicine 01/12/23 Aria Daugherty NP [address] [place] [address] Nurse Practitioner Family Medicine 01/12/23 Fina Park NP [address] [place] [address] Nurse Practitioner Family Medicine 02/27/24 Child Center Assistant Relationship Specialty Start Date End Date Valentina Sadler MD [address] [place] [address] PCP - General Family Medicine 01/12/23 Aria Daugherty NP [address] [facility] [place] [address] Nurse Practitioner Family Medicine 01/12/23 Fina Park REAR ADMIRAL [address] [facility] [place] [address] Nurse Practitioner Family Medicine 02/27/24 Child Center Assistant Relationship Specialty Start Date End Date Valentina Sadler MD [address] [facility] [place] [address] PCP - General Family Medicine 01/12/23 Aria Daugherty NP [address] [facility] [place] [address] Nurse Practitioner Family Medicine 01/12/23 Fina Park NP [address] [facility] [place] [address] Nurse Practitioner Family Medicine 02/27/24 Child Center Assistant Relationship Specialty Start Date End Date Valentina Sadler MD [address] [facility] [place] [address] PCP - General Family Medicine 01/12/23 Aria Daugherty NP [address] [facility] [place] [address] Nurse Practitioner Family Medicine 01/12/23 Fina Park NP [address] [place] [address] Nurse Practitioner Family Medicine 02/27/24 Child Center Assistant Relationship Specialty Start Date End Date Valentina Sadler MD [address] [facility] [place] [address] PCP - General Family Medicine 01/12/23 Aria Daugherty NP [address] [place] [address] Nurse Practitioner Family Medicine 01/12/23 Fina Park NP [address] [place] [address] Nurse Practitioner Family Medicine 02/27/24 Child Center Assistant Relationship Specialty Start Date End Date Valentina Sadler MD [address] [place] [address] PCP - General Family Medicine 01/12/23 Aria Daugherty NP [address] [place] [address] Nurse Practitioner Family Medicine 01/12/23 Fina Park NP [address] [place] [address] Nurse Practitioner Family Medicine 02/27/24 Child Center Assistant Relationship Specialty Start Date End Date Valentina Sadler MD [address] [place] [address] PCP - General Family Medicine 01/12/23 Aria Daugherty NP [address] [place] [address] Nurse Practitioner Family Medicine 01/12/23 Fina Park NP [address] [place] [address] Nurse Practitioner Family Medicine 02/27/24 Child Center Assistant Relationship Specialty Start Date End Date Valentina Sadler MD [address] [place] [address] PCP - General Family Medicine 01/12/23 Aria Daugherty NP [address] [place] [address] Nurse Practitioner Family Medicine 01/12/23 Fina Park, REAR ADMIRAL [address] [place] [address] Nurse Practitioner Family Medicine 02/27/24 Child Center Assistant Relationship Specialty Start Date End Date Valentina Sadler MD [address] [place] [address] PCP - General Family Medicine 01/12/23 Aria Daugherty NP [address] [place] [address] Nurse Practitioner Family Medicine 01/12/23 Fina Park NP [address] [place] [address] Nurse Practitioner Family Medicine 02/27/24 Child Center Assistant Relationship Specialty Start Date End Date Valentina Sadler MD [address] [place] [address] PCP - General Family Medicine 01/12/23 Aria Daugherty NP [address] [place] [address] Nurse Practitioner Family Medicine 01/12/23 Fina Park, REAR ADMIRAL [address] [place] [address] Nurse Practitioner Family Medicine 02/27/24 Child Center Assistant Relationship Specialty Start Date End Date Valentina Sadler MD [address] [place] [address] PCP - General Family Medicine 01/12/23 Aria Daugherty NP [address] [place] [address] Nurse Practitioner Family Medicine 01/12/23 Fina Park REAR ADMIRAL [address] [place] [address] Nurse Practitioner Family Medicine 02/27/24 Child Center Assistant Relationship Specialty Start Date End Date Valentina Sadler MD [address] [place] [address] PCP - General Family Medicine 01/12/23 Aria Daugherty NP [address] [place] [address] Nurse Practitioner Family Medicine 01/12/23 Fina Park, KIARA [address] [place] [address] Nurse Practitioner Family Medicine 02/27/24 Child Center Assistant Relationship Specialty Start Date End Date Valentina Sadler MD [address] [place] [address] PCP - General Family Medicine 01/12/23 Aria Daugherty NP [address] [place] [address] Nurse Practitioner Family Medicine 01/12/23 Fina Park, REAR ADMIRAL [address] [place] [address] Nurse Practitioner Family Medicine 02/27/24 Child Center Assistant Relationship Specialty Start Date End Date Valentina Sadler MD [address] [facility] [place] [address] PCP - General Family Medicine 01/12/23 Aria Daugherty NP [address] [facility] [place] [address] Nurse Practitioner Family Medicine 01/12/23 Fina Park NP [address] [place] [address] Nurse Practitioner Family Medicine 02/27/24 Child Center Assistant Relationship Specialty Start Date End Date No Pcp, [place] [address] PCP - General Family Medicine 08/22/18 Child Center Assistant Relationship Specialty Start Date End Date No Pcp, [place] [address] PCP - General Family Medicine 08/22/18 Child Center Assistant Relationship Specialty Start Date End Date No Pcp, [place] [address] PCP - General Family Medicine 08/22/18 Child Center Assistant Relationship Specialty Start Date End Date Valentina Sadler MD [address] [facility] [place] [address] PCP - General Family Medicine 01/12/23 Aria Daugherty NP [address] [place] [address] Nurse Practitioner Family Medicine 01/12/23 Fina Park NP [address] [place] [address] Nurse Practitioner Family Medicine 02/27/24 Child Center Assistant Relationship Specialty Start Date End Date No Pcp, [place] [address] PCP - General Family Medicine 08/22/18 Child Center Assistant Relationship Specialty Start Date End Date No Pcp, [place] [address] PCP - General Family Medicine 08/22/18 Child Center Assistant Relationship Specialty Start Date End Date Valentina Sadler MD [address] [facility] [place] [address] PCP - General Family Medicine 01/12/23 Aria Daugherty NP [address] [facility] [place] [address] Nurse Practitioner Family Medicine 01/12/23 Fina Park NP [address] [place] [address] Nurse Practitioner Family Medicine 02/27/24 Child Center Assistant Relationship Specialty Start Date End Date Valentina Sadler MD [address] [place] [address] PCP - General Family Medicine 01/12/23 Aria Daugherty NP [address] [place] [address] Nurse Practitioner Family Medicine 01/12/23 Fina Park NP [address] [facility] [place] [address] Nurse Practitioner Family Medicine 02/27/24 Child Center Assistant Relationship Specialty Start Date End Date No Pcp, [place] [address] PCP - General Family Medicine 08/22/18 Child Center Assistant Relationship Specialty Start Date End Date No Pcp, [place] [address] PCP - General Family Medicine 08/22/18 Child Center Assistant Relationship Specialty Start Date End Date No Pcp, [place] [address] PCP - General Family Medicine 08/22/18 Child Center Assistant Relationship Specialty Start Date End Date No Pcp, [place] [address] PCP - General Family Medicine 08/22/18 Child Center Assistant Relationship Specialty Start Date End Date No Pcp, [place] [address] PCP - General Family Medicine 08/22/18 Child Center Assistant Relationship Specialty Start Date End Date Valentina Sadler MD [facility] [place] [address] PCP - General Family Medicine 01/12/23 Aria Daugherty NP [address] [facility] [place] [address] Nurse Practitioner Family Medicine 01/12/23 Fina Park NP [facility] [place] [address] Nurse Practitioner Family Medicine 02/27/24 FOR RECORDS [...] BE BASED ON THE PRIMARY CLINICAL RECORDS. [facility] [employer] [facility]. provides no warranty or guarantee of the accuracy or completeness of information in this document.
[2024-11-12 19:35] VITALS: TEMP 36.6
[2024-11-12 19:39] VITALS: BP 116/74; PULSE 70
[2024-11-12 20:05] LABS: Bilirubin Urine NEGATIVE (NEGATIVE); Blood Urine NEGATIVE (NEGATIVE); Clarity Urine CLEAR (CLEAR); Color Urine LT. YELLOW (YELLOW); Glucose Urine UA NEGATIVE (NEGATIVE); Ketones Urine NEGATIVE (NEGATIVE); Leukocyte Esterase Urine NEGATIVE (NEGATIVE); Nitrite Urine NEGATIVE (NEGATIVE); Protein Urine NEGATIVE (NEG/TRACE); Urobilinogen Urine 0.2 EU/dL (0.2-1.0)
[2024-11-12 20:06] LABS: Urine Microscopic Indicated NO
== END 2024-11-12 21:23 | disposition home or self-care (01) ==
LOC: FBCO 17:14 → FBC 17:17
PROVIDERS: PCP Family Medicine; Visit Provider Midwife
DX: O43.893 Other placental disorders, third trimester (principal); Z3A.34 34 weeks gestation of pregnancy
CPT/HCPCS: 59025; 81003

== ENCOUNTER 2024-11-15 15:48 | Outpatient (OUT) | payer OTHER, SELFPAY ==
--- NOTE | 2024-11-15 16:01 | US_ITS ---
[place] [id number] Patient Name: HYACINTH HOLT MRN: [id number] date: 1985 Sex: F Assigned Patient Location: [facility] Current Patient Location: [facility] Accession/Order Number: [id number] Exam Date: 11/15/2024 16:52 Report Date: 11/15/2024 16:54 At the request of: SHANNON KONG APRN, CNM Procedure: US OB BPP w non-stress Ultrasound obstetrical biophysical profile HISTORY: Advanced maternal age. There is adequate breathing movement, gross body movement, tone and amniotic fluid volume for total score of 8 out of 8. The amniotic fluid index is 11.8 cm within normal limits. The heart rate is 139 bpm. US/US OB BPP w non-stress IMPRESSION: Adequate ultrasound biophysical profile Impression dictated by: Fortino Lewis M.D.11/15/2024 4:54 PM Dictation Location: [place] [address] Electronically authenticated by: [id number] Y Date: 11/15/2024 16:54
[2024-11-15 16:50] VITALS: BP 95/67; PULSE 79
== END 2024-11-15 17:28 | disposition home or self-care (01) ==
LOC: US 15:48 → FBC 15:49
PROVIDERS: PCP Family Medicine; Visit Provider Midwife
DX: O09.523 Supervision of elderly multigravida, third trimester (principal); O43.213 Placenta accreta, third trimester
CPT/HCPCS: 76818

== ENCOUNTER 2024-11-19 16:50 | Outpatient (OUT) | payer OTHER, SELFPAY ==
[2024-11-19 17:00] VITALS: BP 134/78; PULSE 90
== END 2024-11-19 17:29 | disposition home or self-care (01) ==
LOC: FBCO 16:51 → FBC 16:53
PROVIDERS: PCP Family Medicine; Visit Provider Midwife
DX: O09.523 Supervision of elderly multigravida, third trimester (principal); Z3A.35 35 weeks gestation of pregnancy
CPT/HCPCS: 59025

== ENCOUNTER 2024-11-22 15:46 | Outpatient (OUT) | payer OTHER, SELFPAY ==
--- NOTE | 2024-11-22 15:50 | US_ITS ---
[facility] [place] [address] Patient Name: HYACINTH HOLT MRN: [id number] date: 1985 Sex: F Assigned Patient Location: [facility] Current Patient Location: Accession/Order Number: [id number] Exam Date: 11/23/2024 07:51 Report Date: 11/23/2024 07:56 At the request of: SHANNON KONG APRN, CNM Procedure: US OB BPP w non-stress BIOPHYSICAL PROFILE: CLINICAL INFORMATION: Advanced maternal age COMPARISON: 11/15/2024 There is a single live intrauterine gestation in cephalic presentation. The reported gestational age is 36 weeks 0 days .The heart rate measures 130 beats per minute. FINDINGS: TONE: 1 or more episodes of activity extension and flexion of extremity or opening and closing of the hand [Y] 2/2 GROSS BODY MOVEMENTS: 3 or more discrete body or limb movements [Y] 2/2 BREATHING MOVEMENTS: 1 or more episodes of breathing lasting at least 30 seconds [Y] 2/2 SHILPI: A single deepest vertical pocket of amniotic fluid greater than 2 cm [Y] 2/2 SHILPI: 11.2 cm. This is in the low normal range. Total score: 8/8 US/US OB BPP w non-stress IMPRESSION: NORMAL BIOPHYSICAL PROFILE Impression dictated by: Reyna Guerrero M.D.11/23/2024 7:56 AM Dictation Location: [place] [address] Electronically authenticated by: [id number] Y Date: 11/23/2024 07:56
[2024-11-22 16:35] VITALS: BP 112/72; PULSE 77
== END 2024-11-22 17:00 | disposition home or self-care (01) ==
LOC: US 15:46 → FBC 15:47
PROVIDERS: PCP Family Medicine; Visit Provider Midwife
DX: O43.213 Placenta accreta, third trimester (principal); O09.523 Supervision of elderly multigravida, third trimester; Z3A.36 36 weeks gestation of pregnancy
CPT/HCPCS: 76818

== ENCOUNTER 2024-11-26 16:49 | Outpatient (OUT) | payer OTHER, SELFPAY ==
[2024-11-26 16:59] VITALS: BP 120/78; PULSE 81
--- OUTSIDE RECORDS SUMMARY | 2024-11-26 17:00 | XMS_ITS | CCD ---
Author Organization [facility] Team Providers Care Hvac Operations Technician Name Role Phone Provider, None Unavailable Unavailable Omley, Brandon H Unavailable Unavailable Omley, Brandon H Unavailable Unavailable Omley, Brandon H Unavailable Unavailable Omley, Brandon H Unavailable Unavailable Provider, None Unavailable Unavailable SIERRA VIRECARLTON K Unavailable Unavailable ADAPPA, SUPA Unavailable Unavailable KAMIREDDY, ADIREDDY Unavailable Unavailable REGGIE HORVATH Attending Unavailable REGGIE HORVATH Admitting Unavailable Melissa Daniel Unavailable Valentina Sadler MD Primary Care Provider Aria Daugherty NP Unavailable Fina Park NP R Unavailable Monique Park NPann R Unavailable No Pcp, No Pcp Primary Care Provider Unavailabl e No Pcp, No Pcp Primary Care Provider UnavailAria Rivas NP Unavailable FLORO, SHANNON Referring Unavailable NO PCP, NO PCP Primary Care Unavailable AICHA LAWS Attending Unavailable FLORO, SHANNON Referring Unavailable NO PCP, NO PCP Primary Care Unavailable ANA MARIA RAMIREZ Attending UnavailALYCIA Richter Referring Unavailable NO PCP, NO PCP Primary Care Unavailable BRANDI ALLEN Attending Unavailabl e EMMA BARKER S Referring Unavailable NO PCP, NO PCP Primary Care Unavailable ANA MARIA RAMIREZ Attending UnavailALYCIA Richter Referring Unavailable NO PCP, NO PCP Primary Care Unavailable NO PCP, NO PCP Primary Care Unavailable AICHA LAWS Referring Unavailable MARISOL LOREDO Attending Unavail able MARISOL LOREDO Referring Unavail able NO PCP, NO PCP Primary Care Unavailable Aria Daugherty NP Unavailable AICHA LAWS Referring Unavailable NO PCP, NO PCP Primary Care Unavailable [facility], BRANDI DOBBINS Referring Unavailabl e NO PCP, NO PCP Primary Care Unavailable [facility], BRANDI DYEROLE Referring Unavailabl e NO PCP, NO PCP Primary Care Unavailable NO PCP, NO PCP Primary Care Unavailable ANA MARIA RAMIREZ Referring Unavailabl e [facility], BRANDI DOBBINS Referring Unavailabl e NO PCP, NO PCP Primary Care Unavailable [facility], BRANDI MU Referring Unavailabl e NO PCP, NO PCP Primary Care Unavailable SHANNON FELIX Attending Unavailable FLORO, SHANNON Esquivel Attending Unavailable MERY PATEL Attending Unavailable FLORO, SHANNON Esquivel Referring Unavailable FLORO, SHANNON Esquivel Attending Unavailable FLORO, SHANNON Esquivel Attending Unavailable FINA PARK Attending Unavailable FINA PARK Attending Unavailable BANDAR LOREDO Attending Unavailable FLORO, SHANNON Esquivel Attending Unavailable FLORO, SHANNON Alvin Referring Unavailable FLORO, SHANNON Esquivel Referring Unavailable FLORO, SHANNON Esquivel Attending Unavailable FINA PARK Attending Unavailable FLORO, SHANNON Esquivel Attending Unavailable FLORO, SHANNON Alvin Referring Unavailable FLORO, SHANNON Esquivel Attending Unavailable Allergies Allergy Classification Reported Allergen(s) Allergy Type Date of Onset Reaction(s) Facility (1 source) NITROFURANTOIN, MACROCRYSTALS / Nitrofurantoin, Monohydrate Drug Allergy vomiting [facility] Other (20 sources) Nitrofurantoin Drug Allergy 3 GI intolerance [facility] Healthcare Work Phone: Medications Current Medications Medication Drug Class(es) Dates Sig (Normalized) Sig (Original) 168 HR ethinyl estradiol 0.97909 MG/HR / norelgestromin 0.32941 MG/HR Transdermal System [Zafemy] (1 source) Zafemy 150-35 MCG/24HR Transdermal for 84 Days Active betamethasone 3 mg/ml / betamethasone acetate 3 mg/ml injectable suspension (4 sources) Corticosteroid Start: 11-19-2024 End: 11-21-2024 betamethasone acet & sod phos (CELESTONE) injection 12 mg docusate sodium 100 mg oral capsule (12 sources) Start: 11-12-2024 take 1 capsule by mouth in the morning, then take 1 capsule by mouth at bedtime docusate sodium (COLACE) 100 mg capsule Take 1 capsule (100 mg total) by mouth in the morning and 1 capsule (100 mg total) before bedtime. 60 capsule 2 11/12/2024 Active 1 ml EPINEPHrine 1 mg/ml injection (1 source) alpha-Adrenergic Agonist, beta-Adrenergic Agonist, Catecholamine Start: 11-21-2024 End: 11-22-2024 0.3 mg, intramuscular, Every 5 min PRN, emergency use for dypsnea, wheezing, stridor, or hypotension (at least 30% decrease in systolic BP) (from treatment/therapy plan)., Starting on Tue11/21/24 at 0923, For 3 doses, Give IM into the anterolateral aspect of the middle third of the thigh (preferred) up to 3 doses (total of 0.9 mg). Activate emergency response Look-alike/sound-a like medication - verify indication for use. 168 hr ethinyl estradiol 0.22779 mg/hr / norelgestromin 0.90088 mg/hr transdermal system (20 sources) Progestin, Estrogen apply 1 dose transdermal route every week norelgestromin-eth in.estradioL (ORTHO EVRA) 150-35 mcg/[address] 1 patch on the skin once a week. Active Davide Mane-Reggie g folic acid 1 mg oral tablet (20 sources) Start: 11-05-2024 End: 11-06-2024 take 1 tablet by mouth in the morning folic acid (FOLVITE) 1 mg tablet Indications: Iron deficiency anemia during Take 1 tablet (1 mg total) by mouth in the morning. 90 tablet 11/06/2024 Active methylPREDNISolone 125 mg injection (1 source) Corticosteroid Start: 11-21-2024 End: 11-22-2024 125 mg, intravenous, As needed, emergency use for adverse reactions (from treatment/therapy plan)., Starting on Tue11/21/24 at 0923, For 2 doses, Should not be used as initial management of anaphylaxis but may prevent a prolonged or recurrent reaction. May alter blood glucose or insulin requirements. Look-alike/sound-a like medication - verify indication for use. metroNIDAZOLE 0.0075 mg/mg vaginal gel (1 source) [...] 3 DAYS Oral for 3 Days Not-Taking [id number] acid ( 19) 29 mg iron- 1 mg tablet,chewable (20 sources) [id number] brandi-folic acid ( 19) 29 mg iron- 1 mg tablet,chewable Chew 1 tablet and swallow in the morning. Active 1000 ml sodium chloride 9 mg/ml injection (5 sources) Start: 11-23-2024 take 25 mL intravenously every hour as needed 25 mL/hr, intravenous, Continuous PRN, When mainline IV needed., Starting on Tue11/23/24 at 1406, Match IVF to base solution of product being administered to ensure compatibility. Start: 11-21-2024 End: 11-22-2024 500 mL, intravenous, at 3,00 0 mL/hr, Administer over 10 Minutes, As needed, decrease of systolic BP greater than 30% from baseline., Starting on Tue11/21/24 at 0923, For 1 dose, wide open off of the IV pump. Call provider for additional bolus', if needed. Start: 11-21-2024 take 25 mL intraveno usly every hour as needed 25 mL/hr, intravenous, Continuous PRN, When mainline IV needed., Starting on Tue11/21/24 at 0923, Match IVF to base solution of product being administered to ensure compatibility. Start: 11-19-2024 End: 11-19-2024 take 25 mL intravenously every hour as needed 25 mL/hr, intravenous, Continuous PRN, When mainline IV needed., Starting on Tue11/19/24 at 1341, Match IVF to base solution of product being administered to ensure compatibility. Start: 11-16-2024 take 25 mL intraveno usly every hour as needed 25 mL/hr, intravenous, Continuous PRN, When mainline IV needed., Starting on Tue11/16/24 at 1529, Match IVF to base solution of product being administered to ensure compatibility. Completed/Discontinued Medications Medication Drug Class(es) Dates Sig [...] capsule 06/18/2024 06/21/2024 21 day ethinyl estradiol 0.897039 mg/hr / etonogestrel 0.005 mg/hr vaginal system (5 sources) Progestin, Estrogen Start: 03-26-2024 End: 05-10-2024 etonogestrel-ethinyl estradiol (Nuvaring) 0.12-0.015 MG/24HR vaginal ring Indications: Encounter for gynecological examination without abnormal finding Insert 1 Ring into the vagina See administration instructions 1 every 3 weeks as directed then remove for 1 week 3 each 3 03/26/2024 05/10/2024 Discontinued (Therapy completed) iron sucrose (VENOFER) 200 mg in sodium chloride 0.9 % 100 mL IVPB (4 sources) Start: 11-23-2024 End: 11-23-2024 200 mg, intravenous, at 440 mL/hr, Administer over 15 Minutes, Once, On Tue11/23/24 at 1400, For 1 dose, Monitor patient for hypersensitivity reactions for at least 30 minute,s after the infusion. AVOID the use of H1 antihistamines, such as diphenhydramine, as this may worsen hypersensitivity reactions. Have resuscitation equipment and medications available. Monitor patient for hypersensitivity reactions for at least 30 minutes after the infusion. AVOID the use of H1 antihistamines, such as diphenhydramine, as this may worsen hypersensitivity reactions. Have resuscitation equipment and medications available. Start: 11-21-2024 End: 11-21-2024 200 mg, intravenous, at 440 mL/hr, Administer over 15 Minutes, Once, On Tue11/21/24 at 0930, For 1 dose, Monitor patient for hypersensitivity reactions for at least 30 minute,s after the infusion. AVOID the use of H1 antihistamines, such as diphenhydramine, as this may worsen hypersensitivity reactions. Have resuscitation equipment and medications available. Monitor patient for hypersensitivity reactions for at least 30 minutes after the infusion. AVOID the use of H1 antihistamines, such as diphenhydramine, as this may worsen hypersensitivity reactions. Have resuscitation equipment and medications available. Start: 11-19-2024 End: 11-19-2024 200 mg, intravenous, at 440 mL/hr, Administer over 15 Minutes, Once, On Tue11/19/24 at 1345, For 1 dose, Monitor patient for hypersensitivity reactions for at least 30 minute,s after the infusion. AVOID the use of H1 antihistamines, such as diphenhydramine, as this may worsen hypersensitivity reactions. Have resuscitation equipment and medications available. Monitor patient for hypersensitivity reactions for at least 30 minutes after the infusion. AVOID the use of H1 antihistamines, such as diphenhydramine, as this may worsen hypersensitivity reactions. Have resuscitation equipment and medications available. Start: 11-16-2024 End: 11-16-2024 200 mg, intravenous, at 440 mL/hr, Administer over 15 Minutes, Once, On Tue11/16/24 at 1530, For 1 dose, Monitor patient for hypersensitivity reactions for at least 30 minute,s after the infusion. AVOID the use of H1 antihistamines, such as diphenhydramine, as this may worsen hypersensitivity reactions. Have resuscitation equipment and medications available. Monitor patient for hypersensitivity reactions for at least 30 minutes after the infusion. AVOID the use of H1 antihistamines, such as diphenhydramine, as this may worsen hypersensitivity reactions. Have resuscitation equipment and medications available. nitrofurantoin, macrocrystals 25 mg / nitrofurantoin, monohydrate 75 mg oral capsule (1 source) Nitrofuran Antibacterial Start: 03-21-2021 take 1 capsule by mouth every twelve hours Macrobid 100 MG 1 capsule with food Orally every 12 hrs for 5 days Mar, Not-Taking vitamin b12 1 mg/ml injectable solution (20 sources) Vitamin B12 Start: 11-12-2024 End: 11-12-2024 cyanocobalamin (VITAMIN B-12) injection 1,000 mcg Start: 11-12-2024 End: 11-12-2024 inject 1000 ug by intramuscular injection once 1,000 mcg, intramuscular, Once, On Tue11/12/24 at 1545, For 1 dose Start: 11-05-2024 take 1 tablet by greg th in the morning cyanocobalamin 1000 MCG tablet Indications: B12 deficiency Take 1 tablet (1,000 mcg total) by mouth in the morning. 30 tablet 3 11/05/2024 Active Problems Active Problems Problem Classification Problem Date Documented Date Episodic/Chronic Anxiety disorders (20 sources) Panic attack; Translations: [Panic disorder [episodic paroxysmal anxiety]] Onset: 05-02-2017 01-12-2023 Chronic Deficiency and other anemia (1 source) Nutritional anemia; Translations: [Vitamin B12 deficiency anemia, unspecified] 11-13-2024 Episodic Deficiency and other anemia (2 sources) Iron deficiency anemia, unspecified; Translations: [Iron deficiency anemia, unspecified] Onset: 11-13-2024 Episodic Genitourinary symptoms and ill-defined conditions (5 sources) Dysuria; Translations: [Dysuria] 06-18-2024 Episodic Hemorrhage during ; abruptio placenta; placenta previa (20 sources) Placenta previa marginalis; Translations: [Partial placenta previa NOS or without hemorrhage, unspecified trimester] Onset: 11-01-2024 08-09-2024 Episodic Immunizations and screening for infectious disease (15 sources) Syphilis test finding; Translations: [Other specified abnormal immunological findings in serum] Onset: 11-11-2024 11-12-2024 Episodic Influenza (2 sources) Influenza due to [...] unspecified trimester] 11-05-2024 Chronic Other complications of (20 sources) Anemia in mother complicating , childbirth AND/OR puerperium; Translations: [Anemia complicating , third trimester] Onset: 11-11-2024 11-06-2024 Chronic Other complications of (3 sources) Anemia of ; Translations: [Anemia complicating , third trimester] Onset: 11-11-2024 11-11-2024 Chronic Other complications of (2 sources) Anemia complicating , third trimester; Translations: [Anemia complicating , third trimester] Onset: 11-13-2024 Chronic Other complications of (2 sources) Finding related to ; Translations: [ related conditions, unspecified, second trimester] 07-09-2024 Episodic Other complications of (20 sources) Multigravida of advanced maternal age; Translations: [Supervision of elderly multigravida, third trimester] Onset: 11-01-2024 10-29-2024 Episodic Other complications of (7 sources) Placenta accreta; Translations: [Placenta accreta, third trimester] 11-01-2024 Episodic Other complications of (2 sources) Supervision of elderly multigravida, third trimester; Translations: [Supervision of elderly multigravida, third trimester] Onset: 11-11-2024 Episodic Other complications of (2 sources) Placenta accreta, third trimester; Translations: [Placenta accreta, third trimester] Onset: 11-01-2024 Episodic Other lower [...] not applicable or unspecified] 06-11-2024 Episodic Previous (2 sources) Maternal care for unspecified type scar from previous delivery; Translations: [Maternal care for unspecified type scar from previous delivery] Onset: 11-01-2024 Episodic Residual codes; unclassified (1 source) 33 weeks gestation of ; Translations: [33 weeks gestation of ] Onset: 11-01-2024 Episodic Unclassified (1 source) No additional problems on file Unclassified (1 source) Routine Visit Onset: 11-19-2024 Unclassified (1 source) Initial Visit Onset: 11-05-2024 Unclassified (1 source) Anterior placenta Onset: 11-01-2024 Unclassified (1 source) Outpatient Infusion Onset: 11-16-2024 Urinary tract infections (2 sources) Acute cystitis; Translations: [Acute cystitis without hematuria] 06-18-2024 Episodic Past or Other Problems Problem Classification Problem Date Documented Date Episodic/Chronic Acute and chronic tonsillitis (2 sources) Peritonsillar abscess; Translations: [Peritonsillar abscess] Onset: 02-11-2017 Episodic Inflammatory diseases of female pelvic organs (1 source) Bacterial vaginosis; Translations: [Acute vaginitis] 03-27-2024 Episodic Mood disorders (20 sources) Mood disorders Onset: 11-05-2024 11-05-2024 Other nervous system disorders (20 sources) Skin sensation disturbance; Translations: [Unspecified disturbances of skin sensation] Onset: 03-19-2019 01-12-2023 Episodic Residual codes; unclassified (20 sources) Gestation period, 33 weeks; Translations: [33 weeks gestation of ] Onset: 11-01-2024 Resolved: 11-11-2024 11-01-2024 Episodic Unclassified (1 source) Contact with and (suspected) exposure to covid-19 Z20.822 Viral infection (1 source) COVID-19 Results Test Name Value Interpretation Reference Range Facility US OB BPP W NON-STRESS on 11-23-2024 [place] [address] Ultrasound Report Signed Patient: HYACINTH ESCALONA MR#: [id number] : 1985 Acct:[id number] Age/Sex: 39 / F ADM Date: 11/22/24 Loc: US Attending Dr: SHANNON FELIX APRN, CNM Ordering Physician: SHANNON FELIX APRN, CNM Date of Service: 11/22/24 Procedure(s): US OB BPP w non-stress Accession Number(s): [id number] cc: VALENTINA SADLER ; SHANNON FELIX APRN, CNM [address] [address] Patient Name: HYACINTH ESCALONA MRN: [facility]:[id number] date: 1985 Sex: F Assigned Patient Location: [facility] Current Patient Location: Accession/Order Number: [id number] Exam Date: 11/23/2024 07:51 Report Date: 11/23/2024 07:56 At the request of: SHANNON FELIX APRN, CNM Procedure: US OB BPP w non-stress BIOPHYSICAL PROFILE: CLINICAL INFORMATION: Advanced maternal age COMPARISON: 11/15/2024 There is a single live intrauterine gestation in cephalic presentation. The reported gestational age is 36 weeks 0 days .The heart rate measures 130 beats per minute. FINDINGS: TONE: 1 or more episodes of activity extension and flexion of extremity or opening and closing of the hand [Y] 2/2 GROSS BODY MOVEMENTS: 3 or more discrete body or limb movements [Y] 2/2 BREATHING MOVEMENTS: 1 or more episodes of breathing lasting at least 30 seconds [Y] 2/2 SHILPI: A single deepest vertical pocket of amniotic fluid greater than 2 cm [Y] 2/2 SHILPI: 11.2 cm. This is in the low normal range. Total score: 8/8 US/US OB BPP w non-stress IMPRESSION: NORMAL BIOPHYSICAL PROFILE Impression dictated by: Reyna Guerrero M.D.11/23/2024 7:56 AM Dictation Location: [place] [address] Electronically authenticated by: [id number] Y Date: 11/23/2024 07:56 Dictated By: Reyna Guerrero M.D. Signed By: 11/23/24 0758 DD/ 0756 TD/TT: Clinic Assistant: [facility] Radiology, Radiologcj darnell MD - 11/23/2024 [place] [address] Ultrasound Report Signed Patient: HYACINTH ESCALONA MR#: [id number] : 1985 Acct:[id number] Age/Sex: 39 / F ADM Date: 11/22/24 Loc: US Attending Dr: SHANNON FELIX APRN, CNM Ordering Physician: SHANNON FELIX APRN, CNM Date of Service: 11/22/24 Procedure(s): US OB BPP w non-stress Accession Number(s): [id number] cc: VALENTINA SADLER ; SHANNON FELIX APRN, CNM The [place] [id number] Patient Name: HYACINTH ESCALONA MRN: [facility]:[id number] date: 1985 Sex: F Assigned Patient Location: [facility] Current Patient Location: Accession/Order Number: [id number] Exam Date: 11/23/2024 07:51 Report Date: 11/23/2024 07:56 At the request of: SHANNON FELIX APRN, CNM Procedure: US OB BPP w non-stress BIOPHYSICAL PROFILE: CLINICAL INFORMATION: Advanced maternal age COMPARISON: 11/15/2024 There is a single live intrauterine gestation in cephalic presentation. The reported gestational age is 36 weeks 0 days .The heart rate measures 130 beats per minute. FINDINGS: TONE: 1 or more episodes of activity extension and flexion of extremity or opening and closing of the hand [Y] 2/2 GROSS BODY MOVEMENTS: 3 or more discrete body or limb movements [Y] 2/2 BREATHING MOVEMENTS: 1 or more episodes of breathing lasting at least 30 seconds [Y] 2/2 SHILPI: A single deepest vertical pocket of amniotic fluid greater than 2 cm [Y] 2/2 SHILPI: 11.2 cm. This is in the low normal range. Total score: 8/8 US/US OB BPP w non-stress IMPRESSION: NORMAL BIOPHYSICAL PROFILE Impression dictated by: Reyna Guerrero M.D.11/23/2024 7:56 AM Dictation Location: [place] [address] Electronically authenticated by: [id number] Y Date: 11/23/2024 07:56 Dictated By: Reyna Guerrero M.D. Signed By: 11/23/24 0758 DD/ 0756 TD/TT: Clinic Assistant: [facility] Radiology Study observation (narrative) [facility] US OB BPP W NON-STRESS Ordered By: Radiologist Radiology on 11-23-2024 [facility] Work Phone: US OB BPP W NON-STRESS on 11-15-[address] [address] Ultrasound Report Signed Patient: HYACINTH ESCALONA MR#: [id number] : 1985 Acct:[id number] Age/Sex: 39 / F ADM Date: 11/15/24 Loc: [facility] 250-[address]: SHANNON FELIX APRN, CNM Ordering Physician: HSANNON FELIX APRN, CNM Date of Service: 11/15/24 Procedure(s): US OB BPP w non-stress Accession Number(s): [id number] cc: VALENTINA SADLER ; SHANNON FELIX APRN, CNM The [place] [address] Patient Name: HYACINTH ESCALONA MRN: [facility]:[id number] date: 1985 Sex: F Assigned Patient Location: [facility] Current Patient Location: [facility] Accession/Order Number: [id number] Exam Date: 11/15/2024 16:52 Report Date: 11/15/2024 16:54 At the request of: SHANNON FELIX APRN, CNM Procedure: US OB BPP w non-stress Ultrasound obstetrical biophysical profile HISTORY: Advanced maternal age. There is adequate breathing movement, gross body movement, tone and amniotic fluid volume for total score of 8 out of 8. The amniotic fluid index is 11.8 cm within normal limits. The heart rate is 139 bpm. US/US OB BPP w non-stress IMPRESSION: Adequate ultrasound biophysical profile Impression dictated by: Fortino Lewis M.D.11/15/2024 4:54 PM Dictation Location: [place] [address] Electronically authenticated by: [id number] Y Date: 11/15/2024 16:54 Dictated By: Fortino Lewis D.O. Signed By: 11/15/241655 DD/ 53 TD/TT: Clinic Assistant: [facility] RadiologyAnnaogcj darnell MD - 11/15/2024 [place] [address] Ultrasound Report Signed Patient: HYACINTH ESCALONA MR#: [id number] : 1985 Acct:[id number] Age/Sex: 39 / F ADM Date: 11/15/24 Loc: [facility] 250-[address]: SHANNON FELIX APRN, CNM Ordering Physician: SHANNON FELIX APRN, CNM Date of Service: 11/15/24 Procedure(s): US OB BPP w non-stress Accession Number(s): [id number] cc: VALENTINA SADLER ; SHANNON FELIX APRN, CNM [place] [address] Patient Name: HYACINTH ESCALONA MRN: [facility]:[id number] date: 1985 Sex: F Assigned Patient Location: [facility] Current Patient Location: [facility] Accession/Order Number: [id number] Exam Date: 11/15/2024 16:52 Report Date: 11/15/2024 16:54 At the request of: SHANNON FELIX APRN, CNM Procedure: US OB BPP w non-stress Ultrasound obstetrical biophysical profile HISTORY: Advanced maternal age. There is adequate breathing movement, gross body movement, tone and amniotic fluid volume for total score of 8 out of 8. The amniotic fluid index is 11.8 cm within normal limits. The heart rate is 139 bpm. US/US OB BPP w non-stress IMPRESSION: Adequate ultrasound biophysical profile Impression dictated by: Fortino Lewis M.D.11/15/2024 4:54 PM Dictation Location: [place] [address] Electronically authenticated by: [id number] Y Date: 11/15/2024 16:54 Dictated By: Fortino Lewis D.O. Signed By: 11/15/241655 DD/ 53 TD/TT: Clinic Assistant: [facility] Radiology Study observation (narrative) [facility] US OB BPP W NON-STRESS Ordered By: Radiologist Radiology on 11-15-2024 [facility] Healthcare Work Phone: [facility] UA (CLEAN/CATCH) CLINICAL ADMINISTRATIVE COORDINATOR/EMILE RO IF IND.on 11-12-2024 BILIRUBIN URINE Negative NEGATIVE [facility] BLOOD URINE Negative NEGATIVE [facility] Clarity (U) CLEAR CLEAR [facility] Color (U) LT. YELLOW YELLOW [facility] GLUCOSE URINE UA Negative NEGATIVE mg/dL [facility] Ketones Ql (U) Negative NEGATIVE mg/dL [facility] Leukocyte esterase Test strip Ql (U) Negative NEGATIVE [facility] NITRITE URINE Negative NEGATIVE [facility] pH (U) 6.0 [pH] 5.0 - 9.0 [facility] PROTEIN URINE Negative NEG/TRACE mg/dL [facility] SPECIFIC GRAVITY URINE 1.010 1.005 - 1.025 [facility] URINE MICROSCOPIC INDICATED NO [facility] UROBILINOGEN URINE 0.2 EU/dL 0.2 - 1.0 EU/dL [facility] US OB BPP W NON-STRESS on 11-08-2024 [place] [address] Ultrasound Report Signed Patient: HYACINTH ESCALONA MR#: [id number] : 1985 Acct:[id number] Age/Sex: 39 / F ADM Date: 11/08/24 Loc: US Attending Dr: SHANNON FELIX APRN, CNM Ordering Physician: SHANNON FELIX APRN, CNM Date of Service: 11/08/24 Procedure(s): US OB BPP w non-stress Accession Number(s): [id number] cc: VALENTINA SADLER ; SHANNON FELIX APRN, CNM [place] [id number] Patient Name: HYACINTH ESCALONA MRN: [facility]:[id number] date: 1985 Sex: F Assigned Patient Location: US Current Patient Location: Accession/Order Number: [id number] Exam Date: 11/08/2024 18:52 Report Date: 11/08/2024 [...] Fortino Lewis M.D.11/08/2024 6:54 PM Dictation Location: TeamVisibility-20 Electronically authenticated by: [id number] Y Date: 11/08/2024 18:54 Dictated By: Fortino Lewis D.O. Signed By: 11/08/241855 DD/ 53 TD/TT: Clinic Assistant: [facility] Radiology, Radiologcj darnell MD - 11/08/2024 [place] [address] Ultrasound Report Signed Patient: HYACINTH ESCALONA MR#: [id number] : 1985 Acct:[id number] Age/Sex: 39 / F ADM Date: 11/08/24 Loc: US Attending Dr: SHANNON FELIX APRN, CNM Ordering Physician: SHANNON FELIX APRN, CNM Date of Service: 11/08/24 Procedure(s): US OB BPP w non-stress Accession Number(s): [id number] cc: VALENTINA SADLER ; SHANNON FELIX APRN, CNM [place] [address] Patient Name: HYACINTH ESCALONA MRN: [facility]:[id number] date: 1985 Sex: F Assigned Patient Location: US Current Patient Location: Accession/Order Number: [id number] Exam Date: 11/08/2024 18:52 Report Date: 11/08/2024 [...] Fortino Lewis M.D.11/08/2024 6:54 PM Dictation Location: [employer] Electronically authenticated by: [id number] Y Date: 11/08/2024 18:54 Dictated By: Fortino Lewis D.O. Signed By: 11/08/241855 DD/ 53 TD/TT: Clinic Assistant: [facility] Radiology Study observation (narrative) [facility] OB BPP W NON-STRESS Ordered By: Radiologist Radiology on 11-08-2024 [facility] Work Phone: MR PELVIS WO CONTon 11-07-19 [...] Davis MD on 11/06/2024 9:51 AM Normal [facility] COMPLETE BLOOD COUNTon 11-05 Erythrocyte distribution width (RBC) [Ratio] 13.4 % Normal 11.5-15.0 [facility] Comment on above: Performed By: #### C BC, CMP, 2132-04, 2275-11, 2284-03 #### [facility] ([id number]) [address], [address] [place] [address] Hematocrit (Bld) [Volume fraction] 34.1 % Low 35-47 [facility] Comment on above: Performed By: #### C BC, CMP, 2132-04, 2275-11, 2284-03 #### [facility] ([id number]) [address], [address] [place] [address] Hemoglobin (Bld) [Mass/Vol] 11.6 g/dL Low 11.7-15.5 [facility] Comment on above: Performed By: #### C BC, CMP, 2132-04, 2275-11, 2284-03 #### [facility] ([id number]) [address], [address] [place] [address] MCH (RBC) [Entitic mass] 27.9 pg Normal 27-34 [facility] Comment on above: Performed By: #### C BC, CMP, 2132-04, 2275-11, 2284-03 #### [facility] ([id number]) [address], [address] [place] [address] MCHC (RBC) [Mass/Vol] 34.0 g/dL Normal 32-36 [facility] Comment on above: Performed By: #### C BC, CMP, 2132-04, 2275-11, 8 #### [facility] ([id number]) [address], [address] [place] [address] MCV (RBC) [Entitic vol] 82 fL Normal 80-100 [facility] Comment on above: Performed By: #### C BC, CMP, 2132-04, 2275-, 8 #### [facility] ([id number]) [address], [facility] [address] [place] [address] Platelet mean volume (Bld) [Entitic vol] 8.7 fL Normal 7-12 [facility] Comment on above: Performed By: #### C BC, CMP, 2132-04, 2275-11, 2283-8 #### [facility] ([id number]) [address], [address] [address] Platelets (Bld) [#/Vol] 220 10*3/uL Normal 150-450 [facility] Comment on above: Performed By: #### C BC, CMP, 2132-04, 2275-11, 2283- #### [facility] ([id number]) [address] [address] [place] [address] RBC COUNT 4.15 X10E12/L Normal 3.80-5.20 [facility] Comment on above: Performed By: #### C BC, CMP, 2132-04, 2275-11, 2283-8 #### [facility] ([id number]) [address] [address] WBC (Bld) [#/Vol] 10.1 10*3/uL Normal 4.0-11.0 [facility] Comment on above: Performed By: #### C BC, CMP, 2132-04, 2275-11, 2283-8 #### [facility] ([id number]) [address], [address] [place] [address] COMPREHENSIVE METABOLIC PANE Jerry 11-05-2024 Albumin [Mass/Vol] 3.4 g/dL Normal 3.2-5.3 [facility] Comment on above: Performed By: #### C BC, CMP, 9, 2275-4, 2283-8 #### [facility] ([id number]) [address], [address] [place] [address] ALP [Catalytic activity/Vol] 195 U/L High 39-130 [facility] Comment on above: Performed By: #### C BC, CMP, 2132-04, 2275-4, 2283-8 #### [facility] ([id number]) [address], [address] [place] [address] ALT [Catalytic activity/Vol] 9 U/L Normal 0-31 [facility] Comment on above: Performed By: #### C BC, CMP, 2132-04, 2275-4, 4-8 #### [facility] ([id number]) [address], [address] [place] [address] Anion gap [Moles/Vol] 7 mmol/L Normal 5-15 [facility] Comment on above: Performed By: #### C BC, CMP, 2132-04, 2275-4, 2283-8 #### [facility] ([id number]) [address], [address] [place] [address] AST [Catalytic activity/Vol] 16 U/L Normal 0-41 [facility] Comment on above: Performed By: #### C BC, CMP, 2132-04, 2275-4, 2283-8 #### [facility] ([id number]) [address], [address] [place] [address] Bilirubin [Mass/Vol] 0.3 mg/dL Normal 0.3-1.2 [facility] Comment on above: Performed By: #### C BC, CMP, 2132-04, 2275-4, 2284-8 #### [facility] ([id number]) [address], [address] [place] [address] Calcium [Mass/Vol] 9.3 mg/dL Normal 8.5-10.5 [facility] Comment on above: Performed By: #### C BC, CMP, 2132-04, 2275-4, 2283-8 #### [facility] ([id number]) [address], [address] [place] [address] Chloride [Moles/Vol] 102 mmol/L Normal 98-109 [facility] Comment on above: Performed By: #### C BC, CMP, 2132-04, 2275-11, 2283-8 #### [facility] ([id number]) [address], [address] [place] [address] CO2 [Moles/Vol] 26 mmol/L Normal 22-32 [facility] Comment on above: Performed By: #### Chaim BC, CMP, 2132-04, 2275-11, 8 #### [facility] ([id number]) [address], [address] [place] [address] Creatinine [Mass/Vol] 0.57 mg/dL Normal 0.40-1.00 [facility] Comment on above: Result Comment: METH OD TRACEABLE TO IDMS STANDARD Performed By: #### C BC, CMP, 2132-04, 4, 2283-8 #### [facility] ([id number]) [address], [address] [place] [address] eGFR (CKD-EPI) NON-RACE DEPENDENT >90 Normal >59 [facility] Comment on above: Result Comment: Reported eGFR is based on the CKD-EPI 2020 equation that does not use a race coefficient. Performed By: #### C BC, CMP, 2132-04, 2275-11, 8 #### [facility] ([id number]) [address], [address] [place] [address] Glucose [Mass/Vol] 72 mg/dL Normal 65-99 [facility] Comment on above: Performed By: #### C BC, CMP, 2132-04, 2275-4, 2283-8 #### [facility] ([id number]) [address], [address] [place] [address] Potassium [Moles/Vol] 4.0 mmol/L Normal 3.5-5.0 [facility] Comment on above: Performed By: #### C BC, CMP, 2132-04, 2275-11, 2283-8 #### [facility] ([id number]) [address], [address] [place] [address] Protein [Mass/Vol] 6.3 g/dL Normal 6.0-8.0 [facility] Comment on above: Performed By: #### C BC, CMP, 2132-04, 2275-4, 2283-8 #### [facility] ([id number]) [address], [address] [place] [address] Sodium [Moles/Vol] 135 mmol/L Normal 134-146 [facility] Comment on above: Performed By: #### C BC, CMP, 2132-04, 2275-, 2283-8 #### [facility] ([id number]) [address], [address] [place] [address] Urea nitrogen [Mass/Vol] 5 mg/dL Normal 5-23 [facility] Comment on above: Performed By: #### C BC, CMP, 2132-04, 2275-11, 2283-8 #### [facility] ([id number]) [address], [address] [place] [address] FERRITINon 11-05-2024 Ferritin [Mass/Vol] 10 ng/mL Low 11-307 [facility] Comment on above: Performed By: #### C BC, CMP, 2132-04, 2275-4, 228-8 #### [facility] ([id number]) [address], [address] [place] [address] Folate [Mass/Vol]on 11-06-19 FOLIC ACID 6.3 ng/mL Normal >5.8 [facility] Comment on above: Result Comment: NEW REFERENCE RANGE Performed By: #### C BC, CMP, 2-9, 2276-4, 2284-8 #### [facility] ([id number]) [address], [address] [place] [address] VITAMIN B12on 11-05-2024 Cobalamin (Vitamin B12) [Mass/Vol] 146 pg/mL Low 180-914 [facility] Comment on above: Performed By: #### C BC, CMP, 9, 6-4, 4-8 #### [facility] ([id number]) [address], [address] [place] [address] Ultrasound - OfficeOrdered B y: Christianeysah Pamela on 10-19-2024 Radiology Study observation (narrative) [facility] Ultrasound - Officeon 2024 Radiology Study observation (narrative) [facility] Radiology Study observation (narrative) [facility] Radiology Study observation (narrative) [facility] US OB FOLLOW UP TRANSABDOMIN AL [...] 1533 gm / 3 lbs, 6 oz (7724-2023 gm) [place] Normal: 1505 gm (8190-1827 gm) [place] Wt%: 56% for 29.7 wks [...] Normal Not Available Ultrasound - Officeon 2024 [facility] Ultrasound - Officeon 2023 [facility] US OB LIMITED 1+ FETUSESon 1 [...] report is generated using voice recognition reporting (Al Detale). On occasion Acom[employer] erroneously drops words from the report or replaces the spoken word with similar sounding words. Please call with any questions/concerns regarding this report.* Dictated and transcribed 07/11/24/dpd This report has been electronically signed and approved by the interpreting radiologist. Normal Not Available [facility] Bacteria identified Cx Nom ( U)on 06-20-2024 Appearance (U) Adequate [facility] Internal identifier for Provider [id number] [facility] Specimen source Nom (Unsp spec) URINE, CLEAN CATCH [facility] STATUS FINAL [facility] Performing Organizat ion Information Site ID: QPT Name: [facility] Address: [address] [place] [address], [address] [place] [address] Director: Bertram Fraser MD Count includes the [facility] Laboratory - Microbiology an d Antimicrobial susceptibilityon 06-20-2024 Bacteria identified Cx Nom (U) SEE NOTE [facility] Comment on above: Less than 10,000 CFU/mL of single Gram positive organism isolated. No further testing will be performed. If clinically indicated, recollection using a method to minimize contamination, with prompt transfer to Urine Culture Transport Tube, is recommended. Urinalysis macro (dipstick) panel (U)on 06-18-2024 Bilirubin, UA Negative Negative - 4(70) +++ mg/dL [facility] Blood, UA Positive Negative - 50 Wally/mcL [facility] Clarity, UA Clear [facility] Color, UA Yellow [facility] Glucose, UA Negative Negative - 2000(110) ++++ mg/dL [facility] Interpretation and review of laboratory results Abnormal [facility] Ketones, UA Positive Negative - 160(16) ++++ mg/dL [facility] Leukocytes, UA 3+ Negative - 500+++ Doretha/mcL [facility] Nitrite, UA Negative Negative - Positive [facility] pH, UA 5 5 - 9 [facility] Protein, UA Trace Negative - 2000(20) ++++ mg/dL [facility] Spec Grav, UA 1.02 1 - 1.03 [facility] Urobilinogen, UA 0.2 0.2 - 12 mg/dL Count includes the [facility] US for pregnancyon TITLE OF EXAM: [...] by the interpreting radiologist. Electronically Signed Deshawn Ibarar M.D. 2024-05-23 17:07:53 [facility] US for pregnancyOrdered By: Deshawn Ibarra on 05-23-2024 [facility] Work Phone: US OB < 14 WEEKS [...] US for pregnancyon Radiology Study observation (narrative) [facility] CBC panel Auto (Bld)on 05-17 Erythrocyte distribution width (RBC) [Ratio] 12.4 % 11.0 - 15.0 % [facility] Hematocrit (Bld) [Volume fraction] 40.8 % 35.0 - 45.0 % [facility] Hemoglobin (Bld) [Mass/Vol] 13.7 g/dL 11.7 - 15.5 g/dL [facility] MCH (RBC) [Entitic mass] 29.4 pg 27.0 - 33.0 pg [facility] MCHC (RBC) [Mass/Vol] 33.6 g/dL 32.0 - 36.0 g/dL [facility] Comment on above: For adults, a slight decrease in the calculated MCHC value (in the range of 30 to 32 g/dL) is most likely not clinically significant; however, it should be interpreted with caution in correlation with other red cell parameters and the patient's clinical condition. MCV (RBC) [Entitic vol] 87.6 fL 80.0 - 100.0 fL [facility] Platelet mean volume (Bld) [Entitic vol] 10.1 fL 7.5 - 12.5 fL [facility] Platelets (Bld) [#/Vol] 255 10*3/uL [facility] RBC (Bld) [#/Vol] 4.66 10*6/uL [facility] WBC (Bld) [#/Vol] 7.6 10*3/uL [facility] Laboratory - Blood bankon ABO group Nom (Bld) O [facility] Blood group antibody screen Ql Detected [facility] Comment on above: Reference range No antibodies detected This assay is a screening test for the detection of red blood cell antibodies. The test is not to be used for pretransfusion screening or for the medical management of an alloimmunized . Rh Nom (Bld) Positive [facility] Comment on above: For additional information, please refer to http://AudioCompass.[employer]faq/RVE646 (This link is being provided for informational/ educational purposes only.) Laboratory - Chemistry and C hemistry - challengeon 05-17-2024 TSH Qn 2.36 m[IU]/L mIU/L [facility] Comment on above: Reference Range > or = 20 Years 0.40-4.50 Ranges First trimester 0.26-2.66 Second trimester 0.55-2.73 Third trimester 0.43-2.91 Laboratory - Hematology and Cell countson 05-17-2024 HbA1c (Bld) [Mass fraction] 5.1 % NINF [facility] Comment on above: For the purpose of [...] HBV surface Ag IA Ql Non-Reactive NON-REACTIVE [facility] Comment on above: For additional information, please refer to http://[employer]/faq/UYW788 (This link is being provided for informational/ educational purposes only.) HCV Ab IA Ql Non-Reactive NON-REACTIVE [facility] Comment on above: HCV antibody was non-reactive. There is no laboratory evidence of HCV infection. In most cases, no further action is required. However, if recent HCV exposure is suspected, a test for HCV RNA (test code 23670) is suggested. For additional information please refer to http://AudioCompass.Viz[employer]/faq/MEI04z0 (This link is being provided for informational/ educational purposes only.) HIV 1+2 Ab+HIV1 p24 Ag IA Ql Non-Reactive NON-REACTIVE [facility] Comment on above: HIV-1 antigen and HI [...] purpose. For additional information please refer to http://education.Viz[employer]/faq/DGG554 (This link is being provided for informational/ educational purposes only.) The performance of this assay has not been clinically validated in patients less than 2 years old. Reagin Ab RPR (S) [Titer] 1 {titer} High [facility] Reagin Ab RPR Ql (S) Reactive Abnormal NON-REACTIVE NO [facility] Comment on above: The RPR is a non-alis ponemal-specific test; therefore, a treponemal-specific confirmatory test should be performed unless prior syphilis infection has been documented for this patient. Rubella virus IgG Qn (S) 7.94 [IU]/mL Index [facility] Comment on above: Index Interpretation ----- <0.90 Not consistent with immunity 0.90-0.99 Equivocal > or = 1.00 Consistent with immunity The presence of rubella IgG antibody suggests immunization or past or current infection with rubella virus. T. pallidum Ab IF Ql (S) Non-Reactive Nonreactive [facility] Comment on above: The FTA-ABS is a [...] (No. RR-4): pg.39. Laboratory - Miscellaneous t ests 05-17-2024 Reference Lab Test ID [id number] [facility] Reference Lab Test Name FTA-ABS [facility] No Panel Informationon 05-17 CLIENT CONTACT: DOLLY BAIG [facility] COMMENT [facility] Comment on above: Please have the [facility] physician or his or her authorized mortician supplies sales representative sign a copy of this report and promptly return it by faxing it to: [phone] or by returning the form to your automatic drill operator. Interpretation and review of laboratory results Abnormal [facility] REPORT ALWAYS MESSAGE SIGNATURE [facility] Comment on above: The laboratory testing on this patient was verbally requested or confirmed by the ordering physician or his or her authorized mortician supplies sales representative after contact with an employee of [facility] Ditto. Federal regulations require that we maintain on file written authorization for all laboratory testing. Accordingly we are asking that the ordering physician or his or her authorized mortician supplies sales representative sign a copy of this report and promptly return it to the client account assistant. Signature: MULTIPLE COLLECTION TIMES FOR SAME TEST TYPE. [employer] Performing Organizat ion Information Site ID: QPT Name: [facility] Address: [address] [place] [phone] Director: Bertram Fraser MD Count includes the [facility] Performing Organizat ion Information Site ID: AMD Name: [facility] Address: [address] [place] [address] [place] [address] Director: Dave Rodriguez M.D.,PhD [facility] Bacteria identified Cx Nom ( U)on 05-12-2024 Appearance (U) Adequate [facility] Internal identifier for Provider [id number] [facility] Specimen source Nom (Unsp spec) URINE [facility] STATUS FINAL Count includes the [facility] Laboratory - Drug toxicology on 05-12-2024 4-Ylcliiyahk-4,5-Dime thyl-3,3-Diphenylpyrr olidine (EDDP) Ql (U) Negative NINF - 100 ng/mL [facility] Amphetamines Ql (U) Negative NINF - 5 00 ng/mL [facility] Barbiturates Ql (U) Negative NINF - 3 00 ng/mL [facility] Benzodiazepines Ql (U) Negative NINF - 100 ng/mL [facility] Benzoylecgonine Ql (U) Negative NINF - 150 ng/mL [facility] Opiates Ql (U) Negative NINF - 100 ng/mL [facility] oxyCODONE Ql (U) Negative NINF - 100 ng/mL [facility] Phencyclidine Ql (U) Negative NINF - 25 ng/mL [facility] Tetrahydrocannabinol Screen method >20 ng/mL Ql (U) Negative NINF - 20 ng/mL [facility] Laboratory - Microbiology an d Antimicrobial susceptibilityon 05-12-2024 Bacteria identified Cx Nom (U) SEE NOTE [facility] Comment on above: Mixed genital butch isolated. These superficial bacteria are not indicative of a urinary tract infection. No further organism identification is warranted on this specimen. If clinically indicated, recollect clean-catch, mid-stream urine and transfer immediately to Urine Culture Transport Tube. Laboratory - Urinalysison Bacteria LM.HPF (Urine sed) [#/Area] NONE SEEN NONE SEEN /HPF [facility] Epithelial cells.squamous LM.HPF (Urine sed) [#/Area] 0-5 < OR = 5 /HPF [facility] Hyaline casts (Urine sed) [#/Area] NONE SEEN NONE SEEN /LPF [facility] RBC LM.HPF (Urine sed) [#/Area] NONE SEEN < OR = 2 /HPF [facility] WBC LM.HPF (Urine sed) [#/Area] 0-5 < OR = 5 /HPF [facility] N. gonorrhoeae DNA RAJINDER+probe Ql (Cervical mucus)on 05-12-2024 C. trachomatis rRNA RAJINDER+probe Ql (Unsp spec) Not detected NOT DETECTED [facility] N. gonorrhoeae rRNA RAJINDER+probe Ql (Unsp spec) Not detected NOT DETECTED [facility] No Panel Informationon 05-12 (ALWAYS MESSAGE) [facility] Comment on above: See Note 1 Note 1 This drug testing is for medical treatment only. Analysis was performed as non-forensic testing and these results should be used only by healthcare providers to render diagnosis or treatment, or to monitor progress of medical conditions. For assistance with interpreting these drug results, please contact a [facility] Toxicology Specialist: [phone] ( ), M-F, 8am-6pm EST. The analytical perfo rmance characteristics of this assay, when used to test SurePath(TM) specimens have been determined by [facility]. The modifications have not been cleared or approved by the FDA. This assay has been validated pursuant to the CLIA regulations and is used for clinical purposes. For additional information, please refer to https://AudioCompass.Vizsafe/faq/WJP735 (This link is being provided for information/ educational purposes only.) Performing Organizat ion Information Site ID: QPT Name: [facility] Address: [address] [place] [address], [address] [place] [phone] Director: Bertram Fraser MD Count includes the [facility] Chlamydia/GC by PCR [place]on 05-10-2024 Chlamydia Dna(Pcr) Negative [facility] Gonorrhoeae Dna(Pcr) Negative [facility] Drug Screen, Urineon 024 Barbiturates Negative [facility] Opiates Negative [facility] HCG ( test) Ql (U)o n 05-10-2024 Interpretation and review of laboratory results Abnormal [facility] Preg Test, Ur Positive [facility] HIV 1&2 AB/AG Screen (P24 AG )on 05-10-2024 HIV 1&2 AB/AG Non-Reactive [facility] Hemoglobin A1con 05-10-2024 HbA1c (Bld) [Mass fraction] 5.1 % 4.0 - 6.0 % [facility] Hepatitis B surface antigeno n 05-10-2024 Hepatitis B Surface Antigen Non-Reactive [facility] No Panel Informationon 05-10 [facility] Rubella IGG immune statuson 05-10-2024 Rubella immune IgG 7.24 [facility] Syphilis Total(Unknown Syphi lis Status)Ordered By: Haylie Santiago on 05-10-2024 Syphilis Reactive [facility] Type and screenon 05-10-2024 Abo/Rh(D) Positive [facility] US OB < 14 WEEKS EARLYon [...] Limited study. Full anatomical survey not performed. Radiator Cleaner notes: Ovaries not visualized due to bowel. Dictated and transcribed 05/11/24/dpd This report has been electronically signed and approved by the interpreting radiologist. Electronically Signed Deshawn Ibarra M.D. 2024-05-11 13:14:11 Normal Not Available Ultrasound - OfficeOrdered B y: Haylie Santiago on 05-10-2024 [email or web address] COVID + FLU Quick Testingon 10-04-2022 SARS-CoV-2 (COVID-19) RNA RAJINDER+probe Ql (Unsp spec) positve [facility] Other COVID + FLU Quick Testing Negative [facility] Other Quick Strepon 10-04-2022 S. pyogenes Org specific cx Ql (Throat) Negative [facility] Other Quick Strep [facility] Other XR Chest 2 Views*on 08-20-19 22 XR Chest 2 Views* FINDINGS: No acute cardiac or pulmonary disease is identified. No worrisome mass lesions or infiltrates are seen. No pulmonary edema or pneumothorax is present. Cardiac silhouette size is normal. Skeletal structures are unremarkable. IMPRESSION: No acute cardiac or pulmonary disease. Report reported and signed by Neri Torres on 08/20/2021 1621 Normal [facility] [employer] Lieutenant Q - CULTURE,URINE,ROUTINEon 07-16-2021 CULTURE, URINE, ROUTINE SEE NOTE Normal [facility] [employer] Comment on above: Order Comment: [facility] Testing performed at: PT, [facility], [address] [place] [address], [address] [facility], [place], [address], Switch Tender: Bertram Fraser MD [facility] Collection Date/Time: [facility] Results Received Date/Time: [id number] [facility] Reported Date/Time: [id number] Result Comment: CULT URE, URINE, ROUTINE Micro Number: [id number] Test Status: Final Specimen Source: Urine Specimen Quality: Adequate Result: No Growth Performed By: #### [id number] #### [facility] Default [address] [place] [address] Urine Cultureon 03-21-2021 Bacteria identified Cx Nom (U) ORGANISM: Escherichia coli (O:ESCCOL) [place] Count >100,000 Aerobic EMILE Charge (NUC86) - [...] <2 Tobramycin S <4 Trimethoprim/Sulfamethox azole R >2/38 S = SUSCEPTIBLE I = INTERMEDIATE R [...] RESISTANT TO ALL B-LACTAM DRUGS. PERFORMED BY: [address] [place] [address] PATHOLOGIST CONTAINERS SALES REPRESENTATIVE QIANA BRYSON M.D. [facility] Comment on above: Performed By: #### C UU #### [facility] [address] [place] [address] Chlamydia/GC/Trich NAAon Chlamydia Trachomotis, RAJINDER Negative Normal Negative [facility] Comment on above: Order Comment: Reaso n for Exam Dysuria Performed By: #### C UU #### [facility] [address] [place] [address] #### GCCHLAMTRI #### [facility] , Neisseria Gonorrhoeae, RAJINDER Negative Normal Negative [facility] Comment on above: Order Comment: Reaso n for Exam Dysuria Performed By: #### C UU #### [facility] [address] [place] [address] #### GCCHLAMTRI #### [facility] , Trichomonas RAJINDER Negative Normal Negative [facility] Comment on above: Order Comment: Reaso n for Exam Dysuria Result Comment: Perf ormed at: =G - [facility] [address] [id number] Enrollment Manager: Kaleigh Arnold MD, Phone: [phone] PERFORMED BY: [place] [address] PATHOLOGIST CONTAINERS SALES REPRESENTATIVE QIANA BRYSON M.D. Performed By: #### C UU #### [address] #### GCCHLAMTRI #### [facility] , Urine Cultureon 03-01-2021 Bacteria identified Cx Nom (U) Reason for Exam Dysuria Urine ORGANISM: Citrobacter freundii (O:CITFRE) [place] Count >100,000 Aerobic EMILE Charge (NUC86) - [...] RESISTANT TO ALL B-LACTAM DRUGS. PERFORMED BY: [place] [address] PATHOLOGIST CONTAINERS SALES REPRESENTATIVE QIANA BRYSON M.D. [facility] Comment on above: Performed By: #### C UU #### [address] #### GCCHLAMTRI #### [facility] , Coding Summaryon 06-06-2017 Coding Summary CODING DATE: [facility] STATUS: Home PAYOR: Commercial Insurance [...] Thomas Revised Date Saved: 02/21/2017 03:48 pm [facility] Coding Summary CODING DATE: [facility] STATUS: Discharge/Transfer to Another Hospital [...] in slightly different terminology. Revised Coded By: Alne Thomas Revised Date Saved: 02/21/2017 03:46 pm [facility] Coding Summaryon 02-21-2017 Coding Summary CODING DATE: [facility] STATUS: Home PAYOR: Commercial Insurance [...] Alen Thomas Date Saved: 02/21/2017 03:48 pm [facility] Coding Summary CODING DATE: [facility] STATUS: Discharge/Transfer to Another Hospital [...] Alen Thomas Date Saved: 02/21/2017 03:46 pm [facility] Basic Metabolic Profon 02-14 (cont.) [facility] Comment on above: Result Comment: Aver age GFR for 30-39 years old: 107 mL/min/1.73sq mChronic Kidney Disease: <60 mL/min/1.73sq mKidney failure: <15 mL/min/1.73sq meGFR calculated using average adult body mass. Additional eGFR calculator available at:http://www.SnackFeed.com/multiple_crcl_2012.htmHealthbridge [facility] [address] [place] [address] Performed By: #### C BC, BMP ####[facility] [place] [address] Anion gap 13 mmol/L Normal 9-17 [facility] Comment on above: Performed By: #### C BC, BMP ####[facility] [place] [address] Calcium 8.5 mg/dL Low 8.6-10.4 [facility] Comment on above: Performed By: #### C BC, BMP ####[address] [address] Chloride 105 mmol/L Normal 98-107 [facility] Comment on above: Performed By: #### C BC, BMP ####[address] [address] CO2 21 mmol/L Normal 20-31 [facility] Comment on above: Performed By: #### C BC, BMP ####[facility] [place] [address] Creatinine 0.69 mg/dL Normal 0.50-0.90 [facility] Comment on above: Performed By: #### C BC, BMP ####[address] [place] [address] eGFR (non-black) mL/min/{1.73_m2} Normal >60 [facility] Comment on above: Performed By: #### C BC, BMP ####[facility] [place] [address] Glucose mass conc 95 mg/dL Normal 70-99 [facility] Comment on above: Performed By: #### C BC, BMP ####[facility] [address] [place] [address] Potassium molar conc 4.3 mmol/L Normal 3.7-5.3 [facility] Comment on above: Performed By: #### C BC, BMP ####[facility] [address] [place] [address] Sodium 139 mmol/L Normal 135-144 [facility] Comment on above: Performed By: #### C BC, BMP ####[facility] [address] [place] [address] Urea nitrogen 14 mg/dL Normal 6-20 [facility] Comment on above: Performed By: #### C BC, BMP ####[facility] [address] [place] [address] BUN/CRE Ratio NOT REPORTED Normal - [facility] Comment on above: Performed By: #### C BC, BMP ####[facility] [address] [place] [address] Staging: NOT REPORTED Normal [facility] Comment on above: Performed By: #### C BC, BMP ####[facility] [address] [place] [address] CBCon 02-14-2017 Erythrocyte distribution width Auto Ratio (RBC) 12.8 % Normal 12.5-15.4 [facility] Comment on above: Performed By: #### C BC, BMP ####[facility] [address] [place] [address] Erythrocytes (RBC) 4.09 10*6/uL Normal 4.0-5.2 [facility] Comment on above: Performed By: #### C BC, BMP ####[facility] CampusDashQccnpjugefnc4644 [place] [address] Hematocrit (HCT) 34.2 % Low 36-46 [facility] Comment on above: Performed By: #### C BC, BMP ####[address] [address] Hemoglobin mass conc (Bld) 11.9 g/dL Low 12.0-16.0 [facility] Comment on above: Performed By: #### C BC, BMP ####[address] [address] MCH 29.0 pg Normal 26-34 [facility] Comment on above: Performed By: #### C BC, BMP ####[address] [address] MCHC mass conc (RBC) 34.7 g/dL Normal 31-37 [facility] Comment on above: Performed By: #### C BC, BMP ####[address] [address] MCV 83.8 fL Normal 80-100 [facility] Comment on above: Performed By: #### C BC, BMP ####[address] [address] Platelet mean volume (PMV) 9.8 fL Normal 6.0-12.0 [facility] Comment on above: Result Comment: [address] [place] [address] Performed By: #### C BC, BMP ####[address] [address] Platelets 258 10*3/uL Normal 140-450 [facility] Comment on above: Performed By: #### C BC, BMP ####[address] [address] WBC (Leukocytes) 11.5 10*3/uL High 3.5-11.0 [facility] Comment on above: Performed By: #### C BC, BMP ####[facility] [address] [place] [address] Discharge Summaryon 02-15-20 17 HIM IP Note 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 Additional eGFR calculator available at:http://www.test company/multiple_crcl_2011.htmHealthbridge [facility] [address] [place] [address] Performed By: #### C BC, BMP ####[facility] CampusDashRmgsqboxdhya3284 [place] [address] Anion gap 11 mmol/L Normal 9-17 [facility] Comment on above: Performed By: #### C BC, BMP ####[employer] [place] [address] Calcium 9.0 mg/dL Normal 8.6-10.4 [facility] Comment on above: Performed By: #### C BC, BMP ####[facility] CampusDashSbqpktzhckyr0562 [place] [address] Chloride 106 mmol/L Normal 98-107 [facility] Comment on above: Performed By: #### C BC, BMP ####[facility] [address] [place] [address] CO2 22 mmol/L Normal 20-31 [facility] Comment on above: Performed By: #### C BC, BMP ####[employer] [address] [place] [address] Creatinine 0.59 mg/dL Normal 0.50-0.90 [facility] Comment on above: Performed By: #### C BC, BMP ####[facility] [address] [place] [address] eGFR (non-black) mL/min/{1.73_m2} Normal >60 [facility] Comment on above: Performed By: #### C BC, BMP ####[facility] [address] [place] [address] Glucose mass conc 144 mg/dL High 70-99 [facility] Comment on above: Performed By: #### C BC, BMP ####[facility] [address] [place] [address] Potassium molar conc 4.5 mmol/L Normal 3.7-5.3 [facility] Comment on above: Performed By: #### C BC, BMP ####[facility] L[address]rxsbfqsl[address] [place] [address] Sodium 139 mmol/L Normal 135-144 [facility] Comment on above: Performed By: #### C BC, BMP ####[facility] [address] [place] [address] Urea nitrogen 10 mg/dL Normal 6-20 [facility] Comment on above: Performed By: #### C BC, BMP ####[facility] [address] [place] [address] BUN/CRE Ratio NOT REPORTED Normal 9-20 [facility] Comment on above: Performed By: #### C BC, BMP ####[facility] [address] [place] [address] Staging: NOT REPORTED Normal [facility] Comment on above: Performed By: #### C BC, BMP ####[facility] [address]fr[address]fs[address] [place] [address] C Throaton 02-13-2017 C Throat Ordered by Discern. Normal throat butch isolated No pathogens isolated Normal [facility] Comment on above: Performed By: #### 4 [id number] ####[facility] (DEFAULT)[address] [place] [address] CBCon 02-13-2017 Erythrocyte distribution width Auto Ratio (RBC) 13.2 % Normal 12.5-15.4 [facility] Comment on above: Performed By: #### C BC, BMP ####[address] [address] Erythrocytes (RBC) 4.13 10*6/uL Normal 4.0-5.2 [facility] Comment on above: Performed By: #### C BC, BMP ####[address] [address] Hematocrit (HCT) 34.7 % Low 36-46 [facility] Comment on above: Performed By: #### C BC, BMP ####[address] [address] Hemoglobin mass conc (Bld) 12.0 g/dL Normal 12.0-16.0 [facility] Comment on above: Performed By: #### C BC, BMP ####[address] [address] MCH 29.1 pg Normal 26-34 [facility] Comment on above: Performed By: #### C BC, BMP ####[facility] [place] [address] MCHC mass conc (RBC) 34.6 g/dL Normal 31-37 [facility] Comment on above: Performed By: #### C BC, BMP ####[address] [address] MCV 84.2 fL Normal 80-100 [facility] Comment on above: Performed By: #### C BC, BMP ####[address] [address] Platelet mean volume (PMV) 9.1 fL Normal 6.0-12.0 [facility] Comment on above: Result Comment: [facility] [address] [place] [address] Performed By: #### C BC, BMP ####[facility] [address] [place] [address] Platelets 244 10*3/uL Normal 140-450 [facility] Comment on above: Performed By: #### C BC, BMP ####[address] [address] WBC (Leukocytes) 8.4 10*3/uL Normal 3.5-11.0 [facility] Comment on above: Performed By: #### C TAYLOR, BMP ####[address] [address] Basic Metabolic Profon 02-12 (cont.) Normal [facility] Comment on above: Result Comment: Aver age GFR for 30-39 years old: 107 mL/min/1.73sq mChronic Kidney Disease: <60 mL/min/1.73sq mKidney failure: <15 mL/min/1.73sq meGFR calculated using average adult body mass. Additional eGFR calculator available at:http://www.SnackFeed.com/multiple_crcl_2012.htmTri[facility] [address] [place] [address] Performed By: #### C BC, BMP ####[address] [address] Anion gap 14 mmol/L Normal 9-17 [facility] Comment on above: Performed By: #### C BC, BMP ####[address] [address] Calcium 8.3 mg/dL Low 8.6-10.4 [facility] Comment on above: Performed By: #### C BC, BMP ####[facility] [address] [place] [address] Chloride 104 mmol/L Normal 98-107 [facility] Comment on above: Performed By: #### C BC, BMP ####[facility] [address] [place] [address] CO2 17 mmol/L Low 20-31 [facility] Comment on above: Performed By: #### C BC, BMP ####[facility] [place] [address] Creatinine 0.44 mg/dL Low 0.50-0.90 [facility] Comment on above: Performed By: #### C BC, BMP ####[facility] [place] [address] eGFR (non-black) mL/min/{1.73_m2} Normal >60 [facility] Comment on above: Performed By: #### C BC, BMP ####[facility] [place] [address] Glucose mass conc 104 mg/dL High 70-99 [facility] Comment on above: Performed By: #### C BC, BMP ####[facility] [place] [address] Potassium molar conc 4.2 mmol/L Normal 3.7-5.3 [facility] Comment on above: Performed By: #### C BC, BMP ####[facility] [place] [address] Sodium 135 mmol/L Normal 135-144 [facility] Comment on above: Performed By: #### C BC, BMP ####[facility] [place] [address] Urea nitrogen 7 mg/dL Normal 6-20 [facility] Comment on above: Performed By: #### C BC, BMP ####[facility] [place] [address] BUN/CRE Ratio NOT REPORTED Normal 9-20 [facility] Comment on above: Performed By: #### C BC, BMP ####[address] [address] Staging: NOT REPORTED Normal [facility] Comment on above: Performed By: #### C BC, BMP ####[address] [address] CBCon 02-12-2017 Erythrocyte distribution width Auto Ratio (RBC) 13.0 % Normal 12.5-15.4 [facility] Comment on above: Performed By: #### C BC, BMP ####[address] [address] Erythrocytes (RBC) 3.97 10*6/uL Low 4.0-5.2 [facility] Comment on above: Performed By: #### C BC, BMP ####[address] [address] Hematocrit (HCT) 33.6 % Low 36-46 [facility] Comment on above: Performed By: #### C BC, BMP ####[address] [address] Hemoglobin mass conc (Bld) 11.8 g/dL Low 12.0-16.0 [facility] Comment on above: Performed By: #### C BC, BMP ####[address] [address] MCH 29.7 pg Normal 26-34 [facility] Comment on above: Performed By: #### C BC, BMP ####[facility] [place] [address] MCHC mass conc (RBC) 35.0 g/dL Normal 31-37 [facility] Comment on above: Performed By: #### C TAYLOR, BMP ####[address] [address] MCV 84.6 fL Normal 80-100 [facility] Comment on above: Performed By: #### C TAYLOR, BMP ####[address] [address] Platelet mean volume (PMV) 8.6 fL Normal 6.0-12.0 [facility] Comment on above: Result Comment: [address] [place] [address] Performed By: #### C TAYLOR, BMP ####[address] [address] Platelets 236 10*3/uL Normal 140-450 [facility] Comment on above: Performed By: #### C TAYLOR, BMP ####[address] [address] WBC (Leukocytes) 11.3 10*3/uL High 3.5-11.0 [facility] Comment on above: Performed By: #### C TAYLOR, BMP ####[address] [address] .Auto Diff - Auto Baso % 0.1 % Low 0.2-2.0 [facility] Comment on above: Performed By: #### 1 [id number], [id number], 5961476, 94753581, 7761714, [id number] ####[facility] (DEFAULT)[address] [place] [address] Auto Whiteside % 8 % Normal 1-12 [facility] Comment on above: Performed By: #### 1 [id number], 1270501414, 2204819, 91725284, 9580675, [id number] ####[facility] (DEFAULT)[address] [place] [address] Auto Neut % 82 % Normal 44-88 [facility] Comment on above: Performed By: #### 1 [id number], 8627281677, 1421880, 08730531, 1823915, [id number] ####[facility] (DEFAULT)[address] [place] [address] Baso Abs# 0.0 x10 Normal 0.0-0.2 [facility] Comment on above: Performed By: #### 1 [id number], 4887606534, 9911268, 09171003, 3618051, 6588557864 ####[facility] (DEFAULT)[address] [place] [address] Eos Abs# 0.0 x10 Normal 0.0-0.4 [facility] Comment on above: Performed By: #### 1 [id number], 3554636267, 5352685, 83218131, 8764219, 2292372300 ####[facility] (DEFAULT)[address] [place] [address] Eosinophils/100 leukocytes 0.2 % Low 0.9-4.0 [facility] Comment on above: Performed By: #### 1 [id number], 7148552910, 5565256, 45824134, 5290274, 6068831083 ####[facility] (DEFAULT)[address] [place] [address] Lymphocytes 1.1 x10 Low 1.3-2.9 [facility] Comment on above: Performed By: #### 1 [id number], 7469696833, 0409945, 91585653, 4230044, 1753478519 ####[facility] (DEFAULT)[address] [place] [address] Lymphocytes/100 leukocytes 9 % Low 14-48 [facility] Comment on above: Performed By: #### 1 [id number], 6205106715, 5211369, 23360637, 0612064, 7793169915 ####[facility] (DEFAULT)[address] [place] [address] Whiteside Abs# 1.0 x10 High 0.0-0.8 [facility] Comment on above: Performed By: #### 1 [id number], 2606629301, 7193829, 49553723, 5802285, 6525090069 ####[facility] (DEFAULT)[address] [place] [address] Neut Abs# 9.8 x10 High 1.5-9.2 [facility] Comment on above: Performed By: #### 1 [id number], 4987074628, 1227674, 41337784, 0714033, 9412436282 ####[facility] (DEFAULT)[address] [place] [address] CBC w/ Auto Diffon 7 Erythrocyte distribution width Auto Ratio (RBC) 12.3 % Normal 11.5-15.0 [facility] Comment on above: Performed By: #### 1 [id number], 6501157658, 5925851, 33321965, 7408260, 9819396070 ####[facility] (DEFAULT)[address] [place] [address] Erythrocytes (RBC) 4.48 x10 Normal 3.70-5.30 [facility] Comment on above: Performed By: #### 1 [id number], 4559342501, 6759719, 34048243, 4202454, 7123512179 ####[facility] (DEFAULT)[address] [place] [address] Hematocrit (HCT) 38.1 % Normal 33.7-40.4 [facility] Comment on above: Performed By: #### 1 [id number], 1187252681, 3876844, 50222793, 3534684, 8506077830 ####[facility] (DEFAULT)[address] [place] [address] Hemoglobin mass conc (Bld) 13.1 g/dL Normal 11.3-15.9 [facility] Comment on above: Performed By: #### 1 [id number], 6509576569, 6192533, 09262588, 7773111, 4798195732 ####[facility] (DEFAULT)[address] [place] [address] Man Diff? Auto Normal [facility] Comment on above: Performed By: #### 1 [id number], 7961602715, 7377485, 74159251, 8504638, 3856983522 ####[facility] (DEFAULT)[address] [place] [address] MCH 29 pg Normal 24-34 [facility] Comment on above: Performed By: #### 1 [id number], 6277322223, 8187084, 89898779, 3850738, 2564563549 ####[facility] (DEFAULT)[address] [place] [address] MCHC mass conc (RBC) 34 g/dL Normal 26-37 [facility] Comment on above: Performed By: #### 1 [id number], 2168768497, 0075824, 51535788, 0622078, 6877947987 ####[facility] (DEFAULT)[address] [place] [address] MCV 85 fL Normal 81-100 [facility] Comment on above: Performed By: #### 1 [id number], 6839703882, 4272150, 61962635, 7534884, 1488656658 ####[facility] (DEFAULT)[address] [place] [address] Platelet mean volume (PMV) 9.2 fL Normal 6.3-10.2 [facility] Comment on above: Performed By: #### 1 [id number], 2403818261, 1742295, 73796334, 2390096, 1557937217 ####[facility] (DEFAULT)[address] [place] [address] Platelets 269 x10 Normal 138-427 [facility] Comment on above: Performed By: #### 1 [id number], 8293928434, 6947770, 69213341, 2436400, 1304597683 ####[facility] (DEFAULT)[address] [place] [address] WBC (Leukocytes) 11.9 x10 Invalid Interpretation Code [facility] Comment on above: Performed By: #### 1 [id number], 9992774674, 0303661, 35016132, 6377954, 8021176061 ####[facility] (DEFAULT)[address] [place] [address] [facility] Standardon 02-11-2017 eGFR (non-black) mL/min/{1.73_m2} Invalid Interpretation Code [facility] Comment on above: Performed By: #### 1 [id number], 3130645216, 4669704, 38276221, 1932964, 1267909578 ####[facility] (DEFAULT)[address] [place] [address] eGFR (non-black) mL/min/{1.73_m2} Invalid Interpretation Code [facility] Comment on above: Result Comment: Mft jam Kidney disease could be indicated at eGFRs of less than 60 ml/min/1.73m2. Kidney Failure is indicated at less than 15 ml/min/1.73m2 Performed By: #### 1 [id number], 3039974249, 6394551, 65032346, 7497497, 1287461880 ####[facility] (DEFAULT)[address] [place] [address] Albumin 3.9 g/dL Normal 3.5-5.0 [facility] Comment on above: Performed By: #### 1 606679324, 3887059952, 9536660, 10246919, 4664437, 9513561712 ####[facility] (DEFAULT)[address] [place] [address] Albumin/Globulin Ratio 0.9 {ratio} Low 1.4-2.6 [facility] Comment on above: Performed By: #### 1 [id number], 6302380878, 5286938, 39837853, 3898013, 0648355523 ####[facility] (DEFAULT)[address] [place], [place] [address] Alk Phos 58 IU/L Normal 32-91 [facility] Comment on above: Performed By: #### 1 [id number], 4522404166, 6779169, 30442715, 3915419, 7666409135 ####[facility] (DEFAULT)[address] [place] [address] ALT/SGPT 11.0 IU/L Low 14.0-54.0 [facility] Comment on above: Performed By: #### 1 [id number], 8325655780, 6759414, 23673452, 7842604, 9452972024 ####[facility] (DEFAULT)[address] [place] [address] Anion gap 11.0 mmol/L Normal 5.0-19.0 [facility] Comment on above: Performed By: #### 1 [id number], 4449911488, 2448558, 48000583, 4222065, 2298313411 ####[facility] (DEFAULT)[address] [place] [address] AST/SGOT 15 IU/L Normal 15-41 [facility] Comment on above: Performed By: #### 1 [id number], 7937932283, 4857527, 34513105, 2163337, 9557962841 ####[facility] (DEFAULT)[address] [place] [address] Bili Total 0.6 mg/dL Normal 0.3-1.2 [facility] Comment on above: Performed By: #### 1 [id number], 3205362464, 0958736, 08725891, 4589708, 5157102066 ####[facility] (DEFAULT)[address] [place] [address] BUN/Creatinine Ratio 8.0 mg/mg Normal 4.6-16.2 [facility] Comment on above: Performed By: #### 1 [id number], [id number], [id number], [id number] ####[facility] (DEFAULT)[address] [place] [address] 34668 Calcium 9.0 mg/dL Normal 8.9-10.3 [facility] Comment on above: Performed By: #### 1 [id number], [id number], [id number], [id number], [id number], [id number] ####[facility] (DEFAULT)[address] [place] [address] 26552 Chloride 103 mmol/L Normal 101-111 [facility] Comment on above: Performed By: #### 1 [id number], [id number], [id number], [id number], [id number], [id number] ####[facility] (DEFAULT)[address] [place] [address] CO2 26 mmol/L Normal 21-32 [facility] Comment on above: Performed By: #### 1 [id number], [id number], [id number], [id number], [id number], [id number] ####[facility] (DEFAULT)[address] [place] [address] Creatinine 0.60 mg/dL Normal 0.60-1.30 [facility] Comment on above: Performed By: #### 1 [id number], [id number], [id number], [id number], [id number], [id number] ####[facility] (DEFAULT)[address] [place] [address] Globulin 4.3 g/dL Normal 1.5-4.3 [facility] Comment on above: Performed By: #### 1 [id number], [id number], [id number], [id number], [id number], [id number] ####[facility] (DEFAULT)[address] [place] [address] 78616 Glucose mass conc 101.0 mg/dL Normal 74.0-118.0 [facility] Comment on above: Performed By: #### 1 [id number], [id number], [id number], [id number], [id number], [id number] ####[facility] (DEFAULT)[address] [place] [address] 75493 Osmolality 269 mOsm/L Invalid Interpretation Code [facility] Comment on above: Performed By: #### 1 [id number], [id number], [id number], [id number], [id number], [id number] ####[facility] (DEFAULT)[address] [place] [address] 22638 Potassium molar conc 3.9 mmol/L Normal 3.6-5.1 [facility] Comment on above: Performed By: #### 1 [id number], [id number], [id number], [id number], [id number], [id number] ####[facility] (DEFAULT)[address] [place] [address] 57708 Protein 8.2 g/dL High 6.5-8.1 [facility] Comment on above: Performed By: #### 1 [id number], [id number], [id number], [id number], [id number], [id number] ####[facility] (DEFAULT)[address] [place] [address] 10298 Sodium 136.0 mmol/L Normal 136.0-144.0 [facility] Comment on above: Performed By: #### 1 [id number], [id number], [id number], [id number], 5023422, [id number] ####[facility] (DEFAULT)[address] [place] [address] 01815 Urea nitrogen 5 mg/dL Low 8-26 [facility] Comment on above: Performed By: #### 1 [id number], [id number], [id number], [id number], [id number], [id number] ####[facility] (DEFAULT)[address] [place] [address] Soft Tissue Neck w/ Contr ken [...] LATERAL TONGUE BASE, CANNOT BE EXCLUDED.4. FOLLOW-UP NEEDED.ISAIAH Mccurdy #: [id number]: 02/11/2017T: 02/11/2017 Final Dictated by: Blade Boggs MDDictated DT/TM: 02/11/17 9:15Signed (Electronic Signature): Blade Boggs MD 02/11/17 11:27 aTechnologist: AIDAN TSE [facility] ED Clinical Summaryon 2016 ED Clinical Summary [facility] Emergency [address] [place], [place] [id number] ed Clinical SummaryPERSON INFORMATIONName: HYACINTH ESCALONA Age: 31 Years Sex: FEMALEDOB: [birth year] MRN: Acct#:Visit Reason: Mouth pain; Mouth pain; SWOLLEN MOUTH / DENTAL ISSUE Arrival:02/11/17 06:48:00 Discharge: 02/11/17 12:13:00LOS: 000 05:25 Check In: 02/11/17 06:48:00 Checkout:02/11/17 12:13:00Address:[address] [place] [address]ZQD: Provider, NonePROVIDER INFORMATIONProvider Role Assigned UnassChen Purcell [...] heart; the patient is on AmoxicillinSOCIAL: Non-smoker, 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PATIENT EDUCATION INFORMATIONInstructions: Follow-Up:DIAGNOSIS:sherice -tonsillar cellulitisComment: [facility] ED Note - Otheron 02-11-2017 ED Note - Other transport set up [facility], given an eta of about 30 mins[Electronically Signed on: 02/11/2017 11:40 EDT] Viviane Orozco[Verified on: 02/11/2017 11:40 EDT] Viviane Orozco [facility] ED Note - Other pt will be going to room 315, and a report number of [phone] was given[Electronically Signed on: 02/11/2017 11:40 EDT] Viviane Orozco[Verified on: 02/11/2017 11:40 EDT] Viviane Orozco [facility] ED Note - Other pt accpeted by dr. shane and dr. erickson into [facility], waiting on a bed assignment[Electronicall y Signed on: 02/11/2017 11:39 EDT] Seng schererViviane[Verified on: 02/11/2017 11:39 EDT] Seng scherer [facility] ED Note - Other pt back from ct [Electronically Signed on: 02/11/2017 08:49 EDT] Jared Chaidezah [Verified on: 02/11/2017 08:49 EDT] Dm [facility] ED Note - Other pt to ct [Electronically Signed on: 02/11/2017 08:43 EDT] DmViviane [Verified on: 02/11/2017 08:43 EDT] Dm [facility] ED Note - Physicianon 2016 ED Note - Physician Patient: HYACINTH ESCALONA : 31 years Sex: FEMALE : [birth year]Associated Diagnoses: NoneAuthor: Kathryn Rg MDBasic InformationAddendum: Time of addendum:: 02/11/17 09:27:00 , Assumed care from: dr lopez 9a , ct pending ,awaiting call back from dr more [facility] ent .31-year-old female with wisdom teeth extraction [...] Diff 1:CBC w/ Auto Diff:CMP Standard:Extra Blue:Extra Red:Whiteside Scrn:Normal Saline Flush: 10 mL, IV Push, As DirectedOmnipaque 350.: 350 mg, 100 mL, IV Push, OncePregnancy Test Serum 1:Rapid Strep:SOLU-Medrol: 125 mg, 2 mL, IV Push, OnceToradol: 30 mg, 1 mL, IV Push, OnceZithromax: 500 mg, 1 EA, 250 mL/hr, IV Piggyback, Once.Results review: Lab results : Lab Ntcefutub07/07/17 07:45 EDT Sodium Level 136.0 mmol/L Potassium [...] Auto Lymph % 9 % LOW Auto Whiteside % 8 % Auto Eos % 0.2 % LOW Auto Baso % 0.1 % LOW Neut Abs# 9.8 x103/mcL HI Lymph Abs# 1.1 x103/mcL LOW Whiteside Abs# 1.0 x103/mcL HI Eos Abs# 0.0 x103/mcL Baso Abs# 0.0 x103/mcL Whiteside Scrn Negative, Lab results : Lab Dkuwfihar33/07/17 07:31 EDT Strep A Negative , Lab results : Lab Robmxacbd86/07/17 07:49 EDT Test Serum Qual Negative .Radiology [...] in detail ,[facility] will try and see today after office hours give unasyn and decadron 12 mg iv , if needs to be transferred to [facility] will need to speak to dr jasmine who is leasing professional ,aware of trismus ,ct findings pertinent exam , labs ,Course: improving.Pain status: decreased.[address] tinsley in detail wants patient transferred to location with ENT , only on consultative basis here at [id number] ent [facility] will not answer phone call from us at this time ,will try hospitalist at [id number] dr irwin hospitalist at [facility] in detail ,will discuss with ENT at [facility] and call us back , dr jasmine does not wish to accept patient to ent , therfore dr irwin cannot accept to [id number] patient updated agreeable to transfer to [facility] , doing well , airway patent , still with trismus no increasing swelling , no stridor or [id number] discussed with dr shane ENT , in detail , admit to hospitalist service ,[address] leung in detail , accepts patient is hospitalist at [facility] ,1130 no als transport available ,bls available for transport , will heplock iv ,patient swallowing own secretions well , no airway compromise on serial examinations . has been in ED x 5 hrsImpression and PlanDiagnosisLeft peritonsillar cellulitis peritonsillar abscess/tonsillar abscessPlanCondition: Stable.Disposition: Transfer to other location: Time deemed necessary for transfer: 945, Facility name: [facility] , dr cotto and dr leung.[Electronically Signed on: 02/11/2017 17:07 EDT] Herc Kathryn rivera MD[Electronically Signed on: 02/11/2017 17:07 EDT] Herc Kathryn rivera MD[Verified on: 02/11/2017 17:07 EDT] Herc Kathryn rivera MD [facility] ED Note - Physician Patient: HYACINTH ESCALONA : 31 years Sex: FEMALE : [birth year]Associated Diagnoses: sherice-tonsillar cellulitisAuthor: Brandon Lopez DOBasi InformationTime seen: Date & time 02/11/17 07:21:00.History [...] heart; the patient is on AmoxicillinSOCIAL: Non-smoker, 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 Dr. Rg still trying to find an accepting doc for transfer. [facility] ED Note-Nursing talking to [facility]. [facility] ED Note-Nursing trying to fing a n accepting hospital to transfer pt. Pt in no acute distress. Resting quietly. [facility] ED Note-Nursing No change. [facility] ED Note-Nursing Pt states she is fee ling a little better. Resting quietly. [facility] ED Note-Nursing Waiting for lab resu lts before going to CT. [facility] ED Note-Nursing Resting quietly, Dr. Lopez in seeing pt. [facility] ED Patient Education Noteon 02-11-2017 ED Patient Education Note Education Materials [facility] ED Patient Summaryon 017 ED Patient Summary [facility] [address] [place], [place] [address] pATIENT DISCHARGE INSTRUCTIONSPatient InformationName: HYACINTH ESCALONA Age: 31 YearsDate of : [birth year]MRN: [id number] For Visit: Mouth pain; Mouth pain; SWOLLEN MOUTH / DENTAL ISSUEArrival Time: 02/11/17 06:48:00Phone: Primary Care Physician: Provider, NoneAttending Physician: Brandon Lopez DOComment:Visit Diagnosis:Diagnoses This Visit Mouth pain ([id number]) Mouth pain ([id number]) sherice-tonsillar cellulitisIf you received any narcotics, sedation, [...] and treatment you received today in the [facility] Emergency Department were for an urgent problem and are not intended as complete care. It is important for you to follow up with a doctor, nurse practitioner, or physician?s assistant professor of education for ongoing care. If your symptoms become [...] number so we can reach you if necessary.[facility] Emergency Department has provided you with a complete list of medications post discharge. Please inform your janitor caretaker/provider of your visit and for further instruction on these medications. Any specific questions regarding your chronic medications and dosages should be discussed with your primary care physician(s) and/or pharmacist. Medications to Continue That Have Not ChangedOther Medicationsamoxicillin (amoxicillin 250 mg oral capsule) 2 cap Oral 3 times a day.[facility] PrescriptionVisit InformationAllergies:Sub stance Reaction Symptoms Type CommentsNo [...] Answerwww.cdc.gov/getsma rt GET SMART Know When Antibiotics Antoni. 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 Normal [facility] Whiteside Scrnon 02-11-2017 Whiteside procedure control Pass [facility] Comment on above: Performed By: #### 1 [id number], [id number], [id number], [id number], [id number] ####[facility] (DEFAULT)[address] [place] [address] 47753 Whiteside Scrn Negative Normal [facility] Comment on above: Performed By: #### 1 [id number], [id number], [id number], [id number], [id number], [id number] ####[facility] (DEFAULT)[address] [place] [address] 06930 Test Serum 1on Preg Serum Internal Control OK [facility] Comment on above: Performed By: #### 3 [id number] ####[facility] (DEFAULT)[address] [place] [address] 82082 Test Serum Qual Negative [facility] Comment on above: Performed By: #### 3 [id number] ####[facility] (DEFAULT)[address] [place] [address] 60522 Strep Aon 02-11-2017 Strep A Negative Normal Negative [facility] Comment on above: Performed By: #### 4 [id number] ####[facility] (DEFAULT)[address] [place] [address] Strep procedure control Pass Normal [facility] Comment on above: Performed By: #### 4 [id number] ####[facility] (DEFAULT)[address] [place] [address] Vital Signs Date Time Vital Sign Value Performing Clinician Facility 11-23-2024 13:48-0400 Body height 172.7 cm Pfo 4 [facility] 11-23-2024 13:48-0400 Body mass index (BMI) [Ratio] 23.09 kg/m2 Pfo 4 [facility] 11-23-2024 13:48-0400 Body temperature 98.49 [degF] Pfo 4 [facility] 11-23-2024 13:48-0400 Body weight 68.86 kg Pfo 4 [facility] 11-23-2024 13:48-0400 Diastolic blood pressure 73 mm[Hg] Pfo 4 [facility] 11-23-2024 13:48-0400 Heart rate 86 /min Pfo 4 [facility] 11-23-2024 13:48-0400 Respiratory rate 18 /min Pfo 4 [facility] 11-23-2024 13:48-0400 SaO2% (BldA) [Mass fraction] 99 % Pfo 4 [facility] 11-23-2024 13:48-0400 Systolic blood pressure 126 mm[Hg] Pfo 4 [facility] 11-21-2024 10:26-0400 Body temperature 98.01 [degF] Pfo 1 [facility] 11-21-2024 10:26-0400 Diastolic blood pressure 74 mm[Hg] Pfo 1 [facility] 11-21-2024 10:26-0400 Heart rate 84 /min Pfo 1 [facility] 11-21-2024 10:26-0400 Respiratory rate 16 /min Pfo 1 [facility] 11-21-2024 10:26-0400 SaO2% (BldA) [Mass fraction] 99 % Pfo 1 [facility] 11-21-2024 10:26-0400 Systolic blood pressure 123 mm[Hg] Pfo 1 [facility] 11-21-2024 09:22-0400 Body height 172.7 cm Pfo 1 [facility] 11-21-2024 09:22-0400 Body mass index (BMI) [Ratio] 23.21 kg/m2 Pfo 1 [facility] 11-21-2024 09:22-0400 Body weight 69.22 kg Pfo 1 [facility] 11-19-2024 15:06-0400 Diastolic blood pressure 67 mm[Hg] Pfo 3 [facility] 11-19-2024 15:06-0400 Heart rate 98 /min Pfo 3 [facility] 11-19-2024 15:06-0400 Respiratory rate 16 /min Pfo 3 [facility] 11-19-2024 15:06-0400 Systolic blood pressure 129 mm[Hg] Pfo 3 [facility] 11-19-2024 13:48-0400 Body height 172.7 cm Pfo 3 [facility] 11-19-2024 13:48-0400 Body mass index (BMI) [Ratio] 23.57 kg/m2 Pfo 3 [facility] 11-19-2024 13:48-0400 Body temperature 98.29 [degF] Pfo 3 [facility] 11-19-2024 13:48-0400 Body weight 70.31 kg Pfo 3 [facility] 11-19-2024 13:48-0400 SaO2% (BldA) [Mass fraction] 99 % Pfo 3 [facility] 11-19-2024 10:45-0400 Body mass index (BMI) [Ratio] 23.42 kg/m2 Ana Maria Ramirez MD Work Phone: [facility] 11-19-2024 10:45-0400 Body weight 69.85 kg Ana Maria Ramirez MD Work Phone: [facility] 11-19-2024 10:45-0400 Diastolic blood pressure 74 mm[Hg] Ana Maria Ramirez MD Work Phone: [facility] 11-19-2024 10:45-0400 Systolic blood pressure 112 mm[Hg] Ana Maria Ramirez MD Work Phone: [facility] 11-16-2024 15:27-0400 Body height 172.7 cm Pfo 1 [facility] 11-16-2024 15:27-0400 Body mass index (BMI) [Ratio] 23.6 kg/m2 Pfo 1 [facility] 11-16-2024 15:27-0400 Body temperature 98.49 [degF] Pfo 1 [facility] 11-16-2024 15:27-0400 Body weight 70.4 kg Pfo 1 [facility] 11-16-2024 15:27-0400 Diastolic blood pressure 73 mm[Hg] Pfo 1 [facility] 11-16-2024 15:27-0400 Heart rate 79 /min Pfo 1 [facility] 11-16-2024 15:27-0400 Respiratory rate 16 /min Pfo 1 [facility] 11-16-2024 15:27-0400 SaO2% (BldA) [Mass fraction] 100 % Pfo 1 [facility] 11-16-2024 15:27-0400 Systolic blood pressure 115 mm[Hg] Pfo 1 [facility] 11-12-2024 14:57-0400 Body mass index (BMI) [Ratio] 23.61 kg/m2 Ana Maria Ramirez MD Work Phone: [facility] 11-12-2024 14:57-0400 Body weight 70.44 kg Ana Maria Ramirez MD Work Phone: [facility] 11-12-2024 14:57-0400 Diastolic blood pressure 74 mm[Hg] Ana Maria Ramirez MD Work Phone: [facility] 11-12-2024 14:57-0400 Systolic blood pressure 116 mm[Hg] Ana Maria Ramirez MD Work Phone: [facility] 11-05-2024 16:45-0400 Body mass index (BMI) [Ratio] 23.42 kg/m2 Shannon Felix CNM Work Phone: [facility] 11-05-2024 16:45-0400 Body weight 69.85 kg Shannon Felix CNM Work Phone: [facility] 11-05-2024 13:39-0400 Body mass index (BMI) [Ratio] 22.91 kg/m2 Marisol Lafyatis DO Work Phone: [facility] 11-05-2024 13:39-0400 Body weight 68.36 kg Marisol Lafyatis DO Work Phone: [facility] 11-05-2024 13:39-0400 Diastolic blood pressure 86 mm[Hg] Marisol Lafyatis DO Work Phone: [facility] 11-05-2024 13:39-0400 Systolic blood pressure 122 mm[Hg] Marisol Lafyatis DO Work Phone: [facility] 11-01-2024 08:04-0400 Body height 172.7 cm Aicha Laws MD Work Phone: [facility] 11-01-2024 08:04-0400 Body mass index (BMI) [Ratio] 22.72 kg/m2 Aicha Laws MD Work Phone: [facility] 11-01-2024 08:04-0400 Body weight 67.77 kg Aicha Laws MD Work Phone: [facility] 11-01-2024 08:04-0400 Diastolic blood pressure 72 mm[Hg] Aicha Laws MD Work Phone: [facility] 11-01-2024 08:04-0400 Heart rate 99 /min Aicha Laws MD Work Phone: [facility] 11-01-2024 08:04-0400 Systolic blood pressure 111 mm[Hg] Aicha Laws MD Work Phone: [facility] 10-29-2024 13:48-0400 Body mass index (BMI) [Ratio] 22.96 kg/m2 Shannon Felix CNM Work Phone: [facility] 10-29-2024 13:48-0400 Body weight 68.49 kg Shannon Felix CNM Work Phone: [facility] 10-29-2024 13:48-0400 Diastolic blood pressure 80 mm[Hg] Shannon Felix CNM Work Phone: [facility] 10-29-2024 13:48-0400 Systolic blood pressure 120 mm[Hg] Shannon Felix CNM Work Phone: [facility] 10-08-2024 11:09-0500 Body height 172.7 cm Mery Majors [employer] Work Phone: [facility] 10-08-2024 11:09-0500 Body mass index (BMI) [Ratio] 22.2 kg/m2 Mery Majors [employer] Work Phone: [facility] 10-08-2024 11:09-0500 Body temperature 97.81 [degF] Mery Majors [employer] Work Phone: [facility] 10-08-2024 11:09-0500 Body weight 66.22 kg Mery Majors [employer] Work Phone: [facility] 10-08-2024 11:09-0500 Diastolic blood pressure 68 mm[Hg] Mery Majors [employer] Work Phone: [facility] 10-08-2024 11:09-0500 Heart rate 83 /min Mery Majors [employer] Work Phone: [facility] 10-08-2024 11:09-0500 SaO2% (BldA) [Mass fraction] 99 % Mery Majors [employer] Work Phone: [facility] 10-08-2024 11:09-0500 Systolic blood pressure 122 mm[Hg] Mery Majors [employer] Work Phone: [facility] 09-26-2024 14:18-0500 Body mass index (BMI) [Ratio] 22.5 kg/m2 Shannon Floro CNM Work Phone: [facility] 09-26-2024 14:18-0500 Body weight 67.13 kg Shannon Floro CNM Work Phone: [facility] 09-06-2024 15:57-0500 Body mass index (BMI) [Ratio] 21.29 kg/m2 Shannon Floro CNM Work Phone: [facility] 09-06-2024 15:57-0500 Body weight 63.5 kg Shannon Floro CNM Work Phone: [facility] 08-09-2024 15:55-0500 Body mass index (BMI) [Ratio] 20.53 kg/m2 Shannon Floro CNM Work Phone: [facility] 08-09-2024 15:55-0500 Body weight 61.24 kg Shannon Floro CNM Work Phone: [facility] 08-09-2024 15:55-0500 Diastolic blood pressure 70 mm[Hg] Shannon Floro CNM Work Phone: [facility] 08-09-2024 15:55-0500 Systolic blood pressure 120 mm[Hg] Shannon Floro CNM Work Phone: [facility] 07-09-2024 15:47-0500 Body mass index (BMI) [Ratio] 19.61 kg/m2 Shannon Floro CNM Work Phone: [facility] 07-09-2024 15:47-0500 Body weight 58.51 kg Shannon Floro CNM Work Phone: [facility] 06-18-2024 16:41-0500 Body height 172.7 cm Fina Park NP Work Phone: [facility] 06-18-2024 16:41-0500 Body mass index (BMI) [Ratio] 18.85 kg/m2 Fina Park [employer] Work Phone: [facility] 06-18-2024 16:41-0500 Body weight 56.25 kg Fina Park [employer] Work Phone: [facility] 06-18-2024 16:41-0500 Diastolic blood pressure 70 mm[Hg] Fina Park [employer] Work Phone: [facility] 06-18-2024 16:41-0500 Heart rate 100 /min Fina Park [employer] Work Phone: [facility] 06-18-2024 16:41-0500 Respiratory rate 18 /min Fina Park [employer] Work Phone: [facility] 06-18-2024 16:41-0500 SaO2% (BldA) [Mass fraction] 99 % Fina Park [employer] Work Phone: [facility] 06-18-2024 16:41-0500 Systolic blood pressure 110 mm[Hg] Fina Park [employer] Work Phone: [facility] 06-11-2024 15:18-0500 Body mass index (BMI) [Ratio] 18.7 kg/m2 Shannon Moirao CNM Work Phone: [facility] 06-11-2024 15:18-0500 Body weight 55.79 kg Shannon Moirao CNM Work Phone: [facility] 06-11-2024 15:18-0500 Diastolic blood pressure 80 mm[Hg] Shannon Floro CNM Work Phone: [facility] 06-11-2024 15:18-0500 Systolic blood pressure 120 mm[Hg] Shannon Floro CNM Work Phone: [facility] 05-10-2024 15:19-0400 Body mass index (BMI) [Ratio] 19.01 kg/m2 Shannon Floro CNM Work Phone: [facility] 05-10-2024 15:19-0400 Body weight 56.7 kg Shannon Moirao CNM Work Phone: [facility] 10-04-2022 14:45-0500 Body height 172.72 cm Melissa Daniel Other [facility] Other 10-04-2022 14:45-0500 Body mass index (BMI) [Ratio] 19.55 kg/m2 Melissa Daniel Other [facility] Other 10-04-2022 14:45-0500 Body temperature 98.3 [degF] Melissa Daniel Other [facility] Other 10-04-2022 14:45-0500 Body weight 58.33 kg Melissa Daniel Other [facility] Other 10-04-2022 14:45-0500 Respiratory rate 18 /min Melissa Daniel Other [facility] Other 10-04-2022 14:45-0500 SaO2% (BldA) [Mass fraction] 99 % Melissa Daniel Other [facility] Other Encounters Encounter Date Encounter Type Care Provider Facility Start: 11-23-2024 End: 11-23-2024 Clinisync Result Encounter Shannon Felix INDRAM Work Phone: [facility] External Department Unsolicited Start: 11-23-2024 End: 11-23-2024 Clinisync Result Encounter Shannon Felix CNM Work Phone: [facility] External Department Unsolicited Start: 11-23-2024 End: 11-23-2024 ambulatory Pfo Infusion Chair 4 Mariaelena Bonilla [facility] Comment on above: Maternal iron defici ency anemia affecting in third trimester, antepartum (Primary Dx) Start: 11-21-2024 End: 11-21-2024 ambulatory Pfo Infusion Chair 1 Mariaelena Bonilla [facility] Comment on above: Maternal iron defici ency anemia affecting in third trimester, antepartum (Primary Dx) Start: 11-20-2024 End: 11-20-2024 Telephone encounter Aicha Laws MD Work Phone: [facility] Start: 11-20-2024 End: 11-20-2024 ambulatory SHANNON FLORO Not Available Start: 11-20-2024 End: 11-20-2024 ambulatory NO PCP NO PCP [facility] Start: 11-19-2024 End: 11-19-2024 Telephone encounter Brandi Allen PA-C Work Phone: [facility] Start: 11-19-2024 End: 11-19-2024 Patient encounter procedure Ana Maria Ramirez MD Work Phone: [facility] Comment on above: GA: 35w4d Start: 11-19-2024 End: 11-19-2024 ambulatory [facility] In[facility] Comment on above: Maternal iron defici ency anemia affecting in third trimester, antepartum (Primary Dx) Start: 11-16-2024 End: 11-19-2024 ambulatory [facility] Comment on above: Maternal iron defici ency anemia affecting in third trimester, antepartum (Primary Dx) Start: 11-15-2024 End: 11-15-2024 Clinisync Result Encounter Shannon Pizarroo CNM Work Phone: [facility] Unsolicited Start: 11-15-2024 End: 11-15-2024 Clinisync Result Encounter Shannon Alvin Floro CNM Work Phone: [facility] Unsolicited Start: 11-13-2024 End: 11-13-2024 Telephone encounter Shannon Esquivel Floro CNM Work Phone: [facility] Comment on above: Incoming Ca ll Start: 11-13-2024 End: 11-13-2024 Office outpatient new 20 minutes Brandi Allen PA-C Work Phone: [facility] Comment on above: Maternal iron defici ency anemia affecting in third trimester, antepartum (Primary Dx); Anemia affecting in third trimester; Anemia due to vitamin B12 deficiency, unspecified B12 deficiency type Start: 11-13-2024 End: 11-13-2024 ambulatory [facility] Start: 11-12-2024 End: 11-12-2024 Patient encounter procedure Ana Maria Ramirez MD Work Phone: [facility] Comment on above: GA: 34w4d Start: 11-12-2024 End: 11-12-2024 ambulatory ANA MARIA RAMIREZ [facility] Start: 11-12-2024 End: 11-12-2024 Clinisync Result Encounter Shannon L Floro CNM Work Phone: [facility] Unsolicited Start: 11-12-2024 End: 11-12-2024 Clinisync Result Encounter Shannon L Floro CNM Work Phone: [facility] Unsolicited Start: 11-12-2024 End: 11-12-2024 Telephone encounter Brandi Allen PA-C Work Phone: [facility] Start: 11-09-2024 End: 11-09-2024 Telephone encounter Kianna Solis COLLECTIONS CLERK-ROSALIND Work Phone: [facility] Start: 11-08-2024 End: 11-08-2024 Clinisync Result Encounter Shannon L Floro CNM Work Phone: [facility] Unsolicited Start: 11-08-2024 End: 11-08-2024 Clinisync Result Encounter Shannon L Floro CNM Work Phone: [facility] Unsolicited Start: 11-08-2024 End: 11-08-2024 Orders Only Alina Bruce RN Maternal- Medic ine at [facility] Comment on above: Placenta previa in t hird trimester (Primary Dx); History of section complicating ; Multigravida of advanced maternal age in third trimester Start: 11-07-2024 End: 11-07-2024 Telephone encounter Aicha Laws MD Work Phone: [facility] Start: 11-06-2024 End: 11-06-2024 Orders Only Radha Murphy RN [facility] Comment on above: Anemia affecting pre gnancy in third trimester (Primary Dx) Iron deficiency anem ia during Start: 11-05-2024 End: 11-05-2024 Subsequent care visit Shannon Felix CNM Work Phone: [facility] Comment on above: AMA (advanced matern al age) multigravida 35+, third trimester; Placenta accreta in third trimester Start: 11-05-2024 End: 11-05-2024 Bamboo flowsheet Shannon Alvin Pizarroo CNM Work Phone: [facility] Start: 11-05-2024 End: 11-05-2024 Bamboo flowsheet Shannon L Floro CNM Work Phone: [facility] Start: 11-05-2024 End: 11-05-2024 Initial care visit Marisol Loredo DO Work Phone: [facility] Comment on above: GA: 33w4d Start: 11-05-2024 End: 11-05-2024 Orders Only Aicha Laws MD Work Phone: [facility] Comment on above: B12 deficiency (Prim eugenio Dx); Iron deficiency anemia during Start: 11-01-2024 End: 11-01-2024 Office consultation new/estab patient 80 min Aicha Laws MD Work Phone: [facility]- [facility] at [facility] Comment on above: 33 weeks gestation o f (Primary Dx); Placenta previa in third trimester; History of section complicating ; Placenta accreta in third trimester; Multigravida of advanced maternal age in third trimester Start: 11-01-2024 End: 11-01-2024 Orders Only Alina Bruce RN M[facility]- Medic ine at [facility] Comment on above: Placenta accreta in third trimester (Primary Dx); 33 weeks gestation of ; H/O section complicating Start: 10-29-2024 End: 10-29-2024 Bamboo flowsheet Shannon L Floro CNM Work Phone: [facility] Start: 10-29-2024 End: 10-29-2024 Bamboo flowsheet Shannon L Floro CNM Work Phone: [facility] Start: 10-29-2024 End: 10-29-2024 Office outpatient visit 15 minutes Shannon L Floro CNM Work Phone: [facility] Comment on above: Encounter for superv ision of other normal , third trimester (Primary Dx); AMA (advanced maternal age) multigravida 35+, third trimester; History of section Start: 10-29-2024 End: 10-29-2024 ambulatory SHANNON L FLORO Not Available Start: 10-23-2024 End: 10-23-2024 Telephone encounter Alina Bruce RN [facility] Start: 10-22-2024 End: 10-22-2024 Telephone encounter Alina Bruce RN [facility]- Medic [facility] at [facility] Start: 10-19-2024 End: 10-19-2024 Orders Only Not In System Ref Prov [facility] Medicine at [facility] Start: 10-11-2024 End: 10-11-2024 Telephone encounter Shannon Esquivel Floro CNM Work Phone: [facility] Start: 10-09-2024 End: 10-09-2024 ambulatory SHANNON L FLORO Not Available Start: 10-08-2024 End: 10-08-2024 Bamboo flowsheet Mery Patel NP Work Phone: [facility] Start: 10-08-2024 End: 10-08-2024 Bamboo flowsheet Mery Patel [employer] Work Phone: [facility] Start: 10-08-2024 End: 10-08-2024 Office outpatient visit 15 minutes Mery Patel [employer] Work Phone: [facility] Comment on above: Influenza A (Primary Dx); Acute cough Start: 10-08-2024 End: 10-08-2024 ambulatory MERY PATEL Not Available Start: 09-26-2024 End: 09-26-2024 Subsequent care visit Shannon Pizarroo CNM Work Phone: [...] 08-09-2024 End: 08-09-2024 Subsequent care visit Shannon Pizarroo CNM Work Phone: [facility] Comment on above: Encounter for superv ision of other normal , second trimester (Primary Dx); Marginal placenta Start: 08-09-2024 End: 08-09-2024 ambulatory SHANNON L FLORO Not Available Start: 07-09-2024 End: 07-09-2024 Subsequent care visit Shannon Pizarroo CNM Work Phone: [facility] Comment on above: Encounter for superv ision of other normal , second trimester (Primary Dx); History of section; related condition in second trimester Start: 07-09-2024 End: 07-09-2024 ambulatory SHANNON L FLORO Not Available Start: 07-09-2024 End: 07-09-2024 Bamboo flowsheet Shannon Pizarroo CNM Work Phone: [facility] Start: 07-09-2024 End: 07-09-2024 Bamboo flowsheet Shannon Alvin Pizarroo CNM Work Phone: [facility] Start: 06-18-2024 End: 06-18-2024 Office outpatient visit 15 minutes Fina Park [employer] Work Phone: [facility] Comment on above: Acute cystitis witho ut hematuria (Primary Dx); Dysuria; , unspecified gestational age Start: 06-18-2024 End: 06-18-2024 ambulatory FINA PARK Not Available Start: 06-18-2024 End: 06-18-2024 Bamboo flowsheet Fina Park [employer] Work Phone: [facility] Start: 06-18-2024 End: 06-18-2024 Bamboo flowsheet Fina Park [employer] Work Phone: [facility] Start: 06-11-2024 End: 06-11-2024 Subsequent care visit Shannon Pizarroo CNM Work Phone: [...] 03-27-2024 End: 03-27-2024 Orders Only Fina Park [employer] Work Phone: [facility] Comment on above: Bacterial vaginosis (Primary Dx) Start: 03-26-2024 End: 03-26-2024 ambulatory FINA PARK Not Available Start: 02-27-2024 End: 02-27-2024 ambulatory FINA PARK Not Available Start: 10-04-2022 End: 10-04-2022 ambulatory Melissa Daniel Other [facility] Other Start: 10-04-2022 Office outpatient vi sit 25 minutes Melissa Daniel [facility] Start: 09-11-2020 End: 09-12-2020 Patient encounter procedure REGGIE HORVATH Facility: Start: 02-12-2017 End: 02-12-2017 Ambulatory Brandon Ruiz yan Facility:[facility] Start: 02-11-2017 End: 02-14-2017 Evaluation and management of inpatient GUSTAVOER Patrizia LEUNG [facility] Start: 02-11-2017 End: 02-11-2017 Emergency department patient visit None Provider Facility:[facility] Procedures Date Procedure Procedure Detail Performing Clinician Start: 11-23-2024 US OB BPP W NON-STRESS Shannon L Floro CNM Work Phone: Start: 11-15-2024 US OB BPP W NON-STRESS Shannon L Floro CNM Work Phone: Start: 11-12-2024 [facility] UA (CLEAN/CATCH) CLINICAL ADMINISTRATIVE COORDINATOR/MICRO IF IND. Shannon L Floro CNM Work Phone: Start: 11-08-2024 US OB BPP W NON-STRESS [...] stick/tablet rgnt non-auto w/o micrscp Fina Park [employer] Work Phone: Start: 06-18-2024 Culture bacterial quanttative colony count urine Fina Park NP Work Phone: Start: 05-10-2024 End: 05-10-2024 Culture bacterial quanttative colony count urine Shannon Felix CNM Work Phone: Start: 05-10-2024 DRUG TOX MONITORIGN 6 W/ CONF,URINE Shannon Pizarroo CNM Work Phone: Start: 05-10-2024 URINALYSIS MICROSCOPIC Shannon Felix C NM Work Phone: Start: 05-10-2024 End: 05-10-2024 Antibody screen rbc each serum technique Shannon Pizarroo CNM Work Phone: Start: 05-10-2024 End: 05-10-2024 Hemoglobin glycosylated a1c Shannon Pizarroo CNM Work Phone: Start: 05-10-2024 RPR TITER Shannon Pizarroo CNM Work Phone: Start: 05-10-2024 TEST AUTHORIZATION Shannon Pizarroo CNM Work Phone: Start: 05-10-2024 TSH W/REFLEX TO FT4 Shannon Pizarroo CNM Work Phone: Start: 05-10-2024 Urine test visual color cmprsn meths Shannon Felix CNM Work Phone: Start: 05-10-2024 Antibody screen Aicha [...] in Cervix by Cyto stain Fina Park [employer] Work Phone: Start: 02-14-2017 DISCHARGE PATIENT VIRENDER [...] H/O: section History of section Shannon Felix [facility] Work Phone: H/O: section History of section Shannon Felix [facility] Work Phone: H/O: section History of section Shannon Alvin Felix [facility] Work Phone: H/O: section History of section Shannon Alvin Felix [facility] Work Phone: H/O: section History of section Shannon Alvin Felix [facility] Work Phone: H/O: section H/O layla an section complicating Marisol Loredo DO Work Phone: H/O: section History of section complicating Alina Bruce RN H/O: section History of section complicating Ana Maria Ramirez MD Work Phone: H/O: section History of section complicating Ana Maria Ramirez MD Work Phone: Plan of Treatment Date Care Activity Detail Author Start: 06-15-2027 DTaP,Tdap and Td Vaccines (3 - Td or Tdap) DTaP,Tdap and Td Vaccines (3 - Td or Tdap) [facility] Start: 03-26-2027 Screening for malign ant neoplasm of cervix [facility] Start: 11-21-2025 Adult BMI Screening Adult BMI Screen ing [facility] Start: 11-21-2025 Tobacco Screening Tobacco Screening [facility] Start: 11-19-2025 Adult BMI Screening Adult BMI Screen ing [facility] Start: 11-19-2025 Tobacco Screening Tobacco Screening [facility] Start: 11-13-2025 Tobacco Screening Tobacco Screening [facility] Start: 11-12-2025 Adult BMI Screening Adult BMI Screen ing [facility] Start: 11-12-2025 Tobacco Screening Tobacco Screening [facility] Start: 11-08-2025 End: 11-08-2025 US MFM with or without consult US MFM with or without consult Imaging Routine Placenta previa in third trimester History of section complicating Multigravida of advanced maternal age in third trimester Expected: 11/08/2025 (Approximate), Expires: 11/08/2025 [facility] Phone: Comment on above: Expected: 11/08/2025 (Approximate), Expires: 11/08/2025 Start: 11-05-2025 Adult BMI Screening Adult BMI Screen ing [facility] Start: 11-05-2025 Depression Screening Depression Scre ening [facility] Start: 11-05-2025 Tobacco Screening Tobacco Screening [facility] Start: 11-01-2025 Adult BMI Screening Adult BMI Screen ing [facility] Start: 11-01-2025 Tobacco Screening Tobacco Screening [facility] Start: 04-08-2025 Influenza vaccination [facility] Start: 03-27-2025 End: 03-27-2025 Patient encounter procedure [facility] Start: 03-17-2025 Screening for malign ant neoplasm of cervix HPV/Cotest [facility] Start: 02-26-2025 End: 02-26-2025 Telemedicine consultation with patient 02/26/2025 1:30 PM EDT Telemedicine [facility] [address] [place] [phone] Brandi Allen PA-C [address] [place] [address] [facility] Start: 02-04-2025 Influenza vaccination Influenza Vacc ine (#1) [facility] Comment on above: Postponed from 04/08 (Supply/Drug Shortage) Start: 12-20-2024 End: 12-20-2024 Professional / ancillary services management 12/20/2024 4:15 PM EDT Ancillary Procedure [facility] [address] [phone] [facility] Start: 12-17-2024 End: 12-17-2024 Patient encounter procedure 12/17/2024 4:00 PM EDT Routine [facility] [address] [place] [phone] Shannon Felix, CNM [address] [place] [address] [facility] Start: 12-13-2024 End: 12-13-2024 Professional / ancillary services management 12/13/2024 4:15 PM EDT Ancillary Procedure [facility] [address] [phone] [facility] Start: 12-13-2024 End: 12-13-2024 delivery attempted REPEAT IUP PREVIOUS C/S 12/13/2024 12:00 PM EDT [facility] OR Start: 12-13-2024 End: 12-13-2024 Evaluation and management of inpatient [facility] - [facility] Comment on above: REPEAT [59 620 (CPT )] Start: 12-10-2024 End: 12-10-2024 Patient encounter procedure 12/10/2024 4:00 PM EDT Routine [facility] [address] [place] [phone] Shannon Felix, CNM [address] [place] [address] [facility] Start: 12-07-2024 End: 12-07-2024 Patient encounter procedure 12/07/2024 3:30 PM EDT Office Visit Mariaelena L [facility] [address] [place] [phone] Alberto Pearce MD [address] [facility] [address] [place] [address] Mariaelena L [facility] Start: 12-06-2024 End: 12-06-2024 Professional / ancillary services management 12/06/2024 4:15 PM EDT Ancillary Procedure [facility] [address] [facility] [address] [place] [phone] [facility] Start: 12-03-2024 End: 12-03-2024 Patient encounter procedure 12/03/2024 4:00 PM EDT Routine [facility] [address] [facility] [place] [phone] Shannon Felix, CNM [address] [place] [address] [facility] Start: 11-29-2024 End: 11-29-2024 Professional / ancillary services management 11/29/2024 4:15 PM EDT Ancillary Procedure [facility] [address] [facility] [address] [place] [phone] [facility] Start: 11-29-2024 End: 11-29-2024 ambulatory 11/29/2024 1:15 PM EDT Visit [facility] [address] [place] [phone] Ana Maria Ramirez MD [address] [facility] [place] [phone] [facility] Start: 11-27-2024 End: 11-27-2024 Patient encounter procedure 11/27/2024 2:30 PM EDT Routine [facility] [place] [phone] Denise Claudio MD [address] [place] [address], [address] [phone] [facility] Start: 11-27-2024 End: 11-27-2024 ambulatory 11/27/2024 8:30 AM EDT Infusion Mariaelena Bonilla [facility] - Medical Oncology [address] [place] [phone] Mariaelena Bonilla [facility]cology Start: 11-26-2024 End: 11-26-2024 Patient encounter procedure 11/26/2024 4:00 PM EDT Routine [facility] [address] [place] [phone] Shannon Felix, INDRAM [address] [place], [place] [phone] [facility] Start: 11-23-2024 End: 11-23-2024 ambulatory 11/23/2024 2:00 PM EDT Infusion Mariaelena Bonilla [facility] - [facility] Oncology [address] [place] [phone] Mariaelena Esquivel [place] [facility] Start: 11-22-2024 End: 11-22-2024 Professional / ancillary services management 11/22/2024 4:15 PM EDT Ancillary Procedure [facility] [address] [place] [address] [facility] Start: 11-22-2024 End: 11-22-2024 Admission to same day surgery center 11/22/2024 2:00 PM EDT - 11/22/2024 3:00 PM EDT Surgery [facility] [address] [place] [phone] Jose Wilks MD [facility] [employer] [facility] [employer] [facility], D [place], [place] [id number] REPEAT [65726 (CPT )] [facility] Comment on above: REPEAT [59 620 (CPT )] Start: 11-22-2024 End: 11-22-2024 delivery attempted REPEAT IUP PREVIOUS C/S, PLACENTA PREVIA 11/22/2024 2:00 PM EDT [facility] OR Start: 11-22-2024 End: 11-22-2024 Evaluation and management of inpatient [facility] Comment on above: REPEAT [59 620 (CPT )] Start: 11-22-2024 End: 11-22-2024 Patient encounter procedure 11/22/2024 2:00 PM EDT Routine [facility] [address] [place] [phone] Ana Maria Ramirez MD [address] [facility] [place] [phone] [facility] Start: 11-22-2024 Subsequent hospital visit by physician 11/22/2024 2:00 PM EDT Hospital Encounter [facility] Labor [address] [place] [phone] Jose Wilks MD [address] [employer] [facility], [address] [address] [facility] Start: 11-21-2024 End: 11-21-2024 ambulatory 11/21/2024 9:30 AM EDT Infusion Mariaelena Bonilla [facility] - [facility]cology [address] [place] [phone] Mariaelena Bonilla [facility] Start: 11-20-2024 End: 11-20-2024 Patient encounter procedure 11/20/2024 9:15 AM EDT Appointment [facility] [address] [place] [phone] [facility] Start: 11-20-2024 Subsequent hospital visit by physician 11/20/2024 9:15 AM EDT Hospital Encounter [facility] [address] [place] [phone] [facility] Start: 11-19-2024 End: 11-19-2024 ambulatory 11/19/2024 2:00 PM EDT Infusion Mariaelena Bonilla [facility] [address] [place] [phone] Mariaelena Bonilla [facility] Start: 11-19-2024 End: 11-19-2024 Patient encounter procedure [facility] Start: 11-16-2024 End: 11-16-2024 Professional / ancillary services management 11/16/2024 4:15 PM EDT Ancillary Procedure [facility] [address] [facility] [address] [place] [phone] [facility] Start: 11-13-2024 End: 11-13-2024 Telemedicine consultation with patient 11/13/2024 1:00 PM EDT Telemedicine [facility] [address] [place] [phone] Brandi Allen PA-C [address] [place] [address] [facility] Start: 11-12-2024 End: 11-12-2024 Patient encounter procedure [facility] Start: 11-08-2024 End: 11-08-2024 Professional / ancillary services management 11/08/2024 4:15 PM EDT Ancillary Procedure [facility] [address] [place] [phone] [facility] Start: 11-06-2024 End: 11-06-2024 Patient encounter procedure 11/06/2024 8:15 AM EDT Appointment [facility] [address] [place] [phone] [facility] Start: 11-05-2024 End: 11-05-2024 Patient encounter procedure [facility] Comment on above: AMA (advanced matern al age) multigravida 35+, third trimester; Placenta accreta in third trimester Start: 11-05-2024 End: 11-05-2024 ambulatory 11/05/2024 1:45 PM EDT Initial [facility] [address] [place] [phone] Marisol Loredo [address] [facility] [address] [address] [facility] Start: 11-01-2024 End: 11-01-2025 MR Pelvis WO contrast MR pelvis without contrast Imaging STAT Placenta accreta in third trimester Expected: 11/01/2024, Expires: 11/01/2025 [facility] Comment on above: Expected: 11/01/2024 , Expires: 11/01/2025 Start: 11-01-2024 End: 11-01-2024 Patient encounter procedure 11/01/2024 8:45 AM EDT Office Visit [facility]- [facility] at [facility] [address] [place] [address] Aicha Laws MD [address], [address] [place] [address], [place] [address] [facility] Start: 11-01-2024 End: 11-01-2024 Patient encounter procedure 11/01/2024 7:30 AM EDT Appointment [facility] [address] [facility] [place] [phone] [facility] Start: 10-29-2024 End: 10-29-2024 Patient encounter procedure 10/29/2024 2:00 PM EDT Routine [facility] [address] [place] [address] Shannon Felix CNM [address] [place], [place] [phone] Arrived [facility] Comment on above: [...] PM EDT Routine [facility] [address] [facility] [place] [phone] Shannon Felix CNM [address] [place] [address] [facility] Start: 10-09-2024 End: 10-09-2024 Professional / ancillary services management 10/09/2024 3:30 PM EST Ancillary Procedure [facility] [address] [place] [phone] [facility] Start: 10-08-2024 End: 10-08-2024 Patient encounter procedure 10/08/2024 11:30 AM EST Office Visit [facility] [address] [place] [phone] Mery Patel NP [address] [place] [address] Arrived [facility] Comment on above: [...] PM EST Routine [facility] [address] [facility] [place] [phone] Shannon Felix, CNM [address] [place] [address] Arrived [facility] Comment on above: Arrived Start: 08-09-2024 End: 08-09-2024 Patient encounter procedure 08/09/2024 4:00 PM EST Routine [facility] [address] [facility] [place] [phone] Shannon Felix, CNM [address] [facility], [place] [phone] [facility] Start: 08-09-2024 End: 08-09-2025 US for US OB limited 1+ fetuses Imaging Routine Marginal placenta Expected: 08/09/2024, Expires: 08/09/2025 [facility] Work Phone: Comment on above: Expected: 08/09/2024 , Expires: 08/09/2025 Start: 07-09-2024 End: 07-09-2024 Professional / ancillary services management 07/09/2024 4:30 PM EST Ancillary Procedure [facility] [address] [place] [phone] [facility] Start: 07-09-2024 End: 07-09-2024 [...] PM EST Routine [facility] [address] [place] [phone] Shannon Felix, BREANNE [address] [place] [address] Arrived [facility] Comment on above: Arrived Start: 06-11-2024 End: 06-11-2025 US for US OB limited 1+ fetuses Imaging Routine Subchorionic hematoma in first trimester, single or unspecified fetus Expected: 06/11/2024, Expires: 06/11/2025 [facility] Work Phone: Comment on above: Expected: 06/11/2024 , Expires: 06/11/2025 Start: 05-10-2024 End: 05-10-2024 ambulatory 05/10/2024 3:30 PM EDT Initial [facility] [address] [place] [id number] Shannon Felix CNM [address] [place] [address] Arrived [facility] Comment on above: Arrived Start: 05-10-2024 End: 05-10-2024 Professional / ancillary services management 05/10/2024 3:30 PM EDT Ancillary Procedure [facility] [address] [id number] [facility] Start: 04-08-2024 Influenza vaccination [facility] Start: 10-28-2007 Screening for malign ant neoplasm of cervix Pap Smear [facility] Start: 2004 Adult BMI Screening Adult BMI Screen ing [facility] Start: 1998 Depression Screening Depression Scre ening [facility] Start: 1998 Tobacco Screening Tobacco Screening [facility] End: 11-01-2025 CBC panel - Blood by Automated count CBC without diff Lab Routine Placenta accreta in third trimester 1 Occurrences starting 11/01/2024 until 11/01/2025 [facility] Work Phone: Comment on above: 1 Occurrences starti ng 11/01/2024 until 11/01/2025 End: 11-01-2025 Comprehensive metabolic 2000 panel - Serum or Plasma Comprehensive metabolic panel Lab Routine Placenta accreta in third trimester 1 Occurrences starting 11/01/2024 until 11/01/2025 [facility] on above: 1 Occurrences starti ng 11/01/2024 until 11/01/2025 End: 11-01-2025 Cyanocobalamin vitamin b-12 Vitamin B12 Lab Routine Placenta accreta in third trimester 1 Occurrences starting 11/01/2024 until 11/01/2025 [facility] Comment on above: 1 Occurrences starti ng 11/01/2024 until 11/01/2025 End: 11-01-2025 Ferritin [Mass/volume] in Serum or Plasma Ferritin Lab Routine Placenta accreta in third trimester 1 Occurrences starting 11/01/2024 until 11/01/2025 [facility] Comment on above: 1 Occurrences starti ng 11/01/2024 until 11/01/2025 End: 11-01-2025 Folate Folate Lab Routine Placenta accreta in third trimester 1 Occurrences starting 11/01/2024 until 11/01/2025 [facility] Comment on above: 1 Occurrences starti ng 11/01/2024 until 11/01/2025 End: 11-22-2024 Oxygen Therapy - Maintain SpO2: 90% or greater; *BOTTLE CARRIER Guidelines for O2: Yes; Document: [email or web address] 20Guidelines/[email or web address] [id number] Oxygen Therapy - Maintain SpO2: 90% or greater; *BOTTLE CARRIER Guidelines for O2: Yes; Document: [email or web address] 20Guidelines/CPG%20Oxyge n%[email or web address] Respiratory Care STAT Maternal iron deficiency anemia affecting in third trimester, antepartum As Needed for 1 Occurrences starting 11/21/2024 until 11/22/2024 [employer] Work Phone: Comment on above: As Needed for 1 Occu rrences starting 11/21/2024 until 11/22/2024 End: 11-18-2025 RPR Screen Response to Therapy, Serum RPR Screen Response to Therapy, Serum Lab Routine Biological false positive RPR test 1 Occurrences starting 11/18/2024 until 11/18/2025 [facility] Work Phone: Comment on above: 1 Occurrences starti ng 11/18/2024 until 11/18/2025 End: 11-11-2025 Syphilis Total(Unknown Syphilis Status) Syphilis Total(Unknown Syphilis Status) Lab Routine Biological false positive RPR test 1 Occurrences starting 11/12/2024 until 11/11/2025 [facility] Work Phone: Comment on above: 1 Occurrences starti ng 11/12/2024 until 11/11/2025 URINARY TRACT INFECT ION (HTRX) URINARY TRACT INFECTION (HTRX) Lab Routine Urine frequency Ordered: 09/06/2024 [employer] Work Phone: Comment on above: Ordered: 09/06/2024 End: 02-04-2025 US biophysical profile w non stress test US biophysical profile w non stress test Imaging Routine AMA (advanced maternal age) multigravida 35+, third trimester Placenta accreta in third trimester 8 Occurrences starting 11/05/2024 until 02/04/2025 [employer] Work Phone: Comment on above: 8 Occurrences starti ng 11/05/2024 until 02/04/2025 Payers Date Payer Category Payer Private Health Insurance [id number] 2020 Managed Care Other (unspecified) [id number] 2020 Unknown [id number] 2.16.8 [id number] 2014 Unknown [id number] 1986 Unknown [id number] 2.16.840.1.075267.3.579.2.593 1986 Unknown [id number] 2.16.840.1.709210.3.579.2.1286 1986 Unknown [id number] 2.16.840.1.819915.3.579.2.1286 1986 Unknown [id number] 2.16.840.1.375262.3.579.2.1286 1986 Unknown [id number] 2.16.840.1.037205.3.579.2.1286 1986 Unknown [id number] 2.16.840.1.371354.3.579.2.128 1986 Unknown [id number] 2.16.840.1.291243.3.579.2.1286 1986 Unknown [id number] 2.16.840.1.309361.3.579.2.128 1986 Unknown [id number] 2.16.840.1.186085.3.579.2.128 1986 Unknown [id number] 2.16.840.1.524089.3.579.2.1285 1986 Unknown [id number] 2.16.840.1.035856.3.579.2.128 1986 Unknown [id number] 2.16.840.1.737784.3.579.2.128 1986 Unknown [id number] 2.16.840.1.657829.3.579.2.1286 1986 Unknown [id number] 2.16.840.1.065873.3.579.2.128 1986 Unknown [id number] 2.16.840.1.143850.3.579.2.1259 1986 Unknown [id number] 2.16.840.1.260033.3.579.2.9 1986 Unknown [id number] 2.16.840.1.681059.3.579.2.9 1986 Unknown [id number] 2.16.840.1.449118.3.579.2.1258 1986 Unknown [id number] 2.16.840.1.996648.3.579.2.1258 1986 Unknown [id number] 2.16.840.1.021945.3.579.2.1258 1986 Unknown [id number] 2.16.840.1.674582.3.579.2.1258 1986 Unknown [id number] 2.16.840.1.484487.3.579.2.1258 1986 Unknown [id number] 2.16.840.1.538006.3.579.2.1258 1986 Unknown [id number] 2.16.840.1.360745.3.579.2.1258 1986 Unknown [id number] 2.16.840.1.971417.3.579.2.1258 1986 Unknown [id number] 2.16.840.1.256103.3.579.2.1258 1986 Unknown [id number] 2.16.840.1.157540.3.579.2.1258 1986 Unknown [id number] 2.16.840.1.624877.3.579.2.1258 1986 Unknown [id number] 2.16.840.1.116539.3.579.2.1258 1986 Unknown [id number] 2.16.840.1.420269.3.579.2.1258 1986 Unknown [id number] 2.16.840.1.344998.3.579.2.1258 1986 Unknown [id number] 2.16.840.1.117460.3.579.2.9 1959 Self-pay Social History Date Type Detail Facility Unknown if ever smoked [facility] Other Start: 09-17-2020 End: 03-26-2024 Sex Assigned At [facility] Start: 08-22-2018 End: 01-12-2023 Tobacco smoking status [...] to any clubs or organizations such as hindu groups, unions, fraternal or athletic groups, or [...] Start: 03-29-2024 [facility] Start: 10-19-2024 End: 11-23-2024 Alcoholic beverage intake Lifetime non-drinker (finding) [facility] Start: 03-11-2015 Sex Female (finding) [facility] Clinical Notes 02-05-2022 to 11-23-2024 Margarita Dyer RN - 11/23/2024 2:00 PM Jose Alberto Knowles RN - 11/21/2024 9:30 AM EDTTelephone Encounter - Aicha Laws MD - 11/20/2024 11:52 AM Onur Barker MD - 11/19/2024 11:00 AM EDT Note Date & Type Note Facility 11-23-2024 History of Presen t illness Narrative Patient here for venofer as scheduled. Patient had iron before and her only complaint was feeling flushed the first time but her previous infusion she was fine. Vitals stable. IV started and flushed. Venofer given over 15 minutes per order, patient tolerated well. Patient declined to stay for 30 minute observation, patient had no complaints. IV flushed, removed, and pressure dressing applied. Patient aware of upcoming appt and discharged in stable condition. documented in this encounter [facility] 11-21-2024 History of Presen t illness Narrative Patient presents for Venofer infusion. Patient does voice feeling flushed yesterday for a few minutes, relief noted without interventions, patient did notify OB. No further issues voiced. Education provided, patient aware to voice any issues. PIV initiated, brisk blood return noted, flushed with NS. NS infusing as KVO. Venofer infused over 15 minutes without incidence. Observation x 30 minutes completed. Vitals remain stable. Patient tolerated well. Appointment calendar provided for remaining infusions- as delivery date was pushed back. PIV discontinued, gauze secured with coban. Discharged in stable condition. documented in this encounter [facility] 11-20-2024 Miscellaneous Notes Formattin g of this note might be different from the original. I called the patient and reviewed ultrasound findings from today Placenta previa has resolved on ultrasound today Timing of delivery recommended 39 weeks All her questions and concerns were answered The patient tells me that she got late corticosteroids as she was scheduled for delivery at 36w0d you with a placenta previa. I reviewed with her that since on ultrasound today the placenta previa has a resolved delivery is no longer indicated. Her questions regard steroids was reviewed AICHA LAWS MD documented in this encounter [facility] 11-20-2024 Telephone encount er Note I called the patient and reviewed ultrasound findings from today Placenta previa has resolved on ultrasound today Timing of delivery recommended 39 weeks All her questions and concerns were answered The patient tells me that she got late corticosteroids as she was scheduled for delivery at 36w0d you with a placenta previa. I reviewed with her that since on ultrasound today the placenta previa has a resolved delivery is no longer indicated. Her questions regard steroids was reviewed AICHA LAWS MD [facility] 11-19-2024 History of Presen t illness Narrative Patient is here for IV Venofer as scheduled. She reports feeling well today and tolerating the first infusion well. PIV initiated in left forearm without incident and tolerated well. Brisk blood return verified and line flushes with ease. NS initiated as mainline at KVO rate. Venofer infused per MAR without incident and patient tolerated well. Upon completion, IV flushed. Patient remained on the unit for 30 minutes post infusion for observation. At completion, VS stable and patient denies any complaints. PIV discontinued and pressure dressing applied. Reviewed upcoming appointment time with patient and she verbalized understanding to all instructions. Discharged in stable condition to private vehicle. documented in this encounter [facility] 11-19-2024 History of Presen t illness Narrative Seen by attending Egnar [facility] High Risk Obstetrics Visit Return OB CC: Scheduled OB Visit None Problem List Active Problems History of section complicating Maternal iron deficiency anemia affecting in third trimester, antepartum Overview 11/05/24 11.6/34.1 MCV 82 B12 146 and ferritin 10 Blood management referral Multigravida of advanced maternal age in third trimester Overview testing: weekly NST/DVP--being done at primary ob Serial growth scans Transfer from [facility] Perry, BREANNE Hudspeth Dated by 10 week US with BERT 11/20/24 Initial labs completed 28 week labs nml one hr gct. Needs repeat syphilis Placenta previa in third trimester - Primary Overview Anterior placenta previa with possible placenta accreta based on US -MRI ordered, scheduled 11/06/24- NO EVIDENCE of accreta on MRI (I personally discussed with radiologist) -delivery at [id number] if PAS suspected -will need to schedule c section 36-37 weeks Weekly testing/serial growth scans. Good FM. Denies Bleeding, SROM, contractions Denies persistent N/V, constipation, heartburn, hematuria, dysuria Is doing testing twice weekly Control Method plan: vasectomy Problem List reviewed and updated PMH/PSH/FH/Soc/Meds/Allergies Reviewed PE BP 112/74 Wt 69.9 kg (154 lb) LMP 03/15/2024 BMI 23.42 kg/m Alert, NAD ABdomen: Soft, NT, nondistended Wt Readings from Last 3 Encounters: 11/16/24 70.4 kg (155 lb 3.2 oz) 11/12/24 70.4 kg (155 lb 4.8 oz) 11/05/24 68.4 kg (150 lb 11.2 oz) See flowsheet Imp/Plan at 35w3d Patient Active Problem List Diagnosis Placenta previa in third trimester History of section complicating Multigravida of advanced maternal age in third trimester Biological false positive RPR test Maternal iron deficiency anemia affecting in third trimester, antepartum care labor warnings/ Movement discussed Previous for repeat due to placenta previa at 36 weeks ANCS today and tomorrow Scheduled for 11/22/24 Soap, preoperative drink, ERA-C information provided False positive RPR with initial labs Needs syphilis IgG and RPR Iron deficiency anemia At this time, unable to arrange prior to delivery. Will target postoperative administration. Rec'd dose 11/16/24, and has a dose today and Seek testing for COVID and influenza if with URI symptoms and call if positive. RTC 1 weeks postop Note to patient: The Century Cures Act makes medical notes like these [...] and the clinical opinion of the practitioner. Pt here for routine HROB 35w4d Denies lof vb ctx Confirms +fm Pt given letter, soap, and drink today No concerns today documented in this encounter [facility] 11-19-2024 Miscellaneous Notes Formattin g of this note might be different from the original. Spoke with pt to schedule 3-4 month f/u with brandi on 02/26 at 1:30 pm via my chart video. PT requested reminder for labs just prior. documented in this encounter [facility] 11-19-2024 Telephone encount er Note Spoke with pt to schedule 3-4 month f/u with brandi on 02/26 at 1:30 pm via my chart video. PT requested reminder for labs just prior. [facility] 11-16-2024 History of Presen t illness Narrative The patient is here for her Venofer infusion The patient reports not having iron through IV before Patient educated on risk of reactions Patient v/u PIV obtained with brisk blood return Venofer started and completed over 15 min Patient tolerated well Patient observed post infusion for 30 min Patient discharged in stable condition documented in this encounter [facility] 11-13-2024 History of Presen t illness Narrative Images from the original note were not included. [facility] XIANG Bobby, [facility]ER [employer] [employer] Video Visit via Real-time Synchronous Audiovisual Provider [facility] [address] [place] [phone] Patient Location: Patient's home Video Visit Consent Statement: I discussed risks, benefits, and alternatives of a real-time synchronous audiovisual consultation with the patient (and any accompanying persons) including the risks that the patient's personal health details and medical records will be discussed over real-time, synchronous, interactive video/audio/telecommunication technology, the visit will not be recorded without the express consent of both the provider and the patient, and that there are some limitations compared to [id number] evaluations. The patient consented to the presence of additional virtual and/or in-person participants. We elected to proceed. NEW OUTPATIENT HEMATOLOGY CONSULT NOTE Patient ID: Hyacinth Escalona, 39 y.o. female Referred by: Emma Barker MD PCP: NO PCP, NO PCP : 1985 REASON FOR CONSULTATION: Anemia affecting CHIEF COMPLAINT: New patient for anemia affecting HISTORY OF PRESENT ILLNESS: Hyacinth Escalona is a 39 y.o. female with history of anxiety, depression, and panic disorder who presents today for consultation at [facility] due to anemia during . Hyacinth is currently 34 weeks 5 days . She is scheduled for a on 11/22/2024. Her recent labs showed anemia along with iron deficiency and vitamin B12 deficiency. She was already given a dose of vitamin B12 IM and started on oral vitamin B12 and oral folic acid. We discussed during the iron requirements are high. She has been on an iron supplement with her . She is okay with IV iron infusions. PAST HEMATOLOGY HISTORY: Oncology History No history exists. PAST MEDICAL HISTORY: Past Medical History: Diagnosis Date Anxiety Depression Panic disorder Urinary tract infection PAST SURGICAL HISTORY: Past Surgical History: Procedure Laterality Date APPENDECTOMY SECTION x 2 PAST FAMILY HISTORY: Family History Problem Relation Age of Onset Heart attack Paternal Grandfather Diabetes Maternal Grandmother Heart attack Maternal Grandmother SOCIAL HISTORY: Lives in [facility]. Social History Socioeconomic History Marital status: Significant Other Spouse name: Not on file Number of children: Not on file Years of education: Not on file Highest education level: Not on file Occupational History Not on file Tobacco Use Smoking status: Never Smokeless tobacco: Never Vaping Use Vaping status: Never Used Substance and Sexual Activity Alcohol use: Never Drug use: Never Sexual activity: Not Currently Partners: Male control/protection: None Other Topics Concern Not on file Social History Narrative Not on file Social Drivers of Health Financial Resource Strain: Medium Risk (11/05/2024) Overall Financial Resource Strain (CARDIA) Difficulty of Paying Living Expenses: Somewhat hard Food Insecurity: No Food Insecurity (11/12/2024) Hunger Screening Food Insecurity - Worry: Never True Food Insecurity - Inability: Never True Transportation Needs: No Transportation Needs (03/26/2024) Received from [facility] PRAPARE - Transportation Lack of Transportation (Medical): No Lack of Transportation (Non-Medical): No Physical Activity: Inactive (03/26/2024) Received from [facility] Exercise Vital Sign Days of Exercise per Week: 0 days Minutes of Exercise per Session: 0 min Stress: Stress Concern Present (03/26/2024) [facility] - Occupational Stress Questionnaire Feeling of Stress : Rather much Social Connections: Socially Isolated (03/26/2024) Received from [facility] Social Connection and Isolation Panel [NHANES] Frequency of Communication with Friends and Family: Never Frequency of Social Gatherings with Friends and Family: Never Attends Rastafarian Services: Never Active Member of Clubs or Organizations: No Attends Club or Organization Meetings: Never Marital Status: Never Interpersonal Safety: Not At Risk (11/05/2024) Humiliation, Afraid, Rape, and Kick questionnaire Fear of Current or Ex-Partner: No Emotionally Abused: No Physically Abused: No Sexually Abused: No Housing Instability: Patient Declined (11/05/2024) Housing Instability Housing Instability: Patient Declined MEDICATIONS: Current Outpatient Medications on File Prior to Visit Medication Sig Dispense Refill cyanocobalamin 1000 MCG tablet Take 1 tablet (1,000 mcg total) by mouth in the morning. 30 tablet 3 docusate sodium (COLACE) 100 mg capsule Take 1 capsule (100 mg total) by mouth in the morning and 1 capsule (100 mg total) before bedtime. 60 capsule 2 folic acid (FOLVITE) 1 mg tablet Take 1 tablet (1 mg total) by mouth in the morning. 90 tablet 0 norelgestromin-ethin.estradioL (ORTHO EVRA) 150-35 mcg/[address] 1 patch on the skin once a week. (Patient not taking: Reported on 11/01/2024) ondansetron ODT (ZOFRAN-ODT) 4 mg disintegrating tablet Dissolve 1 tablet (4 mg total) on tongue every 8 (eight) hours as needed for nausea for up to 10 doses. (Patient not taking: Reported on 11/12/2024) 10 tablet 0 cc793-inlm-chzbw acid ( 19) 29 mg iron- 1 mg tablet,chewable Chew 1 tablet and swallow in the morning. (Patient not taking: Reported on 11/12/2024) Current Facility-Administered Medications on File Prior to Visit Medication Dose Route Frequency Provider Last Rate Last Admin [COMPLETED] cyanocobalamin (VITAMIN B-12) injection 1,000 mcg 1,000 mcg intramuscular Once 1,000 mcg at 11/12/24 1628 ALLERGIES: No Known Allergies PHYSICAL EXAMINATION: Vital signs: LMP 03/15/2024 General appearance: alert, no acute distress HEENT: supple LABORATORY DATA: Lab Results Component Value Date WBC 10.1 11/05/2024 HGB 11.6 (L) 11/05/2024 HCT 34.1 (L) 11/05/2024 MCV 82 11/05/2024 PLT 220 11/05/2024 Lab Results Component Value Date GLU 72 11/05/2024 CALCIUM 9.3 11/05/2024 SODIUM 135 11/05/2024 K 4.0 11/05/2024 CO2 26 11/05/2024 BUN 5 11/05/2024 CREATININE 0.57 11/05/2024 Lab Results Component Value Date ALT 9 11/05/2024 AST 16 11/05/2024 ALKPHOS 195 (H) 11/05/2024 No results found for: INR , PROTIME IMAGING: Reviewed in EPIC BILLING: Total time spent was 22 minutes: Preparing to see the patient (e.g., review of tests) Obtaining and/or reviewing separately obtained history Performing a medically appropriate examination and/or evaluation Counseling and educating the patient/family/caregiver Ordering medications, tests, or procedures Documenting clinical information in the electronic or other health record ASSESSMENT: Iron deficiency anemia during the 3rd trimester of with vitamin B12 deficiency: Baseline hemoglobin around 14. We discussed that red blood cell production starts with the kidneys secreting a hormone called erythropoietin which stimulates the bone marrow to produce red blood cells. The bone marrow then requires iron, folic acid, and vitamin B12 to create red blood cells, which later get secreted into the blood stream. Normal kidney function. 11/05/2024 folate at the low end of normal at 6.3. She was already started on oral folic acid 1 mg daily. 11/05/2024 vitamin B12 low at 146. She was given a vitamin B12 IM injection x1 and started on oral vitamin B12 1000 mcg daily. 11/05/2024 ferritin decreased at 10. Ordered IV Venofer 200 mg x 5 at [facility]. Since she was scheduled for her on 11/22/2024 she was asked to receive at least 2 or 3 doses of Venofer prior to her . We can give her couple doses while in the hospital and then she should finish her Venofer post delivery. RECOMMENDATIONS: - continue oral folic acid and oral vitamin B12 - IV Venofer 200 mg x 5 - follow-up visit in 3-4 months with repeat labs Brandi Allen PA-C [facility] 11/13/24 1:42 PM Brandi Allen PA-C 11/13/24 1343 documented in this encounter [email or web address] 11-13-2024 Miscellaneous Notes Formattin g of this note might be different from the original. Patient returned call regarding upcoming appointments. Informed patient that her was scheduled for 11/22/24 at 2:00 pm and she would need to be at the hospital by 12:00 pm. Also explained there would be a letter with all the details sent to her MyChart. Patient verbalizes understanding. Spoke to patient regarding need for steroids before her surgery, that her visit would need to be 11/19/24 at 11 am, and we would give her first steroid injection then. I had arranged with Elena Felix APRN's office to give her second steroid injection 11/20/24 at 11 am in her office. Patient verbalizes understanding. documented in this encounter [facility] 11-13-2024 Telephone encount er Note Patient returned call regarding upcoming appointments. Informed patient that her was scheduled for 11/22/24 at 2:00 pm and she would need to be at the hospital by 12:00 pm. Also explained there would be a letter with all the details sent to her MyChart. Patient verbalizes understanding. Spoke to patient regarding need for steroids before her surgery, that her visit would need to be 11/19/24 at 11 am, and we would give her first steroid injection then. I had arranged with Elena Felix APRN's office to give her second steroid injection 11/20/24 at 11 am in her office. Patient verbalizes understanding. [facility] 11-13-2024 Telephone encount er Note VM message from [facility] would like a call back at [phone] [facility] 11-13-2024 Miscellaneous Notes Formattin g of this note might be different from the original. VM message from [facility] would like a call back at [phone] documented in this encounter [facility] 11-13-2024 Miscellaneous Notes Formattin g of this note might be different from the original. ----- Message from Emma Barker MD sent at 11/12/2024 4:11 PM EDT ----- Regarding: Change appt [facility], Can we schedule patient for appointment on 11/19 (currently for 11/22 but she will be getting delivered that day) Emma Landrum Emma Barker MD [facility] [facility] Hello, Can we schedule patient for appointment on 11/19 (currently for 11/22 but she will be getting delivered that day) Emma Landrum Left message for patient to call office to move appt. Gladis documented in this encounter [facility] 11-13-2024 Telephone encount er Note ----- Message from Emma Barker MD sent at 11/12/2024 4:11 PM EDT ----- Regarding: Change appt Hello, Can we schedule patient for appointment on 11/19 (currently for 11/22 but she will be getting delivered that day) Emma Landrum [facility] 11-13-2024 Telephone encount er Note Emma Barker MD P [facility] Women Appointment Desk Hello, Can we schedule patient for appointment on 11/19 (currently for 11/22 but she will be getting delivered that day) Emma Landrum Left message for patient to call office to move appt. Gladis [facility] 11-12-2024 Miscellaneous Notes Formattin g of this note might be different from the original. Called pt to schedule referral appt STAT with one of our providers. PT stated they are having a next week and appt is approved by Brandi for 11/13 at 1 pm via my chart video documented in this encounter [facility] 11-12-2024 Telephone encount er Note Called pt to schedule referral appt STAT with one of our providers. PT stated they are having a next week and appt is approved by Brandi for 11/13 at 1 pm via my chart video [facility] 11-12-2024 History of Presen t illness Narrative Attending Attestation: I saw the patient. I participated and was physically present during the critical/castanon portions of the service. I was directly involved in the management and treatment plan of the patient. I reviewed the resident's note. Additional Notes/Findings: Return OB Good FM. Denies Bleeding, SROM, contractions + constipation and heartburn at night Problem List reviewed and updated PE BP 116/74 Wt 70.4 kg (155 lb 4.8 oz) LMP 03/15/2024 BMI 23.61 kg/m Alert, NAD See flowsheet Urine dipstick shows Protein N Glucose N Imp/Plan at 34w3d Patient Active Problem List Diagnosis Placenta previa in third trimester History of section complicating Multigravida of advanced maternal age in third trimester Biological false positive RPR test care labor warnings/ Movement discussed Anterior placenta previa with 2 prior cesareans. MRI without evidence of accreta spectrum disorder Patient voices understanding that she is at high risk for hysterectomy For delivery at 36 weeks via repeat (Th 11/22/24) with cell saver availability ANCS pre --for first injection of ANCS on 11/19/24 Candidate for ANCS (nml one hr gct at 27w6d) Cell saver Hysterectomy tray available Growth scan 11/30/24 Continue weekly testing with priimary ob until delivery Iron deficient with hb 11. For blood management referral due to high risk for hemorrhage. B12 deficiency Given delivery <2 weeks away, will provide IM B12 today RTC 1 weeks via HROB Note to patient: The Century Cures Act makes medical notes like these [...] and the clinical opinion of the practitioner. [facility] High Risk Obstetrics Visit Return OB CC: Scheduled OB Visit None Problem List Other Placenta previa in third trimester Overview Anterior placenta previa with possible placenta accreta based on US -MRI ordered, scheduled 11/06/24- NO EVIDENCE of accreta on MRI (I personally discussed with radiologist) -delivery at [id number] if PAS suspected -will need to schedule c section 36-37 weeks Weekly testing/serial growth scans. History of section complicating - Primary Multigravida of advanced maternal age in third trimester Overview testing: weekly NST/DVP--being done at primary ob Serial growth scans Transfer from [facility] Dated by 10 week US with BERT 11/20/24 Initial labs completed 28 week labs nml one hr gct. Needs repeat syphilis Biological false positive RPR test Overview 05/2024 RPR 1:1 FTA-ABS negative Nees repeat syphilis testing Relevant Orders Syphilis Total(Unknown Syphilis Status) Reports good FM. Denies Bleeding, SROM, contractions Denies persistent N/V, heartburn, hematuria, dysuria Control Method plan: Vasectomy Problem List reviewed and updated PMH/PSH/FH/Soc/Meds/Allergies Reviewed PE BP 116/74 Wt 70.4 kg (155 lb 4.8 oz) LMP 03/15/2024 BMI 23.61 kg/m Alert, NAD ABdomen: Soft, NT, nondistended FHTs 145 Wt Readings from Last 3 Encounters: 11/12/24 70.4 kg (155 lb 4.8 oz) 11/05/24 68.4 kg (150 lb 11.2 oz) 11/01/24 67.8 kg (149 lb 6.4 oz) See flowsheet Urine dipstick shows Protein negative Glucose negative Leukocyte negative Imp/Plan at 34w4d Patient Active Problem List Diagnosis Placenta previa in third trimester History of section complicating Multigravida of advanced maternal age in third trimester Biological false positive RPR test Anemia during in third trimester Hx of 2 prior CD, placenta previa possible accreta - MRI on 11/06 with no evidence of accreta - Plan for delivery 36-37 weeks by repeat CS - Discussed with patient may still be accreta,and will not be able to tell until delivery - Has MFM TVUS scheduled for 11/20 - Will need ANCS prior to surgery, Will schedule CS Iron Deficiency Anemia, B12 deficiency Referral to blood Management placed IM B12 injection today RTC 1 weeks via HROB Note to patient: The Century Cures Act makes medical notes like these [...] and the clinical opinion of the practitioner. 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 Patient called with a question of whether she should wait for her 12/07/24 appointment with Hematology to receive iron infusion as this date is beyond when Dr Laws recommended delivery. Preschool Education Director conferred with Dr Laws who states it should be arranged for patient to have iron infusion at her local hospital earlier than 12/07/24 and suggests assembly instructions writer call Dr Ramirez's nurse to see if that could be arranged. Preschool Education Director called Merline at [facility] who states [facility] Hematology will be calling the patient to set up a video visit with the patient so that an iron infusion can be arranged at [facility]. Merline said [facility] Hematology should be reaching out to the patient very soon. Preschool Education Director called the patient back and relayed this to her. Patient verbalized understanding, documented in this encounter [facility] 11-09-2024 Telephone encount er Note Patient called with a question of whether she should wait for her 12/07/24 appointment with Hematology to receive iron infusion as this date is beyond when Dr Laws recommended delivery. Preschool Education Director conferred with Dr Laws who states it should be arranged for patient to have iron infusion at her local hospital earlier than 12/07/24 and suggests assembly instructions writer call Dr Ramirez's nurse to see if that could be arranged. Preschool Education Director called Merline at [facility] who states [facility] Hematology will be calling the patient to set up a video visit with the patient so that an iron infusion can be arranged at [facility]. Merline said [facility] Hematology should be reaching out to the patient very soon. Preschool Education Director called the patient back and relayed this to her. Patient verbalized understanding, [facility] 11-09-2024 Miscellaneous Notes Formattin g of this note might be different from the original. Esha from [facility] called to check if we could see this pt sooner than when Dr. Pearce scheduled pt. LVM for pt to schedule their appt sooner with kianna, gave pt call back number documented in this encounter [facility] 11-09-2024 Telephone encount er Note Esha from [facility] called to check if we could see this pt sooner than when Dr. Pearce scheduled pt. LVM for pt to schedule their appt sooner with kianna, gave pt call back number [facility] 11-08-2024 Miscellaneous Notes Formattin g of this note might be different from the original. Preschool Education Director lvm requesting return call to confirm appointment scheduled in [place] on 11/20 at 9:45. documented in this encounter [facility] 11-08-2024 Telephone encount er Note Preschool Education Director mague requesting return call to confirm appointment scheduled in [place] on 11/20 at 9:45. [facility] 11-07-2024 Miscellaneous Notes Formattin g of [...] AICHA LAWS MD documented in this encounter [facility] 11-07-2024 Telephone encount er Note MRI [...] resolution of the previa AICHA LAWS MD [facility] 11-06-2024 History of Presen t illness Narrative Called Elena CHO's office. They had not arranged IV Iron for the patient. Referral placed for Hematology at [facility] in [place], [place] for the patient to get started on IV iron infusions. Called patient to let her know, no answer. Left voicemail message that someone from Hematology would be calling her to set up IV iron and if she had any questions to call the office at [phone], option #3 for the nurse. documented in this encounter [facility] 11-05-2024 History of Presen t illness Narrative Pt here for initial HROB 33w4d Denies lof vb ctx Confirms +fm No concerns today [facility] Initial High Risk [...] taking: Reported on 11/05/2024) 10 tablet 0 [id number] acid ( 19) 29 mg iron- 1 [...] ultrasound: Datinw4d on 05/10/24 Anatomy: completed 08/07/24 [facility] US 11/01/24: transverse HML, anterior placenta previa, DVP 4.4cm, EFW 2,438g (83%), AC 96% Post delivery contraceptive plan: undecided Imp/Plan 39 y.o. at 33w4d Problem List Other 33 weeks gestation of Care PNV labor precautions discussed Anemia labs to be obtained today H/o section x2 - Plan for delivery via repeat Anterior placenta previa Evaluated by [facility], recommended proceeding with MRI for concern of PAS. Scheduled today for 11/06/24 [facility] US 11/01/24: Anterior Placenta previa. Some transabdominal views show an area of bulging into the bladder midline/left lateral, along with presence of placental sinuses. No other sonographic signs of placenta accreta appreciated Delivery timing [id number] if placenta accreta is ruled out, recommend delivery at [id number] if accreta cannot be ruled out RTC 1 weeks HROB Resident Attestation: The patient was seen and discussed with preceptor Dr. Loredo. Michael Ochoa MD Certified Income Tax Preparer Resident, PGY-3 Attending Attestation: I saw the [...] Marisol Loredo DO documented in this encounter [facility] 11-01-2024 History of Presen t illness Narrative Images from the original note were not included. [facility] Maternal- Medicine Consult Note Reason For Consult: Here for placenta evaluation HPI: Hyacinth Escalona is a 39 y.o. at 32w6d with Estimated Date of Delivery: 12/20/24 who presented for consultation from Shannon Sim, COLLECTIONS CLERK-INDRAM regarding Chief Complaint Patient presents with Anterior [...] 10 doses., Disp: 10 tablet, Rfl: 0 [id number] acid ( 19) 29 mg iron- 1 [...] Resource Strain: Medium Risk (03/26/2024) Received from [facility] Overall Financial Resource Strain (CARDIA) Difficulty of Paying Living Expenses: Somewhat hard Food Insecurity: No Food Insecurity (11/01/2024) Hunger Screening Food Insecurity - Worry: Never True Food Insecurity - Inability: Never True Transportation Needs: No Transportation Needs (03/26/2024) Received from [facility] PRAPARE - Transportation Lack of Transportation (Medical): No Lack of Transportation (Non-Medical): No Physical Activity: Inactive (03/26/2024) Received from [facility] Exercise Vital Sign Days of Exercise per Week: 0 days Minutes of Exercise per Session: 0 min Stress: Stress Concern Present (03/26/2024) Received from [facility] [employer] - Occupational Stress Questionnaire Feeling of Stress : Rather much Social Connections: Socially Isolated (03/26/2024) Received from [facility] Social Connection and Isolation Panel [NHANES] Frequency of Communication with Friends and Family: Never Frequency of Social Gatherings with Friends and Family: Never Attends Rastafarian Services: Never Active Member of Clubs or Organizations: No Attends Club or Organization Meetings: Never Marital Status: Never Interpersonal Safety: Not on file Housing Instability: Low Risk (03/26/2024) Received from [facility] Housing Stability Vital Sign Unable to Pay [...] previa recommendation is for delivery by section [id number]. Delivery at a tertiary center we will [...] Risks of delivery to the were reviewed [facility] recommended placenta accreta checklist The patient primary OB provider Bart Felix CNM was notified. I called her and I reviewed the plan of care with her and the recommendations Recommendations: Transfer of care to the [facility] for plan delivery at [facility]. Appt scheduled Urgent placental MRI to evaluate placenta If placenta accreta is ruled out manage as placenta previa with a timing of delivery [id number]. Her placenta appears to be very vascular [...] Aicha Laws MD, FACOG (she/hers) Maternal- Medicine [facility] [address] [place] [address] This document was created with [employer] technology. Though I make every effort to review the dictation as it is transcribed, on occasion the spoken word can be misinterpreted by the technology leading to inappropriate words, phrases, or sentences. This note is addressed to the requesting provider as a consultation for clinical guidance. Specific medical abbreviations are occasionally used and those are generally approved by the [place]?Board of?Obstetrics and?Gynecology?as well as?Dahiana escobedo abbreviations. The above plan of care was based solely on the diagnoses for which a consultation was requested. ?More frequent testing may be indicated based on her other medical/obstetrical conditions. The management of other or medical conditions is beyond the scope of requested consultation and will continue to be followed by the primary urogynecology physician or primary care provider. Note to patient: The 21st Century Cures Act makes medical notes like these [...] No Have you been seen here at [facility] in a previous ? No Recent ER visits or hospitalizations? Went to ER on 10/17 for rule out rupture Bring blood sugar log or meter with you today? (Please bring them with you for every visit at [facility]) NA Flu vaccine (Jun-October)? No Any concerns that you would like me to mention to the provider today? No documented in this encounter [facility] 10-29-2024 History of Presen t illness Narrative [...] a routine visit. documented in this encounter [facility] 10-23-2024 Miscellaneous Notes Formattin g of this note might be different from the original. Palma from Elena Felix's office returned call and LVM. Patient did not have genetic testing. documented in this encounter [facility] 10-23-2024 Telephone encount er Note Palma from Elena Felix's office returned call and LVM. Patient did not have genetic testing. [facility] 10-22-2024 Miscellaneous Notes Formattin g of this note might be different from the original. Called Shannon Felix's office to see if patient had genetic testing done. Shannon's nurse is gone for the day so the studio receptionist sent her a message to follow up when she get's back. documented in this encounter [facility] 10-22-2024 Telephone encount er Note Called Shannon Felix's office to see if patient had genetic testing done. Shannon's nurse is gone for the day so the studio receptionist sent her a message to follow up when she get's back. [facility] 10-11-2024 Telephone encount er Note Jonna from [facility] called -Safety Technician reviewed - they only have one US for Hyacinth. If there are more , please fax them over to [phone] [facility] 10-11-2024 Miscellaneous Notes Formattin g of this note might be different from the original. Jonna from [facility] called -Safety Technician reviewed - they only have one US for Hyacinth. If there are more , please fax them over to [phone] documented in this encounter [facility] 10-08-2024 History of Presen t illness Narrative Images from the original note were not included. Hyacinth Ecsalona is a 38 y.o. female presents with [...] note provided, Have your company send over [facility] paperwork to be filled out to be off work 10/05/24-10/12/34. May return back to work on 10/15/24. Follow up as needed documented in this encounter [facility] 09-26-2024 History of Presen t illness Narrative [...] a routine visit. documented in this encounter [facility] 09-06-2024 History of Presen t illness Narrative [...] a routine visit. documented in this encounter [facility] 08-09-2024 History of Presen t illness Narrative [...] a routine visit. documented in this encounter [facility] 07-09-2024 History of Presen t illness Narrative [...] a routine visit. documented in this encounter [facility] 06-18-2024 History of Presen t illness Narrative [...] follow-ups on file. documented in this encounter [facility] 06-11-2024 History of Presen t illness Narrative [...] a routine visit. documented in this encounter [facility] 05-10-2024 History of Presen t illness Narrative [...] also given office phone number and [facility] number to call in case of an emergency or after hours needs. PVU and all questions answered. We did discuss place of delivery. Patient should plan to go to [facility] for all services unless an emergency and they need to go to the closest ER. We can make other arrangements possibly if patient would like to deliver at another facility but I did explain I am now at [facility] 100% of the time and would like to do all deliveries there. documented in this encounter [facility] 04-18-2024 Telephone encount er Note Pt took a test and it is positive, Lmp- 03/15/2024 - regular flow, She only took one test, Please schedule as a new OB [phone] [facility] 04-18-2024 Miscellaneous Notes Formattin g of this note might be different from the original. Pt took a test and it is positive, Lmp- 03/15/2024 - regular flow, She only took one test, Please schedule as a new OB [phone] documented in this encounter [facility] 10-04-2022 Evaluation note Encounter Date Diagnosis Assessment [...] (suspected) exposure to covid-19 (ICD-10 - Z20.822) [employer] [employer] Other 07-01-2022 NotePROCEDURE: [email or web address] VCT 64, 5 mm slice axial images [...] and signed by Neri Torres on 02/05/2022 [facility]* Diagnosis Acute cystitis without hematuria- Primary Dysuria , unspecified gestational age documented in this encounter [facility]* Diagnosis Encounter for supervision of other normal in second trimester- Primary Subchorionic hematoma in first trimester, single or unspecified fetus History of section Other postprocedural status [facility] Diagnosis Encounter for supervision of other normal , second trimester- Primary History of section Other postprocedural status related condition in second trimester [facility]* Diagnosis Bacterial vaginosis- Primary Unspecified vaginitis and vulvovaginitis [facility]* Diagnosis examination or test, positive result- Primary Amenorrhea Absence of menstruation Subchorionic hematoma in first trimester, single or unspecified fetus Subchorionic hematoma in first trimester, single or unspecified fetus [facility]* Diagnosis History of section- Primary Other postprocedural status Urine frequency Encounter for supervision of other normal , second trimester [facility]* Diagnosis Encounter for supervision of other normal , second trimester- Primary Marginal placenta Placenta previa without hemorrhage, unspecified as to episode of care [facility] Diagnosis Encounter for supervision of other normal , third trimester- Primary Screening for iron deficiency anemia Screening for diabetes mellitus (DM) Screening for diabetes mellitus History of section Other postprocedural status documented in this encounter [facility] HealthcareEvaluation note* Diagnosis Influenza A- Primary Influenza with other respiratory manifestations Acute cough documented in this encounter [facility] note* Diagnosis Encounter for supervision of other normal , third trimester- Primary AMA (advanced maternal age) multigravida 35+, third trimester History of section Other postprocedural status documented in this encounter [facility] Healthcare[facility] note* Diagnosis Placenta accreta in third trimester- Primary 33 weeks gestation of H/O section complicating [facility] Diagnosis 33 weeks gestation of - Primary Placenta previa in third trimester History of section complicating Previous delivery, unspecified as to episode of care or not applicable Placenta accreta in third trimester Multigravida of advanced maternal age in third trimester [facility] Diagnosis AMA (advanced maternal age) multigravida 35+, third trimester Placenta accreta in third trimester documented in this encounter [facility]* Diagnosis Placenta previa in third trimester- Primary Placenta accreta in third trimester 33 weeks gestation of H/O section complicating documented [facility]* Diagnosis B12 deficiency- Primary Iron deficiency anemia during documented [facility]* Diagnosis Anemia affecting in third trimester- Primary documented in [facility]* Diagnosis Iron deficiency anemia during documented in this [facility]* Diagnosis Placenta previa in third trimester- Primary History of section complicating Previous delivery, unspecified as to episode of care or not applicable Multigravida of advanced maternal age in third trimester documented [facility]* Diagnosis Placenta previa in third trimester- Primary History of section complicating Previous delivery, unspecified as to episode of care or not applicable Multigravida of advanced maternal age in third trimester Anemia affecting in third trimester Biological false positive RPR test documented [facility] [facility] Diagnosis Maternal iron deficiency anemia affecting in third trimester, antepartum- Primary Anemia affecting in third trimester Anemia due to vitamin B12 deficiency, unspecified B12 deficiency type documented in this encounter [facility] Diagnosis Maternal iron deficiency anemia affecting in third trimester, antepartum- Primary documented in this encounter [facility] Diagnosis Maternal iron deficiency anemia affecting in third trimester, antepartum- Primary documented in this encounter [facility] Diagnosis Placenta previa in third trimester- Primary Multigravida of advanced maternal age in third trimester Maternal iron deficiency anemia affecting in third trimester, antepartum History of section complicating Previous delivery, unspecified as to episode of care or not applicable Biological false positive RPR test documented in this encounter [facility] general Narrative - Reported* Type Description Date Surgical History appendectomy Surgical History C section x2 Hospitalization History see above [facility] Other History of Present illness Narrative* Shannon Felix CNM - 11/05/2024 6:30 PM EDT Subjective No [...] today Today is her last appt w sd as she will be a complete transfer of care for anterior placenta with possible accreta. Patient will have NST and BPPs done at the hospital. Expected mode of delivery Follow up in 1 week for a routine visit. documented in this encounterNOHermann Area District HospitalInstructionsNot on filedocumented in this encounterProSycamore Medical CenterABODO Health SystemInstructionsNot on filedocumented in this encounterProSycamore Medical CenterLogMeIn SystemInstructionsNot on filedocumented in this encounterProUsa Health University Hospital Health SystemInstructions* Attachments The following attachments cannot be sent through Care Everywhere. * Preeclampsia ([place]) documented in this encounterProSycamore Medical CenterABODO Health SystemInstructionsNot on file documented in this encounterProSycamore Medical CenterABODO Health SystemInstructionsNot on file documented in this encounterProSycamore Medical CenterABODO Health SystemInstructionsNot on file documented in this encounterProSycamore Medical CenterABODO Health SystemInstructionsNot on file documented in this encounterProMediABODO Health SystemInstructionsNot on file documented in this encounterProMediABODO Health SystemInstructionsNot on file documented in this encounterProSycamore Medical CenterABODO Health SystemInstructionsNot on file documented in this encounterProSycamore Medical CenterABODO Health SystemInstructionsNot on file documented in this encounterProSycamore Medical CenterABODO Health SystemInstructionsNot on file documented in this encounterProSycamore Medical CenterABODO Health SystemInstructionsNot on file documented in this encounterProSycamore Medical CenterABODO Health SystemInstructionsNot on file documented in this encounterProSycamore Medical CenterABODO Health SystemInstructionsNot on file documented in this encounterProSycamore Medical CenterABODO Health SystemInstructionsNot on file documented in this encounterProSycamore Medical CenterABODO Health SystemReason for visit Narrative* Consultation (Routine) - Pending Review Specialty Diagnoses / Procedures Referred By Gary t Referred To Contact Hematology Diagnoses Anemia affecting in third trimester Emma Barker MD [address] [facility], [facility] [id number] [place] [address] Phone: tel: fax: Kianna Solis, COLLECTIONS CLERK-[employer]ER [employer] [address] [place] [address] Phone: tel: fax: Referral ID Status Reason Start Date Expiration Date V isits Requested Visits Authorized [id number] Pending Review 11/12/2024 11/12/2025 1 1 [facility] Summary Purpose Family History No [...] section and content) DATE CREATED AUTHOR 01/31/2018 [facility] DATE CREATED AUTHOR AUTHOR'S ORGANIZ ATION 02/01/2018 [facility] DATE CREATED AUTHOR AUTHOR'S ORGANIZ ATION 09/21/2020 [facility] DATE CREATED AUTHOR AUTHOR'S ORGANIZ ATION 03/30/2021 [facility] DATE CREATED AUTHOR AUTHOR'S ORGANIZ ATION 02/06/2022 [facility] DATE CREATED AUTHOR AUTHOR'S ORGANIZ ATION 11/20/2024 [facility] DATE CREATED AUTHOR AUTHOR'S ORGANIZ ATION 11/25/2024 [facility] DATE CREATED AUTHOR AUTHOR'S ORGANIZ ATION 11/25/2024 [facility] d[facility] Specialists EPIC REASON FOR VISIT (unrecogniz ed section and content) Reason Comments UTI Reason Comments Cough Reason Comments Anterior placenta hx C/S x2 questionable low lying placenta AMA Reason Comments Initial Visit Specialty Diagnoses / Procedures Referred By Contac t Referred To Contact Obstetrics & Gynecology / Obstetrics and Gynecology Diagnoses Placenta accreta in third trimester 33 weeks gestation of H/O section complicating Aicha Laws MD [address] [facility], [address] [place] [address] Phone: tel: fax: Ana Maria Ramirez MD [address] [facility] [place] [address] Phone: tel: fax: Referral ID Status Reason Start Date Expiration Date Visits Requested Visits Authorized [id number] Pending Review Specialty Services Required 11/01/2024 11/01/2025 1 1 Reason Comments Routine Visit Reason Onset Date Comments Incoming Call 11/13/2024 Reason Comments Outpatient Infusion Venofer Specialty Diagnoses / Procedures Referred By Contac t Referred To Contact Diagnoses Maternal iron deficiency anemia affecting in third trimester, antepartum Procedures MI IRON SUCROSE INJECTION Brandi Allen PA-C [address] [address] [place] [address] Phone: tel: fax: Mariaelena Esquivel [facility] [address] [place] [phone] Phone: tel: fax: Referral ID Status Reason Start Date Expiration Date V isits Requested Visits Authorized [id number] Authorized 11/13/2024 11/13/2025 5 5 Reason Comments Routine Visit Reason Comments Outpatient Infusion venofer Care Teams (unrecognized sec tion and content) Hvac Operations Technician Relationship Specialty Start Date End Date Valentina Sadler MD [address] [place] [address] PCP - General Family Medicine 01/12/23 Aria Daugherty NP [facility] [place] [address] Nurse Practitioner Family Medicine 01/12/23 Fina Park NP [address] [place] [address] Nurse Practitioner Family Medicine 02/27/24 Hvac Operations Technician Relationship Specialty Start Date End Date Valentina Sadler MD [address] [place] [address] PCP - General Family Medicine 01/12/23 Aria Daugherty NP [address] [place] [address] Nurse Practitioner Family Medicine 01/12/23 Fina Park NP [address] [place] [address] Nurse Practitioner Family Medicine 02/27/24 Hvac Operations Technician Relationship Specialty Start Date End Date Valentina Sadler MD [address] [place] [address] PCP - General Family Medicine 01/12/23 Aria Daugherty NP [address] [place] [address] Nurse Practitioner Family Medicine 01/12/23 Fina Park NP [address] [place] [address] Nurse Practitioner Family Medicine 02/27/24 Hvac Operations Technician Relationship Specialty Start Date End Date Valentina Sadler MD [address] [place] [address] PCP - General Family Medicine 01/12/23 Aria Daugherty NP [address] [place] [address] Nurse Practitioner Family Medicine 01/12/23 Fina Park NP [address] [place] [address] Nurse Practitioner Family Medicine 02/27/24 Hvac Operations Technician Relationship Specialty Start Date End Date Valentina Sadler MD [address] [place] [address] PCP - General Family Medicine 01/12/23 Aria Daugherty NP [address] [place] [address] Nurse Practitioner Family Medicine 01/12/23 Fina Park NP [address] [place] [address] Nurse Practitioner Family Medicine 02/27/24 Hvac Operations Technician Relationship Specialty Start Date End Date Valentina Sadler MD [address] [place] [address] PCP - General Family Medicine 01/12/23 Aria Daugherty NP [address] [place] [address] Nurse Practitioner Family Medicine 01/12/23 Fina Park NP [address] [place] [address] Nurse Practitioner Family Medicine 02/27/24 Hvac Operations Technician Relationship Specialty Start Date End Date Valentina Sadler MD [address] [place] [address] PCP - General Family Medicine 01/12/23 Aria Daugherty NP [address] [place] [address] Nurse Practitioner Family Medicine 01/12/23 Fina Park NP [address] [place] [address] Nurse Practitioner Family Medicine 02/27/24 Hvac Operations Technician Relationship Specialty Start Date End Date Valentina Sadler MD [address] [place] [address] PCP - General Family Medicine 01/12/23 Aria Daugherty NP [address] [place] [address] Nurse Practitioner Family Medicine 01/12/23 Fina Park NP [address] [place] [address] Nurse Practitioner Family Medicine 02/27/24 Hvac Operations Technician Relationship Specialty Start Date End Date Valentina Sadler MD [address] [place] [address] PCP - General Family Medicine 01/12/23 Aria Daugherty ASSEMBLER [employer] [address] [place] [address] Nurse Practitioner Family Medicine 01/12/23 Fina Park ASSEMBLER [employer] [address] [place] [address] Nurse Practitioner Family Medicine 02/27/24 Hvac Operations Technician Relationship Specialty Start Date End Date Valentina Sadler MD [address] [place] [address] PCP - General Family Medicine 01/12/23 Aria Daugherty, KIARA [address] [place] [address] Nurse Practitioner Family Medicine 01/12/23 Fina Park, ASSEMBLER [employer] [address] [place] [address] Nurse Practitioner Family Medicine 02/27/24 Hvac Operations Technician Relationship Specialty Start Date End Date Valentina Sadler MD [address] [place] [address] PCP - General Family Medicine 01/12/23 Aria Daugherty ASSEMBLER [employer] [address] [facility] [place] [address] Nurse Practitioner Family Medicine 01/12/23 Fina Park NP [address] [facility] [place] [address] Nurse Practitioner Family Medicine 02/27/24 Hvac Operations Technician Relationship Specialty Start Date End Date Valentina Salder MD [address] [facility] [place] [address] PCP - General Family Medicine 01/12/23 Aria Daugherty, KIARA [address] [place] [address] Nurse Practitioner Family Medicine 01/12/23 Fina Park, ASSEMBLER [employer] [address] [facility] [place] [address] Nurse Practitioner Family Medicine 02/27/24 Hvac Operations Technician Relationship Specialty Start Date End Date Valentina Sadler MD [address] [facility] [place] [address] PCP - General Family Medicine 01/12/23 Aria Daugherty, KIARA [address] [facility] [place] [address] Nurse Practitioner Family Medicine 01/12/23 Fina Park, ASSEMBLER [employer] [address] [place] [address] Nurse Practitioner Family Medicine 02/27/24 Hvac Operations Technician Relationship Specialty Start Date End Date Valentina Sadler MD [address] [place] [address] PCP - General Family Medicine 01/12/23 Aria Daugherty NP [address] [place] [address] Nurse Practitioner Family Medicine 01/12/23 Fina Park NP [address] [place] [address] Nurse Practitioner Family Medicine 02/27/24 Hvac Operations Technician Relationship Specialty Start Date End Date No Pcp, [place] [address] PCP - General Family Medicine 08/22/18 Hvac Operations Technician Relationship Specialty Start Date End Date No Pcp, [place] [address] PCP - General Family Medicine 08/22/18 Hvac Operations Technician Relationship Specialty Start Date End Date No Pcp, [place] [address] PCP - General Family Medicine 08/22/18 Hvac Operations Technician Relationship Specialty Start Date End Date Valentina Sadler MD [address] [place] [address] PCP - General Family Medicine 01/12/23 Aria Daugherty NP [address] [place] [address] Nurse Practitioner Family Medicine 01/12/23 Fina Park NP [address] [place] [address] Nurse Practitioner Family Medicine 02/27/24 Hvac Operations Technician Relationship Specialty Start Date End Date No Pcp, [place] [address] PCP - General Family Medicine 08/22/18 Hvac Operations Technician Relationship Specialty Start Date End Date No Pcp, [place] [address] PCP - General Family Medicine 08/22/18 Hvac Operations Technician Relationship Specialty Start Date End Date Valentina Sadler MD [address] [place] [address] PCP - General Family Medicine 01/12/23 Aria Daugherty NP [address] [facility] [place] [address] Nurse Practitioner Family Medicine 01/12/23 Fina Park NP [address] [facility] [place] [address] Nurse Practitioner Family Medicine 02/27/24 Hvac Operations Technician Relationship Specialty Start Date End Date Valentina Sadler MD [address] [facility] [place] [address] PCP - General Family Medicine 01/12/23 Aria Daugherty NP [address] [facility] [place] [address] Nurse Practitioner Family Medicine 01/12/23 Fina Park NP [address] [place] [address] Nurse Practitioner Family Medicine 02/27/24 Hvac Operations Technician Relationship Specialty Start Date End Date No Pcp, [place] [address] PCP - General Family Medicine 08/22/18 Hvac Operations Technician Relationship Specialty Start Date End Date No Pcp, [place] [address] PCP - General Family Medicine 08/22/18 Hvac Operations Technician Relationship Specialty Start Date End Date No Pcp, [place] [address] PCP - General Family Medicine 08/22/18 Hvac Operations Technician Relationship Specialty Start Date End Date No Pcp, [place] [address] PCP - General Family Medicine 08/22/18 Hvac Operations Technician Relationship Specialty Start Date End Date No Pcp, [place] [address] PCP - General Family Medicine 08/22/18 Hvac Operations Technician Relationship Specialty Start Date End Date Valentina Sadler MD [address] [place] [address] PCP - General Family Medicine 01/12/23 Aria Daugherty, ASSEMBLER [employer] [address] [place] [address] Nurse Practitioner Family Medicine 01/12/23 Fina Park, ASSEMBLER [employer] [address] [place] [address] Nurse Practitioner Family Medicine 02/27/24 Hvac Operations Technician Relationship Specialty Start Date End Date Valentina Sadler MD [address] [place] [address] PCP - General Family Medicine 01/12/23 Aria Daugherty NP [address] [place] [address] Nurse Practitioner Family Medicine 01/12/23 Fina Park, ASSEMBLER [employer] [address] [place] [address] Nurse Practitioner Family Medicine 02/27/24 Hvac Operations Technician Relationship Specialty Start Date End Date No Pcp, [place] [address] PCP - General Family Medicine 08/22/18 Hvac Operations Technician Relationship Specialty Start Date End Date No Pcp, [place] [address] PCP - General Family Medicine 08/22/18 Hvac Operations Technician Relationship Specialty Start Date End Date Valentina Sadler MD [address] [place] [address] PCP - General Family Medicine 01/12/23 Aria Daugherty, ASSEMBLER [employer] [address] [place] [address] Nurse Practitioner Family Medicine 01/12/23 Fina Park NP [address] [place] [address] Nurse Practitioner Family Medicine 02/27/24 Hvac Operations Technician Relationship Specialty Start Date End Date No Pcp, [place] [address] PCP - General Family Medicine 08/22/18 Hvac Operations Technician Relationship Specialty Start Date End Date No Pcp, [place] [address] PCP - General Family Medicine 08/22/18 Hvac Operations Technician Relationship Specialty Start Date End Date No Pcp, [place] [address] PCP - General Family Medicine 08/22/18 Hvac Operations Technician Relationship Specialty Start Date End Date No Pcp, [place] [address] PCP - General Family Medicine 08/22/18 Hvac Operations Technician Relationship Specialty Start Date End Date No Pcp, [place] [address] PCP - General Family Medicine 08/22/18 Hvac Operations Technician Relationship Specialty Start Date End Date No Pcp, [place] [address] PCP - General Family Medicine 08/22/18 Hvac Operations Technician Relationship Specialty Start Date End Date No Pcp, [place] [address] PCP - General Family Medicine 08/22/18 Hvac Operations Technician Relationship Specialty Start Date End Date Valentina Sadler MD [facility] [place] [address] PCP - General Family Medicine 01/12/23 Aria Daugherty NP [facility] [place] [address] Nurse Practitioner [facility] 01/12/23 Fina Park NP [facility] [place] [address] Nurse Practitioner Family Medicine 02/27/24 FOR RECORDS [...] BE BASED ON THE PRIMARY CLINICAL RECORDS. [employer]. provides no warranty or guarantee of the accuracy or completeness of information in this document.
== END 2024-11-26 17:30 | disposition home or self-care (01) ==
LOC: FBCO 16:49 → FBC 16:55
PROVIDERS: PCP Family Medicine; Visit Provider Midwife
DX: O43.899 Other placental disorders, unspecified trimester (principal)
CPT/HCPCS: 59025

== ENCOUNTER 2024-11-29 16:52 | Outpatient (OUT) | payer OTHER, SELFPAY ==
--- NOTE | 2024-11-29 16:56 | US_ITS ---
[place] [id number] Patient Name: HYACINTH HOLT MRN: [id number] date: 1985 Sex: F Assigned Patient Location: [facility] Current Patient Location: Accession/Order Number: [id number] Exam Date: 11/29/2024 22:32 Report Date: 11/29/2024 22:33 At the request of: SHANNON KONG APRN, CNM Procedure: US OB BPP w non-stress Biophysical profile. Reason for exam: Advanced maternal age. COMPARISON: BPP 11/22/2024. TECHNIQUE: Transabdominal imaging of the gravid uterus was obtained. FINDINGS: Software Controls Engineer reports a BPP of 8 out of 8. SHILPI is normal at 11.1 cm. heart rate 120 bpm. US/US OB BPP w non-stress IMPRESSION: BPP 8 out of 8. Impression dictated by: Neri Snyder Jr., D.O.11/29/2024 10:33 PM Dictation [facility] Electron[facility] authenticated by: [id number] Y Date: 11/29/2024 22:33
[2024-11-29 17:32] VITALS: BP 122/85; PULSE 71
== END 2024-11-29 18:20 | disposition home or self-care (01) ==
LOC: US 16:52 → FBC 16:53
PROVIDERS: PCP Family Medicine; Visit Provider Midwife
DX: O09.523 Supervision of elderly multigravida, third trimester (principal); Z3A.37 37 weeks gestation of pregnancy
CPT/HCPCS: 76818

== ENCOUNTER 2024-12-03 16:54 | Outpatient (OUT) | payer OTHER, SELFPAY ==
[2024-12-03 16:59] VITALS: BP 120/79; PULSE 75
== END 2024-12-03 17:30 | disposition home or self-care (01) ==
LOC: FBCO 16:54 → FBC 16:56
PROVIDERS: PCP Family Medicine; Visit Provider Midwife
DX: O26.893 Other specified pregnancy related conditions, third trimester (principal); Z3A.37 37 weeks gestation of pregnancy
CPT/HCPCS: 59025

== ENCOUNTER 2024-12-06 17:23 | Outpatient (OUT) | payer OTHER, SELFPAY ==
--- NOTE | 2024-12-06 | US_ITS ---
[place] [address] Patient Name: HYACINTH HOLT MRN: [id number] date: 1985 Sex: F Assigned Patient Location: [place] Current Patient Location: Accession/Order Number: [id number] Exam Date: 12/07/2024 08:05 Report Date: 12/07/2024 08:06 At the request of: SHANNON KONG APRN, CNM Procedure: US OB BPP w non-stress Biophysical profile. Reason for exam: Advanced maternal age. COMPARISON: BPP 11/29/2024 TECHNIQUE: Transabdominal imaging of the gravid uterus was obtained. FINDINGS: Chemical Dependency Therapist reports a BPP of 8 out of 8. SHILPI is normal at 8.6 cm. heart rate 121 bpm. US/US OB BPP w non-stress IMPRESSION: BPP 8 out of 8. Impression dictated by: Neri Snyder Jr., D.O. 12/07/2024 8:06 AM Dictation Location: [place] [address] Electronically authenticated by: [id number] Y Date: 12/07/2024 08:06
[2024-12-06 17:43] VITALS: BP 117/73; PULSE 80
== END 2024-12-06 18:35 | disposition home or self-care (01) ==
LOC: US 17:24 → FBC 17:24
PROVIDERS: PCP Family Medicine; Visit Provider Midwife
DX: O09.523 Supervision of elderly multigravida, third trimester (principal); O43.213 Placenta accreta, third trimester
CPT/HCPCS: 76818

== ENCOUNTER 2024-12-10 16:47 | Outpatient (OUT) | payer OTHER, SELFPAY ==
[2024-12-10 16:55] VITALS: TEMP 36.2
[2024-12-10 16:56] VITALS: BP 113/66; PULSE 87
== END 2024-12-10 18:00 | disposition home or self-care (01) ==
LOC: FBCO 16:47 → FBC 16:49
PROVIDERS: PCP Family Medicine; Visit Provider Midwife
DX: O09.523 Supervision of elderly multigravida, third trimester (principal); Z3A.38 38 weeks gestation of pregnancy
CPT/HCPCS: 59025

== ENCOUNTER 2024-12-13 16:58 | Outpatient (OUT) | payer OTHER, SELFPAY ==
--- NOTE | 2024-12-13 17:06 | US_ITS ---
[place] [id number] Patient Name: HYACINTH HOLT MRN: [id number] date: 1985 Sex: F Assigned Patient Location: [facility] Current Patient Location: Accession/Order Number: [id number] Exam Date: 12/14/2024 09:52 Report Date: 12/14/2024 09:53 At the request of: SHANNON KONG APRN, CNM Procedure: US OB BPP w non-stress Biophysical profile. Reason for exam: Advanced maternal age. COMPARISON: BPP 12/06/2024 TECHNIQUE: Transabdominal imaging of the gravid uterus was obtained. FINDINGS: Equipment Washer reports a BPP of 8 out of 8. SHILPI is normal at 7.4 cm. heart rate 131 bpm. US/US OB BPP w non-stress IMPRESSION: BPP 8 out of 8. Impression dictated by: Neri Snyder Jr., D.O. 12/14/2024 9:53 AM Dictation Location: [place] [address] Electronically authenticated by: [id number] Y Date: 12/14/2024 09:53
[2024-12-13 17:42] VITALS: BP 111/73; PULSE 77
== END 2024-12-13 18:15 | disposition home or self-care (01) ==
LOC: US 16:58 → FBC 17:06
PROVIDERS: PCP Family Medicine; Visit Provider Midwife
DX: O09.523 Supervision of elderly multigravida, third trimester (principal)
CPT/HCPCS: 76818